=== PATIENT | female | born 1950 | race Caucasian/White ===

== ENCOUNTER 2019-08-09 16:51 | Inpatient (IN) | payer MEDICAID, SELFPAY ==
[2019-08-09 16:53] VITALS: BP 154/75; PULSE 84; RESP 17; TEMP 36.4; O2SAT 96; BMI 32.8
--- NOTE | 2019-08-09 17:39 | ED.DCSUM_ITS ---
- ER Visit Summary Date of Service: 08/09/19 Chief Complaint: Left lower quadrant abdominal pain History of Present Illness: The patient is a 69 F who presents with left lower quadrant abdominal pain that has been getting progressively worse over the past 2 months. Patient had outpatient CT scan done which showed diverticulitis with pelvic abscesses and possible colon cancer. Patient was referred to the emergency department by her primary care physician for IV antibiotics. Primary care physician did a CBC which showed a leukocytosis of 20. Patient states her pain improves with taking Pepto-Bismol. Patient states her pain is stabbing. Patient states pain is localized to the left lower quadrant. Patient denies any nausea or vomiting. Patient denies any diarrhea, melena, or hematochezia. Patient denies any urinary complaints. Physical Examination: Vital signs are stable. Patient is afebrile. Patient is in no acute distress. Oral mucosa is pink and moist. Neck is supple. Trachea is midline. There is no JVD noted. Heart was regular rate and rhythm. Lungs are clear and equal bilaterally. Abdomen is soft. Bowel sounds are normal. There is left lower quadrant tenderness. There is no rebound or guarding noted. Skin is warm dry. Cranial nerves II through XII are intact. There are no focal motor or sensory deficits noted. Extremities are intact. There is no calf tenderness or edema. Test Results: CBC shows leukocytosis of 14.8. Comprehensive metabolic profile was essentially within normal limits. Since the patient had an outpatient CT scan done today this was not repeated. Emergency Department Course and Treatment: Patient was given Cipro, Flagyl, and morphine here in the emergency department. Case was discussed with the hospitalist. He will be in to evaluate the patient and admit the patient to the hospital. Patient understood and was agreeable with the plan. All questions were answered. Disposition: Admit to hospital Impression: 1. Acute diverticulitis This note was generated with [employer] dictation software. It may contain incorrect words, spelling, and punctuation that were not noted in review of the chart prior to signing ED Disposition - Plan for ED Patient: Disposition: Acute Care Hospital [facility] Diagnosis: Diverticulitis Referrals: Fortunato Stephenson MD [Primary Care Provider] -
[2019-08-09] MEDS: Morphine 4 MG/ML Syringe IV ×2 (18:29→22:16)
[2019-08-09 18:32] LABS: ALB/GLOB Ratio 0.5 RATIO (0.9-2.4); AST(SGOT) 12 U/L (15-37); Alanine Aminotransfer ALT/SGPT 20 U/L (13-56); Alkaline Phosphatase 103 U/L (45-117); Anion Gap 6 (5-15); BUN 14 mg/dL (7-18); BUN/Creat Ratio 16.8 RATIO (10-20); Calcium,Total 9.5 mg/dL (8.5-10.1); Chloride 103 mmol/L (98-107); Creatinine, Serum 0.83 mg/dL (0.55-1.02); EST Glomerular Filtration Rate 72 mL/min (>60); Est Glom Filt Rate - Afr Amer 87 mL/min (>60); Estimated Creatinine Clearance 56.02 ml/min; Globulin 5.5 g/dL (2.2-4.2); Glucose 95 mg/dL (74-106); Potassium 3.9 mmol/L (3.5-5.1); Protein, Total 8.5 g/dL (6.4-8.2); Sodium Level 135 mmol/L (136-145)
[2019-08-09] MEDS: metroNIDAZOLE 500 MG/100 ML BAG 100 MG IV (18:36)
[2019-08-09] MEDS: Ciprofloxacin 400 MG/200 ML BAG 200 MG IV (20:06)
[2019-08-09 20:54] LABS: Absolute Lymphocyte Count 2.27 X10^3/uL (0.83-4.51); Absolute Neutrophil Count 11.3 X10^3/uL (2.0-7.7); Basophil# 0.05 X10^3/uL; Basophil% 0.3 % (0-1); Eosinophil# 0.05 X10^3/uL; Eosinophils% 0.3 % (0-5); Hematocrit 39.8 % (37-47); Hemoglobin 12.8 g/dL (12.0-15.0); Lymphocyte # 2.27 X10^3/ul (4.0); Lymphocyte % 15.3 % (19-41); Mean Corp Hgb Conc 32.2 g/dL (32-36); Mean Corpuscular Hgb 29.4 pg (27.0-32.0); Mean Corpuscular Volume 91.3 fL (81-99); Mean Platelet Vol. 8.4 fl (6.2-12.0); Monocyte# 1.07 X10^3/uL; Monocyte% 7.2 % (0-10); NRBC Flagged by Analyzer 0 % (0-5); Neutrophil # 11.32 X10^3/uL (2.7-7.7); Neutrophil % 76.6 % (47-70); Platelet Count 360 K/mm3 (150-450); RBC Distribution Width CV 12.3 % (11.6-14.6); RBC Distribution Width SD 41.2 fl (35.1-43.9); Red Blood Count 4.36 M/mm3 (4.2-5.4); White Blood Count 14.8 K/mm3 (4.4-11.0)
--- NOTE | 2019-08-09 21:02 | ED.RN ---
PT YELLING AT THIS RN, STATES YOU SHOULD BE ASHAMED OF YOURSELF FOR NOT BEING ABLE TO DO YOUR JOB AFTER DIFFICULT BLOOD DRAW. PT TELLS THIS RN TO LEAVE ROOM, REFUSES TO LET THIS RN OBTAIN VITALS. MULTIPLE ATTEMPTS TO DRAW BLOOD BY SEVERAL RNS INCLUDING REGISTERED NURSE NURSERY. EQUAL OPPORTUNITY REPRESENTATIVE IN TO DRAW WELL.
[2019-08-09 22:06] VITALS: BP 148/74; PULSE 91; RESP 16; O2SAT 96
--- NOTE | 2019-08-09 22:18 | PCM.HP.STD ---
Problem List (1) Diverticulitis Status: Acute History of Present Illness Date of Admission: 08/09/19 Chief Complaint: abdominal pain The patient is a 69 year old F with a significant history of asthma; hypothyroidism; hyperlipidemia and hypertension who presented with progressively worsening left lower quadrant abdominal pain that started about 2 to 3 days before 2018. The pain radiates to her back. The pain worsens with lying on her back. The pain improves with taking a hot tea; Pepto-Bismol or Aleve. Patient reports considerable night sweats. Patient was previously evaluated by a doctor/nurse practitioner outpatient and was given some kind of medication which she is unable to recall the exact name. Upon taking that medication she became nauseous. She was evaluated again recently by a doctor outpatient and a CT of her abdomen and pelvis was ordered. The CT of abdomen and pelvis showed probable diverticulitis with malignancy on the differential. She was sent to emergency department at the same day that she had the CT. Past Medical History Medical History: Medical History (Last Reviewed 08/10/19 @ 01:40 by Eugene Luevano MD) HTN (hypertension) I10 Allergies Penicillins Adverse Reaction (Verified 08/09/19 16:52) Unknown Home Medications: Ambulatory Orders Medication Instructions Recorded Albuterol Sulfate [Ventolin Hfa] 2 puff INHALATION Q4H PRN PRN 08/09/19 Amlodipine Besylate 2.5 mg PO DAILY 08/09/19 Levothyroxine [Synthroid] 88 mcg PO DAILY 08/09/19 Simvastatin [Zocor] 20 mg PO QHS 08/09/19 Surgical History: - - ; ankle surgery. Lives: With Family Smoking Status: Current some day smoker Alcohol: None - *Family History Maternal History Items: - - Mother from an aneurysm. Paternal History Items: - - Her father was alcoholic. Review of Systems Constitutional: Denies: Chills, Fever, Weight Change HEENT: Denies: Head Aches, Sinus Congestion, Sinus Drainage Cardiovascular: Denies: Chest Pain, Palpitations Respiratory: Denies: Cough, Shortness of breath at rest, Sputum production Gastrointestinal: Reports: Abdominal Pain, Nausea. Denies: Vomiting Genitourinary: Denies: Dysuria Musculoskeletal: Denies: Joint Pain, Joint Tenderness Skin: Denies: Rash, Wounds Neurological: Denies: Numbness, Tingling, Focal weakness Psychiatric: Denies: Anxiety, Depression, Homicidal Ideations, Suicidal Ideations Hematologic/ Lymphatic: Denies: Easy Bruising, Easy Bleeding VTE Information - Inpt Only VTE Present on Admission: No VTE Mechan Device Prophylaxis: None VTE Pharm Prophylaxis ordered?: Yes Patient Problems: Active and Suspected Problems (Last Updated 08/09/19 @ 22:57 by Eugene Luevano MD) Diverticulitis (Acute) - Physical Exam Vitals/I&O's: Vital Signs Temp Pulse Resp BP Pulse Ox 97.6 F L 91 16 148/74 H 96 08/09/19 16:53 08/09/19 22:06 08/09/19 22:06 08/09/19 22:06 08/09/19 22:06 Oxygen Delivery Method Room Air Weight: 86.6 kg Body Mass Index (BMI) 32.8 Intake and Output for Last 24 Hours 08/07/19 08/08/19 08/09/19 23:59 23:59 23:59 Intake Total 300 / 300 Balance 300 / 300 General: Alert, Oriented x3, Cooperative HEENT: Atraumatic, PERRLA, EOMI, Normocephalic Neck: Supple, No JVD, Negative Carotid Bruits Lungs: Clear to auscultation, Normal air movement Cardiovascular: Regular rate, Normal S1, Normal S2, No murmurs Abdomen: Bowel Sounds Present, Soft, Non Tender Extremities: No edema, Capillary Refill Less than 3 Seconds Skin: No rashes, No breakdown Musculoskeletal: No Tenderness to Palpation of Joints or Extremities Neurological: Cranial nerves II-XII grossly intact Psych/Mental Status: Normal Affect, Appropriate Laboratory Results 08/09/19 17:55: WBC Cancelled, Corrected WBC Cancelled, RBC Cancelled, Hgb Cancelled, Hct Cancelled, MCV Cancelled, MCH Cancelled, MCHC Cancelled, RDW Std Deviation Cancelled, RDW Coeff of Gin Cancelled, Plt Count Cancelled, MPV Cancelled, Immature Gran % (Auto) Cancelled, Neut % (Auto) Cancelled, Lymph % (Auto) Cancelled, [place] % (Auto) Cancelled, Eos % (Auto) Cancelled, Baso % (Auto) Cancelled, Absolute Neuts (auto) Cancelled, Absolute Lymphs (auto) Cancelled, Total Counted Cancelled, Neutrophils % (Manual) Cancelled, Band Neutrophils % Cancelled, Lymphocytes % (Manual) Cancelled, Monocytes % (Manual) Cancelled, Eosinophils % (Manual) Cancelled, Basophils % (Manual) Cancelled, Metamyelocytes % Cancelled, Myelocytes % Cancelled, Promyelocytes % Cancelled, Blast Cells % Cancelled, Plasma Cell % (Manual) Cancelled, Other Cells % Cancelled, Nucleated RBC % Cancelled, Nucleated RBCs/100 WBC Cancelled, Differential Comment Cancelled, Diff Path Review Cancelled, Hypersegmented Neuts Cancelled, Atypical Lymphocytes Cancelled, Reactive Lymphocytes Cancelled, Smudge Cells Cancelled, Toxic Granulation Cancelled, Toxic Vacuolation Cancelled, Dohle Bodies Cancelled, Ronel Rods Cancelled, Platelet Estimate Cancelled, Plt Morphology Comment Cancelled, RBC Morphology Cancelled, Polychromasia Cancelled, Hypochromasia Cancelled, Poikilocytosis Cancelled, Basophilic Stippling Cancelled, Anisocytosis Cancelled, Microcytosis Cancelled, Macrocytosis Cancelled, Spherocytes Cancelled, Sickle Cells Cancelled, Target Cells Cancelled, Tear Drop Cells Cancelled, Ovalocytes Cancelled, Stomatocytes Cancelled, [place] Bodies Cancelled, [place] Cells Cancelled, Bite Cells Cancelled, Crenated Cell Cancelled, Acanthocytes (Spur) Cancelled, Rouleaux Cancelled, Schistocytes Cancelled 08/09/19 17:55: Sodium 135 L, Potassium 3.9, Chloride 103, Carbon Dioxide 26.0, Anion Gap 6, BUN 14, Creatinine 0.83, Estim Creat Clear Calc 56.02, Est GFR (MDRD) Af Amer 87, Est GFR (MDRD) Non-Af 72, BUN/Creatinine Ratio 16.8, Glucose 95, Calcium 9.5, Total Bilirubin 0.40, AST 12 L, ALT 20, Alkaline Phosphatase 103, Total Protein 8.5 H, Albumin 3.0 L, Globulin 5.5 H, Albumin/Globulin Ratio 0.5 L 08/09/19 20:39: WBC 14.8 H, RBC 4.36, Hgb 12.8, Hct 39.8, MCV 91.3, MCH 29.4, MCHC 32.2, RDW Std Deviation 41.2, RDW Coeff of Gin 12.3, Plt Count 360, MPV 8.4, Immature Gran % (Auto) 0.300, Neut % (Auto) 76.6 H, Lymph % (Auto) 15.3 L, [place] % (Auto) 7.2, Eos % (Auto) 0.3, Baso % (Auto) 0.3, Absolute Neuts (auto) 11.3 H, Absolute Lymphs (auto) 2.27, Nucleated RBC % 0 Assessment/Plan All Active Problems (Last Updated 08/09/19 @ 22:57 by Eugene Luevano MD) Diverticulitis (Acute) The patient is a 69 year old F with a significant history of asthma; hypothyroidism; hyperlipidemia and hypertension who presented with progressively worsening left lower quadrant abdominal pain with radiographic evidence of probable diverticulitis and probable malignancy. Acute diverticulitis A CT of abdomen and pelvis with contrast was done at the [facility]. Results was reviewed in community EMR (clinic setting). Image is on disc at our hospital. Diagnosis is probable malignancy. Patient received ciprofloxacin and Flagyl at the emergency department. Continue same antibiotics. Consider referral for colonoscopy after diverticulitis has been treated. This was discussed with patient. Supportive treatment with IV fluids. Clear liquids for now. Trend CBC and BMP. Of note patient had leukocytosis outpatient and at the emergency department. Antiemetics with Zofran. Oxycodone for mild pain. Morphine IV for severe pain. Asthma PRN albuterol continued Hypothyroidism Levothyroxine continued HTN Blood pressure is not within goal. Amlodipine continued HLD Zocor continued DVT Prophylaxis Subcutaneous Lovenox Code Visit Inpatient E&M: 87585 Init Hosp L3
[2019-08-09 23:53] VITALS: BMI 31.6; BMI 31.7
[2019-08-09 23:55] VITALS: BP 120/48; PULSE 81; RESP 18; TEMP 37.4; O2SAT 97
[2019-08-10] MEDS: 0.9% Normal Saline 1,000 ML 75 ML IV (00:28)
[2019-08-10] MEDS: Atorvastatin Calcium 10 MG Tablet PO ×2 (00:40→22:30)
[2019-08-10] MEDS: 0.9% Saline Lock 10 ML Syringe IV ×4 (00:40→08:46)
[2019-08-10] MEDS: Morphine 2 MG/ML Syringe IV ×5 (01:58→17:31)
[2019-08-10 05:25] VITALS: BP 131/68; PULSE 92; RESP 16; TEMP 37.4; O2SAT 94
[2019-08-10] MEDS: Levothyroxine 88 MCG Tablet PO (05:30)
[2019-08-10] MEDS: metroNIDAZOLE 500 MG/100 ML BAG 100 MG IV ×3 (05:30→22:30)
[2019-08-10 05:46] LABS: Absolute Lymphocyte Count 1.99 X10^3/uL (0.83-4.51); Absolute Neutrophil Count 14.1 X10^3/uL (2.0-7.7); Basophil# 0.04 X10^3/uL; Basophil% 0.2 % (0-1); Eosinophil# 0.04 X10^3/uL; Eosinophils% 0.2 % (0-5); Hematocrit 38.8 % (37-47); Lymphocyte # 1.99 X10^3/ul (4.0); Lymphocyte % 11.3 % (19-41); Mean Corp Hgb Conc 33.5 g/dL (32-36); Mean Corpuscular Hgb 30.6 pg (27.0-32.0); Mean Corpuscular Volume 91.3 fL (81-99); Mean Platelet Vol. 8.3 fl (6.2-12.0); Monocyte# 1.38 X10^3/uL; Monocyte% 7.8 % (0-10); NRBC Flagged by Analyzer 0 % (0-5); Neutrophil # 14.14 X10^3/uL (2.7-7.7); Platelet Count 395 K/mm3 (150-450); RBC Distribution Width CV 12.3 % (11.6-14.6); Red Blood Count 4.25 M/mm3 (4.2-5.4); White Blood Count 17.7 K/mm3 (4.4-11.0)
[2019-08-10 06:10] LABS: Anion Gap 8 (5-15); BUN 11 mg/dL (7-18); BUN/Creat Ratio 12.5 RATIO (10-20); Calcium,Total 9.3 mg/dL (8.5-10.1); Chloride 102 mmol/L (98-107); Creatinine, Serum 0.88 mg/dL (0.55-1.02); EST Glomerular Filtration Rate 68 mL/min (>60); Est Glom Filt Rate - Afr Amer 82 mL/min (>60); Estimated Creatinine Clearance 52.84 ml/min; Glucose 105 mg/dL (74-106); Potassium 4.3 mmol/L (3.5-5.1); Sodium Level 134 mmol/L (136-145)
--- NOTE | 2019-08-10 09:24 | CON.PCM_ITS ---
- Consult Date of Consult: 08/10/19 - Reason for Consult CC abdominal pain, consulted by hospitalist service to see patient HISTORY OF PRESENT ILLNESS: Melvi Schmidt is a 69 y/o WF who presents with about 2 month history of left lower quadrant abdominal pain, worsening over time. She was admitted to hospitalist service with diagnosis of acute diverticulitis and noted to have elevated WBC 14.8K, yesterday and this morning it was 17.7K. CT scan - 08/09/2019 Timmy [facility] IMPRESSION: Long segmental sigmoid wall thickening, with colonic diverticula and adjacent soft tissue stranding/edema, raising concern for diverticulitis; however, underlying malignancy cannot be excluded. ?Other consideration would include colitis. Abscess formation in the mid and left pelvis. 1.4 cm low-attenuation lesion or cyst in the right kidney. Patient denies previous colonoscopic evaluation, has had stool guaiac tests in the past that were negative. No colon cancer or inflammatory bowel disease known in family. No previous episodes of diverticulitis. Has long history of constipation - having bowel movements every 2-3 days. She states that she doesn't let it get beyond four days and then she will take a laxative but this is rare. Does admit to straining with bowel movements at times. She states that she hasn't had a bowel movement in a week, but she hasn't eaten much in the past few days. Notes occasional blood on toilet paper and attributes this to hemorrhoids. She has been taking peptobismol for the past 6 weeks for her abdominal symptoms, her stools have been looser with this. PAST MEDICAL HISTORY ? Allergic rhinitis, cause unspecified 04/10/2005 ? Bipolar disorder, unspecified ([facility]) 04/10/2005 ? MANIC, SUICIDE ATTEMPT X1 ? Depressive disorder, not elsewhere classified 04/10/2005 ? MANIC, SUICIDE ATTEMPT X1 ? Herpes zoster without mention of complication ? ? Right scapula ? Impingement syndrome of right shoulder 05/09/2013 ? Other and unspecified hyperlipidemia 04/10/2005 ? POSTABLAT HYPOTHYR NEC 09/30/2005 ? Senile osteoporosis 04/10/2005 ? Thyrotoxicosis without mention of goiter or other cause, without mention of thyrotoxic crisis or storm 09/30/2005 ? Tobacco use disorder 04/10/2005 ? Unspecified asthma(493.90) 04/10/2005 ? PAST SURGICAL HISTORY ? DELIVERY ONLY ? 1972 ? , low cervical ? OPEN RX ANKLE DISLOCATN+FIXATN ? ? ORIF Ankle, Right ankle ? PAST SURGICAL HISTORY OF ? 1993 ? Left breast Lumpectomy, benign ? PAST SURGICAL HISTORY OF ? ? dental mandibular surgery ? TOTAL ABDOM HYSTERECTOMY ? 1997 ? Hysterectomy, SONIA ? ALLERGIES Penicillins ? MEDICATIONS albuterol HFA (VENTOLIN HFA) 90 mcg/actuation inhaler INHALE 2 PUFFS EVERY FOUR HOURS NEEDED FOR WHEEZING OR SHORTNESS OF BREATH beclomethasone (QVAR REDIHALER) 80 mcg/actuation inhaler Inhale 1 Puff as instructed twice daily. levothyroxine (SYNTHROID) 88 mcg tablet Take 1 tablet by mouth once daily. simvastatin (ZOCOR) 20 mg tablet Take 1 tablet by mouth daily at bedtime. amLODIPine (NORVASC) 2.5 mg tablet Take 1 tablet by mouth once daily. 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 EOM intact with sclera clear and no icterus noted. Neck is supple with no jugular venous distention noted. Trachea is midline. Lungs normal breath sounds No rales/rhonchi/wheezing noted. No labored breathing noted, such as retractions. No cough heard. Heart normal heart sounds, regular Abdomen soft and benign but tender in left lower quadrant, no rigidity noted, decreased bowel sounds, difficult to determine if any masses due to body habitus Extremities no calf tenderness noted. No pitting edema noted. Genitourinary/Rectal deferred Skin normal skin integrity. Neurological non focal. Psychological normal affect, patient is calm and appropriate IMPRESSION: acute diverticulitis PLAN: continue IV antibiotics, serial WBC, pain meds as you are doing Will advance to clear liquid diet will follow patient with you, no surgical intervention required at this time, further workup (colonoscopic evaluation) can be done as outpatient
--- NOTE | 2019-08-10 10:35 | CASEMGMT ---
RN CM Assessment Presentation: Acute Diverticulitis Intro role of CM and purpose of RN CM assessment to patient. Pt is awake, alert, sitting in chair. Appears anxious, constant leg tapping, short answers, but willing to participate in assessment. Demographics, PCP and Pharmacy verified. Pt states she lives independently with her son and daughter in law in mobile home. States she cuts grass, does housework and has no personal care needs. PCP: Dr. Stephenson Specialists: Dr. Owens, surgeon Preferred Pharmacy: [facility] Insurance: [facility] Community Plan Prescription Benefit: yes LNOK: SonCharles Living Arrangements: Mobile home with family. Denies any care needs. Transportation: does not drive. States she generally uses taxi service through insurance DME: none HHC/SNF: no history SW Referral: Possible new malignancy. History of Bipolar disorder, manic suicide attempt x 1. Pt anxioux, restless on conversation. Patient DC goals: home DC PLAN: anticipate home on discharge. Hakeem BLACK RN ACM
[2019-08-10 11:00] VITALS: BP 138/63; PULSE 90; RESP 18; TEMP 37.5; O2SAT 96
[2019-08-10] MEDS: Magnesium Hydroxide 30 ML UDC PO (11:05)
[2019-08-10] MEDS: Ciprofloxacin 400 MG/200 ML BAG 200 MG IV ×2 (11:05→21:13)
[2019-08-10] MEDS: amLODIPine 2.5 MG Tablet PO (11:09)
--- NOTE | 2019-08-10 12:14 | CASEMGMT ---
SW met w/pt in room to offer support, given new possible diagnosis. Pt states, there's nothing I can do about it! She states lost a sister and brother to cancer two chen ago. She herself has never had any diagnosis of cancer. SW asked pt about support system, pt states her son and daughter in law with whom she lives are very supportive and they get along well. She states, if we didn't get along I would move back to [place]! SW asked pt about counseling resources, pt declined, stating she is not a people person. SW let pt know if there is any way SW can assist, to let RN know and SW can come back to see her again. Pt states understanding. No further social service needs anticipated at this time. JOSE Win
--- NOTE | 2019-08-10 13:19 | PCM.PN.HOSP ---
Patient Problems: Active and Suspected Problems (Last Reviewed 08/10/19 @ 01:40 by Eugene Luevano MD) Diverticulitis (Acute) Reason for Visit: Follow-up on acute diverticulitis Subjective: Patient was seen and examined. She complains of severe pain in the left lower quadrant. Denies any fever or chills. Able to tolerate sips of water. Requests for advancement in her diet. She admits to being constipated and having had a bowel movement she has been taking Pepto-Bismol which seems to help with her abdominal pain. Vitals/I&O's: Vital Signs Temp Pulse Resp BP Pulse Ox 99.3 F H 92 16 131/68 H 94 08/10/19 05:25 08/10/19 05:25 08/10/19 05:25 08/10/19 05:25 08/10/19 05:25 Oxygen Delivery Method Room Air Weight: 85 kg Body Mass Index (BMI) 31.6 Intake and Output for Last 24 Hours 08/08/19 08/09/19 08/10/19 23:59 23:59 23:59 Intake Total 300 / 300 1360.0 / 1360.0 Output Total 400 / 400 Balance 300 / 300 960.0 / 960.0 General: Alert, Oriented x3, Cooperative, - - in mild distress from pain HEENT: Atraumatic, PERRLA, EOMI, Normocephalic Oral: Moist Mucosa Neck: Supple Lungs: Clear to auscultation, Normal air movement Cardiovascular: Regular rate, Regular Rhythm, Normal S1, Normal S2, No murmurs Abdomen: Bowel Sounds Present, Soft, Non Tender, Non-Distended, No Hepato-splenomegaly Extremities: No edema Skin: No rashes, No breakdown Musculoskeletal: No Tenderness to Palpation of Joints or Extremities Lymphatic: No Cervical, Supraclavicular, or Inguinal Adenopathy Neurological: Cranial nerves II-XII grossly intact, Neuro grossly intact Psych/Mental Status: Normal Affect, Appropriate Laboratory Results 08/09/19 17:55: WBC Cancelled, Corrected WBC Cancelled, RBC Cancelled, Hgb Cancelled, Hct Cancelled, MCV Cancelled, MCH Cancelled, MCHC Cancelled, RDW Std Deviation Cancelled, RDW Coeff of Gin Cancelled, Plt Count Cancelled, MPV Cancelled, Immature Gran % (Auto) Cancelled, Neut % (Auto) Cancelled, Lymph % (Auto) Cancelled, [place] % (Auto) Cancelled, Eos % (Auto) Cancelled, Baso % (Auto) Cancelled, Absolute Neuts (auto) Cancelled, Absolute Lymphs (auto) Cancelled, Total Counted Cancelled, Neutrophils % (Manual) Cancelled, Band Neutrophils % Cancelled, Lymphocytes % (Manual) Cancelled, Monocytes % (Manual) Cancelled, Eosinophils % (Manual) Cancelled, Basophils % (Manual) Cancelled, Metamyelocytes % Cancelled, Myelocytes % Cancelled, Promyelocytes % Cancelled, Blast Cells % Cancelled, Plasma Cell % (Manual) Cancelled, Other Cells % Cancelled, Nucleated RBC % Cancelled, Nucleated RBCs/100 WBC Cancelled, Differential Comment Cancelled, Diff Path Review Cancelled, Hypersegmented Neuts Cancelled, Atypical Lymphocytes Cancelled, Reactive Lymphocytes Cancelled, Smudge Cells Cancelled, Toxic Granulation Cancelled, Toxic Vacuolation Cancelled, Dohle Bodies Cancelled, Ronel Rods Cancelled, Platelet Estimate Cancelled, Plt Morphology Comment Cancelled, RBC Morphology Cancelled, Polychromasia Cancelled, Hypochromasia Cancelled, Poikilocytosis Cancelled, Basophilic Stippling Cancelled, Anisocytosis Cancelled, Microcytosis Cancelled, Macrocytosis Cancelled, Spherocytes Cancelled, Sickle Cells Cancelled, Target Cells Cancelled, Tear Drop Cells Cancelled, Ovalocytes Cancelled, Stomatocytes Cancelled, [place] Bodies Cancelled, [place] Cells Cancelled, Bite Cells Cancelled, Crenated Cell Cancelled, Acanthocytes (Spur) Cancelled, Rouleaux Cancelled, Schistocytes Cancelled 08/09/19 17:55: Sodium 135 L, Potassium 3.9, Chloride 103, Carbon Dioxide 26.0, Anion Gap 6, BUN 14, Creatinine 0.83, Estim Creat Clear Calc 56.02, Est GFR (MDRD) Af Amer 87, Est GFR (MDRD) Non-Af 72, BUN/Creatinine Ratio 16.8, Glucose 95, Calcium 9.5, Total Bilirubin 0.40, AST 12 L, ALT 20, Alkaline Phosphatase 103, Total Protein 8.5 H, Albumin 3.0 L, Globulin 5.5 H, Albumin/Globulin Ratio 0.5 L 08/09/19 20:39: WBC 14.8 H, RBC 4.36, Hgb 12.8, Hct 39.8, MCV 91.3, MCH 29.4, MCHC 32.2, RDW Std Deviation 41.2, RDW Coeff of Gin 12.3, Plt Count 360, MPV 8.4, Immature Gran % (Auto) 0.300, Neut % (Auto) 76.6 H, Lymph % (Auto) 15.3 L, [place] % (Auto) 7.2, Eos % (Auto) 0.3, Baso % (Auto) 0.3, Absolute Neuts (auto) 11.3 H, Absolute Lymphs (auto) 2.27, Nucleated RBC % 0 08/10/19 05:35: WBC 17.7 H, RBC 4.25, Hgb 13.0, Hct 38.8, MCV 91.3, MCH 30.6, MCHC 33.5, RDW Std Deviation 41.0, RDW Coeff of Gin 12.3, Plt Count 395, MPV 8.3, Immature Gran % (Auto) 0.500, Neut % (Auto) 80.0 H, Lymph % (Auto) 11.3 L, [place] % (Auto) 7.8, Eos % (Auto) 0.2, Baso % (Auto) 0.2, Absolute Neuts (auto) 14.1 H, Absolute Lymphs (auto) 1.99, Nucleated RBC % 0 08/10/19 05:35: Sodium 134 L, Potassium 4.3, Chloride 102, Carbon Dioxide 24.0, Anion Gap 8, BUN 11, Creatinine 0.88, Estim Creat Clear Calc 52.84, Est GFR (MDRD) Af Amer 82, Est GFR (MDRD) Non-Af 68, BUN/Creatinine Ratio 12.5, Glucose 105, Calcium 9.3 Current Medications Albuterol Sulfate (Ventolin Aerosols) 2.5 mg INHALATION Q2H PRN PRN PRN Reason: sob/wheezing Amlodipine Besylate (Norvasc) 2.5 mg PO DAILY [facility] Last Admin: 08/10/19 11:09 Dose: 2.5 mg Documented by: Atorvastatin Calcium (Lipitor) 10 mg PO QHS [facility] Last Admin: 08/10/19 00:40 Dose: 10 mg Documented by: Enoxaparin Sodium (Lovenox) 40 mg SC DAILY [facility] Last Admin: 08/10/19 11:07 Dose: Not Given Documented by: Glucagon () 1 mg IM .X1 PRN PRN Reason: Hypoglycemia Sodium Chloride () 1,000 mls @ 75 mls/hr IV .[id number] [facility] Last Infusion: 08/10/19 10:00 Dose: 0 mls/hr Documented by: Metronidazole (Flagyl) 500 mg in 100 mls @ 100 mls/hr IV Q8 [facility] Last Infusion: 08/10/19 06:30 Dose: Infused Documented by: Ciprofloxacin (Cipro) 400 mg in 200 mls @ 200 mls/hr IV Q12 [facility] Last Admin: 08/10/19 11:05 Dose: 200 mls/hr Documented by: Dextrose (Dextrose 10%-Water) 250 mls @ 999 mls/hr IV .Q16M PRN; Protocol PRN Reason: HYPOGLYCEMIA Sodium Chloride () 250 mls @ 15 mls/hr IV .[id number] PRN PRN Reason: Saline Flush Sodium Chloride () 250 mls @ 15 mls/hr IV .[id number] PRN PRN Reason: Additional IVPB Infusion Levothyroxine Sodium (Synthroid) 88 mcg PO DAILY@0600 [facility] Last Admin: 08/10/19 05:30 Dose: 88 mcg Documented by: Morphine Sulfate () 2 mg IV Q3H PRN PRN PRN Reason: Pain Score 6-10/10 Last Admin: 08/10/19 08:46 Dose: 2 mg Documented by: Ondansetron HCl (Zofran) 4 mg IV Q8H PRN PRN PRN Reason: NAUSEA/VOMITING Oxycodone HCl (Oxyir) 5 mg PO Q4H PRN PRN PRN Reason: Pain Score 4-5/10 Sodium Chloride () 10 - 40 ml IV UD PRN PRN Reason: SALINE FLUSH Last Admin: 08/10/19 08:46 Dose: 10 ml Documented by: Medical Necessity - Tobacco Use Smoking Status: Former smoker Tobacco Use: Non-smoker Assessment/Plan All Active Problems (Last Reviewed 08/10/19 @ 01:40 by Eugene Luevano MD) Diverticulitis (Acute) 1. Acute diverticulitis with abscess formation in the mid and left pelvis, seen on CT scan yas in [facility] On IV Cipro and Flagyl, being managed conservatively with supportive fluids too 2. Hypertension, controlled, continue on amlodipine 3. Hypothyroidism, continue on Synthroid 4. Hyperlipidemia, continue on statin 5. DVT PPx- Lovenox SC Code Visit Inpatient E&M: 07858 Subs Hosp L2
[2019-08-10 17:29] VITALS: BP 148/61; PULSE 102; RESP 18; TEMP 38.3; O2SAT 95
[2019-08-10] MEDS: 0.9% Normal Saline 1,000 ML 125 ML IV (18:06)
[2019-08-10] MEDS: Acetaminophen 325 MG Tablet 650 MG PO (18:07)
[2019-08-10] MEDS: oxyCODONE 5 MG Tablet PO (21:24)
[2019-08-10 22:30] VITALS: BP 110/58; PULSE 79; RESP 18; TEMP 37.3; O2SAT 95
[2019-08-11] MEDS: 0.9% Saline Lock 10 ML Syringe IV ×3 (00:32→08:51)
[2019-08-11] MEDS: Morphine 2 MG/ML Syringe IV ×6 (00:32→23:52)
[2019-08-11] MEDS: oxyCODONE 5 MG Tablet PO ×5 (02:35→18:11)
[2019-08-11] MEDS: 0.9% Normal Saline 1,000 ML 125 ML IV (02:36)
[2019-08-11 05:46] LABS: Absolute Lymphocyte Count 2.25 X10^3/uL (0.83-4.51); Absolute Neutrophil Count 12.4 X10^3/uL (2.0-7.7); Basophil# 0.04 X10^3/uL; Basophil% 0.2 % (0-1); Eosinophil# 0.07 X10^3/uL; Eosinophils% 0.4 % (0-5); Hematocrit 38.8 % (37-47); Hemoglobin 12.7 g/dL (12.0-15.0); Lymphocyte # 2.25 X10^3/ul (4.0); Mean Corp Hgb Conc 32.7 g/dL (32-36); Mean Corpuscular Hgb 30.1 pg (27.0-32.0); Mean Corpuscular Volume 91.9 fL (81-99); Mean Platelet Vol. 8.2 fl (6.2-12.0); Monocyte% 8.1 % (0-10); NRBC Flagged by Analyzer 0 % (0-5); Neutrophil # 12.37 X10^3/uL (2.7-7.7); Neutrophil % 76.7 % (47-70); Platelet Count 385 K/mm3 (150-450); RBC Distribution Width CV 12.4 % (11.6-14.6); RBC Distribution Width SD 41.3 fl (35.1-43.9); Red Blood Count 4.22 M/mm3 (4.2-5.4); White Blood Count 16.1 K/mm3 (4.4-11.0)
[2019-08-11] MEDS: Levothyroxine 88 MCG Tablet PO (05:50)
[2019-08-11] MEDS: metroNIDAZOLE 500 MG/100 ML BAG 100 MG IV ×3 (05:53→23:46)
[2019-08-11 06:00] VITALS: BP 117/46; PULSE 84; RESP 16; TEMP 37.8; O2SAT 92
[2019-08-11 06:20] LABS: ALB/GLOB Ratio 0.5 RATIO (0.9-2.4); AST(SGOT) 15 U/L (15-37); Alanine Aminotransfer ALT/SGPT 15 U/L (13-56); Albumin, Serum 2.5 g/dL (3.2-5.0); Alkaline Phosphatase 94 U/L (45-117); Anion Gap 9 (5-15); BUN 10 mg/dL (7-18); BUN/Creat Ratio 11.3 RATIO (10-20); Chloride 101 mmol/L (98-107); Creatinine, Serum 0.89 mg/dL (0.55-1.02); EST Glomerular Filtration Rate 67 mL/min (>60); Est Glom Filt Rate - Afr Amer 81 mL/min (>60); Estimated Creatinine Clearance 52.24 ml/min; Globulin 5.2 g/dL (2.2-4.2); Glucose 92 mg/dL (74-106); Potassium 4.1 mmol/L (3.5-5.1); Protein, Total 7.7 g/dL (6.4-8.2); Sodium Level 135 mmol/L (136-145)
--- NOTE | 2019-08-11 07:30 | PCM.PN.HOSP ---
Patient Problems: Active and Suspected Problems (Last Reviewed 08/10/19 @ 01:40 by Eugene Luevano MD) Diverticulitis (Acute) Reason for Visit: Follow-up on acute diverticulitis/pelvic abscess Subjective: Patient was seen and examined. She is feeling mildly improved. Had 2 bowel movement yesterday -black in color. She thinks it is from the Pepto-Bismol. She is running a low-grade fever; T-max 101F. Denies any nausea or vomiting or chills. Abdominal pain is improved when she gets pain medications. Objective: Physical exam: General: Alert, Oriented x3, Cooperative HEENT: Atraumatic, PERRLA, EOMI, Normocephalic Oral: Moist Mucosa Neck: Supple Lungs: Clear to auscultation, Normal air movement Cardiovascular: Regular rate, Regular Rhythm, Normal S1, Normal S2, No murmurs Abdomen: Bowel Sounds Present, Soft, tenderness over the left lower quadrant with guarding, non-Distended, No Hepato-splenomegaly Extremities: No edema Skin: No rashes, No breakdown Musculoskeletal: No Tenderness to Palpation of Joints or Extremities Lymphatic: No Cervical, Supraclavicular, or Inguinal Adenopathy Neurological: Cranial nerves II-XII grossly intact, Neuro grossly intact Psych/Mental Status: Normal Affect, Appropriate Vitals/I&O's: Vital Signs Temp Pulse Resp BP Pulse Ox 100.0 F H 84 16 117/46 L 92 08/11/19 06:00 08/11/19 06:00 08/11/19 06:00 08/11/19 06:00 08/11/19 06:00 Oxygen Delivery Method Room Air Weight: 85 kg Body Mass Index (BMI) 31.6 Intake and Output for Last 24 Hours 08/09/19 08/10/19 08/11/19 23:59 23:59 23:59 Intake Total 300 / 300 2720.00 / 3020.00 190 / 1900 Output Total 1000 / 1000 Balance 300 / 300 1720.00 / 2020.00 [id number] Laboratory Results 08/11/19 05:30: WBC 16.1 H, RBC 4.22, Hgb 12.7, Hct 38.8, MCV 91.9, MCH 30.1, MCHC 32.7, RDW Std Deviation 41.3, RDW Coeff of Gin 12.4, Plt Count 385, MPV 8.2, Immature Gran % (Auto) 0.600, Neut % (Auto) 76.7 H, Lymph % (Auto) 14.0 L, [place] % (Auto) 8.1, Eos % (Auto) 0.4, Baso % (Auto) 0.2, Absolute Neuts (auto) 12.4 H, Absolute Lymphs (auto) 2.25, Nucleated RBC % 0 08/11/19 05:30: Sodium 135 L, Potassium 4.1, Chloride 101, Carbon Dioxide 25.0, Anion Gap 9, BUN 10, Creatinine 0.89, Estim Creat Clear Calc 52.24, Est GFR (MDRD) Af Amer 81, Est GFR (MDRD) Non-Af 67, BUN/Creatinine Ratio 11.3, Glucose 92, Calcium 9.0, Total Bilirubin 0.50, AST 15, ALT 15, Alkaline Phosphatase 94, Total Protein 7.7, Albumin 2.5 L, Globulin 5.2 H, Albumin/Globulin Ratio 0.5 L Current Medications Acetaminophen (Tylenol) 650 mg PO Q6H PRN PRN PRN Reason: FEVER Last Admin: 08/10/19 18:07 Dose: 650 mg Documented by: Albuterol Sulfate (Ventolin Aerosols) 2.5 mg INHALATION Q2H PRN PRN PRN Reason: sob/wheezing Amlodipine Besylate (Norvasc) 2.5 mg PO DAILY [facility] Last Admin: 08/10/19 11:09 Dose: 2.5 mg Documented by: Atorvastatin Calcium (Lipitor) 10 mg PO QHS [facility] Last Admin: 08/10/19 22:30 Dose: 10 mg Documented by: Enoxaparin Sodium (Lovenox) 40 mg SC DAILY [facility] Last Admin: 08/10/19 11:07 Dose: Not Given Documented by: Glucagon () 1 mg IM .X1 PRN PRN Reason: Hypoglycemia Sodium Chloride () 1,000 mls @ 125 mls/hr IV .Q8H [facility] Last Infusion: 08/11/19 06:12 Dose: 0 mls/hr Documented by: Metronidazole (Flagyl) 500 mg in 100 mls @ 100 mls/hr IV Q8 [facility] Last Admin: 08/11/19 05:53 Dose: 100 mls/hr Documented by: Ciprofloxacin (Cipro) 400 mg in 200 mls @ 200 mls/hr IV Q12 [facility] Last Infusion: 08/10/19 22:16 Dose: Infused Documented by: Dextrose (Dextrose 10%-Water) 250 mls @ 999 mls/hr IV .Q16M PRN; Protocol PRN Reason: HYPOGLYCEMIA Sodium Chloride () 250 mls @ 15 mls/hr IV .[id number] PRN PRN Reason: Saline Flush Sodium Chloride () 250 mls @ 15 mls/hr IV .[id number] PRN PRN Reason: Additional IVPB Infusion Levothyroxine Sodium (Synthroid) 88 mcg PO DAILY@0600 [facility] Last Admin: 08/11/19 05:50 Dose: 88 mcg Documented by: Morphine Sulfate () 2 mg IV Q3H PRN PRN PRN Reason: Pain Score 6-10/10 Last Admin: 08/11/19 05:50 Dose: 2 mg Documented by: Nutritional Formula (Lactose Free) (Ensure Clear) 120 ml PO 4X/DAY [facility] Ondansetron HCl (Zofran) 4 mg IV Q8H PRN PRN PRN Reason: NAUSEA/VOMITING Oxycodone HCl (Oxyir) 5 mg PO Q4H PRN PRN PRN Reason: Pain Score 4-5/10 Last Admin: 08/11/19 02:35 Dose: 5 mg Documented by: Senna/Docusate Sodium (Senokot-S, Dottie-Colace) 2 tablet PO BID PRN PRN Reason: Constipation Sodium Chloride () 10 - 40 ml IV UD PRN PRN Reason: SALINE FLUSH Last Admin: 08/11/19 05:50 Dose: 10 ml Documented by: STROKE Vital Signs/Narrative: Vital Signs Temp Pulse Resp BP Pulse Ox 08/11/19 06:00 100.0 F H 84 16 117/46 L 92 Medical Necessity - Tobacco Use Smoking Status: Former smoker Tobacco Use: Non-smoker Assessment/Plan All Active Problems (Last Reviewed 08/10/19 @ 01:40 by Eugene Luevano MD) Diverticulitis (Acute) 1. Acute diverticulitis with abscess formation in the mid and left pelvis, clinically remains the same On conservative management with IV Cipro and Flagyl, pain Meds and supportive fluids General surgery consulted - appreciate recommendations; patient will follow-up in the outpatient. 2. Hypertension, controlled, continue on amlodipine 3. Hypothyroidism, continue on Synthroid 4. Hyperlipidemia, continue on statin 5. DVT PPx- Lovenox SC Code Visit Inpatient E&M: 78815 Subs Hosp L2
[2019-08-11] MEDS: amLODIPine 2.5 MG Tablet PO (08:58)
[2019-08-11 09:00] VITALS: BP 134/77; PULSE 101; RESP 18; TEMP 37.5; O2SAT 94
[2019-08-11] MEDS: Ensure Clear 120 ML Liquid PO ×2 (09:00→22:06)
[2019-08-11] MEDS: Ciprofloxacin 400 MG/200 ML BAG 200 MG IV ×2 (09:01→22:00)
--- NOTE | 2019-08-11 12:50 | PN.SURG_ITS ---
Patient Problems: Active and Suspected Problems (Last Reviewed 08/10/19 @ 01:40 by Eugene Luevano MD) Diverticulitis (Acute) Subjective: Patient states that she feels improved, however, still with tender abdomen - Physical Exam Vitals/I&O's: Vital Signs Temp Pulse Resp BP Pulse Ox 99.5 F H 101 H 18 134/77 H 94 08/11/19 09:00 08/11/19 09:00 08/11/19 09:00 08/11/19 09:00 08/11/19 09:00 Oxygen Delivery Method Room Air Weight: 85 kg Body Mass Index (BMI) 31.6 Intake and Output for Last 24 Hours 08/09/19 08/10/19 08/11/19 23:59 23:59 23:59 Intake Total 300 / 300 2720.00 / 3020.00 2462.92 / 2462.92 Output Total 1000 / 1000 Balance 300 / 300 1720.00 / 2020.00 2462.92 / 2462.92 General: Alert, Oriented x3 Oral: Moist Mucosa Neck: Supple Lungs: Normal air movement Abdomen: Soft - tender in left lower quadrant but less than yesterday Laboratory Results 08/11/19 05:30: WBC 16.1 H, RBC 4.22, Hgb 12.7, Hct 38.8, MCV 91.9, MCH 30.1, MCHC 32.7, RDW Std Deviation 41.3, RDW Coeff of Gin 12.4, Plt Count 385, MPV 8.2, Immature Gran % (Auto) 0.600, Neut % (Auto) 76.7 H, Lymph % (Auto) 14.0 L, [place] % (Auto) 8.1, Eos % (Auto) 0.4, Baso % (Auto) 0.2, Absolute Neuts (auto) 12.4 H, Absolute Lymphs (auto) 2.25, Nucleated RBC % 0 08/11/19 05:30: Sodium 135 L, Potassium 4.1, Chloride 101, Carbon Dioxide 25.0, Anion Gap 9, BUN 10, Creatinine 0.89, Estim Creat Clear Calc 52.24, Est GFR (MDRD) Af Amer 81, Est GFR (MDRD) Non-Af 67, BUN/Creatinine Ratio 11.3, Glucose 92, Calcium 9.0, Total Bilirubin 0.50, AST 15, ALT 15, Alkaline Phosphatase 94, Total Protein 7.7, Albumin 2.5 L, Globulin 5.2 H, Albumin/Globulin Ratio 0.5 L Current Medications Acetaminophen (Tylenol) 650 mg PO Q6H PRN PRN PRN Reason: FEVER Last Admin: 08/10/19 18:07 Dose: 650 mg Documented by: Albuterol Sulfate (Ventolin Aerosols) 2.5 mg INHALATION Q2H PRN PRN PRN Reason: sob/wheezing Amlodipine Besylate (Norvasc) 2.5 mg PO DAILY [facility] Last Admin: 08/11/19 08:58 Dose: 2.5 mg Documented by: Atorvastatin Calcium (Lipitor) 10 mg PO QHS [facility] Last Admin: 08/10/19 22:30 Dose: 10 mg Documented by: Enoxaparin Sodium (Lovenox) 40 mg SC DAILY [facility] Last Admin: 08/11/19 08:50 Dose: Not Given Documented by: Glucagon () 1 mg IM .X1 PRN PRN Reason: Hypoglycemia Sodium Chloride () 1,000 mls @ 75 mls/hr IV .[id number] [facility] Last Infusion: 08/11/19 10:01 Dose: 75 mls/hr Documented by: Metronidazole (Flagyl) 500 mg in 100 mls @ 100 mls/hr IV Q8 [facility] Last Infusion: 08/11/19 06:53 Dose: Infused Documented by: Ciprofloxacin (Cipro) 400 mg in 200 mls @ 200 mls/hr IV Q12 [facility] Last Infusion: 08/11/19 10:01 Dose: Infused Documented by: Dextrose (Dextrose 10%-Water) 250 mls @ 999 mls/hr IV .Q16M PRN; Protocol PRN Reason: HYPOGLYCEMIA Sodium Chloride () 250 mls @ 15 mls/hr IV .[id number] PRN PRN Reason: Saline Flush Sodium Chloride () 250 mls @ 15 mls/hr IV .[id number] PRN PRN Reason: Additional IVPB Infusion Levothyroxine Sodium (Synthroid) 88 mcg PO DAILY@0600 [facility] Last Admin: 08/11/19 05:50 Dose: 88 mcg Documented by: Morphine Sulfate () 2 mg IV Q3H PRN PRN PRN Reason: Pain Score 6-10/10 Last Admin: 08/11/19 11:45 Dose: 2 mg Documented by: Nutritional Formula (Lactose Free) (Ensure Clear) 120 ml PO 4X/DAY [facility] Last Admin: 08/11/19 09:00 Dose: 120 ml Documented by: Ondansetron HCl (Zofran) 4 mg IV Q8H PRN PRN PRN Reason: NAUSEA/VOMITING Oxycodone HCl (Oxyir) 5 mg PO Q4H PRN PRN PRN Reason: Pain Score 1-10/10 Last Admin: 08/11/19 09:00 Dose: 5 mg Documented by: Senna/Docusate Sodium (Senokot-S, Dottie-Colace) 2 tablet PO BID PRN PRN Reason: Constipation Sodium Chloride () 10 - 40 ml IV UD PRN PRN Reason: SALINE FLUSH Last Admin: 08/11/19 08:51 Dose: 10 ml Documented by: Medical Necessity - Tobacco Use Smoking Status: Former smoker Tobacco Use: Non-smoker Assessment/Plan All Active Problems (Last Reviewed 08/10/19 @ 01:40 by Eugene Luevano MD) Diverticulitis (Acute) Impression: acute diverticulitis Plan: continue present therapy, I suspect she would need at least another night of IV antibiotics, will reassess status tomorrow
[2019-08-11] MEDS: 0.9% Normal Saline 1,000 ML 75 ML IV (15:26)
[2019-08-11 15:30] VITALS: BP 132/63; PULSE 91; RESP 16; TEMP 36.9; O2SAT 94
[2019-08-11 20:18] VITALS: BP 131/66; PULSE 99; RESP 20; TEMP 38.1; O2SAT 95
[2019-08-11] MEDS: Acetaminophen 325 MG Tablet 650 MG PO (22:00)
[2019-08-11] MEDS: Atorvastatin Calcium 10 MG Tablet PO (22:01)
[2019-08-11] MEDS: oxyCODONE 5 MG Tablet 10 MG PO (22:01)
[2019-08-11 23:46] VITALS: TEMP 36.6
[2019-08-12 02:06] VITALS: BP 111/58; PULSE 72; RESP 16; TEMP 36.7; O2SAT 92
[2019-08-12] MEDS: oxyCODONE 5 MG Tablet 10 MG PO ×5 (02:09→21:34)
[2019-08-12] MEDS: Morphine 2 MG/ML Syringe IV ×5 (05:09→23:48)
[2019-08-12] MEDS: metroNIDAZOLE 500 MG/100 ML BAG 100 MG IV ×3 (05:09→22:54)
[2019-08-12] MEDS: Levothyroxine 88 MCG Tablet PO (05:09)
[2019-08-12] MEDS: 0.9% Normal Saline 1,000 ML 75 ML IV (07:45)
[2019-08-12 07:46] VITALS: BP 115/53; PULSE 96; RESP 18; TEMP 37.6; O2SAT 94
[2019-08-12] MEDS: amLODIPine 2.5 MG Tablet PO (07:51)
[2019-08-12 08:00] VITALS: PULSE 96
[2019-08-12] MEDS: Ensure Clear 120 ML Liquid PO ×3 (09:39→16:42)
[2019-08-12] MEDS: Ciprofloxacin 400 MG/200 ML BAG 200 MG IV ×2 (09:40→21:26)
[2019-08-12] MEDS: 0.9% Saline Lock 10 ML Syringe IV ×3 (09:40→19:17)
--- NOTE | 2019-08-12 09:51 | NURSING ---
Pt is refusing Lovenox again today. This nurse informed Dr. Smith. Dr. Smith talked with pt about it and pt wants to talk to son if she should take it or not but as of right now pt is refusing it.
--- NOTE | 2019-08-12 11:46 | PCM.PN.HOSP ---
Patient Problems: Active and Suspected Problems (Last Reviewed 08/10/19 @ 01:40 by Eugene Luevano MD) Diverticulitis (Acute) Reason for Visit: Follow-up on acute diverticulitis Subjective: Patient seen and examined. Complains of severe pain in the left lower quadrant. Her heart bowel movements last night which were dark, nonbloody, nonmucoid. Denies any subjective fever or chills. Still has low-grade fever. Feels hungry. Objective: Physical exam: General: Alert, Oriented x3, Cooperative HEENT: Atraumatic, PERRLA, EOMI, Normocephalic Oral: Moist Mucosa Neck: Supple Lungs: Clear to auscultation, Normal air movement Cardiovascular: Regular rate, Regular Rhythm, Normal S1, Normal S2, No murmurs Abdomen: Bowel Sounds Present, Soft, tenderness over the left lower quadrant with guarding, non-Distended, No Hepato-splenomegaly Extremities: No edema Skin: No rashes, No breakdown Musculoskeletal: No Tenderness to Palpation of Joints or Extremities Lymphatic: No Cervical, Supraclavicular, or Inguinal Adenopathy Neurological: Cranial nerves II-XII grossly intact, Neuro grossly intact Psych/Mental Status: Normal Affect, Appropriate Vitals/I&O's: Vital Signs Temp Pulse Resp BP Pulse Ox 99.7 F H 96 18 115/53 L 94 08/12/19 07:46 08/12/19 08:00 08/12/19 07:46 08/12/19 07:46 08/12/19 07:46 Oxygen Delivery Method Room Air Weight: 85 kg Body Mass Index (BMI) 31.6 Intake and Output for Last 24 Hours 08/10/19 08/11/19 08/12/19 23:59 23:59 23:59 Intake Total 2720.00 / 3020.00 4447.50 / 4447.50 946.25 / 946.25 Output Total 1000 / 1000 Balance 1720.00 / 2020.00 4447.50 / 4447.50 946.25 / 946.25 Microbiology Past 72 Hours 08/09/19 18:25 Blood Culture (Wb) - Left Hand Blood Culture - Preliminary No growth in 48 hours. 08/09/19 17:55 Blood Culture (Wb) - Anticubital Left Blood Culture - Preliminary No growth in 48 hours. Current Medications Acetaminophen (Tylenol) 650 mg PO Q6H PRN PRN PRN Reason: FEVER Last Admin: 08/11/19 22:00 Dose: 650 mg Documented by: Albuterol Sulfate (Ventolin Aerosols) 2.5 mg INHALATION Q2H PRN PRN PRN Reason: sob/wheezing Amlodipine Besylate (Norvasc) 2.5 mg PO DAILY [facility] Last Admin: 08/12/19 07:51 Dose: 2.5 mg Documented by: Atorvastatin Calcium (Lipitor) 10 mg PO QHS [facility] Last Admin: 08/11/19 22:01 Dose: 10 mg Documented by: Enoxaparin Sodium (Lovenox) 40 mg SC DAILY [facility] Last Admin: 08/12/19 09:35 Dose: Not Given Documented by: Glucagon () 1 mg IM .X1 PRN PRN Reason: Hypoglycemia Sodium Chloride () 1,000 mls @ 75 mls/hr IV .[id number] [facility] Last Infusion: 08/12/19 09:40 Dose: 0 mls/hr Documented by: Metronidazole (Flagyl) 500 mg in 100 mls @ 100 mls/hr IV Q8 [facility] Last Infusion: 08/12/19 06:11 Dose: Infused Documented by: Ciprofloxacin (Cipro) 400 mg in 200 mls @ 200 mls/hr IV Q12 [facility] Last Admin: 08/12/19 09:40 Dose: 200 mls/hr Documented by: Dextrose (Dextrose 10%-Water) 250 mls @ 999 mls/hr IV .Q16M PRN; Protocol PRN Reason: HYPOGLYCEMIA Sodium Chloride () 250 mls @ 15 mls/hr IV .[id number] PRN PRN Reason: Saline Flush Sodium Chloride () 250 mls @ 15 mls/hr IV .[id number] PRN PRN Reason: Additional IVPB Infusion Levothyroxine Sodium (Synthroid) 88 mcg PO DAILY@0600 [facility] Last Admin: 08/12/19 05:09 Dose: 88 mcg Documented by: Morphine Sulfate () 2 mg IV Q3H PRN PRN PRN Reason: Pain Score 6-10/10 Last Admin: 08/12/19 09:34 Dose: 2 mg Documented by: Nutritional Formula (Lactose Free) (Ensure Clear) 120 ml PO 4X/DAY [facility] Last Admin: 08/12/19 09:39 Dose: 120 ml Documented by: Ondansetron HCl (Zofran) 4 mg IV Q8H PRN PRN PRN Reason: NAUSEA/VOMITING Oxycodone HCl (Oxyir) 10 mg PO Q4H PRN PRN PRN Reason: Pain Score 1-10/10 Last Admin: 08/12/19 07:43 Dose: 10 mg Documented by: Senna/Docusate Sodium (Senokot-S, Dottie-Colace) 2 tablet PO BID PRN PRN Reason: Constipation Sodium Chloride () 10 - 40 ml IV UD PRN PRN Reason: SALINE FLUSH Last Admin: 08/12/19 09:40 Dose: 10 ml Documented by: STROKE Vital Signs/Narrative: Vital Signs Pulse 08/12/19 08:00 96 Medical Necessity - Tobacco Use Smoking Status: Former smoker Tobacco Use: Non-smoker Assessment/Plan All Active Problems (Last Reviewed 08/10/19 @ 01:40 by Eugene Luevano MD) Diverticulitis (Acute) 1. Acute diverticulitis with abscess formation in the mid and left pelvis, minimal improvement Continue on conservative management with IV Cipro and Flagyl, pain Meds and supportive fluids General surgery following, colonoscopy planned in the outpatient 2. Hypertension, controlled, continue on amlodipine 3. Hypothyroidism, continue on Synthroid 4. Hyperlipidemia, continue on statin 5. DVT PPx- Lovenox SC Code Visit Inpatient E&M: 90150 Subs Hosp L2
--- NOTE | 2019-08-12 12:36 | NURSING ---
Pt asked if IV can be taken out. This nurse stated that I could Saline lock pt so she wouldn't be attached to the IV pole and have a running IV but pt then asked if the actually IV can come out. This nurse then stated, No, it has to stay in otherwise we would have to poke you again and it would probably hurt. Pt then stated, Whats it matter when I'm already in constant pain then yelled, just get out of my room. This nurse did not say another word. Pt then asked for some fresh ice water. filled Ice water and then this nurse left the room.
--- NOTE | 2019-08-12 13:39 | PCM.PN.SRG ---
Patient Problems: Active and Suspected Problems (Last Reviewed 08/10/19 @ 01:40 by Eugene Luevano MD) Diverticulitis (Acute) Subjective: Patient feeling slightly improved, tolerating diet, had two bowel movements - no blood - Physical Exam Vitals/I&O's: Vital Signs Temp Pulse Resp BP Pulse Ox 99.7 F H 96 18 115/53 L 94 08/12/19 07:46 08/12/19 08:00 08/12/19 07:46 08/12/19 07:46 08/12/19 07:46 Oxygen Delivery Method Room Air Weight: 85 kg Body Mass Index (BMI) 31.6 Intake and Output for Last 24 Hours 08/10/19 08/11/19 08/12/19 23:59 23:59 23:59 Intake Total 2720.00 / 3020.00 4447.50 / 4447.50 1146.25 / 1146.25 Output Total 1000 / 1000 Balance 1720.00 / 2020.00 4447.50 / 4447.50 1146.25 / 1146.25 General: Alert, Oriented x3 Oral: Moist Mucosa Neck: Supple Lungs: Normal air movement Abdomen: Soft Microbiology Past 72 Hours 08/09/19 18:25 Blood Culture (Wb) - Left Hand Blood Culture - Preliminary No growth in 48 hours. 08/09/19 17:55 Blood Culture (Wb) - Anticubital Left Blood Culture - Preliminary No growth in 48 hours. Current Medications Acetaminophen (Tylenol) 650 mg PO Q6H PRN PRN PRN Reason: FEVER Last Admin: 08/11/19 22:00 Dose: 650 mg Documented by: Albuterol Sulfate (Ventolin Aerosols) 2.5 mg INHALATION Q2H PRN PRN PRN Reason: sob/wheezing Amlodipine Besylate (Norvasc) 2.5 mg PO DAILY [facility] Last Admin: 08/12/19 07:51 Dose: 2.5 mg Documented by: Atorvastatin Calcium (Lipitor) 10 mg PO QHS [facility] Last Admin: 08/11/19 22:01 Dose: 10 mg Documented by: Enoxaparin Sodium (Lovenox) 40 mg SC DAILY [facility] Last Admin: 08/12/19 09:35 Dose: Not Given Documented by: Glucagon () 1 mg IM .X1 PRN PRN Reason: Hypoglycemia Metronidazole (Flagyl) 500 mg in 100 mls @ 100 mls/hr IV Q8 [facility] Last Infusion: 08/12/19 06:11 Dose: Infused Documented by: Ciprofloxacin (Cipro) 400 mg in 200 mls @ 200 mls/hr IV Q12 [facility] Last Infusion: 08/12/19 10:40 Dose: Infused Documented by: Dextrose (Dextrose 10%-Water) 250 mls @ 999 mls/hr IV .Q16M PRN; Protocol PRN Reason: HYPOGLYCEMIA Sodium Chloride () 250 mls @ 15 mls/hr IV .[id number] PRN PRN Reason: Saline Flush Sodium Chloride () 250 mls @ 15 mls/hr IV .[id number] PRN PRN Reason: Additional IVPB Infusion Levothyroxine Sodium (Synthroid) 88 mcg PO DAILY@0600 [facility] Last Admin: 08/12/19 05:09 Dose: 88 mcg Documented by: Morphine Sulfate () 2 mg IV Q3H PRN PRN PRN Reason: Pain Score 6-10/10 Last Admin: 08/12/19 09:34 Dose: 2 mg Documented by: Nutritional Formula (Lactose Free) (Ensure Clear) 120 ml PO 4X/DAY [facility] Last Admin: 08/12/19 09:39 Dose: 120 ml Documented by: Ondansetron HCl (Zofran) 4 mg IV Q8H PRN PRN PRN Reason: NAUSEA/VOMITING Oxycodone HCl (Oxyir) 10 mg PO Q4H PRN PRN PRN Reason: Pain Score 1-10/10 Last Admin: 08/12/19 12:12 Dose: 10 mg Documented by: Senna/Docusate Sodium (Senokot-S, Dottie-Colace) 2 tablet PO BID PRN PRN Reason: Constipation Sodium Chloride () 10 - 40 ml IV UD PRN PRN Reason: SALINE FLUSH Last Admin: 08/12/19 09:40 Dose: 10 ml Documented by: Medical Necessity - Tobacco Use Smoking Status: Former smoker Tobacco Use: Non-smoker Assessment/Plan All Active Problems (Last Reviewed 08/10/19 @ 01:40 by Eugene Luevano MD) Diverticulitis (Acute) Impression: acute diverticulitis Plan: continue present therapy, I suspect she would need at least another night of IV antibiotics, will reassess status tomorrow
[2019-08-12 14:46] VITALS: BP 116/56; PULSE 91; RESP 18; TEMP 38.1; O2SAT 97
[2019-08-12 21:16] VITALS: BP 130/67; PULSE 92; RESP 18; TEMP 37.7; O2SAT 95
[2019-08-12] MEDS: Atorvastatin Calcium 10 MG Tablet PO (21:29)
[2019-08-13 02:39] VITALS: BP 126/59; PULSE 86; RESP 18; TEMP 36.9; O2SAT 95
[2019-08-13] MEDS: oxyCODONE 5 MG Tablet 10 MG PO ×4 (02:44→15:15)
[2019-08-13] MEDS: Morphine 2 MG/ML Syringe IV (05:07)
[2019-08-13] MEDS: Levothyroxine 88 MCG Tablet PO (05:08)
[2019-08-13] MEDS: metroNIDAZOLE 500 MG/100 ML BAG 100 MG IV ×2 (05:08→14:11)
[2019-08-13 06:48] LABS: Absolute Lymphocyte Count 1.91 X10^3/uL (0.83-4.51); Absolute Neutrophil Count 9.2 X10^3/uL (2.0-7.7); Basophil# 0.04 X10^3/uL; Basophil% 0.3 % (0-1); Eosinophil# 0.15 X10^3/uL; Eosinophils% 1.2 % (0-5); Hematocrit 36.2 % (37-47); Hemoglobin 11.7 g/dL (12.0-15.0); Lymphocyte # 1.91 X10^3/ul (4.0); Lymphocyte % 15.1 % (19-41); Mean Corp Hgb Conc 32.3 g/dL (32-36); Mean Corpuscular Hgb 29.9 pg (27.0-32.0); Mean Corpuscular Volume 92.6 fL (81-99); Mean Platelet Vol. 8.5 fl (6.2-12.0); Monocyte% 9.5 % (0-10); NRBC Flagged by Analyzer 0 % (0-5); Neutrophil # 9.22 X10^3/uL (2.7-7.7); Neutrophil % 73.2 % (47-70); Platelet Count 341 K/mm3 (150-450); RBC Distribution Width CV 12.4 % (11.6-14.6); Red Blood Count 3.91 M/mm3 (4.2-5.4); White Blood Count 12.6 K/mm3 (4.4-11.0)
[2019-08-13 06:57] LABS: ALB/GLOB Ratio 0.5 RATIO (0.9-2.4); AST(SGOT) 20 U/L (15-37); Alanine Aminotransfer ALT/SGPT 18 U/L (13-56); Albumin, Serum 2.2 g/dL (3.2-5.0); Alkaline Phosphatase 82 U/L (45-117); Anion Gap 6 (5-15); BUN 9 mg/dL (7-18); BUN/Creat Ratio 12.8 RATIO (10-20); Calcium,Total 8.5 mg/dL (8.5-10.1); Chloride 100 mmol/L (98-107); EST Glomerular Filtration Rate 88 mL/min (>60); Est Glom Filt Rate - Afr Amer 107 mL/min (>60); Globulin 4.7 g/dL (2.2-4.2); Glucose 117 mg/dL (74-106); Potassium 3.4 mmol/L (3.5-5.1); Protein, Total 6.9 g/dL (6.4-8.2); Sodium Level 133 mmol/L (136-145)
[2019-08-13] MEDS: 0.9% Saline Lock 10 ML Syringe IV (08:04)
[2019-08-13 08:07] VITALS: BP 120/55; PULSE 86; RESP 18; TEMP 37; O2SAT 94
[2019-08-13] MEDS: amLODIPine 2.5 MG Tablet PO (10:50)
[2019-08-13] MEDS: Ciprofloxacin 400 MG/200 ML BAG 200 MG IV (10:52)
[2019-08-13] MEDS: Acetaminophen 325 MG Tablet 650 MG PO (11:02)
[2019-08-13 14:14] VITALS: BP 103/46; PULSE 86; RESP 18; TEMP 36.8; O2SAT 95
--- NOTE | 2019-08-13 15:09 | DCINST_ITS ---
- Discharge Diagnoses Current Active Problems: Current Active and Chronic Problems (Last Reviewed 08/10/19 @ 01:40 by Eugene Luevano MD) Diverticulitis (Acute) Reason(s) for Visit for Discharge Instructions: Acute diverticulitis You will use the following diet at home:: Regular Your food should be the consistency of: Regular Your liquids should be the consistency of: Regular/Thin Discharge Activity: Return to Normal Activity Instructions: Understanding Diverticulosis and Diverticulitis, Diverticulitis Additional Instructions: Continue to keep yourself hydrated. Complete your antibiotics as prescribed. Follow-up with your primary care doctor and general surgeon within 2 weeks. Allergies/Adverse Reactions: Allergies Penicillins Adverse Reaction (Verified 08/09/19 16:52) Unknown Medications to take at Discharge Albuterol Sulfate [Ventolin Hfa] 2 puff INHALATION Q4H PRN PRN 08/09/19 Amlodipine Besylate 2.5 mg PO DAILY 08/09/19 Levothyroxine [Synthroid] 88 mcg PO DAILY 08/09/19 Simvastatin [Zocor] 20 mg PO QHS 08/09/19 Acetaminophen [Tylenol Tablet] 650 mg PO Q6H PRN PRN tablet 08/13/19 Ciprofloxacin [Cipro] 500 mg PO BID 10 Days #20 tablet 08/13/19 Oxycodone [Oxyir] 10 mg PO Q4H PRN PRN 3 Days #12 tablet 08/13/19 Senna/Docusate Sodium [Senokot-S] 2 tablet PO BID PRN 30 Days #60 tablet 08/13/19 metroNIDAZOLE [Flagyl] 500 mg PO Q8H 10 Days #30 tablet 08/13/19 The following prescriptions were given: Ciprofloxacin [Cipro] 500 mg PO BID 10 Days #20 tablet metroNIDAZOLE [Flagyl] 500 mg PO Q8H 10 Days #30 tablet Oxycodone [Oxyir] 10 mg PO Q4H PRN PRN 3 Days #12 tablet PRN Reason: Pain Score 1-10/10 Senna/Docusate Sodium [Senokot-S] 2 tablet PO BID PRN 30 Days #60 tablet PRN Reason: Constipation Primary Care Physician: Fortunato Stephenson MD [Primary Care Provider] - Please follow up with your Primary Care Physician in: within 1-2 weeks Test Results: Test results from this visit will be discussed in further detail at your follow- up appointment, if applicable. Please Follow Up With: Debra Owens MD When: within 2 weeks Proposed Discharge Date: 08/13/19
--- NOTE | 2019-08-13 15:13 | DS.PCM_ITS ---
Discharge Date and Diagnosis - Problem List Patient Problems: Active and Suspected Problems (Last Reviewed 08/10/19 @ 01:40 by Eugene Luevano MD) Diverticulitis (Acute) Date of Admission: 08/09/19 Date of Discharge: 08/13/19 - Primary Discharge Diagnosis Active and Suspected Problems (Last Reviewed 08/10/19 @ 01:40 by Eugene Luevano MD) Diverticulitis (Acute) Hospital Course and Treatment General surgery Operations: None Procedures: None Summary of Care Provided: The patient is a 69 year old F with a history of hypertension, hypothyroidism, hyperlipidemia who comes in with complaints of left-sided pelvic pain going for 4 weeks. Patient reports the pain started 2 to 3 days before Thanksgiving, wors e with lying down, improved with hot tea or Pepto-Bismol.She went to see her primary care doctor and had a CAT scan done that showed acute diverticulitis with pelvic abscess. She was admitted to the [facility]. She received IV antibiotics and pain medications. She was seen by general surgery and conservative management recommended. She will follow-up in 2 weeks with general surgery. She was then also need outpatient colonoscopy. Patient Problems: Active and Suspected Problems (Last Reviewed 08/10/19 @ 01:40 by Eugene Luevano MD) Diverticulitis (Acute) Subjective: The day of discharge, patient was seen and examined. Denied any new complaints. Her pain was fairly controlled. Objective: Physical exam: General: Alert, Oriented x3, Cooperative HEENT: Atraumatic, PERRLA, EOMI, Normocephalic Oral: Moist Mucosa Neck: Supple Lungs: Clear to auscultation, Normal air movement Cardiovascular: Regular rate, Regular Rhythm, Normal S1, Normal S2, No murmurs Abdomen: Bowel Sounds Present, Soft, tenderness over the left lower quadrant with guarding, non-Distended, No Hepato-splenomegaly Extremities: No edema Skin: No rashes, No breakdown Musculoskeletal: No Tenderness to Palpation of Joints or Extremities Lymphatic: No Cervical, Supraclavicular, or Inguinal Adenopathy Neurological: Cranial nerves II-XII grossly intact, Neuro grossly intact Psych/Mental Status: Normal Affect, Appropriate - Physical Exam Vitals/I&O's: Vital Signs Temp Pulse Resp BP Pulse Ox 98.3 F 86 18 103/46 L 95 08/13/19 14:14 08/13/19 14:14 08/13/19 14:14 08/13/19 14:14 08/13/19 14:14 Oxygen Delivery Method Room Air Weight: 85 kg Body Mass Index (BMI) 31.6 Intake and Output for Last 24 Hours 08/11/19 08/12/19 08/13/19 23:59 23:59 23:59 Intake Total 4447.50 / 4447.50 2346.25 / 2346.25 833.00 / 833.00 Balance 4447.50 / 4447.50 2346.25 / 2346.25 833.00 / 833.00 Microbiology Past 72 Hours 08/09/19 18:25 Blood Culture (Wb) - Left Hand Blood Culture - Preliminary No growth in 48 hours. 08/09/19 17:55 Blood Culture (Wb) - Anticubital Left Blood Culture - Preliminary No growth in 48 hours. Laboratory Results 08/13/19 05:31: WBC 12.6 H, RBC 3.91 L, Hgb 11.7 L, Hct 36.2 L, MCV 92.6, MCH 29.9, MCHC 32.3, RDW Std Deviation 42.0, RDW Coeff of Gin 12.4, Plt Count 341, MPV 8.5, Immature Gran % (Auto) 0.700, Neut % (Auto) 73.2 H, Lymph % (Auto) 15.1 L, Sebastian % (Auto) 9.5, Eos % (Auto) 1.2, Baso % (Auto) 0.3, Absolute Neuts (auto) 9.2 H, Absolute Lymphs (auto) 1.91, Nucleated RBC % 0 08/13/19 05:31: Sodium 133 L, Potassium 3.4 L, Chloride 100, Carbon Dioxide 27.0, Anion Gap 6, BUN 9, Creatinine 0.70, Estim Creat Clear Calc 46.50, Est GFR (MDRD) Af Amer 107, Est GFR (MDRD) Non-Af 88, BUN/Creatinine Ratio 12.8, Glucose 117 H, Calcium 8.5, Total Bilirubin 0.30, AST 20, ALT 18, Alkaline Phosphatase 82, Total Protein 6.9, Albumin 2.2 L, Globulin 4.7 H, Albumin/Globulin Ratio 0.5 L Current Medications Acetaminophen (Tylenol) 650 mg PO Q6H PRN PRN PRN Reason: FEVER Last Admin: 08/11/19 22:00 Dose: 650 mg Documented by: Acetaminophen (Tylenol) 650 mg PO Q6H PRN PRN PRN Reason: Pain Score 1-10/10 Last Admin: 08/13/19 11:02 Dose: 650 mg Documented by: Albuterol Sulfate (Ventolin Aerosols) 2.5 mg INHALATION Q2H PRN PRN PRN Reason: sob/wheezing Amlodipine Besylate (Norvasc) 2.5 mg PO DAILY [facility] Last Admin: 08/13/19 10:50 Dose: 2.5 mg Documented by: Atorvastatin Calcium (Lipitor) 10 mg PO QHS [facility] Last Admin: 08/12/19 21:29 Dose: 10 mg Documented by: Enoxaparin Sodium (Lovenox) 40 mg SC DAILY [facility] Last Admin: 08/13/19 10:51 Dose: Not Given Documented by: Glucagon () 1 mg IM .X1 PRN PRN Reason: Hypoglycemia Metronidazole (Flagyl) 500 mg in 100 mls @ 100 mls/hr IV Q8 [facility] Last Admin: 08/13/19 14:11 Dose: 100 mls/hr Documented by: Ciprofloxacin (Cipro) 400 mg in 200 mls @ 200 mls/hr IV Q12 [facility] Last Infusion: 08/13/19 12:09 Dose: Infused Documented by: Dextrose (Dextrose 10%-Water) 250 mls @ 999 mls/hr IV .Q16M PRN; Protocol PRN Reason: HYPOGLYCEMIA Sodium Chloride () 250 mls @ 15 mls/hr IV .[id number] PRN PRN Reason: Saline Flush Last Infusion: 08/13/19 14:21 Dose: 0 mls/hr Documented by: Sodium Chloride () 250 mls @ 15 mls/hr IV .[id number] PRN PRN Reason: Additional IVPB Infusion Levothyroxine Sodium (Synthroid) 88 mcg PO DAILY@0600 [facility] Last Admin: 08/13/19 05:08 Dose: 88 mcg Documented by: Morphine Sulfate () 2 mg IV Q3H PRN PRN PRN Reason: Pain Score 6-10/10 Last Admin: 08/13/19 05:07 Dose: 2 mg Documented by: Nutritional Formula (Lactose Free) (Ensure Clear) 120 ml PO 4X/DAY [facility] Last Admin: 08/13/19 14:11 Dose: Not Given Documented by: Ondansetron HCl (Zofran) 4 mg IV Q8H PRN PRN PRN Reason: NAUSEA/VOMITING Oxycodone HCl (Oxyir) 10 mg PO Q4H PRN PRN PRN Reason: Pain Score 1-10/10 Last Admin: 08/13/19 11:02 Dose: 10 mg Documented by: Senna/Docusate Sodium (Senokot-S, Dottie-Colace) 2 tablet PO BID PRN PRN Reason: Constipation Sodium Chloride () 10 - 40 ml IV UD PRN PRN Reason: SALINE FLUSH Last Admin: 08/13/19 08:04 Dose: 10 ml Documented by: Discharge Diet: No Restrictions Discharge Activity: Return to Normal Activity Home Medications: Medications to take at Discharge Albuterol Sulfate [Ventolin Hfa] 2 puff INHALATION Q4H PRN PRN 08/09/19 Amlodipine Besylate 2.5 mg PO DAILY 08/09/19 Levothyroxine [Synthroid] 88 mcg PO DAILY 08/09/19 Simvastatin [Zocor] 20 mg PO QHS 08/09/19 Acetaminophen [Tylenol Tablet] 650 mg PO Q6H PRN PRN tab 08/13/19 Ciprofloxacin [Cipro] 500 mg PO BID 10 Days #20 tab 08/13/19 Oxycodone [Oxyir] 10 mg PO Q4H PRN PRN 3 Days #12 tab 08/13/19 Senna/Docusate Sodium [Senokot-S] 2 tab PO BID PRN 30 Days #60 tab 08/13/19 metroNIDAZOLE [Flagyl] 500 mg PO Q8H 10 Days #30 tab 08/13/19 Following Prescrptions Were Given to Patient: Ciprofloxacin [Cipro] 500 mg PO BID 10 Days #20 tab Prescription Printed metroNIDAZOLE [Flagyl] 500 mg PO Q8H 10 Days #30 tab Prescription Printed Oxycodone [Oxyir] 10 mg PO Q4H PRN PRN 3 Days #12 tab PRN Reason: Pain Score 1-10/10 Prescription Printed Senna/Docusate Sodium [Senokot-S] 2 tab PO BID PRN 30 Days #60 tab PRN Reason: Constipation Prescription Printed Primary Care Physician: Fortunato Stephenson MD [Primary Care Provider] - Please follow up with your Primary Care Physician in: within 1-2 weeks Please Follow Up With: Debra Owens MD When: within 2 weeks Patient Instructions: Understanding Diverticulosis and Diverticulitis, Diverticulitis Disposition: Home Minutes spent on discharge:: 40 Patient Condition:: Stable Medical Necessity - Tobacco Use Smoking Status: Former smoker Tobacco Use: Non-smoker Meaningful Use Info Meaningful Use Diagnoses (Choose all that apply): None applicable Code Visit Inpatient E&M: 24958 Disch Hosp
== END 2019-08-13 17:10 | disposition home or self-care (01) | DRG 244 ==
LOC: ED 22:28 → MS3 23:08
PROVIDERS: Admitting Provider Hospitalist; Emergency Provider Emergency Medicine; PCP Internal Medicine; Visit Provider Internal Medicine
DX: K57.20 Diverticulitis of large intestine with perforation and abscess without bleeding (principal); J45.909 Unspecified asthma, uncomplicated; I10 Essential (primary) hypertension; E78.5 Hyperlipidemia, unspecified; E03.9 Hypothyroidism, unspecified; Z79.899 Other long term (current) drug therapy; F17.200 Nicotine dependence, unspecified, uncomplicated
CPT/HCPCS: 36415; 80048; 80053; 85025; 87040; 97802; 99285; 99406; J7030; J7050; A4216; J0744

== ENCOUNTER 2019-08-20 06:58 | Observation (INO) | payer MEDICAID, SELFPAY ==
[2019-08-09 23:53] VITALS: BMI 31.6
[2019-08-20] VITALS (10 sets, daily range): BP systolic 111–127; BP diastolic 54–78; PULSE 67–87; RESP 15–18; TEMP 36.6–37.2; O2SAT 96–99; BMI 32.1; BMI 30.7
--- NOTE | 2019-08-20 07:10 | CT_ITS ---
STUDY: CT BRAIN WITHOUT CONTRAST REASON FOR EXAM: Female, 69 years old patient became dizzy and fell with loss of consciousness. There is laceration to back of head. History of hypertension. RADIATION DOSAGE (If Supplied By Facility): CTDIvol = ( 44.99 ) mGy, DLP = ( 779.24 ) mGycm TECHNIQUE: Transaxial CT imaging of the brain was performed without administration of intravenous contrast material. Multiplanar reformations are submitted for interpretation. Individualized dose optimization techniques were used for this CT. COMPARISON: No relevant priors. FINDINGS: Normal soft tissue structures. Normal calvarium. Normal size ventricles and extra-axial spaces for the patient''s age. There are areas of decreased attenuation within the white matter tracts of the supratentorial brain, consistent with microvascular disease changes. Normal basal ganglia and thalami. Normal brainstem. There is mild cerebellar atrophy. There is no intracranial hemorrhage. There is patchy atherosclerotic calcification of the intracranial arteries. There is a right maxillary mucous retention cyst. CT/Brain/Head without Contrast IMPRESSION: 1. Chronic involutional changes of the brain. 2. No CT evidence of acute intracranial hemorrhage. Electronically Signed: Ilene Roca MD at 8:15 EST , Service support ,
--- NOTE | 2019-08-20 07:11 | EKG12_ITS ---
Test Reason : FALL Blood Pressure : / mmHG Vent. Rate : 067 BPM Atrial Rate : 067 BPM P-R Int : 164 ms QRS Dur : 080 ms QT Int : 390 ms P-R-T Axes : 071 -16 045 degrees QTc Int : 412 ms Normal sinus rhythm Inferior infarct , age undetermined Abnormal ECG Confirmed by CONCEPCION JONES, DERREK ([id number]), editor map ANA OVERTON ([id number]) on 08/22/2019 8:23:51 AM Referred By: Fortunato Stephenson Confirmed By:DERREK JAVIER MD
--- NOTE | 2019-08-20 07:12 | ED.DCSUM_ITS ---
History of Present Illness Chief Complaint: Fall Detail of Chief Complaint: Syncope Informant: Patient Onset: Today Narrative: Patient presents after syncopal episode at home. She was recently in the hospital with diverticulitis and is still on antibiotics. She states she got up early this morning and was standing in her kitchen doing her dishes. She started to feel sick. She thought she needed to eat something and try to eat a banana, but the next remembers is waking up on the floor. She does have a laceration to the back of her head. She denies recollection of palpitations or chest pain prior to her syncopal episode. - Past Medical History (1) Hypertension Status: Chronic (2) High cholesterol Status: Chronic (3) Hypothyroid Status: Chronic (4) Diverticulitis Status: Chronic Past Medical History - Allergies and Home Meds Allergies/Adverse Reactions: Allergies Penicillins Adverse Reaction (Verified 08/20/19 06:58) Unknown Primary Care Physician: Fortunato Stephenson MD [Primary Care Provider] - Prior records reviewed: Yes Surgical History: - - ; ankle surgery. Lives: With Family Smoking Status: Former smoker - Family History Maternal Family History: Reports: - - Mother from an aneurysm. Paternal Family History: Reports: - - Her father was alcoholic. Review of Systems General: Denies: Chills, Fever Eyes: Denies: Visual changes - bilaterally ENT: Denies: Bilateral ear pain Cardiovascular: Denies: Chest pain Respiratory: Denies: Dyspnea, Cough Gastrointestinal: Reports: Nausea. Denies: Abdominal pain, Vomiting, Diarrhea Musculoskeletal: Denies: Neck pain, Back pain Skin: Reports: Wounds Neurological: Denies: Parasthesia, Numbness Allergy: Denies: Uticaria Physical Exam Vital Signs/Narrative: Vital Signs Temp Pulse Resp BP Pulse Ox 08/20/19 07:11 99 08/20/19 07:04 98.6 F 71 15 116/61 99 Inital Vital Signs reviewed: Yes General: Well nourished, Well developed Head: - - Linear laceration over posterior parietal scalp. ENT: Moist mucous membranes Neck: Supple Cardiovascular: Regular rate, Regular rhythm Respiratory: No distress, CTA bilaterally Abdomen: Soft, Nontender, Hypoactive bowel sounds Extremities: Nontender Skin: Trauma - Laceration as above Neurological: Alert, Oriented x3, Normal Strength, Normal Sensation Psychological: Normal affect Diagnostic/Tx/Re-eval Impressions Brain CT 08/20/19 07:10 IMPRESSION: 1. Chronic involutional changes of the brain. 2. No CT evidence of acute intracranial hemorrhage. Electronically Signed: Ilene Roca MD at 8:15 EST , Service support , Chest X-Ray 08/20/19 07:17 IMPRESSION: Normal x-ray examination of the chest. Electronically Signed: José Antonio Loera at 7:47 EST Tel , Service support , 08/20/19 07:10 Brain/Head without Contrast [CT] Stat 08/20/19 07:17 Chest 1 View (Portable) [RAD] Stat Laboratory Results 08/20/19 08/20/19 08/20/19 07:20 07:20 07:20 WBC Cancelled Corrected WBC Cancelled RBC Cancelled Hgb Cancelled Hct Cancelled MCV Cancelled MCH Cancelled MCHC Cancelled RDW Std Deviation Cancelled RDW Coeff of Gin Cancelled Plt Count Cancelled MPV Cancelled Immature Gran % (Auto) Cancelled Neut % (Auto) Cancelled Lymph % (Auto) Cancelled Morrill % (Auto) Cancelled Eos % (Auto) Cancelled Baso % (Auto) Cancelled Absolute Neuts (auto) Cancelled Absolute Lymphs (auto) Cancelled Total Counted Cancelled Neutrophils % (Manual) Cancelled Band Neutrophils % Cancelled Lymphocytes % (Manual) Cancelled Monocytes % (Manual) Cancelled Eosinophils % (Manual) Cancelled Basophils % (Manual) Cancelled Metamyelocytes % Cancelled Myelocytes % Cancelled Promyelocytes % Cancelled Blast Cells % Cancelled Plasma Cell % (Manual) Cancelled Other Cells % Cancelled Nucleated RBC % Cancelled Nucleated RBCs/100 WBC Cancelled Differential Comment Cancelled Diff Path Review Cancelled Hypersegmented Neuts Cancelled Atypical Lymphocytes Cancelled Reactive Lymphocytes Cancelled Smudge Cells Cancelled Toxic Granulation Cancelled Toxic Vacuolation Cancelled Dohle Bodies Cancelled Ronel Rods Cancelled Platelet Estimate Cancelled Plt Morphology Comment Cancelled RBC Morphology Cancelled Polychromasia Cancelled Hypochromasia Cancelled Poikilocytosis Cancelled Basophilic Stippling Cancelled Anisocytosis Cancelled Microcytosis Cancelled Macrocytosis Cancelled Spherocytes Cancelled Sickle Cells Cancelled Target Cells Cancelled Tear Drop Cells Cancelled Ovalocytes Cancelled Stomatocytes Cancelled [place] Bodies Cancelled [place] Cells Cancelled Bite Cells Cancelled Crenated Cell Cancelled Acanthocytes (Spur) Cancelled Rouleaux Cancelled Schistocytes Cancelled PT Cancelled INR Cancelled APTT Cancelled Sodium Cancelled Potassium Cancelled Chloride Cancelled Carbon Dioxide Cancelled Anion Gap Cancelled BUN Cancelled Creatinine Cancelled Estim Creat Clear Calc Cancelled Est GFR (MDRD) Af Amer Cancelled Est GFR (MDRD) Non-Af Cancelled BUN/Creatinine Ratio Cancelled Glucose Cancelled Calcium Cancelled 08/20/19 08/20/19 08/20/19 08:45 08:45 08:45 WBC 10.0 Corrected WBC RBC 4.53 Hgb 13.7 Hct 41.4 MCV 91.4 MCH 30.2 MCHC 33.1 RDW Std Deviation 44.8 H RDW Coeff of Gin 13.4 Plt Count 333 MPV 8.1 Immature Gran % (Auto) 0.800 Neut % (Auto) 80.5 H Lymph % (Auto) 10.8 L Morrill % (Auto) 7.8 Eos % (Auto) 0.0 Baso % (Auto) 0.1 Absolute Neuts (auto) 8.1 H Absolute Lymphs (auto) 1.08 Total Counted Neutrophils % (Manual) Band Neutrophils % Lymphocytes % (Manual) Monocytes % (Manual) Eosinophils % (Manual) Basophils % (Manual) Metamyelocytes % Myelocytes % Promyelocytes % Blast Cells % Plasma Cell % (Manual) Other Cells % Nucleated RBC % 0 Nucleated RBCs/100 WBC Differential Comment SCANNED Diff Path Review Hypersegmented Neuts Atypical Lymphocytes Reactive Lymphocytes Smudge Cells Toxic Granulation Toxic Vacuolation Dohle Bodies Ronel Rods Platelet Estimate Plt Morphology Comment RBC Morphology Polychromasia Hypochromasia Poikilocytosis Basophilic Stippling Anisocytosis Microcytosis Macrocytosis Spherocytes Sickle Cells Target Cells Tear Drop Cells Ovalocytes Stomatocytes [place] Bodies [place] Cells Bite Cells Crenated Cell Acanthocytes (Spur) Rouleaux Schistocytes PT 13.1 INR 1.0 APTT 29.4 Sodium 135 L Potassium 4.0 Chloride 104 Carbon Dioxide 25.0 Anion Gap 6 BUN 11 Creatinine 1.00 Estim Creat Clear Calc 46.50 Est GFR (MDRD) Af Amer 71 Est GFR (MDRD) Non-Af 59 L BUN/Creatinine Ratio 11.0 Glucose 113 H Calcium 9.1 - Medical Decision Making Procedure note: Patient's wound is cleansed. Wound is anesthetized with 5.5 cc of 1% lidocaine with epinephrine. Wound is irrigated and skin is closed with 5 alfredo. Patient is given IV fluids here. She is remained stable on telemetry monitor. I do not have an explanation at this point for her cause of syncope. I recommended observation overnight to ensure no cardiac arrhythmias. Patient is in agreement with this plan. Procedures - Lacerations No standard instances Length: 2.36 in Depth: Sub Q Shape: Linear Laceration repair: Lidocaine with epi Number of Sutures/Alfredo: 5 - Stable ED Disposition - Plan for ED Patient: Disposition: Acute Care Hospital [facility] Diagnosis: Syncope, Scalp laceration Referrals: Fortunato Stephenson MD [Primary Care Provider] -
--- NOTE | 2019-08-20 07:17 | RAD_ITS ---
STUDY: X-RAY CHEST REASON FOR EXAM: Female, 69 years old. Patient had dizzy spell today and fell and hit the back of head. TECHNIQUE: Portable chest COMPARISON: None. FINDINGS: The lungs are clear and expanded. There is no demonstrated pleural abnormality. There are degenerative changes at the AC joints. Normal size heart. Normal mediastinum and kirk. Normal visualized pulmonary arteries. Normal visualized aortic arch and descending thoracic aorta. Normal visualized thoracic spine. There is normal left second rib fracture. There is no demonstrated abnormality of the visualized soft tissue structures of the upper abdomen. RAD/Chest 1 View (Portable) IMPRESSION: Normal x-ray examination of the chest. Electronically Signed: José Antonio Loera, at 7:47 EST Tel , Service support ,
[2019-08-20] MEDS: 0.9% Normal Saline 1,000 ML 150 ML IV ×3 (07:19→23:28)
[2019-08-20] MEDS: metroNIDAZOLE 500 MG Tablet PO ×3 (08:40→22:10)
[2019-08-20] MEDS: Diphth,Pertuss(Acell),Tet Vac 0.5 ML Vial IM (08:40)
[2019-08-20 08:51] LABS: Absolute Lymphocyte Count 1.08 X10^3/uL (0.83-4.51); Absolute Neutrophil Count 8.1 X10^3/uL (2.0-7.7); Basophil# 0.01 X10^3/uL; Basophil% 0.1 % (0-1); Hematocrit 41.4 % (37-47); Hemoglobin 13.7 g/dL (12.0-15.0); Lymphocyte # 1.08 X10^3/ul (4.0); Lymphocyte % 10.8 % (19-41); Mean Corp Hgb Conc 33.1 g/dL (32-36); Mean Corpuscular Hgb 30.2 pg (27.0-32.0); Mean Corpuscular Volume 91.4 fL (81-99); Mean Platelet Vol. 8.1 fl (6.2-12.0); Monocyte# 0.78 X10^3/uL; Monocyte% 7.8 % (0-10); NRBC Flagged by Analyzer 0 % (0-5); Neutrophil # 8.07 X10^3/uL (2.7-7.7); Neutrophil % 80.5 % (47-70); POSITIVE MORPHOLOGY YES; Platelet Count 333 K/mm3 (150-450); RBC Distribution Width CV 13.4 % (11.6-14.6); RBC Distribution Width SD 44.8 fl (35.1-43.9); Red Blood Count 4.53 M/mm3 (4.2-5.4)
[2019-08-20 09:01] LABS: Differential Indicated SCAN CRITERIA MET
[2019-08-20 09:03] LABS: Partial Thromboplast Time 29.4 Seconds (24.1-36.2); Prothrombin Time (Protime)PT. 13.1 SECONDS (11.7-14.9)
[2019-08-20 09:06] LABS: Anion Gap 6 (5-15); BUN 11 mg/dL (7-18); Calcium,Total 9.1 mg/dL (8.5-10.1); Chloride 104 mmol/L (98-107); EST Glomerular Filtration Rate 59 mL/min (>60); Est Glom Filt Rate - Afr Amer 71 mL/min (>60); Glucose 113 mg/dL (74-106); Sodium Level 135 mmol/L (136-145)
[2019-08-20 09:15] LABS: Differential Comment SCANNED
[2019-08-20] MEDS: Acetaminophen 325 MG Tablet 650 MG PO ×2 (11:21→22:10)
[2019-08-20] MEDS: Ibuprofen 400 MG Tablet PO (16:30)
--- NOTE | 2019-08-20 18:49 | HP.PCM_ITS ---
History of Present Illness Date of Admission: 08/20/19 Chief Complaint: Syncope The patient is a 69 year old F H as below who presents with an episode of syncope. She woke up at 5 AM and was feeling hungry and then developed some nausea and try to eat a banana and she had about half a banana when she put it back down she still felt dizzy and then the next thing she remembers is waking up on the ground. She states that she has not been eating or drinking very well for the last several months and that she had been sitting down and then got up to go to do the dishes, when she started feeling nauseated and tried to eat the banana. She denies any palpitations, lightheadedness, chest pain, or shortness of breath prior to this episode. She hit her head and had a small laceration which was repaired in the ER. CT scan of the brain did not show any bleeding. She has had a headache since then. She was recently admitted for diverticulitis and is currently on Cipro and Flagyl and has been doing much better with that and denies any significant amount of abdominal pain at the moment. In the ER she had normal lab work, however troponin and EKG were not done as part of the work-up in the ER. Past Medical History Past Medical History (Chronic Problems): Chronic Problems (Last Reviewed 08/10/19 @ 01:40 by Eugene Luevano MD) Diverticulitis (Chronic) Hypertension (Chronic) High cholesterol (Chronic) Hypothyroid (Chronic) Medical History: Medical History (Last Reviewed 08/10/19 @ 01:40 by Eugene Luevano MD) HTN (hypertension) I10 Allergies Penicillins Adverse Reaction (Verified 08/20/19 06:58) Unknown Home Medications: Ambulatory Orders Medication Instructions Recorded Albuterol Sulfate [Ventolin Hfa] 2 puff INHALATION Q4H PRN PRN 08/09/19 Amlodipine Besylate 2.5 mg PO DAILY 08/09/19 Levothyroxine [Synthroid] 88 mcg PO DAILY 08/09/19 Simvastatin [Zocor] 20 mg PO QHS 08/09/19 Acetaminophen [Tylenol Tablet] 650 mg PO Q6H PRN PRN tab 08/13/19 Ciprofloxacin [Cipro] 500 mg PO BID 10 Days #20 tab 08/13/19 Senna/Docusate Sodium [Senokot-S] 2 tab PO BID PRN 30 Days #60 tab 08/13/19 metroNIDAZOLE [Flagyl] 500 mg PO Q8H 10 Days #30 tab 08/13/19 Surgical History: - - ; ankle surgery. Lives: With Family Smoking Status: Former smoker Tobacco Use: Cigarettes Alcohol: None Drugs: None - *Family History Maternal History Items: Cancer, Hypertension, - - Mother from an aneurysm. Paternal History Items: Cancer, Hypertension, - - Her father was alcoholic. Review of Systems Constitutional: Denies: Chills, Fever, Weight Change HEENT: Denies: Head Aches, Sinus Congestion, Sinus Drainage Cardiovascular: Reports: Syncope. Denies: Chest Pain, Palpitations Respiratory: Denies: Cough, Shortness of breath at rest, Sputum production Gastrointestinal: Denies: Abdominal Pain, Nausea, Vomiting Genitourinary: Denies: Dysuria Musculoskeletal: Denies: Joint Pain, Joint Tenderness Skin: Denies: Rash, Wounds Neurological: Reports: Headaches. Denies: Focal weakness, Numbness, Tingling Psychiatric: Denies: Anxiety, Depression Hematologic/ Lymphatic: Denies: Easy Bruising, Easy Bleeding VTE Information - Inpt Only VTE Present on Admission: No Patient Problems: Active and Suspected Problems (Last Reviewed 08/10/19 @ 01:40 by Eugene Luevano MD) Syncope (Acute) Scalp laceration (Acute) - Physical Exam Vitals/I&O's: Vital Signs Temp Pulse Resp BP Pulse Ox 98.9 F 87 18 116/74 99 08/20/19 17:00 08/20/19 17:00 08/20/19 17:00 08/20/19 17:00 08/20/19 17:00 Oxygen Delivery Method Room Air Weight: 178 lb 12.718 oz Body Mass Index (BMI) 30.7 Orthostatic Vital Signs Start: 08/20/19 11:03 Freq: q24h Status: Active Protocol: Activity Type Activity Date Activity User E-Sign Co-Sign Detail Recorded Client Recorded Date Recorded By Document 08/20/19 11:03 ANG [id number] 08/20/19 11:04 ANG 08/20/19 11:03 Orthostatic Vitals Standing -Blood Pressure (90/60-120/80) 111/60 -Extremity Use Left Arm -Pulse Rate (60-100) 72 Sitting -Blood Pressure (90/60-120/80) 118/54 L -Extremity Use Left Arm -Pulse Rate (60-100) 68 Lying -Blood Pressure (90/60-120/80) 116/62 -Extremity Use Left Arm -Pulse Rate (60-100) 68 Intake and Output for Last 24 Hours 08/18/19 08/19/19 08/20/19 23:59 23:59 23:59 Intake Total 1600 / 1600 Balance 1600 / 1600 General: Alert, Oriented x3, Cooperative, No apparent distress HEENT: PERRLA, EOMI, Normocephalic, - - Laceration the back of the head is repaired with alfredo Oral: Dry Mucosa Neck: Supple, No JVD Lungs: Clear to auscultation, Normal air movement, No rhonchi, No wheeze, No rales, Diminished Cardiovascular: Regular rate, Regular Rhythm, Normal S1, Normal S2, No murmurs Abdomen: Soft, Non Tender, Non-Distended, No Hepato-splenomegaly Extremities: No edema, Capillary Refill Less than 3 Seconds Skin: No rashes, No breakdown Neurological: Neuro grossly intact, Motor Exam 5/5 strength throughout, Sensory exam intact to light touch and pain Psych/Mental Status: Normal Affect, Appropriate Laboratory Results 08/20/19 07:20: WBC Cancelled, Corrected WBC Cancelled, RBC Cancelled, Hgb Cancelled, Hct Cancelled, MCV Cancelled, MCH Cancelled, MCHC Cancelled, RDW Std Deviation Cancelled, RDW Coeff of Gin Cancelled, Plt Count Cancelled, MPV Cancelled, Immature Gran % (Auto) Cancelled, Neut % (Auto) Cancelled, Lymph % (Auto) Cancelled, [place] % (Auto) Cancelled, Eos % (Auto) Cancelled, Baso % (Auto) Cancelled, Absolute Neuts (auto) Cancelled, Absolute Lymphs (auto) Cancelled, Total Counted Cancelled, Neutrophils % (Manual) Cancelled, Band Neutrophils % Cancelled, Lymphocytes % (Manual) Cancelled, Monocytes % (Manual) Cancelled, Eosinophils % (Manual) Cancelled, Basophils % (Manual) Cancelled, Metamyelocytes % Cancelled, Myelocytes % Cancelled, Promyelocytes % Cancelled, Blast Cells % Cancelled, Plasma Cell % (Manual) Cancelled, Other Cells % Cancelled, Nucleated RBC % Cancelled, Nucleated RBCs/100 WBC Cancelled, Differential Comment Cancelled, Diff Path Review Cancelled, Hypersegmented Neuts Cancelled, Atypical Lymphocytes Cancelled, Reactive Lymphocytes Cancelled, Smudge Cells Cancelled, Toxic Granulation Cancelled, Toxic Vacuolation Cancelled, Dohle Bodies C ancelled, Ronel Rods Cancelled, Platelet Estimate Cancelled, Plt Morphology Comment Cancelled, RBC Morphology Cancelled, Polychromasia Cancelled, Hypochromasia Cancelled, Poikilocytosis Cancelled, Basophilic Stippling Cancelled, Anisocytosis Cancelled, Microcytosis Cancelled, Macrocytosis Cancelled, Spherocytes Cancelled, Sickle Cells Cancelled, Target Cells Cancelled, Tear Drop Cells Cancelled, Ovalocytes Cancelled, Stomatocytes Cancelled, [place] Bodies Cancelled, [place] Cells Cancelled, Bite Cells Cancelled, Crenated Cell Cancelled, Acanthocytes (Spur) Cancelled, Rouleaux Cancelled, Schistocytes Cancelled 08/20/19 07:20: PT Cancelled, INR Cancelled, APTT Cancelled 08/20/19 07:20: Sodium Cancelled, Potassium Cancelled, Chloride Cancelled, Carbon Dioxide Cancelled, Anion Gap Cancelled, BUN Cancelled, Creatinine Cancelled, Estim Creat Clear Calc Cancelled, Est GFR (MDRD) Af Amer Cancelled, Est GFR (MDRD) Non-Af Cancelled, BUN/Creatinine Ratio Cancelled, Glucose Cancelled, Calcium Cancelled 08/20/19 08:45: PT 13.1, INR 1.0, APTT 29.4 08/20/19 08:45: Sodium 135 L, Potassium 4.0, Chloride 104, Carbon Dioxide 25.0, Anion Gap 6, BUN 11, Creatinine 1.00, Estim Creat Clear Calc 46.50, Est GFR (MDRD) Af Amer 71, Est GFR (MDRD) Non-Af 59 L, BUN/Creatinine Ratio 11.0, Glucose 113 H, Calcium 9.1 08/20/19 08:45: WBC 10.0, RBC 4.53, Hgb 13.7, Hct 41.4, MCV 91.4, MCH 30.2, MCHC 33.1, RDW Std Deviation 44.8 H, RDW Coeff of Gin 13.4, Plt Count 333, MPV 8.1, Immature Gran % (Auto) 0.800, Neut % (Auto) 80.5 H, Lymph % (Auto) 10.8 L, [place] % (Auto) 7.8, Eos % (Auto) 0.0, Baso % (Auto) 0.1, Absolute Neuts (auto) 8.1 H, Absolute Lymphs (auto) 1.08, Nucleated RBC % 0, Differential Comment SCANNED Current Medications Acetaminophen (Tylenol) 650 mg PO Q6H PRN PRN PRN Reason: Pain Score 1-10/10 Last Admin: 08/20/19 11:21 Dose: 650 mg Documented by: Albuterol Sulfate (Ventolin Aerosols) 2.5 mg INHALATION Q4H PRN PRN Reason: SOB &/OR WHEEZING Amlodipine Besylate (Norvasc) 2.5 mg PO DAILY [facility] Atorvastatin Calcium (Lipitor) 10 mg PO QHS [facility] Ciprofloxacin HCl (Cipro) 500 mg PO BID [facility] Enoxaparin Sodium (Lovenox) 40 mg SC DAILY [facility] Sodium Chloride () 1,000 mls @ 150 mls/hr IV .Q6H40M [facility] Last Admin: 08/20/19 16:57 Dose: 150 mls/hr Documented by: Ibuprofen (Motrin) 400 mg PO Q8H PRN PRN PRN Reason: HEADACHE Last Admin: 08/20/19 16:30 Dose: 400 mg Documented by: Levothyroxine Sodium (Synthroid) 88 mcg PO DAILY@0600 [facility] Metronidazole (Flagyl) 500 mg PO Q8H [facility] Last Admin: 08/20/19 13:13 Dose: 500 mg Documented by: Senna/Docusate Sodium (Senokot-S, Dottie-Colace) 2 tablet PO BID PRN PRN Reason: Constipation Sodium Chloride () 10 - 40 ml IV UD PRN PRN Reason: SALINE FLUSH Assessment/Plan All Active Problems (Last Reviewed 08/10/19 @ 01:40 by Eugene Luevano MD) Syncope (Acute) Scalp laceration (Acute) 1. Syncope/head laceration -Based on the history it seems fairly clear that this is a vasovagal episode -We will provide IV fluids at 150 cc/h -Need for an echo -We will obtain a troponin and an EKG -Orthostatic vital signs were negative -The head laceration was repaired in the ER, will continue with Tylenol/ibuprofen for pain control 2. Recent diverticulitis -This is likely contributing to her lack of appetite and p.o. intake -Continue with Cipro and Flagyl to complete her course -Continue with IV fluids 3. HTN/HLD -Blood pressure stable can resume home medications -Continue with her home statin 4. Hypothyroidism -Stable -Continue with Synthroid DVT: Lovenox Code Visit OBSV E&M: 42388 Initial observation care L2
--- NOTE | 2019-08-20 18:56 | EKG12_ITS ---
Test Reason : ADMIT EKG Blood Pressure : / mmHG Vent. Rate : 064 BPM Atrial Rate : 064 BPM P-R Int : 172 ms QRS Dur : 084 ms QT Int : 404 ms P-R-T Axes : 072 -11 039 degrees QTc Int : 416 ms Normal sinus rhythm Normal ECG When compared with ECG of 20-AUG-2019 07:25, MANUAL COMPARISON REQUIRED, DATA IS UNCONFIRMED Confirmed by CONCEPCION JONES, DERREK ([id number]), associate editor ANA OVERTON ([id number]) on 08/22/2019 8:51:05 AM Referred By: Fortunato Stephenson Confirmed By:DERREK JAVIER MD
[2019-08-20] MEDS: Ciprofloxacin 500 MG Tablet PO (22:10)
[2019-08-20] MEDS: Atorvastatin Calcium 10 MG Tablet PO (22:10)
[2019-08-21] MEDS: Ibuprofen 400 MG Tablet PO (01:15)
[2019-08-21 03:34] VITALS: PULSE 63
[2019-08-21 03:39] VITALS: BP 124/60; PULSE 62; RESP 16; TEMP 36.9; O2SAT 95
[2019-08-21] MEDS: Acetaminophen 325 MG Tablet 650 MG PO ×2 (04:26→12:48)
[2019-08-21 05:15] LABS: Absolute Lymphocyte Count 2.34 X10^3/uL (0.83-4.51); Absolute Neutrophil Count 1.9 X10^3/uL (2.0-7.7); Basophil# 0.01 X10^3/uL; Basophil% 0.2 % (0-1); Eosinophil# 0.02 X10^3/uL; Eosinophils% 0.4 % (0-5); Hematocrit 35.4 % (37-47); Hemoglobin 11.3 g/dL (12.0-15.0); Lymphocyte # 2.34 X10^3/ul (4.0); Lymphocyte % 47.6 % (19-41); Mean Corp Hgb Conc 31.9 g/dL (32-36); Mean Corpuscular Hgb 29.4 pg (27.0-32.0); Mean Corpuscular Volume 91.9 fL (81-99); Mean Platelet Vol. 8.5 fl (6.2-12.0); Monocyte# 0.64 X10^3/uL; NRBC Flagged by Analyzer 0 % (0-5); Neutrophil # 1.89 X10^3/uL (2.7-7.7); Neutrophil % 38.4 % (47-70); Platelet Count 277 K/mm3 (150-450); RBC Distribution Width CV 13.8 % (11.6-14.6); RBC Distribution Width SD 46.6 fl (35.1-43.9); Red Blood Count 3.85 M/mm3 (4.2-5.4); White Blood Count 4.9 K/mm3 (4.4-11.0)
[2019-08-21 05:38] LABS: Anion Gap 5 (5-15); BUN 12 mg/dL (7-18); BUN/Creat Ratio 17.2 RATIO (10-20); Chloride 110 mmol/L (98-107); EST Glomerular Filtration Rate 89 mL/min (>60); Est Glom Filt Rate - Afr Amer 107 mL/min (>60); Glucose 92 mg/dL (74-106); Sodium Level 138 mmol/L (136-145)
[2019-08-21] MEDS: 0.9% Normal Saline 1,000 ML 150 ML IV (05:53)
[2019-08-21] MEDS: Levothyroxine 88 MCG Tablet PO (05:53)
[2019-08-21] MEDS: metroNIDAZOLE 500 MG Tablet PO (05:53)
[2019-08-21 06:53] VITALS: PULSE 56
[2019-08-21 08:30] VITALS: BP 117/43; PULSE 75; RESP 16; TEMP 36.3; O2SAT 99
[2019-08-21] MEDS: amLODIPine 2.5 MG Tablet PO (08:32)
[2019-08-21] MEDS: Ciprofloxacin 500 MG Tablet PO (08:32)
--- NOTE | 2019-08-21 11:43 | DCINST_ITS ---
- Discharge Diagnoses Current Active Problems: Current Active and Chronic Problems (Last Reviewed 08/10/19 @ 01:40 by Eugene Luevano MD) Syncope (Acute) Scalp laceration (Acute) You will use the following diet at home:: Cardiac Your food should be the consistency of: Regular Your liquids should be the consistency of: Regular/Thin Discharge Activity: Return to Normal Activity Call your doctor if you observe: Fever of 101 or Higher, Shortness of breath, Dizziness, Fainting spells, Swelling in the ankles, Chest pain, Increased palpitations (irregular heartbeat) Allergies/Adverse Reactions: Allergies Penicillins Adverse Reaction (Verified 08/20/19 06:58) Unknown Medications to take at Discharge Albuterol Sulfate [Ventolin Hfa] 2 puff INHALATION Q4H PRN PRN 08/09/19 Amlodipine Besylate 2.5 mg PO DAILY 08/09/19 Levothyroxine [Synthroid] 88 mcg PO DAILY 08/09/19 Simvastatin [Zocor] 20 mg PO QHS 08/09/19 Acetaminophen [Tylenol Tablet] 650 mg PO Q6H PRN PRN tab 08/13/19 Ciprofloxacin [Cipro] 500 mg PO BID 10 Days #20 tab 08/13/19 Senna/Docusate Sodium [Senokot-S] 2 tab PO BID PRN 30 Days #60 tab 08/13/19 metroNIDAZOLE [Flagyl] 500 mg PO Q8H 10 Days #30 tab 08/13/19 Primary Care Physician: Fortunato Stephenson MD [Primary Care Provider] - Please follow up with your Primary Care Physician in: 08/22/2019 Test Results: Test results from this visit will be discussed in further detail at your follow- up appointment, if applicable.
--- NOTE | 2019-08-21 12:00 | DS.PCM_ITS ---
Discharge Date and Diagnosis - Problem List Patient Problems: Active and Suspected Problems (Last Reviewed 08/10/19 @ 01:40 by Eugene Luevano MD) Syncope (Acute) Scalp laceration (Acute) Date of Admission: 08/20/19 Date of Discharge: 08/21/19 - Primary Discharge Diagnosis Active and Suspected Problems (Last Reviewed 08/10/19 @ 01:40 by Eugene Luevano MD) Syncope (Acute) Scalp laceration (Acute) - Secondary Discharge Diagnosis Chronic Problems (Last Reviewed 08/10/19 @ 01:40 by Eugene Luevano MD) Diverticulitis (Chronic) Hypertension (Chronic) High cholesterol (Chronic) Hypothyroid (Chronic) Hospital Course and Treatment Imaging Results: CT Brain: IMPRESSION: 1. Chronic involutional changes of the brain. 2. No CT evidence of acute intracranial hemorrhage. CXR: IMPRESSION: Normal x-ray examination of the chest. Consults: None Operations: None Procedures: None Summary of Care Provided: Per HPI: The patient is a 69 year old F H as below who presents with an episode of syncope. She woke up at 5 AM and was feeling hungry and then developed some nausea and try to eat a banana and she had about half a banana when she put it back down she still felt dizzy and then the next thing she remembers is waking up on the ground. She states that she has not been eating or drinking very well for the last several months and that she had been sitting down and then got up to go to do the dishes, when she started feeling nauseated and tried to eat the banana. She denies any palpitations, lightheadedness, chest pain, or shortness of breath prior to this episode. She hit her head and had a small laceration which was repaired in the ER. CT scan of the brain did not show any bleeding. She has had a headache since then. She was recently admitted for diverticulitis and is currently on Cipro and Flagyl and has been doing much better with that and denies any significant amount of abdominal pain at the moment. In the ER she had normal lab work, however troponin and EKG were not done as part of the work-up in the ER. Hospital Course: 1. Vasovagal [id number] female who was recently admitted for diverticulitis presents with an episode of syncope. She woke up early in the morning and passed out after she got up to wash some dishes. She felt nauseated and tried to eat a banana however the next thing she remembers is waking up from the floor when her head was hurting because she laceration. She presented to the ER and had her laceration repaired. Given her history and her her lack of p.o. intake for the last several months, this is what more than likely vasovagal syncope her EKG was unremarkable her troponin was normal and she had no events on telemetry overnight. Plan will be for discharge home and follow-up with her primary care doctor who she has an appointment with on August 22, 2019. Risks and benefits of discharge were discussed and she expressed understanding. Patient Problems: Active and Suspected Problems (Last Reviewed 08/10/19 @ 01:40 by Eugene Luevano MD) Syncope (Acute) Scalp laceration (Acute) - Physical Exam Vitals/I&O's: Vital Signs Temp Pulse Resp BP Pulse Ox 97.3 F L 75 16 117/43 L 99 08/21/19 08:30 08/21/19 08:30 08/21/19 08:30 08/21/19 08:30 08/21/19 08:30 Oxygen Delivery Method Room Air Weight: 178 lb 12.718 oz Body Mass Index (BMI) 30.7 Orthostatic Vital Signs Start: 08/20/19 11:03 Freq: q24h Status: Active Protocol: Activity Type Activity Date Activity User E-Sign Co-Sign Detail Recorded Client Recorded Date Recorded By Document 08/20/19 11:03 ANG [id number] 08/20/19 11:04 ANG 08/20/19 11:03 Orthostatic Vitals Standing -Blood Pressure (90/60-120/80) 111/60 -Extremity Use Left Arm -Pulse Rate (60-100) 72 Sitting -Blood Pressure (90/60-120/80) 118/54 L -Extremity Use Left Arm -Pulse Rate (60-100) 68 Lying -Blood Pressure (90/60-120/80) 116/62 -Extremity Use Left Arm -Pulse Rate (60-100) 68 Intake and Output for Last 24 Hours 08/19/19 08/20/19 08/21/19 23:59 23:59 23:59 Intake Total 2577.5 / 2817.5 1852.5 / 1852.5 Output Total 750 / 750 Balance 2577.5 / 2567.5 1102.5 / 1102.5 General: Alert, Oriented x3, Cooperative, No apparent distress HEENT: PERRLA, EOMI, Normocephalic, - - Laceration the back of the head is repaired with alfredo Oral: Moist Mucosa Neck: Supple, No JVD Lungs: Clear to auscultation, Normal air movement, No rhonchi, No wheeze, No rales, Diminished Cardiovascular: Regular rate, Regular Rhythm, Normal S1, Normal S2, No murmurs Abdomen: Soft, Non Tender, Non-Distended, No Hepato-splenomegaly Extremities: No edema, Capillary Refill Less than 3 Seconds Skin: No rashes, No breakdown Neurological: Neuro grossly intact, Motor Exam 5/5 strength throughout, Sensory exam intact to light touch and pain Psych/Mental Status: Normal Affect, Appropriate Laboratory Results 08/20/19 19:51: Troponin I < 0.015 08/21/19 05:00: WBC 4.9, RBC 3.85 L, Hgb 11.3 L, Hct 35.4 L, MCV 91.9, MCH 29.4, MCHC 31.9 L, RDW Std Deviation 46.6 H, RDW Coeff of Gin 13.8, Plt Count 277, MPV 8.5, Immature Gran % (Auto) 0.400, Neut % (Auto) 38.4 L, Lymph % (Auto) 47.6 H, [place] % (Auto) 13.0 H, Eos % (Auto) 0.4, Baso % (Auto) 0.2, Absolute Neuts (auto) 1.9 L, Absolute Lymphs (auto) 2.34, Nucleated RBC % 0 08/21/19 05:00: Sodium 138, Potassium 4.0, Chloride 110 H, Carbon Dioxide 23.0, Anion Gap 5, BUN 12, Creatinine 0.70, Estim Creat Clear Calc 46.50, Est GFR (MDRD) Af Amer 107, Est GFR (MDRD) Non-Af 89, BUN/Creatinine Ratio 17.2, Glucose 92, Calcium 8.0 L Current Medications Acetaminophen (Tylenol) 650 mg PO Q6H PRN PRN PRN Reason: Pain Score 1-10/10 Last Admin: 08/21/19 04:26 Dose: 650 mg Documented by: Albuterol Sulfate (Ventolin Aerosols) 2.5 mg INHALATION Q4H PRN PRN Reason: SOB &/OR WHEEZING Amlodipine Besylate (Norvasc) 2.5 mg PO DAILY [facility] Last Admin: 08/21/19 08:32 Dose: 2.5 mg Documented by: Atorvastatin Calcium (Lipitor) 10 mg PO QHS [facility] Last Admin: 08/20/19 22:10 Dose: 10 mg Documented by: Ciprofloxacin HCl (Cipro) 500 mg PO BID [facility] Last Admin: 08/21/19 08:32 Dose: 500 mg Documented by: Enoxaparin Sodium (Lovenox) 40 mg SC DAILY [facility] Last Admin: 08/21/19 08:33 Dose: Not Given Documented by: Ibuprofen (Motrin) 400 mg PO Q8H PRN PRN PRN Reason: HEADACHE Last Admin: 08/21/19 01:15 Dose: 400 mg Documented by: Levothyroxine Sodium (Synthroid) 88 mcg PO DAILY@0600 [facility] Last Admin: 08/21/19 05:53 Dose: 88 mcg Documented by: Metronidazole (Flagyl) 500 mg PO Q8H [facility] Last Admin: 08/21/19 05:53 Dose: 500 mg Documented by: Senna/Docusate Sodium (Senokot-S, Dottie-Colace) 2 tablet PO BID PRN PRN Reason: Constipation Sodium Chloride () 10 - 40 ml IV UD PRN PRN Reason: SALINE FLUSH Discharge Activity: Return to Normal Activity Call your doctor if you observe: Fever of 101 or Higher, Shortness of breath, Dizziness, Fainting spells, Swelling in the ankles, Chest pain, Increased palpitations (irregular heartbeat) Home Medications: Medications to take at Discharge Albuterol Sulfate [Ventolin Hfa] 2 puff INHALATION Q4H PRN PRN 08/09/19 Amlodipine Besylate 2.5 mg PO DAILY 08/09/19 Levothyroxine [Synthroid] 88 mcg PO DAILY 08/09/19 Simvastatin [Zocor] 20 mg PO QHS 08/09/19 Acetaminophen [Tylenol Tablet] 650 mg PO Q6H PRN PRN tab 08/13/19 Ciprofloxacin [Cipro] 500 mg PO BID 10 Days #20 tab 08/13/19 Senna/Docusate Sodium [Senokot-S] 2 tab PO BID PRN 30 Days #60 tab 08/13/19 metroNIDAZOLE [Flagyl] 500 mg PO Q8H 10 Days #30 tab 08/13/19 Primary Care Physician: Fortunato Stephenson MD [Primary Care Provider] - Please follow up with your Primary Care Physician in: 08/22/2019 Disposition: Home Minutes spent on discharge:: 35 Patient Condition:: Stable Medical Necessity - Tobacco Use Smoking Status: Former smoker Tobacco Use: Cigarettes Meaningful Use Info Meaningful Use Diagnoses (Choose all that apply): None applicable Code Visit OBSV E&M: 50668 Observation care discharge
--- NOTE | 2019-08-21 12:14 | PHA.DC.MR ---
Pharmacy Service has performed discharge medication reconciliation for this patient. Home Medications Albuterol Sulfate [Ventolin Hfa] 2 puff INHALATION Q4H PRN PRN 08/09/19 Amlodipine Besylate 2.5 mg PO DAILY 08/09/19 Levothyroxine [Synthroid] 88 mcg PO DAILY 08/09/19 Simvastatin [Zocor] 20 mg PO QHS 08/09/19 Acetaminophen [Tylenol Tablet] 650 mg PO Q6H PRN PRN tab 08/13/19 Ciprofloxacin [Cipro] 500 mg PO BID 10 Days #20 tab 08/13/19 Senna/Docusate Sodium [Senokot-S] 2 tab PO BID PRN 30 Days #60 tab 08/13/19 metroNIDAZOLE [Flagyl] 500 mg PO Q8H 10 Days #30 tab 08/13/19 The patient's discharge medication list was reviewed for discrepancies and discrepancies were resolved.
[2019-08-21 13:50] VITALS: BP 145/74; PULSE 74; RESP 16; TEMP 36.8; O2SAT 96
== END 2019-08-21 11:44 | disposition home or self-care (01) ==
LOC: ED 10:17 → PCU 10:32
PROVIDERS: Admitting Provider Family Medicine; Emergency Provider Emergency Medicine; PCP Internal Medicine; Referring Provider Internal Medicine; Visit Provider Family Medicine
DX: R55 Syncope and collapse (principal); S01.01XA Laceration without foreign body of scalp, initial encounter; Z23 Encounter for immunization; I10 Essential (primary) hypertension; E78.5 Hyperlipidemia, unspecified; E03.9 Hypothyroidism, unspecified; W18.39XA Other fall on same level, initial encounter; Y93.G1 Activity, food preparation and clean up; Y92.000 Kitchen of unspecified non-institutional (private) residence as the place of occurrence of the external cause; Z79.899 Other long term (current) drug therapy; Z87.891 Personal history of nicotine dependence; R94.31 Abnormal electrocardiogram [ECG] [EKG]
CPT/HCPCS: 12001; 36415; 70450; 71045; 80048; 84484; 85025; 85610; 85730; 90715; 93005; 96360; 96361; 99218; 99285; J7030; A4216; G0378

== ENCOUNTER 2025-04-07 14:23 | Emergency (ER) | payer MEDICAID, SELFPAY ==
[2025-04-07 14:24] VITALS: BP 141/67; PULSE 72; RESP 18; TEMP 36.3; O2SAT 98; BMI 29.8
--- OUTSIDE RECORDS SUMMARY | 2025-04-07 15:00 | XMS RPT_ITS | CCD ---
Author Organization [facility] Care Team Providers Care Transfer Car Operator Drier Name Role Phone Fortunato Mcdermott MD Primary Care Provider [phone] FORTUNATO MCDERMOTT Referring Unavailable FORTUNATO MCDERMOTT Primary Care Unavailable Fortunato Mcdermott MD Primary Care Provider [phone] Leann MECHANICAL MAINTENANCE.Raine LOZANO Unavailable FORTUNATO MCDERMOTT Attending Unavailable FORTUNATO MCDERMOTT Primary Care Unavailable FORTUNATO MCDERMOTT Primary Care Unavailable FORTUNATO MCDERMOTT Attending Unavailable FORTUNATO MCDERMOTT Primary Care Unavailable FORTUNATO MCDERMOTT Referring Unavailable FORTUNATO MCDERMOTT Primary Care Unavailable RAINE NORIEGA Attending Unavailable SELF Referring Unavailable Allergies Allergy Classification Reported Allergen(s) Allergy Type Date of Onset Reaction(s) Facility Penicillins (antibiotic) (1 source) Penicillins Drug Allergy 04-10-2005 [facility] Work Phone: (7 sources) Penicillins; Translations: [PENICILLINS] Propensity to adverse reactions 04-10-2005 [facility] Work Phone: (20 sources) Penicillins Propensity to adverse reactions 04-10-2005 [facility] Work Phone: (2 sources) Penicillins Propensity to adverse reactions 04-10-2005 [facility] Work Phone: Medications Current Medications Medication Drug Class(es) Dates Sig (Normalized) Sig (Original) acetaminophen 650 mg oral tablet (20 sources) take 650 mg by mouth every six hours as needed ACETAMINOPHEN ORAL Take 650 mg by mouth every 6 hours as needed. Active Comment on above: Take 650 mg by mouth every 6 hours as needed. [id number] actuat albuterol 0.09 mg/actuat metered dose inhaler (20 sources) beta2-Adrenergic Agonist Start: 09-26-2021 End: 01-29-2025 take 2 puff(s) by inhalation every four hours as needed for wheezing albuterol HFA (VENTOLIN HFA) 90 mcg/actuation inhaler INHALE 2 PUFFS EVERY FOUR HOURS NEEDED FOR WHEEZING OR SHORTNESS OF BREATH 18 g 5 01/29/2025 Active Start: 05-06-2020 End: 12-13-2020 take 2 puff(s) by inhalation every four hours as needed for wheezing albuterol HFA (VENTOLIN HFA) 90 mcg/actuation inhaler INHALE 2 PUFFS EVERY FOUR HOURS NEEDED FOR WHEEZING OR SHORTNESS OF BREATH 18 g 5 05/06/2020 12/13/2020 Discontinued Comment on above: INHALE 2 PUFFS EVERY FOUR HOURS NEEDED FOR WHEEZING OR SHORTNESS OF BREATH amLODIPine 10 mg oral tablet (20 sources) Dihydropyridine Calcium Channel Alexa Start: 02-21-20 take 1 tablet by mouth once daily amLODIPine (NORVASC) 10 mg tablet Indications: Essential hypertension Take 1 tablet by mouth once daily. 30 tablet 5 02/20/2025 Active Start: 04-26-2023 End: 08-31-2024 take 1 tablet by mouth once daily amLODIPine (NORVASC) 10 mg tablet Indications: Essential hypertension Take 1 tablet by mouth once daily. 30 tablet 5 09/01/2024 Active Start: 10-29-2022 take 1 tablet by varsha once daily amLODIPine (NORVASC) 10 mg tablet Take 1 tablet by mouth once daily. 30 tablet 5 10/29/2022 Active Start: 09-26-2021 End: 10-29-2022 take 1 tablet by mouth once daily amLODIPine (NORVASC) 5 mg tablet Indications: Essential hypertension Take 1 tablet by mouth once daily. 30 tablet 5 08/25/2022 10/29/2022 Discontinued (Dosage adjustment) Start: 09-29-2019 End: 11-06-2020 take 1 tablet by mouth once daily amLODIPine (NORVASC) 2.5 mg tablet Indications: Essential hypertension Take 1 tablet by mouth once daily. 30 tablet 11 09/29/2019 11/06/2020 Discontinued Comment on above: Take 1 tablet by varsha th once daily. 60 actuat formoterol fumarate 0.005 mg/actuat / mometasone furoate 0.1 mg/actuat metered dose inhaler (1 source) Corticosteroid, beta2-Adrenergic Agonist Start: 02-28-20 take 2 puff(s) by inhalation twice daily mometasone-formoterol (DULERA) 100-5 mcg/actuation inhaler Inhale 2 puffs as instructed two times a day. 1 each 02/27/2025 Active levothyroxine sodium 0.088 mg oral tablet (20 sources) l-Thyroxine Start: 10-28-19 End: 06-08-20 take 1 tablet by mouth once daily levothyroxine (SYNTHROID) 88 mcg tablet Indications: Hypothyroidism, postablative Take 1 tablet by mouth once daily. Take on empty stomach. 30 tablet 06/08/2024 Active Start: 07-13-2023 End: 10-28-2023 take 1 tablet by mouth once daily for thyroid dysfunction levothyroxine (LEVOXYL) 100 mcg tablet Take 1 tablet by mouth once daily. Take on empty stomach. For Thyroid. 30 tablet 07/13/2023 10/28/2023 Discontinued Start: 01-26-2023 take 1 tablet by varsha th once daily for thyroid dysfunction levothyroxine (LEVOXYL) 100 mcg tablet Take 1 tablet by mouth once daily. Take on empty stomach. For Thyroid. 30 tablet 5 01/26/2023 Active Start: 10-19-2022 take 1 tablet by varsha th once daily for thyroid dysfunction levothyroxine (LEVOXYL) 112 mcg tablet Indications: Hypothyroidism, postablative Take 1 tablet by mouth once daily. Take on empty stomach. For thyroid. 30 tablet 5 10/19/2022 Active Start: 04-28-2022 take 1 tablet by varsha th once daily for thyroid dysfunction levothyroxine (LEVOXYL) 112 mcg tablet Indications: Hypothyroidism, postablative Take 1 tablet by mouth once daily. Take on empty stomach. For thyroid. 30 tablet 5 04/28/2022 Active Start: 10-13-2021 End: 11-06-2021 take 1 tablet by mouth once daily for thyroid dysfunction levothyroxine (LEVOXYL) 112 mcg tablet Indications: Hypothyroidism, postablative Take 1 tablet by mouth once daily. Take on empty stomach. For thyroid. 30 tablet 5 11/06/2021 Active Start: 06-27-2020 End: 09-27-2020 take 1 tablet by mouth once daily for thyroid dysfunction levothyroxine (LEVOXYL) 100 mcg tablet Indications: Hypothyroidism, postablative Take 1 tablet by mouth once daily. Take on empty stomach. For Thyroid. 30 tablet 5 06/27/2020 09/27/2020 Discontinued (Dosage adjustment) Comment on above: Take 1 tablet by varsha th once daily. Take on empty stomach. For thyroid. Take 1 tablet by varsha th once daily. Take on empty stomach. simvastatin 20 mg oral tablet (20 sources) HMG-CoA Reductase Inhibitor Start: End: take 1 tablet by mouth once daily at bedtime simvastatin (ZOCOR) 20 mg tablet Indications: Hyperlipidemia, unspecified hyperlipidemia type Take 1 tablet by mouth daily at bedtime. 30 tablet 11 07/07/2024 Active Start: 09-09-2021 End: 2023 take 1 tablet by mouth once daily at bedtime simvastatin (ZOCOR) 20 mg tablet Indications: Hyperlipidemia, unspecified hyperlipidemia type Take 1 tablet by mouth daily at bedtime. 30 tablet 5 02/11/2023 Active Start: 09-29-2019 End: 11-06-2020 take 1 tablet by mouth once daily at bedtime simvastatin (ZOCOR) 20 mg tablet Indications: Hyperlipidemia, unspecified hyperlipidemia type Take 1 tablet by mouth daily at bedtime. 30 tablet 11 09/29/2019 11/06/2020 Discontinued Comment on above: Take 1 tablet by varsha th daily at bedtime. Completed/Discontinued Medications Medication Drug Class(es) Dates Sig (Normalized) Sig (Original) Budesonide / formoterol (20 sources) Corticosteroid, beta2-Adrenergic Agonist Start: 12-20-2023 End: 02-27-2025 take 2 puff(s) by inhalation twice daily budesonide-formoter ol (SYMBICORT) 160-4.5 mcg/actuation inhaler Inhale 2 Puffs as instructed two times a day. 10.2 g 2 12/20/2023 02/27/2025 Discontinued (Not on Formulary) Start: 12-20-2023 take 2 puff(s) by in halation twice daily budesonide-formoterol (SYMBICORT) 160-4.5 mcg/actuation inhaler Inhale 2 Puffs as instructed two times a day. 10.2 g 2 12/20/2023 Active Start: 09-07-2023 End: 12-20-2023 take 2 puff(s) by inhalation twice daily budesonide-formoterol (SYMBICORT) 160-4.5 mcg/actuation inhaler Inhale 2 Puffs as instructed two times a day. 10.2 g 2 09/07/2023 12/20/2023 Discontinued Start: 09-07-2023 take 2 puff(s) by in halation twice daily budesonide-formoterol (SYMBICORT) 160-4.5 mcg/actuation inhaler Inhale 2 Puffs as instructed two times a day. 10.2 g 2 09/07/2023 Active Start: 06-25-2023 End: 09-07-2023 take 2 puff(s) by inhalation twice daily budesonide-formoterol (SYMBICORT) 160-4.5 mcg/actuation inhaler Inhale 2 Puffs as instructed two times a day. 10.2 g 2 06/25/2023 09/07/2023 Discontinued Start: 06-25-2023 take 2 puff(s) by in halation twice daily budesonide-formoterol (SYMBICORT) 160-4.5 mcg/actuation inhaler Inhale 2 Puffs as instructed two times a day. 10.2 g 2 06/25/2023 Active Start: 04-09-2023 End: 06-25-2023 take 2 puff(s) by inhalation twice daily budesonide-formoterol (SYMBICORT) 160-4.5 mcg/actuation inhaler Inhale 2 Puffs as instructed twice daily. 10.2 g 2 04/09/2023 06/25/2023 Discontinued Start: 04-09-2023 take 2 puff(s) by in halation twice daily budesonide-formoterol (SYMBICORT) 160-4.5 mcg/actuation inhaler Inhale 2 Puffs as instructed twice daily. 10.2 g 2 04/09/2023 Active Start: 01-13-2023 End: 04-09-2023 take 2 puff(s) by inhalation twice daily budesonide-formoterol (SYMBICORT) 160-4.5 mcg/actuation inhaler Inhale 2 Puffs as instructed twice daily. 10.2 g 2 01/13/2023 04/09/2023 Discontinued Start: 01-13-2023 take 2 puff(s) by in halation twice daily budesonide-formoterol (SYMBICORT) 160-4.5 mcg/actuation inhaler Inhale 2 Puffs as instructed twice daily. 10.2 g 2 01/13/2023 Active Start: 10-19-2022 End: 01-13-2023 take 2 puff(s) by inhalation twice daily budesonide-formoterol (SYMBICORT) 160-4.5 mcg/actuation inhaler Inhale 2 Puffs as instructed twice daily. 10.2 g 2 10/19/2022 01/13/2023 Discontinued Start: 10-19-2022 take 2 puff(s) by in halation twice daily budesonide-formoterol (SYMBICORT) 160-4.5 mcg/actuation inhaler Inhale 2 Puffs as instructed twice daily. 10.2 g 2 10/19/2022 Active Start: 07-22-2022 take 2 puff(s) by in halation twice daily budesonide-formoterol (SYMBICORT) 160-4.5 mcg/actuation inhaler Inhale 2 Puffs as instructed twice daily. 10.2 g 2 07/22/2022 Active Comment on above: Inhale 2 Puffs as in structed twice daily. Inhale 2 Puffs as in structed two times a day. LOW-DOSE ASPIRIN ORAL (15 sources) End: 01-26-2023 take 81 mg by mouth once daily LOW-DOSE ASPIRIN ORAL Take 81 mg by mouth once daily. 01/26/2023 Discontinued End: 01-26-2023 take 81 mg by mouth once daily LOW-DOSE ASPIRIN ORAL T luiza 81 mg by mouth once daily. 0 01/26/2023 Discontinued take 81 mg by mouth once daily L OW-DOSE ASPIRIN ORAL Take 81 mg by mouth once daily. 0 Active Comment on above: Take 81 mg by mouth once daily. perflutren lipid microspheres 1.3 mL in NaCl (PF) 0.9% 10 mL injection (DEFINITY) (1 source) Start: 09-26-2020 End: 04-30-2021 perflutren lipid microspheres 1.3 mL in NaCl (PF) 0.9% 10 mL injection (DEFINITY) sennosides/docusate sodium (SENOKOT-S ORAL) (20 sources) End: 02-27-2025 take 2 tablets by mouth twice daily as needed sennosides/docusate sodium (SENOKOT-S ORAL) Take 2 tablets by mouth twice daily as needed. 02/27/2025 Discontinued (Course of therapy completed) take 2 tablets by mo uth twice daily as needed sennosides/docusate sodium (SENOKOT-S OR AL) Take 2 tablets by mouth twice daily as needed. Active take 2 tablets by mo uth twice daily as needed sennosides/docusate sodium (SENOKOT-S OR AL) Take 2 tablets by mouth twice daily as needed. 0 Active Comment on above: Take 2 tablets by mo uth twice daily as needed. 125 ml sodium chloride 9 mg/ml prefilled syringe (1 source) Start: 1 End: 1 sodium chloride 0.9 % (flush) 10 mL (BD POSIFLUSH) traZODone hydrochloride 50 mg oral tablet (15 sources) Serotonin Reuptake Inhibitor Start: 2 End: 3 take 1 tablet by mouth at bedtime as needed traZODone (DESYREL) 50 mg tablet Indications: Transient insomnia Take 1 tablet by mouth at bedtime as needed for sedation. 30 tablet 2 09/26/2021 01/26/2023 Discontinued Start: 05-27-2020 End: 11-06-2020 take 1 tablet by mouth at bedtime as needed traZODone (DESYREL) 50 mg tablet Indications: Transient insomnia Take 1 tablet by mouth at bedtime as needed for Sedation. 30 tablet 5 05/27/2020 11/06/2020 Discontinued Comment on above: [facility] needed for sedation. Problems Active Problems Problem Classification Problem Date Documented Da te Episodic/Chronic Allergic reactions (1 source) Contact dermatitis; Translations: [Unspecified contact dermatitis, unspecified cause] Episodic Asthma (20 sources) Asthma; Translations: [Unspecified asthma, uncomplicated] Onset: 04-10-2005 10-28-2020 Chronic Complications of surgical procedures or medical care (20 sources) Postablative hypothyroidism; Translations: [Postprocedural hypothyroidism] Onset: 09-30-2005 10-28-2020 Chronic Diseases of mouth; excluding dental (1 source) Parotitis; Translations: [Acute sialoadenitis] Episodic Disorders of lipid metabolism (20 sources) Hyperlipidemia; Translations: [Hyperlipidemia, unspecified] Onset: 04-10-2005 10-28-2020 Chronic Essential hypertension (20 sources) Essential hypertension; Translations: [Essential (primary) hypertension] Onset: 03-20-2016 10-28-2020 Chronic Immunizations and screening for infectious disease (2 sources) Vaccination needed; Translations: [Encounter for immunization] Episodic Mood disorders (20 sources) Bipolar affective disorder, currently manic, mild; Translations: [Bipolar disorder, current episode manic without psychotic features, mild] Onset: 04-10-2005 07-14-2021 Chronic Other aftercare (10 sources) Patient encounter status; Translations: [Other ad terminal makeup operator (current) drug therapy] Episodic Other nervous system disorders (1 source) Paresthesia of right upper limb; Translations: [Paresthesia of skin] 09-26-2020 Episodic Other skin disorders (1 source) Night sweats; Translations: [Generalized hyperhidrosis] 02-23-2024 Episodic Other upper respiratory disease (20 sources) Allergic rhinitis; Translations: [Allergic rhinitis, unspecified] Onset: 04-10-2005 07-20-2015 Chronic Screening and history of mental health and substance abuse codes (2 sources) Encounter for screening for depression; Translations: [Encounter for screening examination for other mental health and behavioral disorders] Onset: 02-27-2025 Episodic Syncope (2 sources) Syncope and collapse; Translations: [Syncope and collapse] Onset: 10-28-2023 10-25-2023 Episodic Past or Other Problems Problem Classification Problem Date Documented Da te Episodic/Chronic Diseases of white blood cells (10 sources) Leukocytosis; Translations: [Elevated white blood cell count, unspecified] Onset: 10-28-2020 Resolved: 10-12-2021 10-12-2021 Chronic Diverticulosis and diverticulitis (20 sources) Diverticulitis; Translations: [Diverticulitis of intestine, part unspecified, without perforation or abscess without bleeding] Onset: 10-28-2020 Resolved: 10-25-2023 10-28-2020 Chronic Other connective tissue disease (11 sources) Impingement syndrome of right shoulder region; Translations: [Impingement syndrome of right shoulder] Onset: 05-09-2013 Resolved: 08-02-2014 08-02-2014 Episodic Other nutritional; endocrine; and metabolic disorders (20 sources) Obese class I; Translations: [Obesity, unspecified] Onset: 03-22-2019 Resolved: 02-27-2025 03-22-2019 Chronic Substance-related disorders (11 sources) Tobacco user; Translations: [Nicotine dependence, unspecified, uncomplicated] Onset: 04-10-2005 Resolved: 04-04-2018 04-04-2018 Chronic Results Test Name Value Interpretation Reference Range Facility CBC panel Auto (Bld)on 02-27 Erythrocyte distribution width (RBC) [Ratio] 12.8 % Normal 11.5-15.0 [facility] Comment on above: Order Comment: Speci men Type: BLOOD SPECIMEN Ordering Facility: [facility] Address: [address] [place] [address] Performed By: #### 5 8410-2 #### [facility] CLIA [id number] [address] [place] [address] [place] Hematocrit (Bld) [Volume fraction] 41.8 % Normal 36.0-46.0 [facility] Comment on above: Order Comment: Speci men Type: BLOOD SPECIMEN Ordering Facility: [facility] Address: [address] [place] [address] Performed By: #### 5 8410-2 #### [facility] CLIA [id number] [address] [place] [address] [place] Hemoglobin (Bld) [Mass/Vol] 13.5 g/dL Normal 11.5-15.5 [facility] Comment on above: Order Comment: Speci men Type: BLOOD SPECIMEN Ordering Facility: [facility] Address: [address] [place] [address] Performed By: #### 5 8410-2 #### [facility] CLIA [id number] [address] [place] [address] [place] MCH (RBC) [Entitic mass] 31.0 pg Normal 26.0-34.0 [facility] Comment on above: Order Comment: Speci men Type: BLOOD SPECIMEN Ordering Facility: [facility] Address: [address] [place] [address] Performed By: #### 5 8410-2 #### [facility] CLIA [id number] [address] [place] [address] [place] MCHC (RBC) [Mass/Vol] 32.3 g/dL Normal 30.5-36.0 [facility] Comment on above: Order Comment: Speci men Type: BLOOD SPECIMEN Ordering Facility: [facility] Address: [address] [place] [address] Performed By: #### 5 8410-2 #### [facility] CLIA [id number] [address] [place] [address] [place] MCV (RBC) [Entitic vol] 95.9 fL Normal 80.0-100.0 [facility] Comment on above: Order Comment: Speci men Type: BLOOD SPECIMEN Ordering Facility: [facility] Address: [address] [place] [address] Performed By: #### 5 8410-2 #### [facility] CLIA [id number] [address] [place] [address] [place] Nucleated RBC (Bld) [#/Vol] 10*3/uL Normal <0.01 [facility] Comment on above: Order Comment: Speci men Type: BLOOD SPECIMEN Ordering Facility: [facility] Address: [address] [place] [address] Performed By: #### 5 8410-2 #### [facility] CLIA [id number] [address] [place], [place] [id number] [place] Platelet mean volume (Bld) [Entitic vol] 9.2 fL Normal 9.0-12.7 [facility] Comment on above: Order Comment: Speci men Type: BLOOD SPECIMEN Ordering Facility: [facility] Address: [address] [place] [address] Performed By: #### 5 8410-2 #### [facility] CLIA [id number] [address] [place] [address] [place] Platelets (Bld) [#/Vol] 345 10*3/uL Normal 150-400 [facility] Comment on above: Order Comment: Speci men Type: BLOOD SPECIMEN Ordering Facility: [facility] Address: [address] [place] [address] Performed By: #### 5 8410-2 #### [facility] CLIA [id number] [address] [place] [address] [place] RBC (Bld) [#/Vol] 4.36 10*6/uL Normal 3.90-5.20 [facility] Comment on above: Order Comment: Speci men Type: BLOOD SPECIMEN Ordering Facility: [facility] Address: [address] [place] [address] Performed By: #### 5 8410-2 #### [facility] CLIA [id number] [address] [place] [address] [place] WBC (Bld) [#/Vol] 9.55 10*3/uL Normal 3.70-11.00 [facility] Comment on above: Order Comment: Speci men Type: BLOOD SPECIMEN Ordering Facility: [facility] Address: [address] [place] [address] Performed By: #### 5 8410-2 #### [facility] CLIA [id number] [address] [place] [address] [place] CNOVon 02-27-2025 CNOV Office Visit (INTMWS ) SHAHBAZ VIDAL ([id number]) 1950 F Date Time Provider Department 02/27/25 12:00 PM RAINE NORIEGA INTMWS During your visit today, we recorded the following information about you: Pulse Respiration Blood pressure Weight 74/minute 14/minute 122/68 77.3 kg Height 1.655 m Raine Noriega, MECHANICAL MAINTENANCE.[facility] 02/27/2025 1:16 PM Signed CC: Patient presents with: Physical HPI Recording using ambient [employer] software for draft documentation of the visit was discussed with the patient/authorized administrative representative; all questions welcomed and answered. Patient/authorized administrative representative agreed to proceed Shahbaz Vidal is a 75-year-old female with a history of asthma, HTN, hyperlipidemia, and hypothyroidism, presenting for an annual wellness visit. Annual Wellness Exam: - Weight: 170 lbs, down 7 lbs since September. - Walks downtown 2-3 times a week during the summer; less active in winter. - Describes diet as healthy, including fruits, vegetables, and whole grains; enjoys candy. Asthma: - Diagnosed over 20 years ago. - Uses Symbicort 2 puffs BID; insurance no longer covers Symbicort. - Rarely uses albuterol inhaler. - Denies dyspnea. Hypertension: - Takes amlodipine 10 mg daily. - Denies chest pain, pressure, palpitations, or edema in ankles/feet. - Reports occasional lightheadedness upon waking, relieved by drinking orange juice. - Experiences near-syncope during hot weather when walking downtown. Hyperlipidemia: - Takes Zocor daily. Hypothyroidism: - Takes levothyroxine daily on an empty stomach. Bipolar Disorder: - History of bipolar disorder; not currently on medication. - Reports no issues with depression or anxiety. Insomnia: - Difficulty sleeping for years, reportedly since developing diverticulitis. - Goes to bed at 23:00 and wakes up at 02:00. - Previously tried medication for sleep, but discontinued due to xerostomia. Review of Systems Constitutional: Negative. Respiratory: Negative. Cardiovascular: Negative. Gastrointestinal: Negative. Genitourinary: Negative. Neurological: Negative. PAST MEDICAL HISTORY Diagnosis Date Allergic rhinitis, cause unspecified 04/10/2005 Bipolar disorder, unspecified (HCC) 04/10/2005 MANIC, SUICIDE ATTEMPT X1 Depressive disorder, not elsewhere classified 04/10/2005 MANIC, SUICIDE ATTEMPT X1 Diverticulitis 10/28/2020 Diverticulitis of large intestine with perforation 08/10/2019 Herpes zoster without mention of complication Right scapula Impingement syndrome of right shoulder 05/09/2013 Obesity, Class I, BMI 30-34.9 03/22/2019 Other and unspecified hyperlipidemia 04/10/2005 POSTABLAT HYPOTHYR NEC 09/30/2005 Senile osteoporosis 04/10/2005 Thyrotoxicosis without mention of goiter or other cause, without mention of thyrotoxic crisis or storm 09/30/2005 Tobacco use disorder 04/10/2005 Unspecified asthma(493.90) 04/10/2005 PAST SURGICAL HISTORY Procedure Laterality Date DELIVERY ONLY 1972 , low cervical OPTX ANKLE DISLOCATION W/REPAIR/INT/XTRNL FIXJ ORIF Ankle, Right ankle PAST SURGICAL HISTORY OF 1993 Left breast Lumpectomy, benign PAST SURGICAL HISTORY OF dental mandibular surgery TOTAL ABDOMINAL HYSTERECT W/WO RMVL TUBE OVARY 1997 Hysterectomy, SONIA ALLERGIES Penicillins MEDICATIONS amLODIPine (NORVASC) 10 mg tablet Take 1 tablet by mouth once daily. albuterol HFA (VENTOLIN HFA) 90 mcg/actuation inhaler INHALE 2 PUFFS EVERY FOUR HOURS NEEDED FOR WHEEZING OR SHORTNESS OF BREATH simvastatin (ZOCOR) 20 mg tablet Take 1 tablet by mouth daily at bedtime. levothyroxine (SYNTHROID) 88 mcg tablet Take 1 tablet by mouth once daily. Take on empty stomach. ACETAMINOPHEN ORAL Take 650 mg by mouth every 6 hours as needed. mometasone-formoterol (DULERA) 100-5 mcg/actuation inhaler Inhale 2 puffs as instructed two times a day. FAMILY HISTORY Problem Relation Age of Onset Stroke Mother ANEURYSM Diabetes Father Hypertension Father Coronary Artery Disease Father Diabetes Paternal Grandmother Breast Cancer Paternal Aunt 2 AUNTS Breast Cancer Sister Cancer Brother throat cancer SOCIAL HISTORY[1] BP 122/68 Pulse 74 Resp 14 Ht 165.5 cm (5' 5.16) Wt 77.3 kg (170 lb 6.7 oz) SpO2 98% BMI 28.22 kg/m? Physical Exam Vitals reviewed. Constitutional: Appearance: Normal appearance. Neck: Thyroid: No thyroid mass, thyromegaly or thyroid tenderness. Cardiovascular: Rate and Rhythm: Normal rate and regular rhythm. Heart sounds: Normal heart sounds. No murmur heard. Pulmonary: Effort: Pulmonary effort is normal. Breath sounds: Normal breath sounds. No wheezing, rhonchi or rales. Abdominal: General: There is no distension. Palpations: There is no hepatomegaly, splenomegaly or mass. Tenderness: There is no abdominal tenderness. Co (more content not included)... Normal [facility] Comprehensive metabolic 2000 panelon 02-27-2025 Albumin [Mass/Vol] 4.5 g/dL Normal 3.9-4.9 [facility] Comment on above: Order Comment: Speci men Type: BLOOD SPECIMEN Ordering Facility: [facility] Address: [address] [place] [address] Performed By: #### 2 4331-1, 32716-5, 6-3 #### [facility] CLIA [id number] [address] [place] [address] [place] ALP [Catalytic activity/Vol] 91 U/L Normal 34-123 [facility] Comment on above: Order Comment: Speci men Type: BLOOD SPECIMEN Ordering Facility: [facility] Address: [address] [place] [address] Performed By: #### 2 4331-1, 45916-6, 6-3 #### [facility] CLIA [id number] [address] [place], [place] [address] [place] ALT [Catalytic activity/Vol] 10 U/L Normal 7-38 [facility] Comment on above: Order Comment: Speci men Type: BLOOD SPECIMEN Ordering Facility: [facility] Address: [address] [place] [address] Performed By: #### 2 4331-1, 84622-2, 6-3 #### [facility] CLIA [id number] [address] [place], [place] [address] [place] Anion gap [Moles/Vol] 14 mmol/L Normal 8-15 [facility] Comment on above: Order Comment: Speci men Type: BLOOD SPECIMEN Ordering Facility: [facility] Address: [address] [place] [address] Performed By: #### 2 4331-1, 61199-0, 6-3 #### [facility] CLIA [id number] [address] [place], [place] [address] [place] AST [Catalytic activity/Vol] 13 U/L Normal 13-35 [facility] Comment on above: Order Comment: Speci men Type: BLOOD SPECIMEN Ordering Facility: [facility] Address: [address] [place] [address] Performed By: #### 2 4331-1, 85111-7, 6-3 #### [facility] CLIA [id number] [address] [place] [address] [place] Bilirubin [Mass/Vol] 0.4 mg/dL Normal 0.2-1.3 [facility] Comment on above: Order Comment: Speci men Type: BLOOD SPECIMEN Ordering Facility: [facility] Address: [address] [place] [address] Performed By: #### 2 4331-1, 76910-0, 6-3 #### [facility] CLIA [id number] [address] [place], [place] [address] [place] Calcium [Mass/Vol] 10.2 mg/dL Normal 8.5-10.2 [facility] Comment on above: Order Comment: Speci men Type: BLOOD SPECIMEN Ordering Facility: [facility] Address: [address] [place] [address] Performed By: #### 2 4331-1, 44165-4, 6-3 #### [facility] CLIA [id number] [address] [place] [address] [place] Chloride [Moles/Vol] 100 mmol/L Normal 98-107 [facility] Comment on above: Order Comment: Speci men Type: BLOOD SPECIMEN Ordering Facility: [facility] Address: [address] [place] [address] Performed By: #### 2 4331-1, 00799-7, 3016-3 #### [facility] CLIA [id number] [address] [place] [address] [place] CO2 [Moles/Vol] 23 mmol/L Normal 22-30 [facility] Comment on above: Order Comment: Speci men Type: BLOOD SPECIMEN Ordering Facility: [facility] Address: [address] [place] [address] Performed By: #### 2 4331-1, 04047-8, 3016-3 #### [facility] CLIA [id number] [address] [place] [address] [place] Creatinine [Mass/Vol] 0.68 mg/dL Normal 0.58-0.96 [facility] Comment on above: Order Comment: Speci men Type: BLOOD SPECIMEN Ordering Facility: [facility] Address: [address] [place] [address] Performed By: #### 2 4331-1, 13185-0, 3016-3 #### [facility] CLIA [id number] [address] [place] [address] [place] eGFRcr SerPlBld CKD-EPI 2020 92 mL/min/1.73m??? Normal >=60 [facility] Comment on above: Order Comment: Speci men Type: BLOOD SPECIMEN Ordering Facility: [facility] Address: [address] [place] [address] Result Comment: Fang mated Glomerular Filtration Rate (eGFR) is calculated using the 2020 CKD-EPI creatinine equation. This equation utilizes serum creatinine, sex, and age as parameters. The creatinine assay has traceable calibration to isotope dilution-mass spectrometry. Refer to KDIGO guidelines for clinical interpretation. In patients with unstable renal function, e.g. those with acute kidney injury, the eGFR may not accurately reflect actual GFR. Performed By: #### 2 4331-1, 82036-5, 3 #### [facility] CLIA [id number] [address] [address] [place] Glucose [Mass/Vol] 92 mg/dL Normal 74-99 [facility] Comment on above: Order Comment: Elisabeth teran Type: BLOOD SPECIMEN Ordering Facility: [facility] Address: [address] [id number] Result Comment: The [place] Diabetes Association (ADA) provides guidance for cutoff values for fasting glucose and random glucose. The ADA defines fasting as no caloric intake for at least 8 hours. Fasting plasma glucose results between 100 to 125 mg/dL indicate increased risk for diabetes (prediabetes). Fasting plasma glucose results greater than or equal to 126 mg/dL meet the criteria for diagnosis of diabetes. In the absence of unequivocal hyperglycemia, results should be confirmed by repeat testing. In a patient with classic symptoms of hyperglycemia or hyperglycemic crisis, random plasma glucose results greater than or equal to 200 mg/dL meet the criteria for diagnosis of diabetes. Reference: Standards of Medical Care in Diabetes 2016, [place] Diabetes Association. Diabetes Care. 2016.39(Suppl 1). Performed By: #### 2 4331-1, , 3 #### [facility] CLIA [id number] [address] [address] [place] Potassium [Moles/Vol] 4.7 mmol/L Normal 3.7-5.1 [facility] Comment on above: Order Comment: Elisabeth teran Type: BLOOD SPECIMEN Ordering Facility: [facility] Address: [address] [place] [address] Performed By: #### 2 4331-1, , 3 #### [facility] CLIA [id number] [address] [facility] [address] [address] [place] Protein [Mass/Vol] 7.9 g/dL Normal 6.3-8.0 [facility] Comment on above: Order Comment: Speci men Type: BLOOD SPECIMEN Ordering Facility: [facility] Address: [address] [place], [place] [address] Performed By: #### 2 4331-1, 57194-6, 3 #### [facility] CLIA [id number] [address] [place] [address] [place] Sodium [Moles/Vol] 137 mmol/L Normal 136-144 [facility] Comment on above: Order Comment: Speci men Type: BLOOD SPECIMEN Ordering Facility: [facility] Address: [address] [place], [place] [address] Performed By: #### 2 4331-1, , 3 #### [facility] CLIA [id number] [address] [place] [address] [place] Urea nitrogen [Mass/Vol] 17 mg/dL Normal 7-21 [facility] Comment on above: Order Comment: Speci men Type: BLOOD SPECIMEN Ordering Facility: [facility] Address: [address] [place], [place] [address] Performed By: #### 2 4331-1, , 3015-09 #### [facility] CLIA [id number] [address] [place] [address] [place] Lipid 1996 panelon 5 Cholesterol [Mass/Vol] 177 mg/dL Normal <200 [facility] Comment on above: Order Comment: Speci men Type: BLOOD SPECIMEN Ordering Facility: [facility] Address: [address] [place] [address] Result Comment: <200 mg/dL, Desirable 200-239 mg/dL, Borderline high >239 mg/dL, High Performed By: #### 2 4331-1, , 3 #### [facility] CLIA [id number] [address] [place] [address] [place] Cholesterol in HDL [Mass/Vol] 58 mg/dL Normal >39 [facility] Comment on above: Order Comment: Shelleyashley teran Type: BLOOD SPECIMEN Ordering Facility: [facility] Address: [address] [place] [address] Result Comment: 40-5 9 mg/dL, Acceptable >59 mg/dL, High: Negative risk factor for coronary heart disease <40 mg/dL, Low: Positive risk factor for coronary heart disease Performed By: #### 2 4331-1, 53565-1, 6-3 #### [facility] CLIA [id number] [address] [place] [address] STATES [place] [facility] Cholesterol in LDL [Mass/Vol] 99 mg/dL Normal <100 [facility] Comment on above: Order Comment: Elisabeth parul Type: BLOOD SPECIMEN Ordering Facility: [facility] Address: [address] [place] [address] Result Comment: <100 mg/dL, Optimal 100-129 mg/dL, Near optimal/above optimal 130-159 mg/dL, Borderline high 160-189 mg/dL, High >189 mg/dL, Very high Secondary prevention optimal LDL Cholesterol levels are recommended to be <70 mg/dL LDL cholesterol is calculated using the Norton-NIH equation. Performed By: #### 2 4331-1, 54525-6, 3015-3 #### [facility] CLIA [id number] [address] [place] [address] [place] Cholesterol in LDL/Cholesterol in HDL [Mass ratio] 1.71 {ratio} Normal <2.54 [facility] Comment on above: Order Comment: Elisabeth teran Type: BLOOD SPECIMEN Ordering Facility: [facility] Address: [address] [place] [address] Result Comment: Refelana stevensce: 1. National Cholesterol Education Program ATP III Guideline At-A-Glance Quick Desk Reference: National Heart, Lung, and Blood [place]. National Institutes of Health. 2001: NIH Publication No. 01-3305. 2. An International Atherosclerosis Society position paper: global recommendations for the management of dyslipidemia: executive summary, Atherosclerosis. 2014: 232(2):410-413. Performed By: #### 2 4331-1, 35724-1, 3015-3 #### [facility] CLIA [id number] [address] [address] [place] Cholesterol in VLDL [Mass/Vol] 18 mg/dL Normal <30 [facility] Comment on above: Order Comment: Speci men Type: BLOOD SPECIMEN Ordering Facility: [facility] Address: [address] [place], [place] [address] Performed By: #### 2 4331-1, 21129-7, 3015-09 #### [facility] CLIA [id number] [address] [place], [place] [address] [place] Cholesterol non HDL [Mass/Vol] 119 mg/dL Normal <130 [facility] Comment on above: Order Comment: Speci men Type: BLOOD SPECIMEN Ordering Facility: [facility] Address: [address] [place] [address] Result Comment: <130 mg/dL, Optimal 130-159 mg/dL, Near optimal/above optimal 160-189 mg/dL, Borderline high 190-219 mg/dL, High >219 mg/dL, Very high Secondary prevention optimal non HDL Cholesterol levels are recommended to be <100 mg/dL Performed By: #### 2 4331-1, 61318-5, 3015-09 #### [facility] CLIA [id number] [address] [place] [address] [place] Cholesterol.total/Ch olesterol in HDL [Mass ratio] 3.05 {ratio} Normal <5.10 [facility] Comment on above: Order Comment: Speci men Type: BLOOD SPECIMEN Ordering Facility: [facility] Address: [address] [place] [address] Performed By: #### 2 4331-1, , 3 #### [facility] CLIA [id number] [address] [place] [address] [place] FASTING TIME 12 hrs Normal [facility] Comment on above: Order Comment: Speci men Type: BLOOD SPECIMEN Ordering Facility: [facility] Address: [address] [place] [address] Performed By: #### 2 4331-1, 58495-8, 3 #### [facility] CLIA [id number] [address] [place] [address] [place] Triglyceride [Mass/Vol] 111 mg/dL Normal <150 [facility] Comment on above: Order Comment: Speci men Type: BLOOD SPECIMEN Ordering Facility: [facility] Address: [address] [place] [address] Result Comment: <150 mg/dL, Normal 150-199 mg/dL, Borderline high 200-499 mg/dL, High >499 mg/dL, Very high Performed By: #### 2 4331-1, 45469-9, 3 #### [facility] CLIA [id number] [address] [place] [address] [place] TSH SerPl-aCncon 02-27-2025 TSH Qn 0.396 m[IU]/L Normal 0.270-4.200 [facility] Comment on above: Order Comment: Speci men Type: BLOOD SPECIMEN Ordering Facility: [facility] Address: [address] [place] [address] Performed By: #### 2 4331-1, 00894-1, 3 #### [facility] CLIA [id number] [address] [place] [address] [place] CNPNon 02-21-2025 CNPN Telephone (INTMWS) SHAHBAZ VIDAL ([id number]) 1950 F Date Time Provider Department 02/21/25 FORTUNATO MCDERMOTT INTMWS During your visit today, we recorded the following information about you: Ruby Ramos 02/21/2025 10:03 AM Signed Patient and son presented at front office manager, coming straight from the Social Security Office. Patient states she is trying to get a new SS Card and was sent to this office to get a form to document who she is. Please assist. Ruby Ramos Tracy Morrison LPN 02/21/2025 10:52 AM Signed Patient calling she is trying to get a replacement social security card. She is needing a letter on letterhead from Dr office and her name date of , stating that she is a patient of the provider for more than 2 years. Patient said she is able to shrimp picker the letter on Wednesday if possible. Please advise Fortunato Mcdermott MD 02/22/2025 8:00 PM Signed Letter signed. Maria D Merchant LPN 02/23/2025 8:28 AM Signed Called pt and not a working number pts son notified who was here with this requested. This will be in medical records for shrimp picker today after noon. Allergies As of Date: 02/21/2025 Noted Allergy Reaction PENICILLINS 04/10/2005 Date Reviewed: 09/19/2024 Reviewed by: Jacqueline Adams LPN - Fully Assessed Reason for Visit: Social Security Card [Other] needs letter [Other] Prescriptions as of 02/23/2025 - amLODIPine (NORVASC) 10 mg tablet Take 1 tablet by mouth once daily. - albuterol HFA (VENTOLIN HFA) 90 mcg/actuation inhaler INHALE 2 PUFFS EVERY FOUR HOURS NEEDED FOR WHEEZING OR SHORTNESS OF BREATH - simvastatin (ZOCOR) 20 mg tablet Take 1 tablet by mouth daily at bedtime. - levothyroxine (SYNTHROID) 88 mcg tablet Take 1 tablet by mouth once daily. Take on empty stomach. - budesonide-formoterol (SYMBICORT) 160-4.5 mcg/actuation inhaler Inhale 2 Puffs as instructed two times a day. - ACETAMINOPHEN ORAL Take 650 mg by mouth every 6 hours as needed. - sennosides/docusate sodium (SENOKOT-S ORAL) Take 2 tablets by mouth twice daily as needed. 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.0] 09/30/2005 Impingement syndrome of right shoulder [M75.41] 05/09/2013 08/02/2014 Essential hypertension [I10] 03/20/2016 Obesity, Class I, BMI 30-34.9 [E66.811] 03/22/2019 Diverticulitis [K57.92] 10/28/2020 10/25/2023 Leukocytosis [D72.829] 10/28/2020 04/29/2021 Letter Text Encounter Status:Closed by MARIA D MERCHANT on 02/23/25 [facility] CNOVon 09-19-2024 CNOV Office Visit (INTMWS ) SHAHBAZ VIDAL ([id number]) 1950 F Date Time Provider Department 09/19/24 9:20 AM FORTUNATO MCDERMOTT INTMWS During your visit today, we recorded the following information about you: Temperature Pulse Blood pressure Weight 98.5 degrees 68/minute 120/56 80.6 kg Fortunato Mcdermott MD 09/19/2024 10:14 AM Signed This note was created using NoteWriter. Subjective Shahbaz Vidal is a 74 year old female. She was doing well and had no concerns. Asthma, hypertension, and hyperlipidemia were controlled. Hypothyroidism was supplemented. We discussed screening examinations and she preferred no routine screening tests. Review of Systems Constitutional: Negative for fatigue and unexpected weight change. Respiratory: Negative for cough, shortness of breath and wheezing. Cardiovascular: Negative for chest pain, palpitations and leg swelling. ACTIVE PROBLEM LIST Bipolar Affective Disorder, Currently Manic, Mild (Hcc) Asthma Hyperlipidemia, Unspecified Allergic Rhinitis Hypothyroidism, Postablative Essential Hypertension Obesity, Class I, Bmi 30-34.9 Social History Tobacco Use Smoking status: Former Current packs/day: 0.00 Average packs/day: 0.5 packs/day for 22.0 years (11.0 ttl pk-yrs) Types: Cigarettes Start date: 11/16/1992 Quit date: 11/16/2014 Years since quittin.8 Smokeless tobacco: Never Substance Use Topics Alcohol use: No Drug use: No Current Outpatient Medications Medication Sig amLODIPine (NORVASC) 10 mg tablet Take 1 tablet by mouth once daily. simvastatin (ZOCOR) 20 mg tablet Take 1 tablet by mouth daily at bedtime. albuterol HFA (VENTOLIN HFA) 90 mcg/actuation inhaler INHALE 2 PUFFS EVERY FOUR HOURS NEEDED FOR WHEEZING OR SHORTNESS OF BREATH levothyroxine (SYNTHROID) 88 mcg tablet Take 1 tablet by mouth once daily. Take on empty stomach. budesonide-formoterol (SYMBICORT) 160-4.5 mcg/actuation inhaler Inhale 2 Puffs as instructed two times a day. ACETAMINOPHEN ORAL Take 650 mg by mouth every 6 hours as needed. sennosides/docusate sodium (SENOKOT-S ORAL) Take 2 tablets by mouth twice daily as needed. No current facility-administered medications for this visit. Objective BP 120/56 (BP Site: Left Arm, BP Cuff Size: Large Adult) Pulse 68 Temp 36.9 ?C (98.5 ?F) (Temporal) Wt 80.6 kg (177 lb 11.1 oz) BMI 30.50 kg/m? Physical Exam Constitutional: General: She is not in acute distress. Cardiovascular: Rate and Rhythm: Normal rate and regular rhythm. Heart sounds: No murmur heard. No gallop. Pulmonary: Breath sounds: Normal breath sounds. Musculoskeletal: Right lower leg: No edema. Left lower leg: No edema. Neurological: Mental Status: She is alert. Assessment and Plan 1. Essential hypertension - ICD9: 401.9, ICD10: I10 (primary diagnosis) - Controlled - Continue current medications - COMPLETE BLOOD COUNT 2. Encounter for immunization - ICD9: V03.89, ICD10: Z23 - PFIZER-BIONTECH COVID-19 VACCINE AGE 12+ YR (COMIRNATY) 3. 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 Hyperlipidemia, unspecified hyperlipidemia type - ICD9: 272.4, ICD10: E78.5 - Controlled - Continue current medications - Counseled on healthy diet and regular exercise - COMPREHENSIVE METABOLIC PANEL - LIPID PANEL BASIC 5. Moderate persistent asthma without complication - ICD9: 493.90, ICD10: J45.40 - Moderate persistent asthma stable - Continue current medications Screening for colon cancer, screening for breast cancer declined indefinitely. She was advised to inform me if she changes her preference. Fortunato Mcdermott MD Allergies As of Date: 09/19/2024 Noted Allergy Reaction PENICILLINS 04/10/2005 Date Reviewed: 09/19/2024 Reviewed by: Jacqueline Adams LPN - Fully Assessed Reason for Visit: F/U 6 months [1177] Primary Visit Diagnosis:Essential hypertension [I10] Other Visit Diagnoses:Encounter for immunization [Z23] Hypothyroidism, postablative [E89.0] Hyperlipidemia, unspecified hyperlipidemia type [E78.5] Moderate persistent asthma without complication [J45.40] Order(s):PFIZER-BIONTE CH COVID-19 VACCINE AGE 12+ YR [facility] [[id number]] Order #: [id number] COMPLETE BLOOD COUNT [SQCBC] Order #: [id number] FUTURE COMPREHENSIVE METABOLIC PANEL [SQCMP] Order #: [id number] FUTURE LIPID PANEL BASIC [SQLIPB] Order #: [id number] FUTURE THYROID STIMULATING HORMONE [SQTSH] Order #: [id number] FUTURE Prescriptions as of 09/19/2024 - amLODIPine (NORVASC) 10 mg tablet Take 1 tablet by mouth once daily. - simvastatin (ZOCOR) 20 mg tablet Take 1 tablet by mouth daily at bedtime. - albuterol HFA (VENTOLIN HFA) 90 mcg/actuation inhaler INHALE 2 PUFFS EVERY FOUR HOURS NEEDED FOR WHEEZING OR SHORTNESS OF BREATH - levothyroxine (SYNTHR (more content not included)... Normal [facility] Basic metabolic 2000 panelon 10-28-2023 Anion gap [Moles/Vol] 11 mmol/L Normal 9-18 [facility] Comment on above: Order Comment: Speci men Type: BLOOD SPECIMEN Ordering Facility: [facility] Address: [address] [place] [address] Performed By: #### 2 4321-2, 3016-3 #### [facility] CLIA [id number] [address] [place] [address] [place] Calcium [Mass/Vol] 9.9 mg/dL Normal 8.5-10.2 [facility] Comment on above: Order Comment: Speci men Type: BLOOD SPECIMEN Ordering Facility: [facility] Address: [address] [place] [address] Performed By: #### 2 4321-2, 6-3 #### [facility] CLIA [id number] [address] [place] [address] [place] Chloride [Moles/Vol] 104 mmol/L Normal 97-105 [facility] Comment on above: Order Comment: Speci men Type: BLOOD SPECIMEN Ordering Facility: [facility] Address: [address] [place] [address] Performed By: #### 2 4321-2, 3016-3 #### [facility] CLIA [id number] [address] [place] [address] [place] CO2 [Moles/Vol] 26 mmol/L Normal 22-30 [facility] Comment on above: Order Comment: Speci men Type: BLOOD SPECIMEN Ordering Facility: [facility] Address: [address] [place] [address] Performed By: #### 2 4321-2, 3016-3 #### [facility] CLIA [id number] [address] [place] [address] [place] Creatinine [Mass/Vol] 0.66 mg/dL Normal 0.58-0.96 [facility] Comment on above: Order Comment: Speci men Type: BLOOD SPECIMEN Ordering Facility: [facility] Address: [address] [place] [address] Performed By: #### 2 4321-2, 3016-3 #### [facility] CLIA [id number] [address] [place], [place] [id number] [place] Creatinine and Glomerular filtration rate.predicted panel (S/P/Bld) 93 mL/min/1.73m??? Normal >=60 [facility] Comment on above: Order Comment: Elisabeth teran Type: BLOOD SPECIMEN Ordering Facility: [facility] Address: [address] [place] [address] Result Comment: Fang mated Glomerular Filtration Rate (eGFR) is calculated using the 2020 CKD-EPI creatinine equation. This equation utilizes serum creatinine, sex, and age as parameters. The creatinine assay has traceable calibration to isotope dilution-mass spectrometry. Refer to KDIGO guidelines for clinical interpretation. In patients with unstable renal function, e.g. those with acute kidney injury, the eGFR may not accurately reflect actual GFR. Performed By: #### 2 4321-2, 3015-3 #### [facility] CLIA [id number] [address] [place], [place] [id number] [place] Glucose [Mass/Vol] 94 mg/dL Normal 74-99 [facility] Comment on above: Order Comment: Elisabeth teran Type: BLOOD SPECIMEN Ordering Facility: [facility] Address: [address] [place] [address] Result Comment: The [place] Diabetes [employer] (ADA) provides guidance for cutoff values for fasting glucose and random glucose. The ADA defines fasting as no caloric intake for at least 8 hours. Fasting plasma glucose results between 100 to 125 mg/dL indicate increased risk for diabetes (prediabetes). Fasting plasma glucose results greater than or equal to 126 mg/dL meet the criteria for diagnosis of diabetes. In the absence of unequivocal hyperglycemia, results should be confirmed by repeat testing. In a patient with classic symptoms of hyperglycemia or hyperglycemic crisis, random plasma glucose results greater than or equal to 200 mg/dL meet the criteria for diagnosis of diabetes. Reference: Standards of Medical Care in Diabetes 2016, [place] [employer]. Diabetes Care. 2016.39(Suppl 1). Performed By: #### 2 4321-2, 3015-3 #### [facility] CLIA [id number] [address] [place] [address] [place] Potassium [Moles/Vol] 4.2 mmol/L Normal 3.7-5.1 [facility] Comment on above: Order Comment: Speci men Type: BLOOD SPECIMEN Ordering Facility: [facility] Address: [address] [place] [address] Performed By: #### 2 4321-2, 3016-3 #### [facility] CLIA [id number] [address] [place] [address] [place] Sodium [Moles/Vol] 141 mmol/L Normal 136-144 [facility] Comment on above: Order Comment: Speci men Type: BLOOD SPECIMEN Ordering Facility: [facility] Address: [address] [place] [address] Performed By: #### 2 4321-2, 3016-3 #### [facility] CLIA [id number] [address] [place] [id number] [place] Urea nitrogen [Mass/Vol] 16 mg/dL Normal 7-21 [facility] Comment on above: Order Comment: Speci men Type: BLOOD SPECIMEN Ordering Facility: [facility] Address: [address] [place] [address] Performed By: #### 2 4321-2, 3016-3 #### [facility] CLIA [id number] [address] [place] [address] [place] CBC panel Auto (Bld)on 10-27 Erythrocyte distribution width (RBC) [Ratio] 12.7 % Normal 11.5-15.0 [facility] Comment on above: Order Comment: Speci men Type: BLOOD SPECIMEN Ordering Facility: [facility] Address: [address] [place] [address] Performed By: #### 5 8410-2 #### [facility] CLIA [id number] [address] [place] [address] [place] Hematocrit (Bld) [Volume fraction] 38.9 % Normal 36.0-46.0 [facility] Comment on above: Order Comment: Speci men Type: BLOOD SPECIMEN Ordering Facility: [facility] Address: [address] [place] [address] Performed By: #### 5 8410-2 #### [facility] CLIA [id number] [address] [place] [address] [place] Hemoglobin (Bld) [Mass/Vol] 13.0 g/dL Normal 11.5-15.5 [facility] Comment on above: Order Comment: Speci men Type: BLOOD SPECIMEN Ordering Facility: [facility] Address: [address] [place] [address] Performed By: #### 5 8410-2 #### [facility] CLIA [id number] [address] [place] [address] [place] MCH (RBC) [Entitic mass] 31.9 pg Normal 26.0-34.0 [facility] Comment on above: Order Comment: Speci men Type: BLOOD SPECIMEN Ordering Facility: [facility] Address: [address] [place] [address] Performed By: #### 5 8410-2 #### [facility] CLIA [id number] [address] [place] [address] [place] MCHC (RBC) [Mass/Vol] 33.4 g/dL Normal 30.5-36.0 [facility] Comment on above: Order Comment: Speci men Type: BLOOD SPECIMEN Ordering Facility: [facility] Address: [address] [place] [address] Performed By: #### 5 8410-2 #### [facility] CLIA [id number] [address] [place] [address] [place] MCV (RBC) [Entitic vol] 95.3 fL Normal 80.0-100.0 [facility] Comment on above: Order Comment: Speci men Type: BLOOD SPECIMEN Ordering Facility: [facility] Address: [address] [place] [address] Performed By: #### 5 8410-2 #### [facility] CLIA [id number] [address] [place] [address] [place] Platelet mean volume (Bld) [Entitic vol] 8.6 fL Low 9.0-12.7 [facility] Comment on above: Order Comment: Speci men Type: BLOOD SPECIMEN Ordering Facility: [facility] Address: [address] [place] [address] Performed By: #### 5 8410-2 #### [facility] CLIA [id number] [address] [place] [address] [place] Platelets (Bld) [#/Vol] 276 10*3/uL Normal 150-400 [facility] Comment on above: Order Comment: Speci men Type: BLOOD SPECIMEN Ordering Facility: [facility] Address: [address] [place] [address] Performed By: #### 5 8410-2 #### [facility] CLIA [id number] [address] [place] [address] [place] RBC (Bld) [#/Vol] 4.08 10*6/uL Normal 3.90-5.20 [facility] Comment on above: Order Comment: Speci men Type: BLOOD SPECIMEN Ordering Facility: [facility] Address: [address] [place] [address] Performed By: #### 5 8410-2 #### [facility] CLIA [id number] [address] [place] WBC (Bld) [#/Vol] 8.57 10*3/uL Normal 3.70-11.00 [facility] Comment on above: Order Comment: Speci men Type: BLOOD SPECIMEN Ordering Facility: [facility] Address: [address] [place] [address] Performed By: #### 5 8410-2 #### [facility] CLIA [id number] [address] [place], [place] [id number] [place] [address] OF [place] T4 Free SerPl-mCncon 024 Free T4 [Mass/Vol] 1.6 ng/dL Normal 0.9-1.7 [facility] Comment on above: Order Comment: Speci men Type: BLOOD SPECIMEN Ordering Facility: [facility] Address: [address] [place] [address] Performed By: #### 3 024-7 #### [facility] CLIA [id number] [address] OF [facility] TSH SerPl-aCncon 10-28-2023 TSH Qn 0.051 m[IU]/L Low 0.270-4.200 [facility] Comment on above: Order Comment: Speci men Type: BLOOD SPECIMEN Ordering Facility: [facility] Address: [address] [place] [address] Performed By: #### 2 4321-2, 3016-3 #### [facility] CLIA [id number] [address] OF [facility] Comprehensive metabolic 2000 panelon 07-23-2022 Albumin [Mass/Vol] 4.5 g/dL 3.9 - 4.9 g/dL [facility] ALP [Catalytic activity/Vol] 65 U/L 34 - 123 U/L [facility] ALT [Catalytic activity/Vol] 13 U/L 7 - 38 U/L [facility] Anion gap [Moles/Vol] 13 mmol/L 9 - 18 mmol/L [facility] AST [Catalytic activity/Vol] 14 U/L 13 - 35 U/L [facility] Bilirubin [Mass/Vol] 0.5 mg/dL 0.2 - 1 .3 mg/dL [facility] Calcium [Mass/Vol] 9.6 mg/dL 8.5 - 10. 2 mg/dL [facility] Chloride [Moles/Vol] 102 mmol/L 97 - 10 5 mmol/L [facility] CO2 [Moles/Vol] 24 mmol/L 22 - 30 mmol/L [facility] Creatinine [Mass/Vol] 0.63 mg/dL 0.58 - 0.96 mg/dL [facility] Estimated Glomerular Filtration Rate 95 mL/min/1.73m >=60 mL/min/1.73m [facility] Glucose [Mass/Vol] 94 mg/dL 74 - 99 mg/dL [facility] Potassium [Moles/Vol] 4.2 mmol/L 3.7 - 5.1 mmol/L [facility] Protein [Mass/Vol] 7.6 g/dL 6.3 - 8.0 g/dL Cl [facility] Sodium [Moles/Vol] 139 mmol/L 136 - 144 mmol/L [facility] Urea nitrogen [Mass/Vol] 15 mg/dL 7 - 21 mg/dL [facility] Lipid 1996 panelon Cholesterol [Mass/Vol] 153 mg/dL <200 mg/dL [facility] Cholesterol in HDL [Mass/Vol] 61 mg/dL >39 mg/dL [facility] Cholesterol in LDL [Mass/Vol] 73 mg/dL <100 mg/dL [facility] Cholesterol in LDL/Cholesterol in HDL [Mass ratio] 1.20 {ratio} <2.54 [facility] Cholesterol in VLDL [Mass/Vol] 19 mg/dL <30 mg/dL [facility] Cholesterol non HDL [Mass/Vol] 92 mg/dL <130 mg/dL [facility] Cholesterol.total/Ch olesterol in HDL [Mass ratio] 2.51 {ratio} <5.10 [facility] Fasting Time 18 hrs [facility] Triglyceride [Mass/Vol] 97 mg/dL <150 mg/dL [facility] TSH BLDon 07-23-2022 TSH Qn 0.234 m[IU]/L Low 0.270 - 4.200 mIU/L [facility] XR Chest PA and Lateralon IMPRESSION: No acute radiographic abnormality. Tuber Machine Cutter: TORIN Transcribe Date/Time: Sep 26 2020 12:14P Dictated by : BHARATH HARRISON MD This examination was interpreted and the report reviewed and electronically signed by: BHARATH HARRISON MD on Sep 26 2020 12:15PM [facility] DIVISION OF RADIOLOGY * * *Final Report* * * DATE OF EXAM: Sep 26 2020 12:08PM WOX 5291 - XR CHEST 2V FRONTAL/LAT / PROCEDURE REASON: multiple diagnoses * * * * Physician Interpretation * * * * EXAMINATION: CHEST RADIOGRAPH (2 VIEW FRONTAL & LATERAL) CLINICAL HISTORY: Essential hypertension Tingling of right upper extremity MQ: XC2_6 EXAM DATE/TIME: 09/26/2020 12:08 PM COMPARISON: 04/10/2010 RESULT: Lines, tubes, and devices: None. Lungs and pleura: No consolidation. No lung mass. No pleural effusion. No pneumothorax. Cardiomediastinal silhouette: Normal cardiomediastinal silhouette. Bones and soft tissues: Unremarkable. DIVISION OF RADIOLOGY Provider, Emely Soliz [facility] - 09/26/2020 * * *Final Report* * * DATE OF EXAM: Sep 26 2020 12:08PM WOX 5291 - XR CHEST 2V FRONTAL/LAT / PROCEDURE REASON: multiple diagnoses * * * * Physician Interpretation * * * * EXAMINATION: CHEST RADIOGRAPH (2 VIEW FRONTAL & LATERAL) CLINICAL HISTORY: Essential hypertension Tingling of right upper extremity MQ: XC2_6 EXAM DATE/TIME: 09/26/2020 12:08 PM COMPARISON: 04/10/2010 RESULT: Lines, tubes, and devices: None. Lungs and pleura: No consolidation. No lung mass. No pleural effusion. No pneumothorax. Cardiomediastinal silhouette: Normal cardiomediastinal silhouette. Bones and soft tissues: Unremarkable. IMPRESSION IMPRESSION: No acute radiographic abnormality. Tuber Machine Cutter: PSCB Transcribe Date/Time: Sep 26 2020 12:14P Dictated by : BHARATH HARRISON MD This examination was interpreted and the report reviewed and electronically signed by: BHARATH HARRISON MD on Sep 26 2020 12:15PM [facility] Radiology Study observation (narrative) [facility] XR Chest PA and LateralOrder ed By: Cc Provider on 09-26-2020 [facility] Basic Metabolic Profile (BMP )on 08-21-2019 Calcium [Mass/Vol] 8.0 mg/dL Low 8.5-10.1 [facility] Comment on above: Performed By: #### L 500.2500 ####[facility] [address] [place], [address] Chloride [Moles/Vol] 110 mmol/L High 98-107 [facility] Comment on above: Performed By: #### L 500.2500 ####[facility] [address] [place], [address] CO2 [Moles/Vol] 23.0 mmol/L Normal 21.0-32.0 [facility] Comment on above: Performed By: #### L 500.2500 ####[facility] [address] [place], [address] Creatinine [Mass/Vol] 0.70 mg/dL Normal 0.55-1.02 [facility] Comment on above: Result Comment: The validity of the calculated GFR AND GFRAA in patients over 70 years has not been determined. Clinical correlation is essential. Performed By: #### L 500.2500 ####[facility] [address] [place], [address] EST GFR - AA 107 mL/min Normal >60 [facility] Comment on above: Result Comment: Afri can [place] GFR Calc Performed By: #### L 500.2500 ####[facility] [address] [place], [address] Estimated CRCL 46.50 ml/min Normal [facility] Comment on above: Performed By: #### L 500.2500 ####[facility] [address] [place], [address] GAP 5 Normal 5-15 [facility] Comment on above: Performed By: #### L 500.2500 ####[facility] [address] [place], [address] GFR/1.73 sq M predicted among non-blacks MDRD (S/P/Bld) [Vol rate/Area] 89 mL/min/{1.73_m2} Normal >60 [facility] Comment on above: Result Comment: Non- GFR Calc Performed By: #### L 500.2500 ####[facility] [address] [place], [address] Glucose [Mass/Vol] 92 mg/dL Normal 74-106 [facility] Comment on above: Result Comment: Armida callejas note revised GLUCOSE reference range effective 2017. Performed By: #### L 500.2500 ####[facility] [address] [place], [address] Potassium [Moles/Vol] 4.0 mmol/L Normal 3.5-5.1 [facility] Comment on above: Performed By: #### L 500.2500 ####[facility] [address] [place], [address] Sodium [Moles/Vol] 138 mmol/L Normal 136-145 [facility] Comment on above: Performed By: #### L 500.2500 ####[facility] [address] [place], [address] Urea nitrogen [Mass/Vol] 12 mg/dL Normal 7-18 [facility] Comment on above: Performed By: #### L 500.2500 ####[facility] [address] [place], [address] Urea nitrogen [Mass/Vol] 17.2 RATIO Normal 10-20 [facility] Comment on above: Performed By: #### L 500.2500 ####[facility] [address] [place], [address] CBC W/Diff, Automatedon 02-0 3-2020 Absolute Neut 1.9 X10 3/uL Low 2.0-7.7 [facility] Comment on above: Performed By: #### L 100.0100 ####[facility] [address] [place], [address] Basophils/100 WBC (Bld) 0.2 % Normal 0-1 [facility] Comment on above: Performed By: #### L 100.0100 ####[facility] [address] [place], [address] Eosinophils/100 WBC (Bld) 0.4 % Normal 0-5 [facility] Comment on above: Performed By: #### L 100.0100 ####[facility] [address] [place], [address] Erythrocyte distribution width (RBC) [Ratio] 13.8 % Normal 11.6-14.6 [facility] Comment on above: Performed By: #### L 100.0100 ####[facility] [address] [place], [address] Hematocrit (Bld) [Volume fraction] 35.4 % Low 37-47 [facility] Comment on above: Performed By: #### L 100.0100 ####[facility] [address] [place], [address] Hemoglobin (Bld) [Mass/Vol] 11.3 g/dL Low 12.0-15.0 [facility] Comment on above: Performed By: #### L 100.0100 ####[facility] [address] [place], [address] IM GRAN % 0.400 % Normal 0.0-0.9 [facility] Comment on above: Result Comment: IG% - Immature Granulocytes (promyelocytes, myelocytes and metamyelocytes) > 1% indicates that a LEFT SHIFT is Present. Performed By: #### L 100.0100 ####[facility] [address] [place], [address] Lymphocytes (Bld) [#/Vol] 2.34 X10 3/uL Normal 0.83-4.51 [facility] Comment on above: Performed By: #### L 100.0100 ####[facility] [address] [place], [address] Lymphocytes/100 WBC (Bld) 47.6 % High 19-41 [facility] Comment on above: Performed By: #### L 100.0100 ####[facility] [address] [place], [address] MCH (RBC) [Entitic mass] 29.4 pg Normal 27.0-32.0 [facility] Comment on above: Performed By: #### L 100.0100 ####[facility] [address] [place], [address] MCHC (RBC) [Mass/Vol] 31.9 g/dL Low 32-36 [facility] Comment on above: Performed By: #### L 100.0100 ####[facility] [address] [place], [address] MCV (RBC) [Entitic vol] 91.9 fL Normal 81-99 [facility] Comment on above: Performed By: #### L 100.0100 ####[facility] [address] [place], [address] Monocytes/100 WBC (Bld) 13.0 % High 0-10 [facility] Comment on above: Performed By: #### L 100.0100 ####[facility] [address] [place], [address] Neutrophils/100 WBC (Bld) 38.4 % Low 47-70 [facility] Comment on above: Performed By: #### L 100.0100 ####[facility] [address] [place], [address] NRBC, FLAGGED 0 % Normal 0-5 [facility] Comment on above: Performed By: #### L 100.0100 ####[facility] [address] [place], [address] Platelet mean volume (Bld) [Entitic vol] 8.5 fL Normal 6.2-12.0 [facility] Comment on above: Performed By: #### L 100.0100 ####[facility] [address] [place], [address] Platelets (Bld) [#/Vol] 277 10*3/uL Normal 150-450 [facility] Comment on above: Performed By: #### L 100.0100 ####[facility] [address] [place], [address] RBC (Bld) [#/Vol] 3.85 M/mm3 Low 4.2-5.4 [facility] Comment on above: Performed By: #### L 100.0100 ####[facility] [address] [place], [address] RDW SD 46.6 fl High 35.1-43.9 [facility] Comment on above: Performed By: #### L 100.0100 ####[facility] [address] [place] [place], [address] WBC (Bld) [#/Vol] 4.9 10*3/uL Normal 4.4-11.0 [facility] Comment on above: Performed By: #### L 100.0100 ####[facility] [address] [place] [place], [address] Discharge Instructionon 020 Discharge Instruction [facility] Medical Records Department [address] [place] [address] Instructions for Home/Discharge Instructions 08/21/19 1143 MR#: [id number] Acct: [id number] Name: SHAHBAZ VIDAL Rep #: [id number] : 1950 69 From: Elder Collins MD PCP: Fortunato Mcdermott MD Status: ADM AKANKSHA - Discharge Diagnoses Current Active Problems: Current Active and Chronic Problems (Last Reviewed 08/10/19 @ 01:40 by Eugene Luevano MD) Syncope (Acute) Scalp laceration (Acute) You will use the following diet at home:: Cardiac Your food should be the consistency of: Regular Your liquids should be the consistency of: Regular/Thin Discharge Activity: Return to Normal Activity Call your doctor if you observe: Fever of 101 or Higher, Shortness of breath, Dizziness, Fainting spells, Swelling in the ankles, Chest pain, Increased palpitations (irregular heartbeat) Allergies/Adverse Reactions: Allergies Penicillins Adverse Reaction (Verified 08/20/19 06:58) Unknown Medications to take at Discharge Albuterol Sulfate [Ventolin Hfa] 2 puff INHALATION Q4H PRN PRN 08/09/19 Amlodipine Besylate 2.5 mg PO DAILY 08/09/19 Levothyroxine [Synthroid] 88 mcg PO DAILY 08/09/19 Simvastatin [Zocor] 20 mg PO QHS 08/09/19 Acetaminophen [Tylenol Tablet] 650 mg PO Q6H PRN PRN tab 08/13/19 Ciprofloxacin [Cipro] 500 mg PO BID 10 Days #20 tab 08/13/19 Senna/Docusate Sodium [Senokot-S] 2 tab PO BID PRN 30 Days #60 tab 08/13/19 metroNIDAZOLE [Flagyl] 500 mg PO Q8H 10 Days #30 tab 08/13/19 Primary Care Physician: Fortunato Mcdermott MD [Primary Care Provider] - Please follow up with your Primary Care Physician in: 08/22/2019 Test Results: Test results from this visit will be discussed in further detail at your follow-up appointment, if applicable. 08/21/19 1144 Date Elder Collins MD CC: Fortunato Mcdermott MD Signed Normal [facility] Basic Metabolic Profile (BMP )on 08-20-2019 Calcium [Mass/Vol] 9.1 mg/dL Normal 8.5-10.1 [facility] Comment on above: Order Comment: RED W. PREVIOUS SPECIMEN REJECTED DUE TOQNS/CLOTTED/HEMOLYZED. 08/20/19733 [place]. Performed By: #### L 500.2500 ####[facility] [address] [place], [place], [address] Chloride [Moles/Vol] 104 mmol/L Normal 98-107 [facility] Comment on above: Order Comment: JOSS W. PREVIOUS SPECIMEN REJECTED DUE TOQNS/CLOTTED/HEMOLYZED. 08/20/19733 [place]. Performed By: #### L 500.2500 ####[facility] [address] [place], [place], [address](182) CO2 [Moles/Vol] 25.0 mmol/L Normal 21.0-32.0 [facility] Comment on above: Order Comment: REDRA W. PREVIOUS SPECIMEN REJECTED DUE TOQNS/CLOTTED/HEMOLYZED. 08/20/19733 [place]. Performed By: #### L 500.2500 ####[facility] [address] [place], [address] Creatinine [Mass/Vol] 1.00 mg/dL Normal 0.55-1.02 [facility] Comment on above: Order Comment: REDRA W. PREVIOUS SPECIMEN REJECTED DUE TOQNS/CLOTTED/HEMOLYZED. 08/20/19733 [facility] [place]. Result Comment: The validity of the calculated GFR AND GFRAA in patients over 70 years has not been determined. Clinical correlation is essential. Performed By: #### L 500.2500 ####[facility] [address] [place], [address] EST GFR - AA 71 mL/min Normal >60 [facility] Comment on above: Order Comment: REDRA W. PREVIOUS SPECIMEN REJECTED DUE TOQNS/CLOTTED/HEMOLYZED. 08/20/19733 [facility] [place]. Result Comment: Afri can Trin[place] GFR Calc Performed By: #### L 500.2500 ####[facility] [address] [place], [address] Estimated CRCL 46.50 ml/min Normal [facility] Comment on above: Order Comment: REDRA W. PREVIOUS SPECIMEN REJECTED DUE TOQNS/CLOTTED/HEMOLYZED. 08/20/19733 [facility] [place]. Performed By: #### L 500.2500 ####[facility] [address] [place], [address] GAP 6 Normal 5-15 [facility] Comment on above: Order Comment: REDRA W. PREVIOUS SPECIMEN REJECTED DUE TOQNS/CLOTTED/HEMOLYZED. 08/20/1934 [facility] [place]. Performed By: #### L 500.2500 ####[facility] [address] [place], [address] GFR/1.73 sq M predicted among non-blacks MDRD (S/P/Bld) [Vol rate/Area] 59 mL/min/{1.73_m2} Low >60 [facility] Comment on above: Order Comment: REDRA W. PREVIOUS SPECIMEN REJECTED DUE TOQNS/CLOTTED/HEMOLYZED. 08/20/19733 [facility] [place]. Result Comment: Non- GFR Calc Performed By: #### L 500.2500 ####[facility] [address] [place], [address] Glucose [Mass/Vol] 113 mg/dL High 74-106 [facility] Comment on above: Order Comment: REDRA W. PREVIOUS SPECIMEN REJECTED DUE TOQNS/CLOTTED/HEMOLYZED. 08/20/19 34 [facility] [place]. Result Comment: Fast ing Glucose result from 100 to 125 mg/dL suggests IMPAIRED HOMEOSTASIS per A.D.A. criteria. Please note revised GLUCOSE reference range effective 2017. Performed By: #### L 500.2500 ####[facility] [address] [place], [address] Potassium [Moles/Vol] 4.0 mmol/L Normal 3.5-5.1 [facility] Comment on above: Order Comment: REDRA W. PREVIOUS SPECIMEN REJECTED DUE TOQNS/CLOTTED/HEMOLYZED. 08/20/19 [place]. Performed By: #### L 500.2500 ####[facility] [address] [place], [address] Sodium [Moles/Vol] 135 mmol/L Low 136-145 [facility] Comment on above: Order Comment: REDRA W. PREVIOUS SPECIMEN REJECTED DUE TOQNS/CLOTTED/HEMOLYZED. 08/20/19 [place]. Performed By: #### L 500.2500 ####[facility] [address] [place], [address] Urea nitrogen [Mass/Vol] 11.0 RATIO Normal 10-20 [facility] Comment on above: Order Comment: REDRA W. PREVIOUS SPECIMEN REJECTED DUE TOQNS/CLOTTED/HEMOLYZED. 08/20/19 0734 [facility] [place]. Performed By: #### L 500.2500 ####[facility] [address] [place], [address] Urea nitrogen [Mass/Vol] 11 mg/dL Normal 7-18 [facility] Comment on above: Order Comment: REDRA W. PREVIOUS SPECIMEN REJECTED DUE TOQNS/CLOTTED/HEMOLYZED. 08/20/19 0734 Basia Del Valle. Performed By: #### L 500.2500 ####[facility] [address] [place], [address] Brain/Head without Contrasto n 08-20-2019 Brain/Head without Contrast [facility] Imaging Services [address] [place] [address] Brain/Head without Contrast MR#: [id number] Acct: [id number] Name: SHAHBAZ VIDAL Rep #: [id number] : 1950 F 69 From: Ilene Roca MD PCP: Fortunato Mcdermott MD Status: REG ER Study: Brain/Head without Contrast Date of Exam: 08/20/19 Exam# [id number] Ordering Dr: Jovita Holloway MD STUDY: CT BRAIN WITHOUT CONTRAST REASON FOR EXAM: Female, 69 years old patient became dizzy and fell with loss of consciousness. There is laceration to back of head. History of hypertension. RADIATION DOSAGE (If Supplied By Facility): CTDIvol = ( 44.99 ) mGy, DLP = ( 779.24 ) mGycm TECHNIQUE: Transaxial CT imaging of the brain was performed without administration of intravenous contrast material. Multiplanar reformations are submitted for interpretation. Individualized dose optimization techniques were used for this CT. COMPARISON: No relevant priors. FINDINGS: Normal soft tissue structures. Normal calvarium. Normal size ventricles and extra-axial spaces for the patient''s age. There are areas of decreased attenuation within the white matter tracts of the supratentorial brain, consistent with microvascular disease changes. Normal basal ganglia and thalami. Normal brainstem. There is mild cerebellar atrophy. There is no intracranial hemorrhage. There is patchy atherosclerotic calcification of the intracranial arteries. There is a right maxillary mucous retention cyst. CT/Brain/Head without Contrast IMPRESSION: 1. Chronic involutional changes of the brain. 2. No CT evidence of acute intracranial hemorrhage. Electronically Signed: Ilene Roca MD at 8:15 EST , Service support , CC: Jovita Holloway MD; Fortunato Mcdermott MD Tuber Machine Cutter: Signed Normal [facility] CBC W/Diff, Automatedon 02-0 SMEAR COMMENT SCANNED Normal [facility] Comment on above: Order Comment: REDRA W. PREVIOUS SPECIMEN REJECTED DUE TO CLOTTED. 08/09/191825 Diana Performed By: #### L 100.0100 #### [facility] [address] [place], [address] Absolute Neut 8.1 X10 3/uL High 2.0-7.7 [facility] Comment on above: Order Comment: REDRA W. PREVIOUS SPECIMEN REJECTED DUE TO CLOTTED. 08/09/191825 Diana Performed By: #### L 100.0100 #### [facility] [address] [place], [address] Basophils/100 WBC (Bld) 0.1 % Normal 0-1 [facility] Comment on above: Order Comment: REDRA W. PREVIOUS SPECIMEN REJECTED DUE TO CLOTTED. 08/09/191825 Diana Performed By: #### L 100.0100 #### [facility] [address] [place], [address] Eosinophils/100 WBC (Bld) 0.0 % Normal 0-5 [facility] Comment on above: Order Comment: REDRA W. PREVIOUS SPECIMEN REJECTED DUE TO CLOTTED. 08/09/191825 Diana Performed By: #### L 100.0100 #### [facility] [address] [place], [address] Erythrocyte distribution width (RBC) [Ratio] 13.4 % Normal 11.6-14.6 [facility] Comment on above: Order Comment: REDRA W. PREVIOUS SPECIMEN REJECTED DUE TO CLOTTED. 08/09/191825 Diana Performed By: #### L 100.0100 #### [facility] [address] [place], [address] Hematocrit (Bld) [Volume fraction] 41.4 % Normal 37-47 [facility] Comment on above: Order Comment: REDRA W. PREVIOUS SPECIMEN REJECTED DUE TO CLOTTED. 08/09/191825 Diana Performed By: #### L 100.0100 #### [facility] [address] [place], [address] Hemoglobin (Bld) [Mass/Vol] 13.7 g/dL Normal 12.0-15.0 [facility] Comment on above: Order Comment: REDRA W. PREVIOUS SPECIMEN REJECTED DUE TO CLOTTED. 08/09/191825 Diana Performed By: #### L 100.0100 #### [facility] [address] [place], [address] IM GRAN % 0.800 % Normal 0.0-0.9 [facility] Comment on above: Order Comment: REDRA W. PREVIOUS SPECIMEN REJECTED DUE TO CLOTTED. 08/09/191825 Diana Result Comment: IG% - Immature Granulocytes (promyelocytes, myelocytes and metamyelocytes) > 1% indicates that a LEFT SHIFT is Present. Performed By: #### L 100.0100 #### [facility] [address] [place], [address] Lymphocytes (Bld) [#/Vol] 1.08 X10 3/uL Normal 0.83-4.51 [facility] Comment on above: Order Comment: REDRA W. PREVIOUS SPECIMEN REJECTED DUE TO CLOTTED. 08/09/191825 Diana Performed By: #### L 100.0100 #### [facility] [address] [place], [address] Lymphocytes/100 WBC (Bld) 10.8 % Low 19-41 [facility] Comment on above: Order Comment: REDRA W. PREVIOUS SPECIMEN REJECTED DUE TO CLOTTED. 08/09/191825 Diana Performed By: #### L 100.0100 #### [facility] [address] [place], [address] MCH (RBC) [Entitic mass] 30.2 pg Normal 27.0-32.0 [facility] Comment on above: Order Comment: REDRA W. PREVIOUS SPECIMEN REJECTED DUE TO CLOTTED. 08/09/191825 Diana Performed By: #### L 100.0100 #### [facility] [address] [place], [address] MCHC (RBC) [Mass/Vol] 33.1 g/dL Normal 32-36 [facility] Comment on above: Order Comment: REDRA W. PREVIOUS SPECIMEN REJECTED DUE TO CLOTTED. 08/09/191825 Diana Performed By: #### L 100.0100 #### [facility] [address] [place], [address] MCV (RBC) [Entitic vol] 91.4 fL Normal 81-99 [facility] Comment on above: Order Comment: REDRA W. PREVIOUS SPECIMEN REJECTED DUE TO CLOTTED. 08/09/191825 Diana Performed By: #### L 100.0100 #### [facility] [address] [place], [address] Monocytes/100 WBC (Bld) 7.8 % Normal 0-10 [facility] Comment on above: Order Comment: REDRA W. PREVIOUS SPECIMEN REJECTED DUE TO CLOTTED. 08/09/191825 Diana Performed By: #### L 100.0100 #### [facility] [address] [place], [address] Neutrophils/100 WBC (Bld) 80.5 % High 47-70 [facility] Comment on above: Order Comment: REDRA W. PREVIOUS SPECIMEN REJECTED DUE TO CLOTTED. 08/09/191825 Diana Performed By: #### L 100.0100 #### [facility] [address] [place], [address] NRBC, FLAGGED 0 % Normal 0-5 [facility] Comment on above: Order Comment: REDRA W. PREVIOUS SPECIMEN REJECTED DUE TO CLOTTED. 08/09/191825 Diana Performed By: #### L 100.0100 #### [facility] [address] [place], [address] Platelet mean volume (Bld) [Entitic vol] 8.1 fL Normal 6.2-12.0 [facility] Comment on above: Order Comment: REDRA W. PREVIOUS SPECIMEN REJECTED DUE TO CLOTTED. 08/09/191825 Diana Performed By: #### L 100.0100 #### [facility] [address] [place], [address] Platelets (Bld) [#/Vol] 333 10*3/uL Normal 150-450 [facility] Comment on above: Order Comment: REDRA W. PREVIOUS SPECIMEN REJECTED DUE TO CLOTTED. 08/09/191825 Diana Performed By: #### L 100.0100 #### [facility] [address] [place], [address] RBC (Bld) [#/Vol] 4.53 M/mm3 Normal 4.2-5.4 [facility] Comment on above: Order Comment: REDRA W. PREVIOUS SPECIMEN REJECTED DUE TO CLOTTED. 08/09/191825 Diana Performed By: #### L 100.0100 #### [facility] [address] [place], [address] RDW SD 44.8 fl High 35.1-43.9 [facility] Comment on above: Order Comment: REDRA W. PREVIOUS SPECIMEN REJECTED DUE TO CLOTTED. 08/09/191825 Diana Performed By: #### L 100.0100 #### [facility] [address] [place] [place], [address] WBC (Bld) [#/Vol] 10.0 10*3/uL Normal 4.4-11.0 [facility] Comment on above: Order Comment: REDRA W. PREVIOUS SPECIMEN REJECTED DUE TO CLOTTED. 08/09/191825 Diana Performed By: #### L 100.0100 #### [facility] [address] [place] [place], [address] Chest 1 View (Portable)on Chest 1 View (Portable) [facility] Imaging Services [address] [place] [address] Chest 1 View (Portable) MR#: [id number] Acct: [id number] Name: SHAHBAZ VIDAL Rep #: [id number] : 1950 F 69 From: José Antonio Loera MD PCP: Fortunato Mcdermott MD Status: [facility] ER Study: Chest 1 View (Portable) Date of Exam: 08/20/19 Exam# [id number] Ordering Dr: Jovita Holloway MD STUDY: X-RAY CHEST REASON FOR EXAM: Female, 69 years old. Patient had dizzy spell today and fell and hit the back of head. TECHNIQUE: Portable chest COMPARISON: None. FINDINGS: The lungs are clear and expanded. There is no demonstrated pleural abnormality. There are degenerative changes at the AC joints. Normal size heart. Normal mediastinum and kirk. Normal visualized pulmonary arteries. Normal visualized aortic arch and descending thoracic aorta. Normal visualized thoracic spine. There is normal left second rib fracture. There is no demonstrated abnormality of the visualized soft tissue structures of the upper abdomen. RAD/Chest 1 View (Portable) IMPRESSION: Normal x-ray examination of the chest. Electronically Signed: José Antonio Loera, at 7:47 EST Tel , Service support , CC: Jovita Holloway MD; Fortunato Mcdermott MD Tuber Machine Cutter: Signed Normal [facility] Emergency Department Summary on 08-20-2019 Emergency Department Summary [facility] Medical Records Department [address] [place] [id number] Emergency Department Summary 08/20/19 0712 MR#: [id number] Acct: [id number] Name: SHAHBAZ VIDAL Rep #: [id number] : 1950 69 From: Jovita Holloway MD PCP: Fortunato Mcdermott MD Status: ADM AKANKSHA History of Present Illness Chief Complaint: Fall Detail of Chief Complaint: Syncope Informant: Patient Onset: Today Narrative: Patient presents after syncopal episode at home. She was recently in the hospital with diverticulitis and is still on antibiotics. She states she got up early this morning and was standing in her kitchen doing her dishes. She started to feel sick. She thought she needed to eat something and try to eat a banana, but the next remembers is waking up on the floor. She does have a laceration to the back of her head. She denies recollection of palpitations or chest pain prior to her syncopal episode. - Past Medical History (1) Hypertension Status: Chronic (2) High cholesterol Status: Chronic (3) Hypothyroid Status: Chronic (4) Diverticulitis Status: Chronic Past Medical History - Allergies and Home Meds Allergies/Adverse Reactions: Allergies Penicillins Adverse Reaction (Verified 08/20/19 06:58) Unknown Primary Care Physician: Fortunato Mcdermott MD [Primary Care Provider] - Prior records reviewed: Yes Surgical History: - - ; ankle surgery. Lives: With Family Smoking Status: Former smoker - Family History Maternal Family History: Reports: - - Mother from an aneurysm. Paternal Family History: Reports: - - Her father was alcoholic. Review of Systems General: Denies: Chills, Fever Eyes: Denies: Visual changes - bilaterally ENT: Denies: Bilateral ear pain Cardiovascular: Denies: Chest pain Respiratory: Denies: Dyspnea, Cough Gastrointestinal: Reports: Nausea. Denies: Abdominal pain, Vomiting, Diarrhea Musculoskeletal: Denies: Neck pain, Back pain Skin: Reports: Wounds Neurological: Denies: Parasthesia, Numbness Allergy: Denies: Uticaria Physical Exam Vital Signs/Narrative: Vital Signs 08/20/19 07:11 99 08/20/19 07:04 98.6 F 71 15 116/61 99 Inital Vital Signs reviewed: Yes General: Well nourished, Well developed Head: - - Linear laceration over posterior parietal scalp. ENT: Moist mucous membranes Neck: Supple Cardiovascular: Regular rate, Regular rhythm Respiratory: No distress, CTA bilaterally Abdomen: Soft, Nontender, Hypoactive bowel sounds Extremities: Nontender Skin: Trauma - Laceration as above Neurological: Alert, Oriented x3, Normal Strength, Normal Sensation Psychological: Normal affect Diagnostic/Tx/Re-eval Impressions Brain CT 08/20/19 07:10 IMPRESSION: 1. Chronic involutional changes of the brain. 2. No CT evidence of acute intracranial hemorrhage. Electronically Signed: Ilene Roca MD at 8:15 EST , Service support , Chest X-Ray 08/20/19 07:17 IMPRESSION: Normal x-ray examination of the chest. Electronically Signed: José Antonio Loera at 7:47 EST Tel , Service support , 08/20/19 07:10 Brain/Head without Contrast [CT] Stat 08/20/19 07:17 Chest 1 View (Portable) [RAD] Stat Laboratory Results WBC Cancelled Corrected WBC Cancelled RBC Cancelled WBC 10.0 - Medical Decision Making Procedure note: Patient's wound is cleansed. Wound is anesthetized with 5.5 cc of 1% lidocaine with epinephrine. Wound is irrigated and skin is closed with 5 alfredo. Patient is given IV fluids here. She is remained stable on lunchroom monitor. I do not have an explanation at this point for her cause of syncope. I recommended observation overnight to ensure no cardiac arrhythmias. Patient is in agreement with this plan. Procedures - Lacerations No standard instances Length: 2.36 in Depth: Sub Q Shape: Linear Laceration repair: Lidocaine with epi Number of Sutures/Alfredo: 5 - Stable ED Disposition - Plan for ED Patient: Disposition: Acute Care Hospital [facility] Diagnosis: Syncope, Scalp laceration Referrals: Fortunato Mcdermott MD [Primary Care Provider] - What to do if you have Problems For any increased pain, shortness of breath, bleeding, nausea or vomiting, chest pain, or any unexpected problems, contact your Primary Care Provider. Call [facility] ([phone]) or report to the closest Emergency Room. Call 911 if necessary. 08/20/19 1208 Date Jovita Holloway MD Cosigner Signature (If Indicated): Date CC: Fortunato Mcdermott MD Normal [facility] History and Physical Examon 08-20-2019 History and Physical Exam [facility] Medical Records Department [address] [place] [address] History and Physical 08/20/19 1849 MR#: [id number] Acct: [id number] Name: SHAHBAZ VIDAL Rep #: [id number] : 1950 69 From: Elder Collins MD PCP: Fortunato Mcdermott MD Status: ADM AKANKSHA Y Location: [place] [address] History of Present Illness Date of Admission: 08/20/19 Chief Complaint: Syncope The patient is a 69 year old F PMH as below who presents with an episode of syncope. She woke up at 5 AM and was feeling hungry and then developed some nausea and try to eat a banana and she had about half a banana when she put it back down she still felt dizzy and then the next thing she remembers is waking up on the ground. She states that she has not been eating or drinking very well for the last several months and that she had been sitting down and then got up to go to do the dishes, when she started feeling nauseated and tried to eat the banana. She denies any palpitations, lightheadedness, chest pain, or shortness of breath prior to this episode. She hit her head and had a small laceration which was repaired in the ER. CT scan of the brain did not show any bleeding. She has had a headache since then. She was recently admitted for diverticulitis and is currently on Cipro and Flagyl and has been doing much better with that and denies any significant amount of abdominal pain at the moment. In the ER she had normal lab work, however troponin and EKG were not done as part of the work-up in the ER. Past Medical History Past Medical History (Chronic Problems): Chronic Problems (Last Reviewed 08/10/19 @ 01:40 by Eugene Luevano MD) Diverticulitis (Chronic) Hypertension (Chronic) High cholesterol (Chronic) Hypothyroid (Chronic) Medical History: Medical History (Last Reviewed 08/10/19 @ 01:40 by Eugene Luevano MD) HTN (hypertension) I10 Allergies Penicillins Adverse Reaction (Verified 08/20/19 06:58) Unknown Home Medications: Ambulatory Orders Medication Instructions Recorded Albuterol Sulfate [Ventolin Hfa] 2 puff INHALATION Q4H PRN PRN 08/09/19 Amlodipine Besylate 2.5 mg PO DAILY 08/09/19 Surgical History: - - ; ankle surgery. Lives: With Family Smoking Status: Former smoker Tobacco Use: Cigarettes Alcohol: None Drugs: None - *Family History Maternal History Items: Cancer, Hypertension, - - Mother from an aneurysm. Paternal History Items: Cancer, Hypertension, - - Her father was alcoholic. Review of Systems Constitutional: Denies: Chills, Fever, Weight Change HEENT: Denies: Head Aches, Sinus Congestion, Sinus Drainage Cardiovascular: Reports: Syncope. Denies: Chest Pain, Palpitations Respiratory: Denies: Cough, Shortness of breath at rest, Sputum production Gastrointestinal: Denies: Abdominal Pain, Nausea, Vomiting Genitourinary: Denies: Dysuria Musculoskeletal: Denies: Joint Pain, Joint Tenderness Skin: Denies: Rash, Wounds Neurological: Reports: Headaches. Denies: Focal weakness, Numbness, Tingling Psychiatric: Denies: Anxiety, Depression Hematologic/ Lymphatic: Denies: Easy Bruising, Easy Bleeding VTE Information - Inpt Only VTE Present on Admission: No Patient Problems: Active and Suspected Problems (Last Reviewed 08/10/19 @ 01:40 by Eugene Luevano MD) Syncope (Acute) Scalp laceration (Acute) - Physical Exam Vitals/I AND O's: Vital Signs Temp Pulse Resp BP Pulse Ox 98.9 F 87 18 116/74 99 08/20/19 17:00 08/20/19 17:00 08/20/19 17:00 08/20/19 17:00 08/20/19 17:00 Oxygen Delivery Method Room Air Weight: 178 lb 12.718 oz Body Mass Index (BMI) 30.7 Orthostatic Vital Signs Start: 08/20/19 11:03 Freq: q24h Status: Active Protocol: Activity Type Activity Date Activity User E-Sign Co-Sign Detail Recorded Client Recorded Date Recorded By Document 08/20/19 11:03 ANG [id number] 08/20/19 11:04 ANG Orthostatic Vitals Standing -Blood Pressure (90/60-120/80) 111/60 -Extremity Use Left Arm -Pulse Rate (60-100) 72 Sitting -Blood Pressure (90/60-120/80) 118/54 L Intake and Output for Last 24 Hours Intake Total 1600 / 1600 Balance 1600 / 1600 General: Alert, Oriented x3, Cooperative, No apparent distress HEENT: PERRLA, EOMI, Normocephalic, - - Laceration the back of the head is repaired with alfredo Oral: Dry Mucosa Neck: Supple, No JVD Lungs: Clear to auscultation, Normal air movement, No rhonchi, No wheeze, No rales, Diminished Cardiovascular: Regular rate, Regular Rhythm, Normal S1, Normal S2, No murmurs Abdomen: Soft, Non Tender, Non-Distended, No Hepato-splenomegaly Extremities: No edema, Capillary Refill Less than 3 Seconds Skin: No rashes, No breakdown Neurological: Neuro grossly intact, Motor Exam 5/5 strength throughout, Sensory exam intact to light touch and pain Psych/Mental Status: Normal Affect, Appropriate Laboratory Results 08/20/19 07:20: WBC Cancelled, Corrected WBC Cancelled, RBC Cancelled, Hgb Cancelled, Hct Cancelled, MCV Cancelled, MCH Cancelled, MCHC Cancelled, RDW Std Deviation Cancelled, RDW Coeff of Gin Cancelled, Plt Count Cancelled, MPV Cancelled, Immature Gran % (Auto) Cancelled, Neut % (Auto) Cancelled, Lymph % (Auto) Cancelled, [place] % (Auto) Cancelled, Eos % (Auto) Cancelled, Baso % (Auto) Cancelled, Absolute Neuts (auto) Cancelled, Absolute Lymphs (auto) Cancelled, Total Counted Cancelled, Neutrophils % (Manual) Cancelled, Band Neutrophils % Cancelled, Lymphocytes % (Manual) Cancelled, Monocytes % (Manual) Cancelled, Eosinophils % (Manual) Cancelled, Basophils % (Manual) Cancelled, Metamyelocytes % Cancelled, Myelocytes % Cancelled, Promyelocytes % Cancelled, Blast Cells % Cancelled, Plasma Cell % (Manual) Cancelled, Other Cells % Cancelled, Nucleated RBC % Cancelled, Nucleated RBCs/100 WBC Cancelled, Differential Comment Cancelled, Diff Path Review Cancelled, Hypersegmented Neuts Cancelled, Atypical Lymphocytes Cancelled, Reactive Lymphocytes Cancelled, Smudge Cells Cancelled, Toxic Granulation Cancelled, Toxic Vacuolation Cancelled, Dohle Bodies Cancelled, Ronel Rods Cancelled, Platelet Estimate Cancelled, Plt Morphology Comment Cancelled, RBC Morphology Cancelled, Polychromasia Cancelled, Hypochromasia Cancelled, Poikilocytosis Cancelled, Basophilic Stippling Cancelled, Anisocytosis Cancelled, Microcytosis Cancelled, Macrocytosis Cancelled, Spherocytes Cancelled, Sickle Cells Cancelled, Target Cells Cancelled, Tear Drop Cells Cancelled, Ovalocytes Cancelled, Stomatocytes Cancelled, Reddy-Ridge Bodies Cancelled, [place] Cells Cancelled, Bite Cells Cancelled, Crenated Cell Cancelled, Acanthocytes (Spur) Cancelled, Rouleaux Cancelled, Schistocytes Cancelled 08/20/19 07:20: PT Cancelled, INR Cancelled, APTT Cancelled 08/20/19 07:20: Sodium Cancelled, Potassium Cancelled, Chloride Cancelled, Carbon Dioxide Cancelled, Anion Gap Cancelled, BUN Cancelled, Creatinine Cancelled, Estim Creat Clear Calc Cancelled, Est GFR (MDRD) Af Amer Cancelled, Est GFR (MDRD) Non-Af Cancelled, BUN/Creatinine Ratio Cancelled, Glucose Cancelled, Calcium Cancelled 08/20/19 08:45: PT 13.1, INR 1.0, APTT 29.4 08/20/19 08:45: Sodium 135 L, Potassium 4.0, Chloride 104, Carbon Dioxide 25.0, Anion Gap 6, BUN 11, Creatinine 1.00, Estim Creat Clear Calc 46.50, Est GFR (MDRD) Af Amer 71, Est GFR (MDRD) Non-Af 59 L, BUN/Creatinine Ratio 11.0, Glucose 113 H, Calcium 9.1 08/20/19 08:45: WBC 10.0, RBC 4.53, Hgb 13.7, Hct 41.4, MCV 91.4, MCH 30.2, MCHC 33.1, RDW Std Deviation 44.8 H, RDW Coeff of Gin 13.4, Plt Count 333, MPV 8.1, Immature Gran % (Auto) 0.800, Neut % (Auto) 80.5 H, Lymph % (Auto) 10.8 L, [place] % (Auto) 7.8, Eos % (Auto) 0.0, Baso % (Auto) 0.1, Absolute Neuts (auto) 8.1 H, Absolute Lymphs (auto) 1.08, Nucleated RBC % 0, Differential Comment SCANNED Current Medications Acetaminophen (Tylenol) 650 mg PO Q6H PRN PRN PRN Reason: Pain Score 1-10/10 Last Admin: 08/20/19 11:21 Dose: 650 mg Documented by: Albuterol Sulfate (Ventolin Aerosols) 2.5 mg INHALATION Q4H PRN PRN Reason: SOB AND /OR WHEEZING Amlodipine Besylate (Norvasc) 2.5 mg PO DAILY [facility] Atorvastatin Calcium (Lipitor) 10 mg PO QHS MARCELO Ciprofloxacin HCl (Cipro) 500 mg PO BID [facility] Enoxaparin Sodium (Lovenox) 40 mg SC DAILY [facility] Sodium Chloride () 1,000 mls @ 150 mls/hr IV .Q6H40M MARCELO Last Admin: 08/20/19 16:57 Dose: 150 mls/hr Documented by: Ibuprofen (Motrin) 400 mg PO Q8H PRN PRN PRN Reason: HEADACHE Last Admin: 08/20/19 16:30 Dose: 400 mg Documented by: Levothyroxine Sodium (Synthroid) 88 mcg PO DAILY@0600 MARCELO Metronidazole (Flagyl) 500 mg PO Q8H [facility] Last Admin: 08/20/19 13:13 Dose: 500 mg Documented by: Senna/Docusate Sodium (Senokot-S, Dottie-Colace) 2 tablet PO BID PRN PRN Reason: Constipation Sodium Chloride () 10 - 40 ml IV UD PRN PRN Reason: SALINE FLUSH Assessment/Plan All Active Problems (Last Reviewed 08/10/19 @ 01:40 by Eugene Luevano MD) Syncope (Acute) Scalp laceration (Acute) 1. Syncope/head laceration -Based on the history it seems fairly clear that this is a vasovagal episode -We will provide IV fluids at 150 cc/h -Need for an echo -We will obtain a troponin and an EKG -Orthostatic vital signs were negative -The head laceration was repaired in the ER, will continue with Tylenol/ibuprofen for pain control 2. Recent diverticulitis -This is likely contributing to her lack of appetite and p.o. intake -Continue with Cipro and Flagyl to complete her course -Continue with IV fluids 3. HTN/HLD -Blood pressure stable can resume home medications -Continue with her home statin 4. Hypothyroidism -Stable -Continue with Synthroid DVT: Lovenox Code Visit OBSV E AND M: [id number] Initial observation care L2 08/20/19 8986 Date Elder Collins MD Cosigner Signature: Date (if applicable) CC: Elder Collins MD; Fortunato Mcdermott MD Signed Normal [facility] Partial Thromboplast Timeon 08-20-2019 aPTT Coag (Bld) [Time] 29.4 s Normal 24.1-36.2 [facility] Comment on above: Order Comment: REDRA W. PREVIOUS SPECIMEN REJECTED DUE TO CLOTTED. 08/09/191825 Diana Performed By: #### L 100.0100 #### [facility] [address] [place], [address] Prothrombin Time w/INRon INR Coag (PPP) [Relative time] 1.0 {INR} Normal [facility] Comment on above: Order Comment: REDRA W. PREVIOUS SPECIMEN REJECTED DUE TO CLOTTED. 08/09/191825 Diana Performed By: #### L 100.0100 #### [facility] [address] [place], [address] PT Coag (PPP) [Time] 13.1 s Normal 11.7-14.9 [facility] Comment on above: Order Comment: REDRA W. PREVIOUS SPECIMEN REJECTED DUE TO CLOTTED. 08/09/191825 Diana Performed By: #### L 100.0100 #### [facility] [address] [place], [address] Troponin-Ion 08-20-2019 Troponin I.cardiac [Mass/Vol] ng/mL Normal <0.045 [facility] Comment on above: Result Comment: TROP ONIN-I EXPECTED VALUES <0.045 Negative 0.045 - 0.590 Consistent with Cardiac Damage > OR = 0.600 Critical Value Not every elevated troponin is indicative of LA. These values should be used with clinical judgement in examining the patient's clinical picture for diagnosis. To establish a diagnosis of LA versus myocardial injury, there must be a demonstrated rise and/or fall in the troponin values, in addition to ischemic symptoms, EKG changes, new regional wall motion abnormality, and/or angiographical evidence. PLEASE NOTE: REFERENCE RANGES EDITED 17 Performed By: #### L 501.4010 ####[facility] [id number] [place], [address] Culture, Blood (WB)on 2019 CUB NO ANAEROBIC BOTTLE RECEIVED BC No growth in 5 days. Normal [facility] Comment on above: Performed By: #### L 100.0100 #### [facility] [address] [place], [address] CUB NO ANAEROBIC BOTTLE RECEIVED BC No growth in 5 days. Normal [facility] Comment on above: Performed By: #### M 200.1000 #### [facility] [address] [place], [address] CBC W/Diff, Automatedon 07-20 Absolute Neut 9.2 X10 3/uL High 2.0-7.7 [facility] Comment on above: Performed By: #### L 100.0100 #### [facility] [address] [place], [address] Basophils/100 WBC (Bld) 0.3 % Normal 0-1 [facility] Comment on above: Performed By: #### L 100.0100 #### [facility] [address] [place], [address] Eosinophils/100 WBC (Bld) 1.2 % Normal 0-5 [facility] Comment on above: Performed By: #### L 100.0100 #### [facility] [address] [place], [address] Erythrocyte distribution width (RBC) [Ratio] 12.4 % Normal 11.6-14.6 [facility] Comment on above: Performed By: #### L 100.0100 #### [facility] [address] [place], [address] Hematocrit (Bld) [Volume fraction] 36.2 % Low 37-47 [facility] Comment on above: Performed By: #### L 100.0100 #### [facility] [address] [place], [address] Hemoglobin (Bld) [Mass/Vol] 11.7 g/dL Low 12.0-15.0 [facility] Comment on above: Performed By: #### L 100.0100 #### [facility] [address] [place], [address] IM GRAN % 0.700 % Normal 0.0-0.9 [facility] Comment on above: Result Comment: IG% - Immature Granulocytes (promyelocytes, myelocytes and metamyelocytes) > 1% indicates that a LEFT SHIFT is Present. Performed By: #### L 100.0100 #### [facility] [address] [place], [address] Lymphocytes (Bld) [#/Vol] 1.91 X10 3/uL Normal 0.83-4.51 [facility] Comment on above: Performed By: #### L 100.0100 #### [facility] [address] [place], [address] Lymphocytes/100 WBC (Bld) 15.1 % Low 19-41 [facility] Comment on above: Performed By: #### L 100.0100 #### [facility] [address] [place], [address] MCH (RBC) [Entitic mass] 29.9 pg Normal 27.0-32.0 [facility] Comment on above: Performed By: #### L 100.0100 #### [facility] [address] [place], [address] MCHC (RBC) [Mass/Vol] 32.3 g/dL Normal 32-36 [facility] Comment on above: Performed By: #### L 100.0100 #### [facility] [address] [place], [address] MCV (RBC) [Entitic vol] 92.6 fL Normal 81-99 [facility] Comment on above: Performed By: #### L 100.0100 #### [facility] [address] [place], [address] Monocytes/100 WBC (Bld) 9.5 % Normal 0-10 [facility] Comment on above: Performed By: #### L 100.0100 #### [facility] [address] [place], [address] Neutrophils/100 WBC (Bld) 73.2 % High 47-70 [facility] Comment on above: Performed By: #### L 100.0100 #### [facility] [address] [place], [address] NRBC, FLAGGED 0 % Normal 0-5 [facility] Comment on above: Performed By: #### L 100.0100 #### [facility] [address] [place], [address] Platelet mean volume (Bld) [Entitic vol] 8.5 fL Normal 6.2-12.0 [facility] Comment on above: Performed By: #### L 100.0100 #### [facility] [address] [place], [address] Platelets (Bld) [#/Vol] 341 10*3/uL Normal 150-450 [facility] Comment on above: Performed By: #### L 100.0100 #### [facility] [address] [place], [address] RBC (Bld) [#/Vol] 3.91 M/mm3 Low 4.2-5.4 [facility] Comment on above: Performed By: #### L 100.0100 #### [facility] [address] [place], [address] RDW SD 42.0 fl Normal 35.1-43.9 [facility] Comment on above: Performed By: #### L 100.0100 #### [facility] [address] [place], [address] WBC (Bld) [#/Vol] 12.6 10*3/uL High 4.4-11.0 [facility] Comment on above: Performed By: #### L 100.0100 #### [facility] [address] [place], [address] Comprehensive Metabolic Prof ilon 08-13-2019 Albumin [Mass/Vol] 2.2 g/dL Low 3.2-5.0 [facility] Comment on above: Performed By: #### L 100.0100 #### [facility] [address] [place], [address] Albumin/Globulin [Mass ratio] 0.5 {ratio} Low 0.9-2.4 [facility] Comment on above: Performed By: #### L 100.0100 #### [facility] [address] [place], [address] ALK P 82 U/L Normal 45-117 [facility] Comment on above: Performed By: #### L 100.0100 #### [facility] [address] [place], [address] ALT [Catalytic activity/Vol] 18 U/L Normal 13-56 [facility] Comment on above: Performed By: #### L 100.0100 #### [facility] [address] [place], [address] AST [Catalytic activity/Vol] 20 U/L Normal 15-37 [facility] Comment on above: Performed By: #### L 100.0100 #### [facility] [address] [place], [address] Bilirubin [Mass/Vol] 0.30 mg/dL Normal 0.20-1.00 [facility] Comment on above: Performed By: #### L 100.0100 #### [facility] [address] [place], [address] Calcium [Mass/Vol] 8.5 mg/dL Normal 8.5-10.1 [facility] Comment on above: Performed By: #### L 100.0100 #### [facility] [address] [place], [address] Chloride [Moles/Vol] 100 mmol/L Normal 98-107 [facility] Comment on above: Performed By: #### L 100.0100 #### [facility] [address] [place], [address] CO2 [Moles/Vol] 27.0 mmol/L Normal 21.0-32.0 [facility] Comment on above: Performed By: #### L 100.0100 #### [facility] [address] [place], [address] Creatinine [Mass/Vol] 0.70 mg/dL Normal 0.55-1.02 [facility] Comment on above: Result Comment: The validity of the calculated GFR AND GFRAA in patients over 70 years has not been determined. Clinical correlation is essential. Performed By: #### L 100.0100 #### [facility] [address] [place], [address] EST GFR - AA 107 mL/min Normal >60 [facility] Comment on above: Result Comment: Afri can Trinidadian GFR Calc Performed By: #### L 100.0100 #### [facility] [address] [place], [address] Estimated CRCL 46.50 ml/min Normal [facility] Comment on above: Performed By: #### L 100.0100 #### [facility] [address] [place], [address] GAP 6 Normal 5-15 [facility] Comment on above: Performed By: #### L 100.0100 #### [facility] [address] [place], [address] GFR/1.73 sq M predicted among non-blacks MDRD (S/P/Bld) [Vol rate/Area] 88 mL/min/{1.73_m2} Normal >60 [facility] Comment on above: Result Comment: Non- GFR Calc Performed By: #### L 100.0100 #### [facility] [address] [place], [address] Globulin (S) [Mass/Vol] 4.7 g/dL High 2.2-4.2 [facility] Comment on above: Performed By: #### L 100.0100 #### [facility] [address] [place], [address] Glucose [Mass/Vol] 117 mg/dL High 74-106 [facility] Comment on above: Result Comment: Fast ing Glucose result from 100 to 125 mg/dL suggests IMPAIRED HOMEOSTASIS per A.D.A. criteria. Please note revised GLUCOSE reference range effective 2017. Performed By: #### L 100.0100 #### [facility] [address] [place], [address] Potassium [Moles/Vol] 3.4 mmol/L Low 3.5-5.1 [facility] Comment on above: Performed By: #### L 100.0100 #### [facility] [address] [place], [address] Sodium [Moles/Vol] 133 mmol/L Low 136-145 [facility] Comment on above: Performed By: #### L 100.0100 #### [facility] [address] [place], [place], [address] T PROT 6.9 g/dL Normal 6.4-8.2 [facility] Comment on above: Performed By: #### L 100.0100 #### [facility] [address] [place], [address] Urea nitrogen [Mass/Vol] 12.8 RATIO Normal 10-20 [facility] Comment on above: Performed By: #### L 100.0100 #### [facility] [address] [place], [place], [address] Urea nitrogen [Mass/Vol] 9 mg/dL Normal 7-18 [facility] Comment on above: Performed By: #### L 100.0100 #### [facility] [address] [place], [place], [address] Discharge Instructionon 07-20 Discharge Instruction [facility] Medical Records Department [address] [place] [address] Instructions for Home/Discharge Instructions 08/13/19 1509 MR#: [id number] Acct: [id number] Name: SHAHBAZ VIDAL Rep #: [id number] : 1950 69 From: Renetta Smith MD PCP: Fortunato Mcdermott MD Status: ADM IN - Discharge Diagnoses Current Active Problems: Current Active and Chronic Problems (Last Reviewed 08/10/19 @ 01:40 by Eugene Luevano MD) Diverticulitis (Acute) Reason(s) for Visit for Discharge Instructions: Acute diverticulitis You will use the following diet at home:: Regular Your food should be the consistency of: Regular Your liquids should be the consistency of: Regular/Thin Discharge Activity: Return to Normal Activity Instructions: Understanding Diverticulosis and Diverticulitis, Diverticulitis Additional Instructions: Continue to keep yourself hydrated. Complete your antibiotics as prescribed. Follow-up with your primary care doctor and general surgeon within 2 weeks. Allergies/Adverse Reactions: Allergies Penicillins Adverse Reaction (Verified 08/09/19 16:52) Unknown Medications to take at Discharge Albuterol Sulfate [Ventolin Hfa] 2 puff INHALATION Q4H PRN PRN 08/09/19 Amlodipine Besylate 2.5 mg PO DAILY 08/09/19 Levothyroxine [Synthroid] 88 mcg PO DAILY 08/09/19 Simvastatin [Zocor] 20 mg PO QHS 08/09/19 Acetaminophen [Tylenol Tablet] 650 mg PO Q6H PRN PRN tablet 08/13/19 Ciprofloxacin [Cipro] 500 mg PO BID 10 Days #20 tablet 08/13/19 Oxycodone [Oxyir] 10 mg PO Q4H PRN PRN 3 Days #12 tablet 08/13/19 Senna/Docusate Sodium [Senokot-S] 2 tablet PO BID PRN 30 Days #60 tablet 08/13/19 metroNIDAZOLE [Flagyl] 500 mg PO Q8H 10 Days #30 tablet 08/13/19 The following prescriptions were given: Ciprofloxacin [Cipro] 500 mg PO BID 10 Days #20 tablet metroNIDAZOLE [Flagyl] 500 mg PO Q8H 10 Days #30 tablet Oxycodone [Oxyir] 10 mg PO Q4H PRN PRN 3 Days #12 tablet PRN Reason: Pain Score 1-10/10 Senna/Docusate Sodium [Senokot-S] 2 tablet PO BID PRN 30 Days #60 tablet PRN Reason: Constipation Primary Care Physician: Fortunato Mcdermott MD [Primary Care Provider] - Please follow up with your Primary Care Physician in: within 1-2 weeks Test Results: Test results from this visit will be discussed in further detail at your follow-up appointment, if applicable. Please Follow Up With: Debra Owens MD When: within 2 weeks Proposed Discharge Date: 08/13/19 08/13/19 1512 Date Renetta Smith MD CC: Debra Owens MD; Fortunato Mcdermott MD Signed Normal [facility] CBC W/Diff, Automatedon 07-20 Absolute Neut 12.4 X10 3/uL High 2.0-7.7 [facility] Comment on above: Performed By: #### L 100.0100 #### [facility] [address] [place], [address] Basophils/100 WBC (Bld) 0.2 % Normal 0-1 [facility] Comment on above: Performed By: #### L 100.0100 #### [facility] [address] [place], [address] Eosinophils/100 WBC (Bld) 0.4 % Normal 0-5 [facility] Comment on above: Performed By: #### L 100.0100 #### [facility] [address] [place], [address] Erythrocyte distribution width (RBC) [Ratio] 12.4 % Normal 11.6-14.6 [facility] Comment on above: Performed By: #### L 100.0100 #### [facility] [address] [place], [address] Hematocrit (Bld) [Volume fraction] 38.8 % Normal 37-47 [facility] Comment on above: Performed By: #### L 100.0100 #### [facility] [address] [place], [address] Hemoglobin (Bld) [Mass/Vol] 12.7 g/dL Normal 12.0-15.0 [facility] Comment on above: Performed By: #### L 100.0100 #### [facility] [address] [place], [address] IM GRAN % 0.600 % Normal 0.0-0.9 [facility] Comment on above: Result Comment: IG% - Immature Granulocytes (promyelocytes, myelocytes and metamyelocytes) > 1% indicates that a LEFT SHIFT is Present. Performed By: #### L 100.0100 #### [facility] [address] [place], [address] Lymphocytes (Bld) [#/Vol] 2.25 X10 3/uL Normal 0.83-4.51 [facility] Comment on above: Performed By: #### L 100.0100 #### [facility] [address] [place], [address] Lymphocytes/100 WBC (Bld) 14.0 % Low 19-41 [facility] Comment on above: Performed By: #### L 100.0100 #### [facility] [address] [place], [address] MCH (RBC) [Entitic mass] 30.1 pg Normal 27.0-32.0 [facility] Comment on above: Performed By: #### L 100.0100 #### [facility] [address] [place], [address] MCHC (RBC) [Mass/Vol] 32.7 g/dL Normal 32-36 [facility] Comment on above: Performed By: #### L 100.0100 #### [facility] [address] [place], [address] MCV (RBC) [Entitic vol] 91.9 fL Normal 81-99 [facility] Comment on above: Performed By: #### L 100.0100 #### [facility] [address] [place], [address] Monocytes/100 WBC (Bld) 8.1 % Normal 0-10 [facility] Comment on above: Performed By: #### L 100.0100 #### [facility] [address] [place], [address] Neutrophils/100 WBC (Bld) 76.7 % High 47-70 [facility] Comment on above: Performed By: #### L 100.0100 #### [facility] [address] [place], [address] NRBC, FLAGGED 0 % Normal 0-5 [facility] Comment on above: Performed By: #### L 100.0100 #### [facility] [address] [place], [address] Platelet mean volume (Bld) [Entitic vol] 8.2 fL Normal 6.2-12.0 [facility] Comment on above: Performed By: #### L 100.0100 #### [facility] [address] [place], [address] Platelets (Bld) [#/Vol] 385 10*3/uL Normal 150-450 [facility] Comment on above: Performed By: #### L 100.0100 #### [facility] [address] [place], [address] RBC (Bld) [#/Vol] 4.22 M/mm3 Normal 4.2-5.4 [facility] Comment on above: Performed By: #### L 100.0100 #### [facility] [address] [place], [address] RDW SD 41.3 fl Normal 35.1-43.9 [facility] Comment on above: Performed By: #### L 100.0100 #### [facility] [address] [place], [address] WBC (Bld) [#/Vol] 16.1 10*3/uL High 4.4-11.0 [facility] Comment on above: Performed By: #### L 100.0100 #### [facility] [address] [place], [address] Comprehensive Metabolic Prof ilon 08-11-2019 Albumin [Mass/Vol] 2.5 g/dL Low 3.2-5.0 [facility] Comment on above: Performed By: #### L 500.4050 #### [facility] [address] [place], [address] Albumin/Globulin [Mass ratio] 0.5 {ratio} Low 0.9-2.4 [facility] Comment on above: Performed By: #### L 500.4050 #### [facility] [address] [place], [address] ALK P 94 U/L Normal 45-117 [facility] Comment on above: Performed By: #### L 500.4050 #### [facility] [address] [place], [address] ALT [Catalytic activity/Vol] 15 U/L Normal 13-56 [facility] Comment on above: Performed By: #### L 500.4050 #### [facility] [address] [place], [address] AST [Catalytic activity/Vol] 15 U/L Normal 15-37 [facility] Comment on above: Performed By: #### L 500.4050 #### [facility] [address] [place], [address] Bilirubin [Mass/Vol] 0.50 mg/dL Normal 0.20-1.00 [facility] Comment on above: Performed By: #### L 500.4050 #### [facility] [address] [place], [address] Calcium [Mass/Vol] 9.0 mg/dL Normal 8.5-10.1 [facility] Comment on above: Performed By: #### L 500.4050 #### [facility] [address] [place], [address] Chloride [Moles/Vol] 101 mmol/L Normal 98-107 [facility] Comment on above: Performed By: #### L 500.4050 #### [facility] [address] [place], [address] CO2 [Moles/Vol] 25.0 mmol/L Normal 21.0-32.0 [facility] Comment on above: Performed By: #### L 500.4050 #### [facility] [address] [place], [address] Creatinine [Mass/Vol] 0.89 mg/dL Normal 0.55-1.02 [facility] Comment on above: Result Comment: The validity of the calculated GFR AND GFRAA in patients over 70 years has not been determined. Clinical correlation is essential. Performed By: #### L 500.4050 #### [facility] [address] [place], [address] EST GFR - AA 81 mL/min Normal >60 [facility] Comment on above: Result Comment: Afri can Trin[place] GFR Calc Performed By: #### L 500.4050 #### [facility] [address] [place], [address] Estimated CRCL 52.24 ml/min Normal [facility] Comment on above: Performed By: #### L 500.4050 #### [facility] [address] [place], [address] GAP 9 Normal 5-15 [facility] Comment on above: Performed By: #### L 500.4050 #### [facility] [address] [place], [address] GFR/1.73 sq M predicted among non-blacks MDRD (S/P/Bld) [Vol rate/Area] 67 mL/min/{1.73_m2} Normal >60 [facility] Comment on above: Result Comment: Non- GFR Calc Performed By: #### L 500.4050 #### [facility] [address] [place], [address] Globulin (S) [Mass/Vol] 5.2 g/dL High 2.2-4.2 [facility] Comment on above: Performed By: #### L 500.4050 #### [facility] [address] [place], [address] Glucose [Mass/Vol] 92 mg/dL Normal 74-106 [facility] Comment on above: Result Comment: Armida callejas note revised GLUCOSE reference range effective 2017. Performed By: #### L 500.4050 #### [facility] [address] [place], [address] Potassium [Moles/Vol] 4.1 mmol/L Normal 3.5-5.1 [facility] Comment on above: Performed By: #### L 500.4050 #### [facility] [address] [place], [address] Sodium [Moles/Vol] 135 mmol/L Low 136-145 [facility] Comment on above: Performed By: #### L 500.4050 #### [facility] [address] [place], [address] T PROT 7.7 g/dL Normal 6.4-8.2 [facility] Comment on above: Performed By: #### L 500.4050 #### [facility] [address] [place], [address] Urea nitrogen [Mass/Vol] 10 mg/dL Normal 7-18 [facility] Comment on above: Performed By: #### L 500.4050 #### [facility] [address] [place], [address] Urea nitrogen [Mass/Vol] 11.3 RATIO Normal 10-20 [facility] Comment on above: Performed By: #### L 500.4050 #### [facility] [address] [place], [address] Basic Metabolic Profile (BMP )on 08-10-2019 Calcium [Mass/Vol] 9.3 mg/dL Normal 8.5-10.1 [facility] Comment on above: Performed By: #### L 500.2500 #### [facility] [address] [place], [address] Chloride [Moles/Vol] 102 mmol/L Normal 98-107 [facility] Comment on above: Performed By: #### L 500.2500 #### [facility] [address] [place], [address] CO2 [Moles/Vol] 24.0 mmol/L Normal 21.0-32.0 [facility] Comment on above: Performed By: #### L 500.2500 #### [facility] [address] [place], [address] Creatinine [Mass/Vol] 0.88 mg/dL Normal 0.55-1.02 [facility] Comment on above: Result Comment: The validity of the calculated GFR AND GFRAA in patients over 70 years has not been determined. Clinical correlation is essential. Performed By: #### L 500.2500 #### [facility] [address] [place], [address] EST GFR - AA 82 mL/min Normal >60 [facility] Comment on above: Result Comment: Afri can Trinidadian GFR Calc Performed By: #### L 500.2500 #### [facility] [address] [place], [address] Estimated CRCL 52.84 ml/min Normal [facility] Comment on above: Performed By: #### L 500.2500 #### [facility] [address] [place], [address] GAP 8 Normal 5-15 [facility] Comment on above: Performed By: #### L 500.2500 #### [facility] [facility] [address] [place], [address] GFR/1.73 sq M predicted among non-blacks MDRD (S/P/Bld) [Vol rate/Area] 68 mL/min/{1.73_m2} Normal >60 [facility] Comment on above: Result Comment: Non- GFR Calc Performed By: #### L 500.2500 #### [facility] [address] [place], [address] Glucose [Mass/Vol] 105 mg/dL Normal 74-106 [facility] Comment on above: Result Comment: Fast ing Glucose result from 100 to 125 mg/dL suggests IMPAIRED HOMEOSTASIS per A.D.A. criteria. Please note revised GLUCOSE reference range effective 2017. Performed By: #### L 500.2500 #### [facility] [address] [place], [address] Potassium [Moles/Vol] 4.3 mmol/L Normal 3.5-5.1 [facility] Comment on above: Performed By: #### L 500.2500 #### [facility] [address] [place], [address] Sodium [Moles/Vol] 134 mmol/L Low 136-145 [facility] Comment on above: Performed By: #### L 500.2500 #### [facility] [address] [place], [address] Urea nitrogen [Mass/Vol] 12.5 RATIO Normal 10-20 [facility] Comment on above: Performed By: #### L 500.2500 #### [facility] [address] [place], [address] Urea nitrogen [Mass/Vol] 11 mg/dL Normal 7-18 [facility] Comment on above: Performed By: #### L 500.2500 #### [facility] [address] [place], [address] CBC W/Diff, Automatedon -08 21-2019 Absolute Neut 14.1 X10 3/uL High 2.0-7.7 [facility] Comment on above: Performed By: #### L 100.0100 #### [facility] [address] [place], [address] Basophils/100 WBC (Bld) 0.2 % Normal 0-1 [facility] Comment on above: Performed By: #### L 100.0100 #### [facility] [address] [place], [address] Eosinophils/100 WBC (Bld) 0.2 % Normal 0-5 [facility] Comment on above: Performed By: #### L 100.0100 #### [facility] [address] [place], [address] Erythrocyte distribution width (RBC) [Ratio] 12.3 % Normal 11.6-14.6 [facility] Comment on above: Performed By: #### L 100.0100 #### [facility] [address] [place], [address] Hematocrit (Bld) [Volume fraction] 38.8 % Normal 37-47 [facility] Comment on above: Performed By: #### L 100.0100 #### [facility] [address] [place], [address] Hemoglobin (Bld) [Mass/Vol] 13.0 g/dL Normal 12.0-15.0 [facility] Comment on above: Performed By: #### L 100.0100 #### [facility] [address] [place], [address] IM GRAN % 0.500 % Normal 0.0-0.9 [facility] Comment on above: Result Comment: IG% - Immature Granulocytes (promyelocytes, myelocytes and metamyelocytes) > 1% indicates that a LEFT SHIFT is Present. Performed By: #### L 100.0100 #### [facility] [address] [place], [address] Lymphocytes (Bld) [#/Vol] 1.99 X10 3/uL Normal 0.83-4.51 [facility] Comment on above: Performed By: #### L 100.0100 #### [facility] [address] [place], [address] Lymphocytes/100 WBC (Bld) 11.3 % Low 19-41 [facility] Comment on above: Performed By: #### L 100.0100 #### [facility] [address] [place], [address] MCH (RBC) [Entitic mass] 30.6 pg Normal 27.0-32.0 [facility] Comment on above: Performed By: #### L 100.0100 #### [facility] [address] [place], [address] MCHC (RBC) [Mass/Vol] 33.5 g/dL Normal 32-36 [facility] Comment on above: Performed By: #### L 100.0100 #### [facility] [address] [place], [address] MCV (RBC) [Entitic vol] 91.3 fL Normal 81-99 [facility] Comment on above: Performed By: #### L 100.0100 #### [facility] [address] [place], [address] Monocytes/100 WBC (Bld) 7.8 % Normal 0-10 [facility] Comment on above: Performed By: #### L 100.0100 #### [facility] [address] [place], [address] Neutrophils/100 WBC (Bld) 80.0 % High 47-70 [facility] Comment on above: Performed By: #### L 100.0100 #### [facility] [address] [place], [address] NRBC, FLAGGED 0 % Normal 0-5 [facility] Comment on above: Performed By: #### L 100.0100 #### [facility] [address] [place], [address] Platelet mean volume (Bld) [Entitic vol] 8.3 fL Normal 6.2-12.0 [facility] Comment on above: Performed By: #### L 100.0100 #### [facility] [address] [place], [address] Platelets (Bld) [#/Vol] 395 10*3/uL Normal 150-450 [facility] Comment on above: Performed By: #### L 100.0100 #### [facility] [address] [place], [address] RBC (Bld) [#/Vol] 4.25 M/mm3 Normal 4.2-5.4 [facility] Comment on above: Performed By: #### L 100.0100 #### [facility] [address] [place], [address] RDW SD 41.0 fl Normal 35.1-43.9 [facility] Comment on above: Performed By: #### L 100.0100 #### [facility] [address] [place], [address] WBC (Bld) [#/Vol] 17.7 10*3/uL High 4.4-11.0 [facility] Comment on above: Performed By: #### L 100.0100 #### [facility] [address] [place], [address] Consultationon 08-10-2019 Consultation [facility] Medical Records Department [address] [place] [address] Consultation 08/10/19 0924 MR#: [id number] Acct: [id number] Name: SHAHBAZ VIDAL Rep #: [id number] : 1950 69 From: Debra Owens MD PCP: Fortunato Mcdermott MD Status: ADM IN Y Location: [facility] [place] [id number] - Consult Date of Consult: 08/10/19 - Reason for Consult CC abdominal pain, consulted by hospitalist service to see patient HISTORY OF PRESENT ILLNESS: Shahbaz Vidal is a 69 y/o WF who presents with about 2 month history of left lower quadrant abdominal pain, worsening over time. She was admitted to hospitalist service with diagnosis of acute diverticulitis and noted to have elevated WBC 14.8K, yesterday and this morning it was 17.7K. CT scan - 08/09/2019 [place] [facility] IMPRESSION: Long segmental sigmoid wall thickening, with colonic diverticula and adjacent soft tissue stranding/edema, raising concern for diverticulitis; however, underlying malignancy cannot be excluded. Other consideration would include colitis. Abscess formation in the mid and left pelvis. 1.4 cm low-attenuation lesion or cyst in the right kidney. Patient denies previous colonoscopic evaluation, has had stool guaiac tests in the past that were negative. No colon cancer or inflammatory bowel disease known in family. No previous episodes of diverticulitis. Has long history of constipation - having bowel movements every 2-3 days. She states that she doesn't let it get beyond four days and then she will take a laxative but this is rare. Does admit to straining with bowel movements at times. She states that she hasn't had a bowel movement in a week, but she hasn't eaten much in the past few days. Notes occasional blood on toilet paper and attributes this to hemorrhoids. She has been taking peptobismol for the past 6 weeks for her abdominal symptoms, her stools have been looser with this. PAST MEDICAL HISTORY Allergic rhinitis, cause unspecified 04/10/2005 Bipolar disorder, unspecified (HCC) 04/10/2005 MANIC, SUICIDE ATTEMPT X1 Depressive disorder, not elsewhere classified 04/10/2005 MANIC, SUICIDE ATTEMPT X1 Herpes zoster without mention of complication Right scapula Impingement syndrome of right shoulder 05/09/2013 Other and unspecified hyperlipidemia 04/10/2005 POSTABLAT HYPOTHYR NEC 09/30/2005 Senile osteoporosis 04/10/2005 Thyrotoxicosis without mention of goiter or other cause, without mention of thyrotoxic crisis or storm 09/30/2005 Tobacco use disorder 04/10/2005 Unspecified asthma(493.90) 04/10/2005 PAST SURGICAL HISTORY DELIVERY ONLY 1972 , low cervical OPEN RX ANKLE DISLOCATN+FIXATN ORIF Ankle, Right ankle PAST SURGICAL HISTORY OF 1993 Left breast Lumpectomy, benign PAST SURGICAL HISTORY OF dental mandibular surgery TOTAL ABDOM HYSTERECTOMY 1997 Hysterectomy, SONIA ALLERGIES Penicillins MEDICATIONS albuterol HFA (VENTOLIN HFA) 90 mcg/actuation inhaler INHALE 2 PUFFS EVERY FOUR HOURS NEEDED FOR WHEEZING OR SHORTNESS OF BREATH beclomethasone (QVAR REDIHALER) 80 mcg/actuation inhaler Inhale 1 Puff as instructed twice daily. levothyroxine (SYNTHROID) 88 mcg tablet Take 1 tablet by mouth once daily. simvastatin (ZOCOR) 20 mg tablet Take 1 tablet by mouth daily at bedtime. amLODIPine (NORVASC) 2.5 mg tablet Take 1 tablet by mouth once daily. 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 EOM intact with sclera clear and no icterus noted. Neck is supple with no jugular venous distention noted. Trachea is midline. Lungs normal breath sounds No rales/rhonchi/wheezing noted. No labored breathing noted, such as retractions. No cough heard. Heart normal heart sounds, regular Abdomen soft and benign but tender in left lower quadrant, no rigidity noted, decreased bowel sounds, difficult to determine if any masses due to body habitus Extremities no calf tenderness noted. No pitting edema noted. Genitourinary/Rectal deferred Skin normal skin integrity. Neurological non focal. Psychological normal affect, patient is calm and appropriate IMPRESSION: acute diverticulitis PLAN: continue IV antibiotics, serial WBC, pain meds as you are doing Will advance to clear liquid diet will follow patient with you, no surgical intervention required at this time, further workup (colonoscopic evaluation) can be done as outpatient 08/10/19 1002 Date Debra Owens MD Cosigner Signature (if applicable): Date CC: Debra Owens MD; Fortunato Mcdermott MD Signed Normal [facility] Emergency Department Summary on 08-10-2019 Emergency Department Summary [facility] Medical Records Department [address] [place] [address] Emergency Department Summary 08/09/19 1739 MR#: [id number] Acct: [id number] Name: SHAHBAZ VIDAL Rep #: [id number] : 1950 69 From: Meño Kapoor DO PCP: Fortunato Mcdermott MD Status: ADM IN - ER Visit Summary Date of Service: 08/09/19 Chief Complaint: Left lower quadrant abdominal pain History of Present Illness: The patient is a 69 F who presents with left lower quadrant abdominal pain that has been getting progressively worse over the past 2 months. Patient had outpatient CT scan done which showed diverticulitis with pelvic abscesses and possible colon cancer. Patient was referred to the emergency department by her primary care physician for IV antibiotics. Primary care physician did a CBC which showed a leukocytosis of 20. Patient states her pain improves with taking Pepto-Bismol. Patient states her pain is stabbing. Patient states pain is localized to the left lower quadrant. Patient denies any nausea or vomiting. Patient denies any diarrhea, melena, or hematochezia. Patient denies any urinary complaints. Physical Examination: Vital signs are stable. Patient is afebrile. Patient is in no acute distress. Oral mucosa is pink and moist. Neck is supple. Trachea is midline. There is no JVD noted. Heart was regular rate and rhythm. Lungs are clear and equal bilaterally. Abdomen is soft. Bowel sounds are normal. There is left lower quadrant tenderness. There is no rebound or guarding noted. Skin is warm dry. Cranial nerves II through XII are intact. There are no focal motor or sensory deficits noted. Extremities are intact. There is no calf tenderness or edema. Test Results: CBC shows leukocytosis of 14.8. Comprehensive metabolic profile was essentially within normal limits. Since the patient had an outpatient CT scan done today this was not repeated. Emergency Department Course and Treatment: Patient was given Cipro, Flagyl, and morphine here in the emergency department. Case was discussed with the hospitalist. He will be in to evaluate the patient and admit the patient to the hospital. Patient understood and was agreeable with the plan. All questions were answered. Disposition: Admit to hospital Impression: 1. Acute diverticulitis This note was generated with [employer] dictation software. It may contain incorrect words, spelling, and punctuation that were not noted in review of the chart prior to signing ED Disposition - Plan for ED Patient: Disposition: [facility] Diagnosis: Diverticulitis Referrals: Fortunato Mcdermott MD [Primary Care Provider] - What to do if you have Problems For any increased pain, shortness of breath, bleeding, nausea or vomiting, chest pain, or any unexpected problems, contact your Primary Care Provider. Call [facility] ([phone]) or report to the closest Emergency Room. Call 911 if necessary. 08/10/19 0005 Date Meño Kapoor DO Cosigner Signature (If Indicated): Date CC: Fortunato Mcdermott MD Normal [facility] History and Physical Examon 08-10-2019 History and Physical Exam [facility] Medical Records Department [address] [place] [address] History and Physical 08/09/19 2218 MR#: [id number] Acct: [id number] Name: SHAHBAZ VIDAL Rep #: [id number] : 1950 69 From: Eugene Luevano MD PCP: Fortunato Mcdermott MD Status: ADM IN Location: [place] [id number] Problem List (1) Diverticulitis Status: Acute History of Present Illness Date of Admission: 08/09/19 Chief Complaint: abdominal pain The patient is a 69 year old F with a significant history of asthma; hypothyroidism; hyperlipidemia and hypertension who presented with progressively worsening left lower quadrant abdominal pain that started about 2 to 3 days before 2018. The pain radiates to her back. The pain worsens with lying on her back. The pain improves with taking a hot tea; Pepto-Bismol or Aleve. Patient reports considerable night sweats. Patient was previously evaluated by a doctor/nurse practitioner outpatient and was given some kind of medication which she is unable to recall the exact name. Upon taking that medication she became nauseous. She was evaluated again recently by a doctor outpatient and a CT of her abdomen and pelvis was ordered. The CT of abdomen and pelvis showed probable diverticulitis with malignancy on the differential. She was sent to emergency department at the same day that she had the CT. Past Medical History Medical History: Medical History (Last Reviewed 08/10/19 @ 01:40 by Eugnee Luevano MD) HTN (hypertension) I10 Allergies Penicillins Adverse Reaction (Verified 08/09/19 16:52) Unknown Home Medications: Ambulatory Orders Medication Instructions Recorded Albuterol Sulfate [Ventolin Hfa] 2 puff INHALATION Q4H PRN PRN 08/09/19 Surgical History: - - ; ankle surgery. Lives: With Family Smoking Status: Current some day smoker Alcohol: None - *Family History Maternal History Items: - - Mother from an aneurysm. Paternal History Items: - - Her father was alcoholic. Review of Systems Constitutional: Denies: Chills, Fever, Weight Change HEENT: Denies: Head Aches, Sinus Congestion, Sinus Drainage Cardiovascular: Denies: Chest Pain, Palpitations Respiratory: Denies: Cough, Shortness of breath at rest, Sputum production Gastrointestinal: Reports: Abdominal Pain, Nausea. Denies: Vomiting Genitourinary: Denies: Dysuria Musculoskeletal: Denies: Joint Pain, Joint Tenderness Skin: Denies: Rash, Wounds Neurological: Denies: Numbness, Tingling, Focal weakness Psychiatric: Denies: Anxiety, Depression, Homicidal Ideations, Suicidal Ideations Hematologic/ Lymphatic: Denies: Easy Bruising, Easy Bleeding VTE Information - Inpt Only VTE Present on Admission: No VTE Mechan Device Prophylaxis: None VTE Pharm Prophylaxis ordered?: Yes Patient Problems: Active and Suspected Problems (Last Updated 08/09/19 @ 22:57 by Eugene Luevano MD) Diverticulitis (Acute) - Physical Exam Vitals/I AND O's: Vital Signs Temp Pulse Resp BP Pulse Ox 97.6 F L 91 16 148/74 H 96 08/09/19 16:53 08/09/19 22:06 08/09/19 22:06 08/09/19 22:06 08/09/19 22:06 Oxygen Delivery Method Room Air Weight: 86.6 kg Body Mass Index (BMI) 32.8 Intake and Output for Last 24 Hours Intake Total 300 / 300 Balance 300 / 300 General: Alert, Oriented x3, Cooperative HEENT: Atraumatic, PERRLA, EOMI, Normocephalic Neck: Supple, No JVD, Negative Carotid Bruits Lungs: Clear to auscultation, Normal air movement Cardiovascular: Regular rate, Normal S1, Normal S2, No murmurs Abdomen: Bowel Sounds Present, Soft, Non Tender Extremities: No edema, Capillary Refill Less than 3 Seconds Skin: No rashes, No breakdown Musculoskeletal: No Tenderness to Palpation of Joints or Extremities Neurological: Cranial nerves II-XII grossly intact Psych/Mental Status: Normal Affect, Appropriate Laboratory Results 08/09/19 17:55: WBC Cancelled, Corrected WBC Cancelled, RBC Cancelled, Hgb Cancelled, Hct Cancelled, MCV Cancelled, MCH Cancelled, MCHC Cancelled, RDW Std Deviation Cancelled, RDW Coeff of Gin Cancelled, Plt Count Cancelled, MPV Cancelled, Immature Gran % (Auto) Cancelled, Neut % (Auto) Cancelled, Lymph % (Auto) Cancelled, [place] % (Auto) Cancelled, Eos % (Auto) Cancelled, Baso % (Auto) Cancelled, Absolute Neuts (auto) Cancelled, Absolute Lymphs (auto) Cancelled, Total Counted Cancelled, Neutrophils % (Manual) Cancelled, Band Neutrophils % Cancelled, Lymphocytes % (Manual) Cancelled, Monocytes % (Manual) Cancelled, Eosinophils % (Manual) Cancelled, Basophils % (Manual) Cancelled, Metamyelocytes % Cancelled, Myelocytes % Cancelled, Promyelocytes % Cancelled, Blast Cells % Cancelled, Plasma Cell % (Manual) Cancelled, Other Cells % Cancelled, Nucleated RBC % Cancelled, Nucleated RBCs/100 WBC Cancelled, Differential Comment Cancelled, Diff Path Review Cancelled, Hypersegmented Neuts Cancelled, Atypical Lymphocytes Cancelled, Reactive Lymphocytes Cancelled, Smudge Cells Cancelled, Toxic Granulation Cancelled, Toxic Vacuolation Cancelled, Dohle Bodies Cancelled, Ronel Rods Cancelled, Platelet Estimate Cancelled, Plt Morphology Comment Cancelled, RBC Morphology Cancelled, Polychromasia Cancelled, Hypochromasia Cancelled, Poikilocytosis Cancelled, Basophilic Stippling Cancelled, Anisocytosis Cancelled, Microcytosis Cancelled, Macrocytosis Cancelled, Spherocytes Cancelled, Sickle Cells Cancelled, Target Cells Cancelled, Tear Drop Cells Cancelled, Ovalocytes Cancelled, Stomatocytes Cancelled, Reddy-Ridge Bodies Cancelled, [place] Cells Cancelled, Bite Cells Cancelled, Crenated Cell Cancelled, Acanthocytes (Spur) Cancelled, Rouleaux Cancelled, Schistocytes Cancelled 08/09/19 17:55: Sodium 135 L, Potassium 3.9, Chloride 103, Carbon Dioxide 26.0, Anion Gap 6, BUN 14, Creatinine 0.83, Estim Creat Clear Calc 56.02, Est GFR (MDRD) Af Amer 87, Est GFR (MDRD) Non-Af 72, BUN/Creatinine Ratio 16.8, Glucose 95, Calcium 9.5, Total Bilirubin 0.40, AST 12 L, ALT 20, Alkaline Phosphatase 103, Total Protein 8.5 H, Albumin 3.0 L, Globulin 5.5 H, Albumin/Globulin Ratio 0.5 L 08/09/19 20:39: WBC 14.8 H, RBC 4.36, Hgb 12.8, Hct 39.8, MCV 91.3, MCH 29.4, MCHC 32.2, RDW Std Deviation 41.2, RDW Coeff of Gin 12.3, Plt Count 360, MPV 8.4, Immature Gran % (Auto) 0.300, Neut % (Auto) 76.6 H, Lymph % (Auto) 15.3 L, [place] % (Auto) 7.2, Eos % (Auto) 0.3, Baso % (Auto) 0.3, Absolute Neuts (auto) 11.3 H, Absolute Lymphs (auto) 2.27, Nucleated RBC % 0 Assessment/Plan All Active Problems (Last Updated 08/09/19 @ 22:57 by Eugene Luevano MD) Diverticulitis (Acute) The patient is a 69 year old F with a significant history of asthma; hypothyroidism; hyperlipidemia and hypertension who presented with progressively worsening left lower quadrant abdominal pain with radiographic evidence of probable diverticulitis and probable malignancy. Acute diverticulitis A CT of abdomen and pelvis with contrast was done at the [facility]. Results was reviewed in community EMR (clinic setting). Image is on disc at our hospital. Diagnosis is probable malignancy. Patient received ciprofloxacin and Flagyl at the emergency department. Continue same antibiotics. Consider referral for colonoscopy after diverticulitis has been treated. This was discussed with patient. Supportive treatment with IV fluids. Clear liquids for now. Trend CBC and BMP. Of note patient had leukocytosis outpatient and at the emergency department. Antiemetics with Zofran. Oxycodone for mild pain. Morphine IV for severe pain. Asthma PRN albuterol continued Hypothyroidism Levothyroxine continued HTN Blood pressure is not within goal. Amlodipine continued HLD Zocor continued DVT Prophylaxis Subcutaneous Lovenox Code Visit Inpatient E AND M: 38046 Init Hosp L3 08/10/19 0142 Date Eugene Luevano MD Cosigner Signature: Date (if applicable) CC: Eugene Luevano MD; Fortunato Mcdermott MD Signed Normal [facility] CBC W/Diff, Automatedon 07-20-2019 Absolute Neut 11.3 X10 3/uL High 2.0-7.7 [facility] Comment on above: Order Comment: RED W. PREVIOUS SPECIMEN REJECTED DUE TO CLOTTED. 08/09/19 3807 Diana Performed By: #### L 100.0100 #### [facility] [address] [place], [address] Basophils/100 WBC (Bld) 0.3 % Normal 0-1 [facility] Comment on above: Order Comment: REDRA W. PREVIOUS SPECIMEN REJECTED DUE TO CLOTTED. 08/09/191825 Diana Performed By: #### L 100.0100 #### [facility] [address] [place], [address] Eosinophils/100 WBC (Bld) 0.3 % Normal 0-5 [facility] Comment on above: Order Comment: REDRA W. PREVIOUS SPECIMEN REJECTED DUE TO CLOTTED. 08/09/191825 Diana Performed By: #### L 100.0100 #### [facility] [address] [place], [address] Erythrocyte distribution width (RBC) [Ratio] 12.3 % Normal 11.6-14.6 [facility] Comment on above: Order Comment: REDRA W. PREVIOUS SPECIMEN REJECTED DUE TO CLOTTED. 08/09/191825 Diana Performed By: #### L 100.0100 #### [facility] [address] [place], [address] Hematocrit (Bld) [Volume fraction] 39.8 % Normal 37-47 [facility] Comment on above: Order Comment: REDRA W. PREVIOUS SPECIMEN REJECTED DUE TO CLOTTED. 08/09/191825 Diana Performed By: #### L 100.0100 #### [facility] [address] [place], [address] Hemoglobin (Bld) [Mass/Vol] 12.8 g/dL Normal 12.0-15.0 [facility] Comment on above: Order Comment: REDRA W. PREVIOUS SPECIMEN REJECTED DUE TO CLOTTED. 08/09/191825 Diana Performed By: #### L 100.0100 #### [facility] [address] [place], [address] IM GRAN % 0.300 % Normal 0.0-0.9 [facility] Comment on above: Order Comment: REDRA W. PREVIOUS SPECIMEN REJECTED DUE TO CLOTTED. 08/09/191825 Diana Result Comment: IG% - Immature Granulocytes (promyelocytes, myelocytes and metamyelocytes) > 1% indicates that a LEFT SHIFT is Present. Performed By: #### L 100.0100 #### [facility] [address] [place], [address] Lymphocytes (Bld) [#/Vol] 2.27 X10 3/uL Normal 0.83-4.51 [facility] Comment on above: Order Comment: REDRA W. PREVIOUS SPECIMEN REJECTED DUE TO CLOTTED. 08/09/191825 Diana Performed By: #### L 100.0100 #### [facility] [address] [place], [address] Lymphocytes/100 WBC (Bld) 15.3 % Low 19-41 [facility] Comment on above: Order Comment: REDRA W. PREVIOUS SPECIMEN REJECTED DUE TO CLOTTED. 08/09/191825 Diana Performed By: #### L 100.0100 #### [facility] [address] [place], [address] MCH (RBC) [Entitic mass] 29.4 pg Normal 27.0-32.0 [facility] Comment on above: Order Comment: REDRA W. PREVIOUS SPECIMEN REJECTED DUE TO CLOTTED. 08/09/191825 Diana Performed By: #### L 100.0100 #### [facility] [address] [place], [address] MCHC (RBC) [Mass/Vol] 32.2 g/dL Normal 32-36 [facility] Comment on above: Order Comment: REDRA W. PREVIOUS SPECIMEN REJECTED DUE TO CLOTTED. 08/09/191825 Diana Performed By: #### L 100.0100 #### [facility] [address] [place], [address] MCV (RBC) [Entitic vol] 91.3 fL Normal 81-99 [facility] Comment on above: Order Comment: REDRA W. PREVIOUS SPECIMEN REJECTED DUE TO CLOTTED. 08/09/191825 Diana Performed By: #### L 100.0100 #### [facility] [address] [place], [address] Monocytes/100 WBC (Bld) 7.2 % Normal 0-10 [facility] Comment on above: Order Comment: REDRA W. PREVIOUS SPECIMEN REJECTED DUE TO CLOTTED. 08/09/191825 Diana Performed By: #### L 100.0100 #### [facility] [address] [place], [address] Neutrophils/100 WBC (Bld) 76.6 % High 47-70 [facility] Comment on above: Order Comment: REDRA W. PREVIOUS SPECIMEN REJECTED DUE TO CLOTTED. 08/09/191825 Diana Performed By: #### L 100.0100 #### [facility] [address] [place], [address] NRBC, FLAGGED 0 % Normal 0-5 [facility] Comment on above: Order Comment: REDRA W. PREVIOUS SPECIMEN REJECTED DUE TO CLOTTED. 08/09/191825 Diana Performed By: #### L 100.0100 #### [facility] [address] [place], [address] Platelet mean volume (Bld) [Entitic vol] 8.4 fL Normal 6.2-12.0 [facility] Comment on above: Order Comment: REDRA W. PREVIOUS SPECIMEN REJECTED DUE TO CLOTTED. 08/09/191825 Diana Performed By: #### L 100.0100 #### [facility] [address] [place], [address] Platelets (Bld) [#/Vol] 360 10*3/uL Normal 150-450 [facility] Comment on above: Order Comment: REDRA W. PREVIOUS SPECIMEN REJECTED DUE TO CLOTTED. 08/09/191825 Diana Performed By: #### L 100.0100 #### [facility] [address] [place], [address] RBC (Bld) [#/Vol] 4.36 M/mm3 Normal 4.2-5.4 [facility] Comment on above: Order Comment: REDRA W. PREVIOUS SPECIMEN REJECTED DUE TO CLOTTED. 08/09/191825 Diana Performed By: #### L 100.0100 #### [facility] [address] [place], [address] RDW SD 41.2 fl Normal 35.1-43.9 [facility] Comment on above: Order Comment: REDRA W. PREVIOUS SPECIMEN REJECTED DUE TO CLOTTED. 08/09/191825 Diana Performed By: #### L 100.0100 #### [facility] [address] [place], [address] WBC (Bld) [#/Vol] 14.8 10*3/uL High 4.4-11.0 [facility] Comment on above: Order Comment: REDRA W. PREVIOUS SPECIMEN REJECTED DUE TO CLOTTED. 08/09/191825 Diana Performed By: #### L 100.0100 #### [facility] [address] [place], [address] Comprehensive Metabolic Prof ilon 08-09-2019 Albumin [Mass/Vol] 3.0 g/dL Low 3.2-5.0 [facility] Comment on above: Performed By: #### L 500.4050 #### [facility] [address] [place], [address] Albumin/Globulin [Mass ratio] 0.5 {ratio} Low 0.9-2.4 [facility] Comment on above: Performed By: #### L 500.4050 #### [facility] [address] [place], [address] ALK P 103 U/L Normal 45-117 [facility] Comment on above: Performed By: #### L [id number] #### [facility] [address] [place], [address] ALT [Catalytic activity/Vol] 20 U/L Normal 13-56 [facility] Comment on above: Performed By: #### L 500.4050 #### [facility] [address] [place], [address] AST [Catalytic activity/Vol] 12 U/L Low 15-37 [facility] Comment on above: Performed By: #### L [id number] #### [facility] [address] [place], [address] Bilirubin [Mass/Vol] 0.40 mg/dL Normal 0.20-1.00 [facility] Comment on above: Performed By: #### L [id number] #### [facility] [address] [place], [address] Calcium [Mass/Vol] 9.5 mg/dL Normal 8.5-10.1 [facility] Comment on above: Performed By: #### L [id number] #### [facility] [address] [place], [address] Chloride [Moles/Vol] 103 mmol/L Normal 98-107 [facility] Comment on above: Performed By: #### L [id number] #### [facility] [address] [place], [address] CO2 [Moles/Vol] 26.0 mmol/L Normal 21.0-32.0 [facility] Comment on above: Performed By: #### L [id number] #### [facility] [address] [place], [address] Creatinine [Mass/Vol] 0.83 mg/dL Normal 0.55-1.02 [facility] Comment on above: Result Comment: The validity of the calculated GFR AND GFRAA in patients over 70 years has not been determined. Clinical correlation is essential. Performed By: #### L 500.4050 #### [facility] [address] [place], [address] EST GFR - AA 87 mL/min Normal >60 [facility] Comment on above: Result Comment: Afri can Trinidadian GFR Calc Performed By: #### L [id number] #### [facility] [address] [place], [address] Estimated CRCL 56.02 ml/min Normal [facility] Comment on above: Performed By: #### L [id number] #### [facility] [address] [place], [address] GAP 6 Normal 5-15 [facility] Comment on above: Performed By: #### L [id number] #### [facility] [address] [place], [address] GFR/1.73 sq M predicted among non-blacks MDRD (S/P/Bld) [Vol rate/Area] 72 mL/min/{1.73_m2} Normal >60 [facility] Comment on above: Result Comment: Non- GFR Calc Performed By: #### L [id number] #### [facility] [address] [place], [address] Globulin (S) [Mass/Vol] 5.5 g/dL High 2.2-4.2 [facility] Comment on above: Performed By: #### L [id number] #### [facility] [address] [place], [address] Glucose [Mass/Vol] 95 mg/dL Normal 74-106 [facility] Comment on above: Result Comment: Armida callejas note revised GLUCOSE reference range effective 2017. Performed By: #### L [id number] #### [facility] [address] [place], [address] Potassium [Moles/Vol] 3.9 mmol/L Normal 3.5-5.1 [facility] Comment on above: Performed By: #### L [id number] #### [facility] [address] [place], [address] Sodium [Moles/Vol] 135 mmol/L Low 136-145 [facility] Comment on above: Performed By: #### L [id number] #### [facility] [address] [place], [address] T PROT 8.5 g/dL High 6.4-8.2 [facility] Comment on above: Performed By: #### L [id number] #### [facility] [address] [place], [address] Urea nitrogen [Mass/Vol] 16.8 RATIO Normal 10-20 [facility] Comment on above: Performed By: #### L [id number] #### [facility] [address] [place], [address] Urea nitrogen [Mass/Vol] 14 mg/dL Normal 7-18 [facility] Comment on above: Performed By: #### L [id number] #### [facility] [address] [place], [address] Vital Signs Date Time Vital Sign Value Performing Clinician Valeri munoz 02-27-2025 11:49-0400 Diastolic blood pressure 68 mm[Hg] Raine Leann MECHANICAL MAINTENANCE.SPEEDER FRAME TENDER Work Phone: [facility] 02-27-2025 11:49-0400 Systolic blood pressure 122 mm[Hg] Raine Leann MECHANICAL MAINTENANCE.SPEEDER FRAME TENDER Work Phone: [facility] 02-27-2025 11:33-0400 Body height 165.5 cm Raine SalazarLeann MECHANICAL MAINTENANCE.SPEEDER FRAME TENDER Work Phone: [facility] 02-27-2025 11:33-0400 Body mass index (BMI) [Ratio] 28.22 kg/m2 Raine Noriega MECHANICAL MAINTENANCE.SPEEDER FRAME TENDER Work Phone: [facility] 02-27-2025 11:33-0400 Body weight 77.3 kg Raine Noriega MECHANICAL MAINTENANCE.SPEEDER FRAME TENDER Work Phone: [facility] 02-27-2025 11:33-0400 Heart rate 74 /min Raine Noriega MECHANICAL MAINTENANCE.SPEEDER FRAME TENDER Work Phone: [facility] 02-27-2025 11:33-0400 Respiratory rate 14 /min Raine Noriega MECHANICAL MAINTENANCE.SPEEDER FRAME TENDER Work Phone: [facility] 02-27-2025 11:33-0400 SaO2% (BldA) [Mass fraction] 98 % Raine Noriega MECHANICAL MAINTENANCE.SPEEDER FRAME TENDER Work Phone: [facility] 09-19-2024 09:22-0500 Body mass index (BMI) [Ratio] 30.5 kg/m2 Fortunato Mcdermott MD Work Phone: [facility] 09-19-2024 09:22-0500 Body temperature 98.49 [degF] Fortunato Mcdermott MD Work Phone: [facility] 09-19-2024 09:22-0500 Body weight 80.6 kg Fortunato Mcdermott MD Work Phone: [facility] 09-19-2024 09:22-0500 Diastolic blood pressure 56 mm[Hg] Fortunato Mcdermott MD Work Phone: [facility] 09-19-2024 09:22-0500 Heart rate 68 /min Fortunato Mcdermott MD Work Phone: [facility] 09-19-2024 09:22-0500 Systolic blood pressure 120 mm[Hg] Fortunato Mcdermott MD Work Phone: [facility] 02-23-2024 09:22-0400 Diastolic blood pressure 64 mm[Hg] Fortunato Mcdermott MD Work Phone: [facility] 02-23-2024 09:22-0400 Heart rate 72 /min Fortunato Mcdermott MD Work Phone: [facility] 02-23-2024 09:22-0400 Systolic blood pressure 118 mm[Hg] Fortunato Mcdermott MD Work Phone: [facility] 02-23-2024 09:21-0400 Body mass index (BMI) [Ratio] 28.57 kg/m2 Fortunato Mcdermott MD Work Phone: [facility] 02-23-2024 09:21-0400 Body temperature 97.3 [degF] Fortunato Mcdermott MD Work Phone: [facility] 02-23-2024 09:21-0400 Body weight 75.5 kg Fortunato Mcdermott MD Work Phone: [facility] 10-25-2023 16:42-0400 Body height 162.6 cm Fortunato Mcdermott MD Work Phone: [facility] 10-25-2023 16:42-0400 Body temperature 98.4 [degF] Fortunato Mcdermott MD Work Phone: [facility] 10-25-2023 16:42-0400 Body weight 77.11 kg Fortunato Mcdermott MD Work Phone: [facility] 10-25-2023 16:42-0400 Diastolic blood pressure 58 mm[Hg] Fortunato Mcdermott MD Work Phone: [facility] 10-25-2023 16:42-0400 Heart rate 78 /min Fortunato Mcdermott MD Work Phone: [facility] 10-25-2023 16:42-0400 Respiratory rate 12 /min Fortunato Mcdermott MD Work Phone: [facility] 10-25-2023 16:42-0400 SaO2% (BldA) [Mass fraction] 97 % Fortunato Mcdermott MD Work Phone: [facility] 10-25-2023 16:42-0400 Systolic blood pressure 132 mm[Hg] Fortunato Mcdermott MD Work Phone: [facility] 01-26-2023 08:11-0400 Body weight 70.31 kg Fortunato Mcdermott MD Work Phone: [facility] 01-26-2023 08:11-0400 Diastolic blood pressure 64 mm[Hg] Fortunato Mcdermott MD Work Phone: [facility] 01-26-2023 08:11-0400 Heart rate 76 /min Fortunato Mcdermott MD Work Phone: [facility] 01-26-2023 08:11-0400 Respiratory rate 18 /min Fortunato Mcdermott MD Work Phone: [facility] 01-26-2023 08:11-0400 Systolic blood pressure 130 mm[Hg] Fortunato Mcdermott MD Work Phone: [facility] 10-29-2022 19:22-0400 Body temperature 97 [degF] Fortunato Mcdermott MD Work Phone: [facility] 10-29-2022 19:22-0400 Body weight 70.85 kg Fortunato Mcdermott MD Work Phone: [facility] 10-29-2022 19:22-0400 Diastolic blood pressure 60 mm[Hg] Fortunato Mcdermott MD Work Phone: [facility] 10-29-2022 19:22-0400 Heart rate 80 /min Fortunato Mcdermott MD Work Phone: [facility] 10-29-2022 19:22-0400 Respiratory rate 16 /min Fortunato Mcdermott MD Work Phone: [facility] 10-29-2022 19:22-0400 SaO2% (BldA) [Mass fraction] 96 % Fortunato Mcdermott MD Work Phone: [facility] 10-29-2022 19:22-0400 Systolic blood pressure 152 mm[Hg] Fortunato Mcdermott MD Work Phone: [facility] 07-22-2022 10:14-0500 Body temperature 97.2 [degF] Fortunato Mcdermott MD Work Phone: [facility] 07-22-2022 10:14-0500 Body weight 72.58 kg Fortunato Mcdermott MD Work Phone: [facility] 07-22-2022 10:14-0500 Diastolic blood pressure 64 mm[Hg] Fortunato Mcdermott MD Work Phone: [facility] 07-22-2022 10:14-0500 Heart rate 72 /min Fortunato Mcdermott MD Work Phone: [facility] 07-22-2022 10:14-0500 Respiratory rate 16 /min Fortunato Mcdermott MD Work Phone: [facility] 07-22-2022 10:14-0500 Systolic blood pressure 134 mm[Hg] Fortunato Mcdermott MD Work Phone: [facility] 10-29-2021 09:14-0400 Body temperature 98.01 [degF] Fortunato Mcdermott MD Work Phone: [facility] 10-29-2021 09:14-0400 Body weight 77.56 kg Fortunato Mcdermott MD Work Phone: [facility] 10-29-2021 09:14-0400 Diastolic blood pressure 66 mm[Hg] Fortunato Mcdermott MD Work Phone: [facility] 10-29-2021 09:14-0400 Heart rate 68 /min Fortunato Mcdermott MD Work Phone: [facility] 10-29-2021 09:14-0400 Respiratory rate 20 /min Fortunato Mcdermott MD Work Phone: [facility] 10-29-2021 09:14-0400 SaO2% (BldA) [Mass fraction] 96 % Fortunato Mcdermott MD Work Phone: [facility] 10-29-2021 09:14-0400 Systolic blood pressure 128 mm[Hg] Fortunato Mcdermott MD Work Phone: [facility] Encounters Encounter Date Encounter Type Care Provider Facility Start: 02-27-2025 End: 02-27-2025 Patient encounter status Raine Zavala Leann RANGEL.SPEEDER FRAME TENDER Work Phone: [facility] Work Phone: Start: 02-27-2025 End: 02-27-2025 Periodic preventive med est patient 65yrs& older Raine Sally Leann RANGEL.SPEEDER FRAME TENDER Work Phone: [facility] [place] Comment on above: Wellness examination (Primary Dx); Essential hypertension; Moderate persistent asthma without complication (HCC); Hypothyroidism, postablative; Hyperlipidemia, unspecified hyperlipidemia type; Bipolar affective disorder, currently manic, mild (HCC); Screening for depression; Encounter for screening examination for other mental health and behavioral disorders Start: 02-27-2025 Encounter for genera l adult medical examination without abnormal findings RAINE NORIEGA [facility] Start: 02-27-2025 End: 02-27-2025 ambulatory FORTUNATO MCDERMOTT Facility:[facility] Start: 01-29-2025 End: 01-29-2025 Refill Fortunato Mcdermott MD Work Phone: [facility] [place] Comment on above: Refill Request Start: 09-19-2024 End: 09-19-2024 ambulatory FORTUNATO MCDERMOTT Facility:[facility] Start: 09-19-2024 End: 09-19-2024 Patient encounter procedure Fortunato Mcdermott MD Work Phone: [facility] [place] Comment on above: Essential hypertensi on (Primary Dx); Encounter for immunization; Hypothyroidism, postablative; Hyperlipidemia, unspecified hyperlipidemia type; Moderate persistent asthma without complication Start: 08-31-2024 End: 09-01-2024 Refill Fortunato Mcdermott MD Work Phone: [facility] [place] Comment on above: Refill Request Start: 08-25-2024 ambulatory FORTUNATO MCDERMOTT Facili ty:[facility] Start: 07-07-2024 End: 07-07-2024 Refill Fortunato Mcdermott MD Work Phone: [facility] [place] Comment on above: Refill Request Start: 06-08-2024 End: 06-08-2024 Refill Fortunato Mcdermott MD Work Phone: [facility] [place] Comment on above: Refill Request Start: 02-23-2024 End: 02-23-2024 Office outpatient visit 25 minutes Fortunato Mcdermott MD Work Phone: [facility] [place] Comment on above: Night sweats (Primar y Dx); Screening for depression; Essential hypertension; Encounter for screening mammogram for malignant neoplasm of breast; Encounter for screening examination for other mental health and behavioral disorders; Moderate persistent asthma without complication; Hyperlipidemia, unspecified hyperlipidemia type; Hypothyroidism, postablative; Need for COVID-19 vaccine Start: 02-09-2024 Refill Fortunato tai MD Work Phone: [facility] [place] Comment on above: Refill Request Start: 02-02-2024 ambulatory Fortunato tai MD Work Phone: [facility] [place] [id number] Start: 12-20-2023 Refill Fortunato tai MD Work Phone: [facility] [place] Comment on above: Refill Request Start: 10-28-2023 Telephone encounter Fortunato price MD Work Phone: [facility] [place] Comment on above: Results Hypothyroidism, post ablative (Primary Dx) Start: 10-28-2023 End: 10-29-2023 ambulatory FORTUNATO MCDERMOTT Facility:[facility] Start: 10-25-2023 End: 10-25-2023 Patient encounter procedure Fortunato Mcdermott MD Work Phone: [facility] [place] Comment on above: Syncope and collapse (Primary Dx); Essential hypertension; Hypothyroidism, postablative; Moderate persistent asthma without complication; Bipolar affective disorder, currently manic, mild (HCC) Start: 10-25-2023 ambulatory Fortunato tai MD Work Phone: [facility] [place] Comment on above: Syncope Start: 09-07-2023 Refill Fortunato tai MD Work Phone: [facility] [place] Comment on above: Refill Request Start: 08-26-2023 E-mail encounter fro m caregiver [facility] [place] [facility] Start: 08-26-2023 Patient encounter procedure [facility] Provider Radiology Comment on above: need to rescheduled an appointment Start: 06-25-2023 Refill Fortunato tai MD Work Phone: [facility] [place] Comment on above: Refill Request Start: 04-09-2023 Refill Fortunato tai MD Work Phone: [facility] [place] Comment on above: Refill Request Start: 2023 Refill Fortunato tai MD Work Phone: [facility] [place] Comment on above: Refill Request Start: 01-27-2023 Telephone encounter Fortunato price MD Work Phone: [facility] [place] Comment on above: Results Start: 01-26-2023 End: 01-26-2023 Patient encounter procedure Fortunato Mcdermott MD Work Phone: [facility] [place] Comment on above: Essential hypertensi on (Primary Dx); Hypothyroidism, postablative; Hyperlipidemia, unspecified hyperlipidemia type; Moderate persistent asthma without complication; Bipolar affective disorder, currently manic, mild (HCC) Start: 01-13-2023 Refill Fortunato tai MD Work Phone: [facility] [place] Comment on above: Refill Request Start: 10-29-2022 End: 10-29-2022 Patient encounter procedure Fortunato Mcdermott MD Work Phone: [facility] [place] Comment on above: Parotitis, acute (Pr imary Dx); Essential hypertension; Contact dermatitis, unspecified contact dermatitis type, unspecified trigger Start: 10-29-2022 ambulatory Fortunato tai MD Work Phone: [facility] [place] Comment on above: face swelling Start: 08-25-2022 Refill Fortunato tai MD Work Phone: [facility] [place] Comment on above: Refill Request Start: 07-22-2022 End: 07-22-2022 Patient encounter procedure Fortunato Mcdermott MD Work Phone: [facility] [place] Comment on above: Moderate persistent asthma without complication (Primary Dx); Encounter for screening mammogram for malignant neoplasm of breast; Need for vaccination; Hyperlipidemia, unspecified hyperlipidemia type; Essential hypertension; Hypothyroidism, postablative Start: 06-02-2022 Refill Fortunato tai MD Work Phone: [facility] [place] Comment on above: Refill Request Start: 05-06-2022 ambulatory Fortunato tai MD Work Phone: Internal [facility] Start: 05-05-2022 Telephone encounter Fortunato price MD Work Phone: Internal [facility] [place] Comment on above: question on lab orde rs Start: 03-11-2022 Refill Fortunato tai MD Work Phone: Internal [facility] [place] Comment on above: Refill Request Start: 12-22-2021 Refill Fortunato tai MD Work Phone: Internal [facility] [place] Comment on above: Refill Request Start: 11-06-2021 Refill Fortunato tai MD Work Phone: Internal [facility] [place] Comment on above: Refill Request Start: 10-29-2021 End: 10-29-2021 Patient encounter procedure Fortunato Mcdermott MD Work Phone: [facility] [place] Comment on above: Moderate persistent asthma without complication (Primary Dx); Essential hypertension; Hyperlipidemia, unspecified hyperlipidemia type; Hypothyroidism, postablative Start: 10-14-2021 ambulatory Fortunato tai MD Work Phone: Internal [facility] Start: 09-26-2020 End: 09-26-2020 Subsequent hospital visit by physician Tyron [facility] [place] Work Phone: Radiology Comment on above: Essential hypertensi on [I10] Procedures Date Procedure Procedure Detail Performing Clinician Start: 02-27-2025 Adult depression screening assessment Raine Noriega APRN.CNP Work Phone: Start: 09-19-2024 PFIZER-BIONTECH COVI D-19 VACCINE AGE 12+ YR (COMIRNATY) Fortunato Mcdermott MD Work Phone: Start: 02-23-2024 PFIZER-BIONTECH COVI D-19 VACCINE ( SEASON) AGE 12+ YR Fortunato Mcdermott MD Work Phone: Start: 02-23-2024 Adult depression screening assessment Fortunato Mcdermott MD Work Phone: Start: 02-23-2024 Lipid 1996 panel - S elly or Plasma Xr [place] Work Phone: Start: 10-25-2023 Ecg routine ecg w/le ast 12 lds i&r only [facility] Provider Start: 01-26-2023 Lipid 1996 panel - S elly or Plasma Fortunato Mcdermott MD Work Phone: Start: 09-26-2020 Radiologic exam ches t 2 views Fortunato Mcdermott MD Work Phone: Start: 09-26-2020 Adult depression screening assessment Fortunato Mcdermott MD Work Phone: Start: 08-22-2019 End: 08-22-2019 12 lead ECG Start: 05-25-2018 Mammography Fortunato Gates MD Work Phone: Plan of Treatment Date Care Activity Detail Author Start: 08-20-2029 Urine microalbumin profile [facility] Start: 02-22-2029 Lipid panel Lipid Screening [facility] Start: 01-27-2028 Lipid 1996 panel - S elly or Plasma Lipid Screening [facility] Start: 01-27-2028 Lipid panel Lipid Screening [facility] Start: 01-27-2028 LIPID SCREEN LIPID SCREEN [facility] Start: 07-22-2027 LIPID SCREEN LIPID SCREEN [facility] Start: 02-22-2027 Diabetes Screening Diabetes Screenin g [facility] Start: 10-27-2026 Diabetes Screening Diabetes Screenin g [facility] Start: 07-30-2026 LIPID SCREEN LIPID SCREEN [facility] Start: 02-27-2026 Annual PCP Team Tapering Machine Operator tatyana Disease Visit Annual PCP Team Chronic Disease Visit [facility] Start: 02-27-2026 Anxiety Screening Anxiety Screening [facility] Start: 02-27-2026 Depression Screening [facility] System Start: 01-26-2026 DIABETES SCREEN [facility] Start: 01-26-2026 Diabetes Screening Diabetes Screenin g [facility] Start: 09-19-2025 Annual PCP Team Tapering Machine Operator tatyana Disease Visit Annual PCP Team Chronic Disease Visit [facility] Start: 09-19-2025 BP Controlled (<130/80) BP Controlle d (<130/80) [facility] Start: 08-30-2025 End: 08-30-2025 Patient encounter procedure 08/30/2025 9:00 AM EST Office Visit [facility] [address] [place] [address] Fortunato Mcdermott MD [address] [place] [address] follow up 6 months [facility] Comment on above: follow up 6 months Start: 07-22-2025 DIABETES SCREEN DIABETES SCREEN [facility] Start: 03-22-2025 Covid-19 Vaccine ( season) Covid-19 Vaccine () [facility] Start: 02-27-2025 End: 02-27-2025 Patient encounter procedure 02/27/2025 12:00 PM EDT Office Visit [facility] [place] [address] [place] [address] Raine Noriega, MECHANICAL MAINTENANCE.SPEEDER FRAME TENDER [address] [place] [address] physical Internal [facility] Comment on above: physical Start: 02-26-2025 End: 02-26-2025 Patient encounter procedure 02/26/2025 10:20 AM EDT Office Visit Internal Medicine [facility] [address] [place] [address] Raine Noriega, MECHANICAL MAINTENANCE.SPEEDER FRAME TENDER [address] [place] [address] Yearly w/5 month follow-up [facility] Comment on above: Yearly w/5 month fol low-up Start: 02-22-2025 Annual PCP Team Tapering Machine Operator tatyana Disease Visit Annual PCP Team Chronic Disease Visit [facility] Start: 02-22-2025 Anxiety Screening Anxiety Screening [facility] Start: 02-22-2025 BP Controlled (<130/80) BP Controlle d (<130/80) [facility] Start: 02-22-2025 Depression Screening Depression Scre ening [facility] Start: 02-19-2025 End: 05-21-2025 CBC panel - Blood by Automated count COMPLETE BLOOD COUNT Lab Routine Essential hypertension Expected: 02/19/2025, Expires: 05/21/2025 [facility] Work Phone: Comment on above: Expected: 02/19/2025 , Expires: 05/21/2025 Start: 02-19-2025 End: 05-21-2025 Comprehensive metabolic 2000 panel - Serum or Plasma COMPREHENSIVE METABOLIC PANEL Lab Routine Hyperlipidemia, unspecified hyperlipidemia type Expected: 02/19/2025, Expires: 05/21/2025 [facility] Comment on above: Expected: 02/19/2025 , Expires: 05/21/2025 Start: 02-19-2025 End: 05-21-2025 Lipid 1996 panel - Serum or Plasma LIPID PANEL BASIC Lab Routine Hyperlipidemia, unspecified hyperlipidemia type Expected: 02/19/2025, Expires: 05/21/2025 [facility] Comment on above: Expected: 02/19/2025 , Expires: 05/21/2025 Start: 02-19-2025 End: 05-21-2025 Thyrotropin [Units/volume] in Serum or Plasma THYROID STIMULATING HORMONE Lab Routine Hypothyroidism, postablative Expected: 02/19/2025, Expires: 05/21/2025 [facility] Comment on above: Expected: 02/19/2025 , Expires: 05/21/2025 Start: 10-24-2024 Annual PCP Team Tapering Machine Operator tatyana Disease Visit Annual PCP Team Chronic Disease Visit [facility] Start: 09-19-2024 End: 09-19-2024 Patient encounter procedure 09/19/2024 9:20 AM EST Office Visit Internal Medicine [facility] [address] [facility] [place] [address] Fortunato Mcdermott MD [address] [place] [address] 6 month follow-up [facility] Comment on above: 6 month follow-up Start: 08-25-2024 End: 08-25-2024 Patient encounter procedure 08/25/2024 9:20 AM EST Office Visit Internal Medicine [facility] [address] [place] [address] Fortunato Mcdermott MD [address] [place] [address] 6 month follow-up [facility] Comment on above: 6 month follow-up Start: 07-30-2024 DIABETES SCREEN DIABETES SCREEN [facility] Start: 07-29-2024 Annual PCP Team Tapering Machine Operator tatyana Disease Visit Annual PCP Team Chronic Disease Visit [facility] Start: 07-29-2024 BP Controlled (<130/80) BP Controlle d (<130/80) [facility] Start: 07-29-2024 Covid-19 Vaccine () Covid-19 Vaccine () [facility] Comment on above: Postponed from 03/19 (Declined at this time) Start: 07-19-2024 Advance Directive Discussion Advance Directive Discussion [facility] Start: 06-24-2024 Covid-19 Vaccine () Covid-19 Vaccine () [facility] Start: 04-19-2024 Covid-19 Vaccine () Covid-19 Vaccine () [facility] Start: 02-23-2024 End: 02-23-2024 Patient encounter procedure 02/23/2024 9:40 AM EDT Office Visit [facility] [place] [address] [place] [address] Fortunato Mcdermott MD [address] [place], [place] [id number] 6 month follow-up [facility] Comment on above: 6 month follow-up Start: 01-27-2024 ANNUAL PCP TEAM TILLER MAN TATYANA DISEASE VISIT ANNUAL PCP TEAM CHRONIC DISEASE VISIT [facility] Start: 01-27-2024 Mammography [facility] Comment on above: Postponed from 05/25 (Declined at this time) Start: 01-27-2024 Screening for malign ant neoplasm of breast Mammogram Screening [facility] Comment on above: Postponed from 05/25 (Declined at this time) Start: 01-26-2024 End: 01-26-2024 Patient encounter procedure 01/26/2024 9:40 AM EDT Office Visit Internal Medicine [place] [address] [place] [address] Fortunato Mcdermott MD [address] [place] [address] 6 month follow-up [facility] Comment on above: 6 month follow-up Start: 01-13-2024 End: 01-13-2024 Patient encounter procedure 01/13/2024 1:00 PM EDT Office Visit Cardiology [address] [place] [address] Syncope and collapse [R55] Cardiology Comment on above: Syncope and collapse [R55] Start: 12-28-2023 End: 03-28-2024 Thyrotropin [Units/volume] in Serum or Plasma THYROID STIMULATING HORMONE Lab Routine Hypothyroidism, postablative Expected: 12/28/2023, Expires: 03/28/2024 [facility] Work Phone: Comment on above: Expected: 12/28/2023 , Expires: 03/28/2024 Start: 10-30-2023 ANNUAL PCP TEAM TILLER MAN TATYANA DISEASE VISIT ANNUAL PCP TEAM CHRONIC DISEASE VISIT [facility] Start: 10-25-2023 End: 01-24-2024 Basic metabolic 2000 panel - Serum or Plasma BASIC METABOLIC PNL Lab Routine Syncope and collapse Expected: 10/25/2023, Expires: 01/24/2024 [facility] Work Phone: Comment on above: Expected: 10/25/2023 , Expires: 01/24/2024 Start: 10-25-2023 End: 01-24-2024 CBC panel - Blood by Automated count CBC Lab Routine Syncope and collapse Expected: 10/25/2023, Expires: 01/24/2024 [facility] Work Phone: Comment on above: Expected: 10/25/2023 , Expires: 01/24/2024 Start: 10-25-2023 End: 01-24-2024 Thyrotropin [Units/volume] in Serum or Plasma TSH BLD Lab Routine Hypothyroidism, postablative Expected: 10/25/2023, Expires: 01/24/2024 [facility] Work Phone: Comment on above: Expected: 10/25/2023 , Expires: 01/24/2024 Start: 10-25-2023 End: 01-24-2024 Thyroxine (T4) free [Mass/volume] in Serum or Plasma T4 FREE/FREE THYROX Lab Routine Hypothyroidism, postablative Expected: 10/25/2023, Expires: 01/24/2024 [facility] Work Phone: Comment on above: Expected: 10/25/2023 , Expires: 01/24/2024 Start: 07-22-2023 ANNUAL PCP TEAM TILLER MAN TATYANA DISEASE VISIT ANNUAL PCP TEAM CHRONIC DISEASE VISIT [facility] Start: 07-22-2023 COLORECTAL CANCER SCREENING COLORECTAL CANCER SCREENING [facility] Comment on above: Postponed from 02/10 (Declined at this time) Start: 07-22-2023 COVID-19 VACCINE (4 - Booster for Pfizer series) COVID-19 VACCINE (4 - Booster for Pfizer series) [facility] Comment on above: Postponed from 02/17 (Declined at this time) Start: 07-22-2023 COVID-19 VACCINE (4 - Pfizer series) COVID-19 VACCINE (4 - Pfizer series) [facility] Comment on above: Postponed from 02/17 (Declined at this time) Start: 07-19-2023 Behavioral Health Screening Behavioral Health Screening [facility] Start: 03-19-2023 Covid-19 Vaccine () Covid-19 Vaccine () [facility] Start: 01-26-2023 End: 03-28-2023 Comprehensive metabolic 2000 panel - Serum or Plasma [facility] Work Phone: Comment on above: Expected: 01/26/2023 , Expires: 03/28/2023 Start: 01-26-2023 End: 03-28-2023 Lipid 1996 panel - Serum or Plasma [facility] Work Phone: Comment on above: Expected: 01/26/2023 , Expires: 03/28/2023 Start: 01-26-2023 End: 03-28-2023 Thyrotropin [Units/volume] in Serum or Plasma [facility] Work Phone: Comment on above: Expected: 01/26/2023 , Expires: 03/28/2023 Start: 10-30-2022 End: 12-30-2022 CBC panel - Blood by Automated count CBC Lab Routine Parotitis, acute Expected: 10/30/2022, Expires: 12/30/2022 [facility] Work Phone: Comment on above: Expected: 10/30/2022 , Expires: 12/30/2022 Start: 10-30-2022 End: 12-30-2022 Erythrocyte sedimentation rate SED RATE WESTERGREN Lab Routine Parotitis, acute Expected: 10/30/2022, Expires: 12/30/2022 [facility] Work Phone: Comment on above: Expected: 10/30/2022 , Expires: 12/30/2022 Start: 10-29-2022 ANNUAL PCP TEAM TILLER MAN TATYANA DISEASE VISIT ANNUAL PCP TEAM CHRONIC DISEASE VISIT [facility] Start: 10-29-2022 BP CONTROLLED (<130/80) BP CONTROLLE D (<130/80) [facility] Start: 07-30-2022 ANNUAL PCP TEAM TILLER MAN TATYANA DISEASE VISIT ANNUAL PCP TEAM CHRONIC DISEASE VISIT [facility] Start: 07-30-2022 BP CONTROLLED (<130/80) BP CONTROLLE D (<130/80) [facility] Start: 07-19-2022 ADVANCE DIRECTIVE DISCUSSION ADVANCE DIRECTIVE DISCUSSION [facility] Start: 07-19-2022 DEPRESSION ASSESSMENT DEPRESSION ASS ESSMENT [facility] Start: 05-05-2022 End: 07-05-2022 Comprehensive metabolic 2000 panel - Serum or Plasma COMP METABOLIC PANEL Lab Routine Hyperlipidemia, unspecified hyperlipidemia type Essential hypertension Expected: 05/05/2022, Expires: 07/05/2022 [facility] Work Phone: Comment on above: Expected: 05/05/2022 , Expires: 07/05/2022 Start: 05-05-2022 End: 07-05-2022 Lipid 1996 panel - Serum or Plasma LIPID PANEL BASIC Lab Routine Hyperlipidemia, unspecified hyperlipidemia type Expected: 05/05/2022, Expires: 07/05/2022 [facility] Work Phone: Comment on above: Expected: 05/05/2022 , Expires: 07/05/2022 Start: 05-05-2022 End: 07-05-2022 Thyrotropin [Units/volume] in Serum or Plasma TSH BLD Lab Routine Hypothyroidism, postablative Expected: 05/05/2022, Expires: 07/05/2022 [facility] Work Phone: Comment on above: Expected: 05/05/2022 , Expires: 07/05/2022 Start: 04-30-2022 End: 06-30-2022 Basic metabolic 2000 panel - Serum or Plasma BASIC METABOLIC PNL Lab Routine Hyperlipidemia, unspecified hyperlipidemia type Expected: 04/30/2022, Expires: 06/30/2022 [facility] Work Phone: Comment on above: Expected: 04/30/2022 , Expires: 06/30/2022 Start: 04-30-2022 End: 06-30-2022 LIPID PANEL BASIC LIPID PANEL BASIC Lab Routine Hyperlipidemia, unspecified hyperlipidemia type Expected: 04/30/2022, Expires: 06/30/2022 [facility] Work Phone: Comment on above: Expected: 04/30/2022 , Expires: 06/30/2022 Start: 04-30-[address] [facility] Comment on above: Postponed from 02/10 (Declined at this time) Start: 04-30-2022 End: 06-30-2022 Thyrotropin [Units/volume] in Serum or Plasma TSH BLD Lab Routine Hypothyroidism, postablative Expected: 04/30/2022, Expires: 06/30/2022 [facility] Work Phone: Comment on above: Expected: 04/30/2022 , Expires: 06/30/2022 Start: 04-29-2022 COLORECTAL CANCER SCREENING COLORECTAL CANCER SCREENING [facility] Comment on above: Postponed from 02/10 (Declined at this time) Start: 04-29-2022 Mammography MAMMOGRAM [facility] Comment on above: Postponed from 05/25 (Declined at this time) Start: 10-14-2021 End: 12-14-2021 CBC panel - Blood by Automated count CBC Lab Routine Medication management Expected: 10/14/2021, Expires: 12/14/2021 [facility] Work Phone: Comment on above: Expected: 10/14/2021 , Expires: 12/14/2021 Start: 10-14-2021 End: 12-14-2021 SCHEDULE LAB TESTING SCHEDULE LAB TESTING Lab Routine Expected: 10/14/2021, Expires: 12/14/2021 [facility] Work Phone: Comment on above: Expected: 10/14/2021 , Expires: 12/14/2021 Start: 10-12-2021 COVID-19 VACCINE (3 - Booster for Pfizer series) COVID-19 VACCINE (3 - Booster for Pfizer series) [facility] Start: 09-26-2021 Adult depression scr eening assessment DEPRESSION SCREENING [facility] Start: 07-19-2021 ADVANCE DIRECTIVE DISCUSSION ADVANCE DIRECTIVE DISCUSSION [facility] Start: 07-19-2021 DEPRESSION ASSESSMENT DEPRESSION ASS ESSMENT [facility] Start: 07-09-2021 COVID-19 VACCINE (3 - Booster for Pfizer series) COVID-19 VACCINE (3 - Booster for Pfizer series) [facility] Start: 03-22-2020 BP CONTROLLED (<130/80) BP CONTROLLE D (<130/80) [facility] Start: 05-25-2019 COLORECTAL CANCER SCREENING COLORECTAL CANCER SCREENING [facility] Start: 05-25-2019 FECAL OCCULT BLOOD FECAL OCCULT BLOO D [facility] Start: 05-25-2019 Mammography MAMMOGRAM [facility] Start: 05-25-2019 Screening for malign ant neoplasm of breast Mammogram Screening [facility] Start: 05-25-2019 Screening for malign ant neoplasm of colon [facility] Start: 2011 RSV Vaccine (1 - 1-d ose 60+ series) RSV Vaccine (1 - 1-dose 60+ series) [facility] Start: 2011 RSV Vaccine (1 - Ris k 60-74 years 1-dose series) RSV Vaccine (1 - Risk 60-74 years 1-dose series) [facility] Start: 2001 SHINGRIX VACCINE (1 of 2) UMANZOR GRIX VACCINE (1 of 2) [facility] Start: 02-11-1996 COLOGUARD (FIT-DNA) COLOGUARD (FIT-D NA) [facility] Start: 02-11-1996 Colonoscopy COLONOSCOPY [facility] Start: 02-11-[address] COLONOGRAPHY [facility] Start: 02-11-1996 Screening for malign ant neoplasm of colon [facility] Start: 02-11-1996 SIGMOIDOSCOPY SIGMOIDOSCOPY [facility] Start: 1969 Anxiety Screening Anxiety Screening [facility] Start: 1969 Depression Screening Depression Scre ening [facility] Start: 1969 SPIROMETRY SPIROMETRY [facility] Start: 1957 PNEUMOCOCCAL: 65+ (1 - PCV) PNEUMOCOCCAL: 65+ (1 - PCV) [facility] End: 03-03-2025 DBT Breast - bilateral screening ANAY SCREENING W JO ANN Radiology Routine Encounter for screening mammogram for breast cancer 1 Occurrences starting 02/02/2024 until 03/03/2025 [facility] Work Phone: Comment on above: 1 Occurrences starti ng 02/02/2024 until 03/03/2025 End: 03-24-2025 DBT Breast - bilateral screening ANAY SCREENING W JO ANN Radiology Routine Encounter for screening mammogram for malignant neoplasm of breast 1 Occurrences starting 02/23/2024 until 03/24/2025 [facility] Work Phone: Comment on above: 1 Occurrences starti ng 02/23/2024 until 03/24/2025 ECG COMPLETE [facility] Work Phone: Comment on above: Ordered: 10/25/2023 End: 10-24-2024 Echocardiography ECHO Cardiology Routine Syncope and collapse 1 Occurrences starting 10/25/2023 until 10/24/2024 [facility] Work Phone: Comment on above: 1 Occurrences starti ng 10/25/2023 until 10/24/2024 End: 08-21-2023 LUNG VOLUMES LUNG VOLUMES PFT Routine Moderate persistent asthma without complication 1 Occurrences starting 07/22/2022 until 08/21/2023 [facility] Work Phone: Comment on above: 1 Occurrences starti ng 07/22/2022 until 08/21/2023 End: 08-21-2023 ANAY SCREENING ANAY SCREENING Radiology Routine Encounter for screening mammogram for malignant neoplasm of breast 1 Occurrences starting 07/22/2022 until 08/21/2023 [facility] Work Phone: Comment on above: 1 Occurrences starti ng 07/22/2022 until 08/21/2023 End: 06-05-2023 Screening mammography bi 2-view breast inc cad ANAY SCREENING Radiology Routine Encounter for screening mammogram for breast cancer 1 Occurrences starting 05/06/2022 until 06/05/2023 [facility] Work Phone: Comment on above: 1 Occurrences starti ng 05/06/2022 until 06/05/2023 End: 08-21-2023 SPIROMETRY - BASELINE AND POST DILATOR SPIROMETRY - BASELINE AND POST DILATOR PFT Routine Moderate persistent asthma without complication 1 Occurrences starting 07/22/2022 until 08/21/2023 [facility] Work Phone: Comment on above: 1 Occurrences starti ng 07/22/2022 until 08/21/2023 End: 03-24-2025 XR Chest PA and Lateral XR CHEST 2V FRONTAL/LAT Radiology Routine Night sweats 1 Occurrences starting 02/23/2024 until 03/24/2025 [facility] Comment on above: 1 Occurrences starti ng 02/23/2024 until 03/24/2025 [facility] Immunizations Immunization Date Immunization Notes Care Provider Grecia inman 09-19-2024 COVID-19 vaccine, ag e 12+ yr (PFIZER-BIONTECH COMIRNATY) Fortunato Mcdermott MD Work Phone: [facility] 02-23-2024 COVID-19 vaccine, ag e 12+ yr, 2022- season (PFIZER-BIONTColor Promos) Fortunato Mcdermott MD Work Phone: [facility] 07-22-2022 pneumococcal (PCV20) vaccine, 20 valent (PREVNAR 20) Fortunato Mcdermott MD Work Phone: [facility] Work Phone: 07-22-2022 pneumococcal Conjugate, unspecified formulation Fortunato Mcdermott MD Work Phone: [facility] Work Phone: 08-20-2019 tetanus toxoid, reduced diphtheria toxoid, and acellular pertussis vaccine, adsorbed Fortunato Mcdermott MD Work Phone: [facility] Work Phone: 09-30-2017 tetanus and diphther ia toxoids, adsorbed, preservative free, for adult use (5 Lf of tetanus toxoid and 2 Lf of diphtheria toxoid) Fortunato Mcdermott MD Work Phone: [facility] Work Phone: 04-27-2007 tetanus toxoid, reduced diphtheria toxoid, and acellular pertussis vaccine, adsorbed Fortunato Mcdermott MD Work Phone: [facility] Payers Date Payer Category Payer Medicaid [id number] [address] [facility] MED[facility] [employer] MEDICAID [id number] 2017-Present [phone] [address] [place] [address] Medicaid [id number] 2017 Medicaid [id number] Social History Date Type Detail Facility Start: 08-05-2015 End: 02-27-2025 Tobacco smoking status NHIS Ex-smoker [facility] Work Phone: Start: 11-16-1992 End: 11-16-2014 History of tobacco use Current smoker [facility] Work Phone: Start: 11-16-1992 End: 11-16-2014 History of tobacco use Cigarette Smoker [facility] Work Phone: Start: 08-05-2015 End: 01-26-2023 Cigarettes smoked current (pack per day) - Reported 0.5 [facility] Work Phone: Start: 08-05-2015 End: 02-27-2025 Tobacco use and exposure Smokeless tobacco non-user [facility] Work Phone: Start: 04-29-2021 End: 02-27-2025 Alcohol intake Current non-drinker of alcohol (finding) [facility] Start: 1950 Sex Assigned At Not on file [facility] Start: 08-27-2020 End: 10-29-2021 Exposure to SARS-CoV-2 (event) Not sure [facility] Work Phone: Start: 01-26-2023 End: 02-27-2025 Tobacco use panel [facility] Work Phone: Start: 06-19-2012 Adult Depression Screening Assessment 0 [facility] Work Phone: Functional Status Date Assessment Result Facility 10-29-2020 Are you deaf, or do you have serious difficulty hearing No 10/29/2020 1:34 PM Varsha Farris RN No [facility] 10-29-2020 Are you blind, or do you have serious difficulty seeing, even when wearing glasses No 10/29/2020 1:34 PM Varsha Farris RN [facility] 10-29-2020 Do you have serious difficulty walking or climbing stairs No 10/29/2020 1:34 PM Varsha Farris RN [facility] 10-29-2020 Do you have difficul ty dressing or bathing No 10/29/2020 1:34 PM Varsha Farris RN [facility] 10-29-2020 Because of a physica l, mental, or emotional condition, do you have difficulty doing errands alone such as visiting a physician's office or shopping No 10/29/2020 1:34 PM EDT Varsha Gardner RN No [facility] Mental Status Date Assessment Result Facility 10-29-2020 Because of a physica l, mental, or emotional condition, do you have serious difficulty concentrating, remembering, or making decisions No 10/29/2020 1:34 PM EDT Varsha Gardner RN No [facility] Clinical Notes 09-26-2020 to 02-27-2025 Raine Noriega APRN.MARTA - 02/27/2025 1:12 PM EDTTelephone Encounter - Ruby Singer RN - 01/29/2025 9:57 AM EDTTelephone Encounter - Ruby Singer RN - 01/29/2025 9:57 AM EDT Note Date & Type Note Facility 02-27-2025 Note HNO ID: [id number] Author: RAINE NORIEGA APRN.SPEEDER FRAME TENDER Service: ? Author Type: Nurse Practitioner Type: Progress Notes Filed: 02/27/2025 13:16 Note Text: CC: Patient presents with: Physical HPI Recording using Hydroc[employer] software for draft documentation of the visit was discussed with the patient/authorized administrative representative; all questions welcomed and answered. Patient/authorized administrative representative agreed to proceed Shahbaz Vidal is a 75-year-old female with a history of asthma, HTN, hyperlipidemia, and hypothyroidism, presenting for an annual wellness visit. Annual Wellness Exam: - Weight: 170 lbs, down 7 lbs since September. - Walks downtown 2-3 times a week during the summer; less active in winter. - Describes diet as healthy, including fruits, vegetables, and whole grains; enjoys candy. Asthma: - Diagnosed over 20 years ago. - Uses Symbicort 2 puffs BID; insurance no longer covers Symbicort. - Rarely uses albuterol inhaler. - Denies dyspnea. Hypertension: - Takes amlodipine 10 mg daily. - Denies chest pain, pressure, palpitations, or edema in ankles/feet. - Reports occasional lightheadedness upon waking, relieved by drinking orange juice. - Experiences near-syncope during hot weather when walking downtown. Hyperlipidemia: - Takes Zocor daily. Hypothyroidism: - Takes levothyroxine daily on an empty stomach. Bipolar Disorder: - History of bipolar disorder; not currently on medication. - Reports no issues with depression or anxiety. Insomnia: - Difficulty sleeping for years, reportedly since developing diverticulitis. - Goes to bed at 23:00 and wakes up at 02:00. - Previously tried medication for sleep, but discontinued due to xerostomia. Review of Systems Constitutional: Negative. Respiratory: Negative. Cardiovascular: Negative. Gastrointestinal: Negative. Genitourinary: Negative. Neurological: Negative. PAST MEDICAL HISTORY Diagnosis Date Allergic rhinitis, cause unspecified 04/10/2005 Bipolar disorder, unspecified (HCC) 04/10/2005 MANIC, SUICIDE ATTEMPT X1 Depressive disorder, not elsewhere classified 04/10/2005 MANIC, SUICIDE ATTEMPT X1 Diverticulitis 10/28/2020 Diverticulitis of large intestine with perforation 08/10/2019 Herpes zoster without mention of complication Right scapula Impingement syndrome of right shoulder 05/09/2013 Obesity, Class I, BMI 30-34.9 03/22/2019 Other and unspecified hyperlipidemia 04/10/2005 POSTABLAT HYPOTHYR NEC 09/30/2005 Senile osteoporosis 04/10/2005 Thyrotoxicosis without mention of goiter or other cause, without mention of thyrotoxic crisis or storm 09/30/2005 Tobacco use disorder 04/10/2005 Unspecified asthma(493.90) 04/10/2005 PAST SURGICAL HISTORY Procedure Laterality Date DELIVERY ONLY 1972 , low cervical OPTX ANKLE DISLOCATION W/REPAIR/INT/XTRNL FIXJ ORIF Ankle, Right ankle PAST SURGICAL HISTORY OF 1993 Left breast Lumpectomy, benign PAST SURGICAL HISTORY OF dental mandibular surgery TOTAL ABDOMINAL HYSTERECT W/WO RMVL TUBE OVARY 1997 Hysterectomy, SONIA ALLERGIES Penicillins MEDICATIONS amLODIPine (NORVASC) 10 mg tablet Take 1 tablet by mouth once daily. albuterol HFA (VENTOLIN HFA) 90 mcg/actuation inhaler INHALE 2 PUFFS EVERY FOUR HOURS NEEDED FOR WHEEZING OR SHORTNESS OF BREATH simvastatin (ZOCOR) 20 mg tablet Take 1 tablet by mouth daily at bedtime. levothyroxine (SYNTHROID) 88 mcg tablet Take 1 tablet by mouth once daily. Take on empty stomach. ACETAMINOPHEN ORAL Take 650 mg by mouth every 6 hours as needed. mometasone-formoterol (DULERA) 100-5 mcg/actuation inhaler Inhale 2 puffs as instructed two times a day. FAMILY HISTORY Problem Relation Age of Onset Stroke Mother ANEURYSM Diabetes Father Hypertension Father Coronary Artery Disease Father Diabetes Paternal Grandmother Breast Cancer Paternal Aunt 2 AUNTS Breast Cancer Sister Cancer Brother throat cancer SOCIAL HISTORY[1] BP 122/68 Pulse 74 Resp 14 Ht 165.5 cm (5' 5.16) Wt 77.3 kg (170 lb 6.7 oz) SpO2 98% BMI 28.22 kg/m? Physical Exam Vitals reviewed. Constitutional: Appearance: Normal appearance. Neck: Thyroid: No thyroid mass, thyromegaly or thyroid tenderness. Cardiovascular: Rate and Rhythm: Normal rate and regular rhythm. Heart sounds: Normal heart sounds. No murmur heard. Pulmonary: Effort: Pulmonary effort is normal. Breath sounds: Normal breath sounds. No wheezing, rhonchi or rales. Abdominal: General: There is no distension. Palpations: There is no hepatomegaly, splenomegaly or mass. Tenderness: There is no abdominal tenderness. Comments: Difficult exam due to body habitus Lymphadenopathy: Cervical: No cervical adenopathy. Upper Body: Right upper body: No supraclavicular adenopathy. Left upper body: No supraclavicular adenopathy. Skin: General: Skin is warm and dry. Neurological: Mental Status: She (more content not included)... [facility] 02-27-2025 History of Presen t illness Narrative CC: Patient presents with: Physical HPI Recording using Hydrocision software for draft documentation of the visit was discussed with the patient/authorized administrative representative; all questions welcomed and answered. Patient/authorized administrative representative agreed to proceed Shahbaz Vidal is a 75-year-old female with a history of asthma, HTN, hyperlipidemia, and hypothyroidism, presenting for an annual wellness visit. Annual Wellness Exam: - Weight: 170 lbs, down 7 lbs since September. - Walks downtown 2-3 times a week during the summer; less active in winter. - Describes diet as healthy, including fruits, vegetables, and whole grains; enjoys candy. Asthma: - Diagnosed over 20 years ago. - Uses Symbicort 2 puffs BID; insurance no longer covers Symbicort. - Rarely uses albuterol inhaler. - Denies dyspnea. Hypertension: - Takes amlodipine 10 mg daily. - Denies chest pain, pressure, palpitations, or edema in ankles/feet. - Reports occasional lightheadedness upon waking, relieved by drinking orange juice. - Experiences near-syncope during hot weather when walking downtown. Hyperlipidemia: - Takes Zocor daily. Hypothyroidism: - Takes levothyroxine daily on an empty stomach. Bipolar Disorder: - History of bipolar disorder; not currently on medication. - Reports no issues with depression or anxiety. Insomnia: - Difficulty sleeping for years, reportedly since developing diverticulitis. - Goes to bed at 23:00 and wakes up at 02:00. - Previously tried medication for sleep, but discontinued due to xerostomia. Review of Systems Constitutional: Negative. Respiratory: Negative. Cardiovascular: Negative. Gastrointestinal: Negative. Genitourinary: Negative. Neurological: Negative. PAST MEDICAL HISTORY Diagnosis Date Allergic rhinitis, cause unspecified 04/10/2005 Bipolar disorder, unspecified ([facility]) 04/10/2005 MANIC, SUICIDE ATTEMPT X1 Depressive disorder, not elsewhere classified 04/10/2005 MANIC, SUICIDE ATTEMPT X1 Diverticulitis 10/28/2020 Diverticulitis of large intestine with perforation 08/10/2019 Herpes zoster without mention of complication Right scapula Impingement syndrome of right shoulder 05/09/2013 Obesity, Class I, BMI 30-34.9 03/22/2019 Other and unspecified hyperlipidemia 04/10/2005 POSTABLAT HYPOTHYR NEC 09/30/2005 Senile osteoporosis 04/10/2005 Thyrotoxicosis without mention of goiter or other cause, without mention of thyrotoxic crisis or storm 09/30/2005 Tobacco use disorder 04/10/2005 Unspecified asthma(493.90) 04/10/2005 PAST SURGICAL HISTORY Procedure Laterality Date DELIVERY ONLY 1972 , low cervical OPTX ANKLE DISLOCATION W/REPAIR/INT/XTRNL FIXJ ORIF Ankle, Right ankle PAST SURGICAL HISTORY OF 1993 Left breast Lumpectomy, benign PAST SURGICAL HISTORY OF dental mandibular surgery TOTAL ABDOMINAL HYSTERECT W/WO RMVL TUBE OVARY 1997 Hysterectomy, SONIA ALLERGIES Penicillins MEDICATIONS amLODIPine (NORVASC) 10 mg tablet Take 1 tablet by mouth once daily. albuterol HFA (VENTOLIN HFA) 90 mcg/actuation inhaler INHALE 2 PUFFS EVERY FOUR HOURS NEEDED FOR WHEEZING OR SHORTNESS OF BREATH simvastatin (ZOCOR) 20 mg tablet Take 1 tablet by mouth daily at bedtime. levothyroxine (SYNTHROID) 88 mcg tablet Take 1 tablet by mouth once daily. Take on empty stomach. ACETAMINOPHEN ORAL Take 650 mg by mouth every 6 hours as needed. mometasone-formoterol (DULERA) 100-5 mcg/actuation inhaler Inhale 2 puffs as instructed two times a day. FAMILY HISTORY Problem Relation Age of Onset Stroke Mother ANEURYSM Diabetes Father Hypertension Father Coronary Artery Disease Father Diabetes Paternal Grandmother Breast Cancer Paternal Aunt 2 AUNTS Breast Cancer Sister Cancer Brother throat cancer SOCIAL HISTORY[1] BP 122/68 Pulse 74 Resp 14 Ht 165.5 cm (5' 5.16) Wt 77.3 kg (170 lb 6.7 oz) SpO2 98% BMI 28.22 kg/m Physical Exam Vitals reviewed. Constitutional: Appearance: Normal appearance. Neck: Thyroid: No thyroid mass, thyromegaly or thyroid tenderness. Cardiovascular: Rate and Rhythm: Normal rate and regular rhythm. Heart sounds: Normal heart sounds. No murmur heard. Pulmonary: Effort: Pulmonary effort is normal. Breath sounds: Normal breath sounds. No wheezing, rhonchi or rales. Abdominal: General: There is no distension. Palpations: There is no hepatomegaly, splenomegaly or mass. Tenderness: There is no abdominal tenderness. Comments: Difficult exam due to body habitus Lymphadenopathy: Cervical: No cervical adenopathy. Upper Body: Right upper body: No supraclavicular adenopathy. Left upper body: No supraclavicular adenopathy. Skin: General: Skin is warm and dry. Neurological: Mental Status: She is alert. Psychiatric: Mood and Affect: Mood and affect normal. Speech: Speech normal. Behavior: Behavior normal. Thought Content: Thought content normal. Judgment: Judgment normal. Health maintenance reviewed with patient: Shingrix Vaccine(1 of 2) Never done RSV Vaccine(1 - Risk 60-74 years 1-dose series) Never done Annual PCP Team Chronic Disease Visit due on 02/27/2026 Depression Screening due on 02/27/2026 Anxiety Screening due on 02/27/2026 Diabetes Screening due on 02/22/2027 Lipid Screening due on 02/22/2029 DTaP,Tdap,Td Vaccine(4 - Td or Tdap) due on 08/20/2029 Bone Density Screening Completed Advance Directive Discussion Completed Hepatitis C Screening Completed Pneumococcal Vaccine: 50+ Completed Mammogram Screening Discontinued Influenza Vaccine Discontinued Colorectal Cancer Screening Discontinued DATA REVIEWED: Most recent labs Assessment/Plan 1. Wellness examination (Z00.00) - No acute concerns raised during visit. - Weight 170 lbs, down 7 lbs since September. - Encouraged continuation of healthy diet and regular physical activity. - Discussed shingles vaccine; patient has had shingles twice in the past but not in recent years. Declined vaccine - Follow-up in 6 months. 2. Essential hypertension (I10) - BP readings: 142/66 mmHg initially, 122/68 mmHg after rest. - Continue amlodipine 10 mg daily. 3. Moderate persistent asthma without complication (HCC) (J45.40) - Well controlled; maintenance inhaler use infrequent. - Insurance no longer covers Symbicort; switch to Dulera inhaler, 2 puffs BID. - Continue albuterol inhaler as needed for rescue. - Reviewed proper use of maintenance vs. rescue inhalers. 4. 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 - Recent blood work pending. 5. Hyperlipidemia, unspecified hyperlipidemia type (E78.5) - Continue Zocor as prescribed. - Recent blood work pending. 6. Bipolar affective disorder, currently manic, mild (HCC) (F31.11) 7. Screening for depression (Z13.31) 8. Encounter for screening examination for other mental health and behavioral disorders (Z13.39) - No current issues with depression or anxiety reported. - No current medication for bipolar disorder. - Patient denies any concerns Prescription instructions reviewed with patient as applicable. Potential red flag symptoms discussed with the patient. Reviewed appropriate action plan to take if red flag symptoms occur. Patient agreeable to treatment plan. Raine Noriega, JUAN CARLOS.[employer] [1] Social History Tobacco Use Smoking status: Former Current packs/day: 0.00 Average packs/day: 0.5 packs/day for 22.0 years (11.0 ttl pk-yrs) Types: Cigarettes Start date: 11/16/1992 Quit date: 11/16/2014 Years since quittin.2 Smokeless tobacco: Never Substance Use Topics Alcohol use: No Drug use: No documented in this encounter [facility] 01-29-2025 Telephone encounter Note The patient has been identified by name and date of : Yes Caregiver verified no other encounters exist for this prescription request: Yes Caregiver confirmed with patient/requestor that no other refills are due, in the near future, with this provider at this time: Yes The last office visit in the department: 09/19/2024 Does the patient have a future office visit with this provider/department: Yes 02/27/2025 Requested Prescriptions Pending Prescriptions Disp Refills albuterol HFA (VENTOLIN HFA) 90 mcg/actuation inhaler 18 g 5 Sig: INHALE 2 PUFFS EVERY FOUR HOURS NEEDED FOR WHEEZING OR SHORTNESS OF BREATH Ruby Singer RN January 29, 2025 9:58 AM [facility] 01-29-2025 Miscellaneous Notes The patient has been identified by name and date of : Yes Caregiver verified no other encounters exist for this prescription request: Yes Caregiver confirmed with patient/requestor that no other refills are due, in the near future, with this provider at this time: Yes The last office visit in the department: 09/19/2024 Does the patient have a future office visit with this provider/department: Yes 02/27/2025 Requested Prescriptions Pending Prescriptions Disp Refills albuterol HFA (VENTOLIN HFA) 90 mcg/actuation inhaler 18 g 5 Sig: INHALE 2 PUFFS EVERY FOUR HOURS NEEDED FOR WHEEZING OR SHORTNESS OF BREATH Ruby Singer RN January 29, 2025 9:58 AM documented in this encounter [facility] 09-19-2024 Note HNO ID: [id number] Author: FORTUNATO MCDERMOTT MD Service: ? Author Type: Physician Type: Progress Notes Filed: 09/19/2024 10:14 Note Text: This note was created using Integral [employer] Sciencer[employer]. Subjective Shahbaz Vidal is a 74 year old female. She was doing well and had no concerns. Asthma, hypertension, and hyperlipidemia were controlled. Hypothyroidism was supplemented. We discussed screening examinations and she preferred no routine screening tests. Review of Systems Constitutional: Negative for fatigue and unexpected weight change. Respiratory: Negative for cough, shortness of breath and wheezing. Cardiovascular: Negative for chest pain, palpitations and leg swelling. ACTIVE PROBLEM LIST Bipolar Affective Disorder, Currently Manic, Mild (Hcc) Asthma Hyperlipidemia, Unspecified Allergic Rhinitis Hypothyroidism, Postablative Essential Hypertension Obesity, Class I, Bmi 30-34.9 Social History Tobacco Use Smoking status: Former Current packs/day: 0.00 Average packs/day: 0.5 packs/day for 22.0 years (11.0 ttl pk-yrs) Types: Cigarettes Start date: 11/16/1992 Quit date: 11/16/2014 Years since quittin.8 Smokeless tobacco: Never Substance Use Topics Alcohol use: No Drug use: No Current Outpatient Medications Medication Sig amLODIPine (NORVASC) 10 mg tablet Take 1 tablet by mouth once daily. simvastatin (ZOCOR) 20 mg tablet Take 1 tablet by mouth daily at bedtime. albuterol HFA (VENTOLIN HFA) 90 mcg/actuation inhaler INHALE 2 PUFFS EVERY FOUR HOURS NEEDED FOR WHEEZING OR SHORTNESS OF BREATH levothyroxine (SYNTHROID) 88 mcg tablet Take 1 tablet by mouth once daily. Take on empty stomach. budesonide-formoterol (SYMBICORT) 160-4.5 mcg/actuation inhaler Inhale 2 Puffs as instructed two times a day. ACETAMINOPHEN ORAL Take 650 mg by mouth every 6 hours as needed. sennosides/docusate sodium (SENOKOT-S ORAL) Take 2 tablets by mouth twice daily as needed. No current facility-administered medications for this visit. Objective BP 120/56 (BP Site: Left Arm, BP Cuff Size: Large Adult) Pulse 68 Temp 36.9 ?C (98.5 ?F) (Temporal) Wt 80.6 kg (177 lb 11.1 oz) BMI 30.50 kg/m? Physical Exam Constitutional: General: She is not in acute distress. Cardiovascular: Rate and Rhythm: Normal rate and regular rhythm. Heart sounds: No murmur heard. No gallop. Pulmonary: Breath sounds: Normal breath sounds. Musculoskeletal: Right lower leg: No edema. Left lower leg: No edema. Neurological: Mental Status: She is alert. Assessment and Plan 1. Essential hypertension - ICD9: 401.9, ICD10: I10 (primary diagnosis) - Controlled - Continue current medications - COMPLETE BLOOD COUNT 2. Encounter for immunization - ICD9: V03.89, ICD10: Z23 - [employer] COVID-19 VACCINE AGE 12+ YR (COMIRNATY) 3. 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 Hyperlipidemia, unspecified hyperlipidemia type - ICD9: 272.4, ICD10: E78.5 - Controlled - Continue current medications - Counseled on healthy diet and regular exercise - COMPREHENSIVE METABOLIC PANEL - LIPID PANEL BASIC 5. Moderate persistent asthma without complication - ICD9: 493.90, ICD10: J45.40 - Moderate persistent asthma stable - Continue current medications Screening for colon cancer, screening for breast cancer declined indefinitely. She was advised to inform me if she changes her preference. Fortunato Mcdermott MD [facility] 09-19-2024 History of Presen t illness Narrative This note was created using Integral [employer]ien[employer]. Subjective Shahbaz Vidal is a 74 year old female. She was doing well and had no concerns. Asthma, hypertension, and hyperlipidemia were controlled. Hypothyroidism was supplemented. We discussed screening examinations and she preferred no routine screening tests. Review of Systems Constitutional: Negative for fatigue and unexpected weight change. Respiratory: Negative for cough, shortness of breath and wheezing. Cardiovascular: Negative for chest pain, palpitations and leg swelling. ACTIVE PROBLEM LIST Bipolar Affective Disorder, Currently Manic, Mild (Hcc) Asthma Hyperlipidemia, Unspecified Allergic Rhinitis Hypothyroidism, Postablative Essential Hypertension Obesity, Class I, Bmi 30-34.9 Social History Tobacco Use Smoking status: Former Current packs/day: 0.00 Average packs/day: 0.5 packs/day for 22.0 years (11.0 ttl pk-yrs) Types: Cigarettes Start date: 11/16/1992 Quit date: 11/16/2014 Years since quittin.8 Smokeless tobacco: Never Substance Use Topics Alcohol use: No Drug use: No Current Outpatient Medications Medication Sig amLODIPine (NORVASC) 10 mg tablet Take 1 tablet by mouth once daily. simvastatin (ZOCOR) 20 mg tablet Take 1 tablet by mouth daily at bedtime. albuterol HFA (VENTOLIN HFA) 90 mcg/actuation inhaler INHALE 2 PUFFS EVERY FOUR HOURS NEEDED FOR WHEEZING OR SHORTNESS OF BREATH levothyroxine (SYNTHROID) 88 mcg tablet Take 1 tablet by mouth once daily. Take on empty stomach. budesonide-formoterol (SYMBICORT) 160-4.5 mcg/actuation inhaler Inhale 2 Puffs as instructed two times a day. ACETAMINOPHEN ORAL Take 650 mg by mouth every 6 hours as needed. sennosides/docusate sodium (SENOKOT-S ORAL) Take 2 tablets by mouth twice daily as needed. No current facility-administered medications for this visit. Objective BP 120/56 (BP Site: Left Arm, BP Cuff Size: Large Adult) Pulse 68 Temp 36.9 C (98.5 F) (Temporal) Wt 80.6 kg (177 lb 11.1 oz) BMI 30.50 kg/m Physical Exam Constitutional: General: She is not in acute distress. Cardiovascular: Rate and Rhythm: Normal rate and regular rhythm. Heart sounds: No murmur heard. No gallop. Pulmonary: Breath sounds: Normal breath sounds. Musculoskeletal: Right lower leg: No edema. Left lower leg: No edema. Neurological: Mental Status: She is alert. Assessment and Plan 1. Essential hypertension - ICD9: 401.9, ICD10: I10 (primary diagnosis) - Controlled - Continue current medications - COMPLETE BLOOD COUNT 2. Encounter for immunization - ICD9: V03.89, ICD10: Z23 - [employer] COVID-19 VACCINE AGE 12+ YR (COMIRNATY) 3. 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 Hyperlipidemia, unspecified hyperlipidemia type - ICD9: 272.4, ICD10: E78.5 - Controlled - Continue current medications - Counseled on healthy diet and regular exercise - COMPREHENSIVE METABOLIC PANEL - LIPID PANEL BASIC 5. Moderate persistent asthma without complication - ICD9: 493.90, ICD10: J45.40 - Moderate persistent asthma stable - Continue current medications Screening for colon cancer, screening for breast cancer declined indefinitely. She was advised to inform me if she changes her preference. Fortunato Mcdermott MD documented in this encounter [facility] 08-31-2024 Telephone encounter Note The patient has been identified by name and date of : Yes Caregiver verified no other encounters exist for this prescription request: Yes Caregiver confirmed with patient/requestor that no other refills are due, in the near future, with this provider at this time: Yes The last office visit in the department: 02/23/2024 Does the patient have a future office visit with this provider/department: Yes 09/19/2024 Requested Prescriptions Pending Prescriptions Disp Refills amLODIPine (NORVASC) 10 mg tablet 30 tablet 5 Sig: Take 1 tablet by mouth once daily. Ruby Singer RN August 31, 2024 3:59 PM [facility] 08-31-2024 Miscellaneous Notes The patient has been identified by name and date of : Yes Caregiver verified no other encounters exist for this prescription request: Yes Caregiver confirmed with patient/requestor that no other refills are due, in the near future, with this provider at this time: Yes The last office visit in the department: 02/23/2024 Does the patient have a future office visit with this provider/department: Yes 09/19/2024 Requested Prescriptions Pending Prescriptions Disp Refills amLODIPine (NORVASC) 10 mg tablet 30 tablet 5 Sig: Take 1 tablet by mouth once daily. Ruby Singer RN August 31, 2024 3:59 PM documented in this encounter [facility] 07-07-2024 Telephone encounter Note The patient has been identified by name and date of : Yes Caregiver verified no other encounters exist for this prescription request: Yes Caregiver confirmed with patient/requestor that no other refills are due, in the near future, with this provider at this time: Yes The last office visit in the department: 02/23/2024 Does the patient have a future office visit with this provider/department: Yes 08/25/2024 Requested Prescriptions Pending Prescriptions Disp Refills simvastatin (ZOCOR) 20 mg tablet 30 tablet 11 Sig: Take 1 tablet by mouth daily at bedtime. Ruby Singer RN July 07, 2024 10:49 AM [facility] 07-07-2024 Miscellaneous Notes The patient has been identified by name and date of : Yes Caregiver verified no other encounters exist for this prescription request: Yes Caregiver confirmed with patient/requestor that no other refills are due, in the near future, with this provider at this time: Yes The last office visit in the department: 02/23/2024 Does the patient have a future office visit with this provider/department: Yes 08/25/2024 Requested Prescriptions Pending Prescriptions Disp Refills simvastatin (ZOCOR) 20 mg tablet 30 tablet 11 Sig: Take 1 tablet by mouth daily at bedtime. Ruby Singer RN July 07, 2024 10:49 AM documented in this encounter [facility] 06-08-2024 Telephone encounter Note The patient has been identified by name and date of : Yes Caregiver verified no other encounters exist for this prescription request: Yes Caregiver confirmed with patient/requestor that no other refills are due, in the near future, with this provider at this time: Yes The last office visit in the department: 02/23/2024 Does the patient have a future office visit with this provider/department: Yes 08/25/2024 Requested Prescriptions Pending Prescriptions Disp Refills albuterol HFA (VENTOLIN HFA) 90 mcg/actuation inhaler 18 g 5 Sig: INHALE 2 PUFFS EVERY FOUR HOURS NEEDED FOR WHEEZING OR SHORTNESS OF BREATH levothyroxine (SYNTHROID) 88 mcg tablet 30 tablet 3 Sig: Take 1 tablet by mouth once daily. Take on empty stomach. Sailaja Orona LPN June 08, 2024 8:56 AM [facility] 06-08-2024 Miscellaneous Notes The patient has been identified by name and date of : Yes Caregiver verified no other encounters exist for this prescription request: Yes Caregiver confirmed with patient/requestor that no other refills are due, in the near future, with this provider at this time: Yes The last office visit in the department: 02/23/2024 Does the patient have a future office visit with this provider/department: Yes 08/25/2024 Requested Prescriptions Pending Prescriptions Disp Refills albuterol HFA (VENTOLIN HFA) 90 mcg/actuation inhaler 18 g 5 Sig: INHALE 2 PUFFS EVERY FOUR HOURS NEEDED FOR WHEEZING OR SHORTNESS OF BREATH levothyroxine (SYNTHROID) 88 mcg tablet 30 tablet 3 Sig: Take 1 tablet by mouth once daily. Take on empty stomach. Sailaja Orona LPN June 08, 2024 8:56 AM documented in this encounter [facility] 02-23-2024 History of Presen t illness Narrative This note was created using Naviscanter. Subjective Shahbaz Vidal is a 74 year old female. She complained of soaking night sweats the past 6 weeks. She did not feel ill or had other symptoms. Home AC was fine. Labs were done today and pending. She had no more symptoms of of near syncope. We reduced her thyroid dose 4 months ago. Her friend contracted Covid recently and she was now interested in updating her Covid vaccination. Review of Systems Constitutional: Negative for activity change, appetite change, chills, fatigue, fever and unexpected weight change. HENT: Negative for congestion, rhinorrhea and sore throat. Eyes: Negative for visual disturbance. Respiratory: Negative for cough, shortness of breath and wheezing. Cardiovascular: Negative for chest pain, palpitations and leg swelling. Gastrointestinal: Negative for abdominal pain, diarrhea, nausea and vomiting. Genitourinary: Negative for dysuria. Skin: Negative for color change and rash. Neurological: Negative for dizziness, light-headedness and headaches. Psychiatric/Behavioral: Negative for dysphoric mood. The patient is not nervous/anxious. ACTIVE PROBLEM LIST Bipolar Affective Disorder, Currently Manic, Mild (Hcc) Asthma Hyperlipidemia, Unspecified Allergic Rhinitis Hypothyroidism, Postablative Essential Hypertension Obesity, Class I, Bmi 30-34.9 Social History Tobacco Use Smoking status: Former Packs/day: 0.50 Years: 22.00 Additional pack years: 0.00 Total pack years: 11.00 Types: Cigarettes Quit date: 11/16/2014 Years since quittin.2 Smokeless tobacco: Never Substance Use Topics Alcohol use: No Drug use: No Current Outpatient Medications Medication Sig levothyroxine (SYNTHROID) 88 mcg tablet Take 1 tablet by mouth once daily. Take on empty stomach. albuterol HFA (VENTOLIN HFA) 90 mcg/actuation inhaler INHALE 2 PUFFS EVERY FOUR HOURS NEEDED FOR WHEEZING OR SHORTNESS OF BREATH budesonide-formoterol (SYMBICORT) 160-4.5 mcg/actuation inhaler Inhale 2 Puffs as instructed two times a day. amLODIPine (NORVASC) 10 mg tablet Take 1 tablet by mouth once daily. simvastatin (ZOCOR) 20 mg tablet Take 1 tablet by mouth daily at bedtime. ACETAMINOPHEN ORAL Take 650 mg by mouth every 6 hours as needed. sennosides/docusate sodium (SENOKOT-S ORAL) Take 2 tablets by mouth twice daily as needed. No current facility-administered medications for this visit. Objective BP 118/64 (BP Site: Left Arm, BP Position: Sitting, BP Cuff Size: Large Adult) Pulse 72 Temp 36.3 C (97.3 F) (Temporal) Wt 75.5 kg (166 lb 7.2 oz) BMI 28.57 kg/m Physical Exam Constitutional: Appearance: Normal appearance. HENT: Head: Normocephalic. Nose: Nose normal. No congestion or rhinorrhea. Eyes: General: No scleral icterus. Extraocular Movements: Extraocular movements intact. Conjunctiva/sclera: Conjunctivae normal. Cardiovascular: Rate and Rhythm: Normal rate and regular rhythm. Heart sounds: No murmur heard. No gallop. Pulmonary: Breath sounds: Normal breath sounds. Abdominal: Palpations: Abdomen is soft. There is no mass. Tenderness: There is no abdominal tenderness. Musculoskeletal: General: No tenderness. Cervical back: Neck supple. Right lower leg: No edema. Left lower leg: No edema. Lymphadenopathy: Cervical: No cervical adenopathy. Skin: General: Skin is warm and dry. Findings: No bruising or rash. Neurological: General: No focal deficit present. Mental Status: She is alert. Psychiatric: Mood and Affect: Mood normal. Behavior: Behavior normal. Assessment and Plan 1. Night sweats - ICD9: 780.8, ICD10: R61 (primary diagnosis) - Etiology unclear. Thyrotoxicosis? - XR CHEST 2V FRONTAL/LAT 2. Screening for depression - ICD9: V79.0, ICD10: Z13.31 - DEPRESSION SCREENING 3. Essential hypertension - ICD9: 401.9, ICD10: I10 - Controlled - AMLODIPINE 10 MG TABLET 4. Encounter for screening mammogram for malignant neoplasm of breast - ICD9: V76.12, ICD10: Z12.31 - ANAY SCREENING W JO ANN 5. Encounter for screening examination for other mental health and behavioral disorders - ICD9: V79.8, ICD10: Z13.39 - ANXIETY SCREENING 6. Moderate persistent asthma without complication - ICD9: 493.90, ICD10: J45.40 Stable. - Continue current medications 7. Hyperlipidemia, unspecified hyperlipidemia type - ICD9: 272.4, ICD10: E78.5 - Control undetermined, due for labs - Continue current medications 8. Hypothyroidism, postablative - ICD9: 244.1, ICD10: E89.0 - continue current dose of Synthroid pending TSH level. 9. Need for COVID-19 vaccine - ICD9: V04.89, ICD10: Z23 - [employer] COVID-19 VACCINE ( SEASON) AGE 12+ YR Fortunato Mcdermott MD documented in this encounter [facility] 02-09-2024 Telephone encounter Note The patient has been identified by name and date of : Yes Caregiver verified no other encounters exist for this prescription request: Yes Caregiver confirmed with patient/requestor that no other refills are due, in the near future, with this provider at this time: Yes The last office visit in the department: 10/25/2023 Does the patient have a future office visit with this provider/department: Yes 02/23/2024 Requested Prescriptions Pending Prescriptions Disp Refills levothyroxine (SYNTHROID) 88 mcg tablet 30 tablet 3 Sig: Take 1 tablet by mouth once daily. Take on empty stomach. Ruby Singer RN February 09, 2024 10:30 AM [facility] 02-09-2024 Miscellaneous Notes The patient has been identified by name and date of : Yes Caregiver verified no other encounters exist for this prescription request: Yes Caregiver confirmed with patient/requestor that no other refills are due, in the near future, with this provider at this time: Yes The last office visit in the department: 10/25/2023 Does the patient have a future office visit with this provider/department: Yes 02/23/2024 Requested Prescriptions Pending Prescriptions Disp Refills levothyroxine (SYNTHROID) 88 mcg tablet 30 tablet 3 Sig: Take 1 tablet by mouth once daily. Take on empty stomach. Ruby Singer RN February 09, 2024 10:30 AM documented in this encounter [facility] 12-20-2023 Telephone encounter Note Patient has been identified by name and date of : Yes, Provider Sachin Date 12-20-23 Time 1:32 pm Pharmacy phones for refill(s): Requested Prescriptions Pending Prescriptions Disp Refills albuterol HFA (VENTOLIN HFA) 90 mcg/actuation inhaler 18 g 5 Sig: INHALE 2 PUFFS EVERY FOUR HOURS NEEDED FOR WHEEZING OR SHORTNESS OF BREATH budesonide-formoterol (SYMBICORT) 160-4.5 mcg/actuation inhaler 10.2 g 2 Sig: Inhale 2 Puffs as instructed two times a day. Date of last office visit in primary care: 10/25/2023 Date of next office visit in primary care: 01/26/2024 Please advise. Thank you. Sally Seals RN. [facility] 12-20-2023 Miscellaneous Notes Patient has been identified by name and date of : Yes, Provider Sachin Date 12-20-23 Time 1:32 pm Pharmacy phones for refill(s): Requested Prescriptions Pending Prescriptions Disp Refills albuterol HFA (VENTOLIN HFA) 90 mcg/actuation inhaler 18 g 5 Sig: INHALE 2 PUFFS EVERY FOUR HOURS NEEDED FOR WHEEZING OR SHORTNESS OF BREATH budesonide-formoterol (SYMBICORT) 160-4.5 mcg/actuation inhaler 10.2 g 2 Sig: Inhale 2 Puffs as instructed two times a day. Date of last office visit in primary care: 10/25/2023 Date of next office visit in primary care: 01/26/2024 Please advise. Thank you. Sally Seals RN. documented in this encounter [facility] 10-28-2023 Miscellaneous Notes Spoke with pt and information listed below given. Pt verbalizes understanding. Called pt's son's phone. Pt was with him. Sailaja Orona LPN ----- Message from Fortunato Mcdermott MD sent at 10/28/2023 2:03 PM EDT ----- Most labs okay, except for thyroid. She may be thyroid toxic. Reduce dose 88 mcg daily. TSH in 2 months. documented in this encounter [facility] 10-25-2023 History of Presen t illness Narrative This note was created using NoteWriter. Subjective Shahbaz Vidal is a 73 year old female who got up yesterday feeling fine, and was preparing breakfast, when she became nauseated and weak, and felt like she was going to pass out. She passed out on the floor with no injury and was out for 3-4 minutes. Her daughter in law was wiping her with cold compress when she regained consciousness feeling ill and nauseated with no vomiting, no headache, no dizziness, or confusion. She had residual weakness and dizziness but symptoms have not recurred. Review of Systems Constitutional: Positive for fatigue. Negative for appetite change, chills, diaphoresis, fever and unexpected weight change. HENT: Negative for congestion, mouth sores, sore throat and trouble swallowing. Eyes: Negative for visual disturbance. Respiratory: Negative for cough, chest tightness and shortness of breath. Cardiovascular: Negative for chest pain, palpitations and leg swelling. Gastrointestinal: Negative for abdominal pain, diarrhea and vomiting. Genitourinary: Negative for difficulty urinating and dysuria. Skin: Negative for wound. Neurological: Negative for tremors, seizures, facial asymmetry, speech difficulty, weakness, numbness and headaches. Psychiatric/Behavioral: Positive for sleep disturbance. Chronic insomnia, waking up 230 am for years. ACTIVE PROBLEM LIST Bipolar Affective Disorder, Currently Manic, Mild (Hcc) Asthma Hyperlipidemia, Unspecified Allergic Rhinitis Hypothyroidism, Postablative Essential Hypertension Obesity, Class I, Bmi 30-34.9 Diverticulitis Social History Tobacco Use Smoking status: Former Packs/day: 0.50 Years: 22.00 Additional pack years: 0.00 Total pack years: 11.00 Types: Cigarettes Quit date: 11/16/2014 Years since quittin.9 Smokeless tobacco: Never Substance Use Topics Alcohol use: No Drug use: No Current Outpatient Medications Medication Sig budesonide-formoterol (SYMBICORT) 160-4.5 mcg/actuation inhaler Inhale 2 Puffs as instructed two times a day. amLODIPine (NORVASC) 10 mg tablet Take 1 tablet by mouth once daily. simvastatin (ZOCOR) 20 mg tablet Take 1 tablet by mouth daily at bedtime. levothyroxine (LEVOXYL) 100 mcg tablet Take 1 tablet by mouth once daily. Take on empty stomach. For Thyroid. albuterol HFA (VENTOLIN HFA) 90 mcg/actuation inhaler INHALE 2 PUFFS EVERY FOUR HOURS NEEDED FOR WHEEZING OR SHORTNESS OF BREATH ACETAMINOPHEN ORAL Take 650 mg by mouth every 6 hours as needed. sennosides/docusate sodium (SENOKOT-S ORAL) Take 2 tablets by mouth twice daily as needed. No current facility-administered medications for this visit. Objective Blood Pressure 132/58 (BP Site: Right Arm, BP Position: Sitting, BP Cuff Size: Large Adult) Pulse 78 Temperature 36.9 C (98.4 F) Respiration 12 Height 162.6 cm (5' 4) Weight 77.1 kg (170 lb) Oxygen Saturation 97% Body Mass Index 29.18 kg/m Physical Exam Constitutional: General: She is not in acute distress. Appearance: She is not ill-appearing or diaphoretic. HENT: Head: Normocephalic and atraumatic. Right Ear: External ear normal. Left Ear: External ear normal. Nose: Nose normal. Mouth/Throat: Mouth: Mucous membranes are moist. Pharynx: Oropharynx is clear. Eyes: Extraocular Movements: Extraocular movements intact. Conjunctiva/sclera: Conjunctivae normal. Pupils: Pupils are equal, round, and reactive to light. Neck: Vascular: No carotid bruit. Cardiovascular: Rate and Rhythm: Normal rate and regular rhythm. Pulses: Normal pulses. Heart sounds: No murmur heard. No gallop. Pulmonary: Effort: No respiratory distress. Breath sounds: No wheezing or rales. Abdominal: General: There is no distension. Palpations: Abdomen is soft. Tenderness: There is no abdominal tenderness. Musculoskeletal: Cervical back: Neck supple. Right lower leg: No edema. Left lower leg: No edema. Skin: General: Skin is warm and dry. Findings: No bruising. Neurological: General: No focal deficit present. Mental Status: She is alert. Mental status is at baseline. Cranial Nerves: No cranial nerve deficit. Sensory: No sensory deficit. Motor: No weakness. Gait: Gait normal. EKG RESULTS: normal EKG, normal sinus rhythm Assessment and Plan 1. Syncope and collapse - ICD9: 780.2, ICD10: R55 (primary diagnosis) - ECG COMPLETE - CBC - BASIC METABOLIC PNL - ECHO - PERFLUTREN LIPID MICROSPHERES 1.1 MG/ML INJECTION IN NS 10 ML - SODIUM CHLORIDE 0.9 % (FLUSH) INJECTION SYRINGE - Hydrate well. - Return for recurrent symptoms or ER for worsening symptoms. 2. Essential hypertension - ICD9: 401.9, ICD10: I10 - Worsening control - Continue current medications - Recommend home blood pressure monitoring, to bring results to next visit 3. Hypothyroidism, postablative - ICD9: 244.1, ICD10: E89.0 - continue current dose of Synthroid. Check labs. - TSH BLD - T4 FREE/FREE THYROX 4. Moderate persistent asthma without complication - ICD9: 493.90, ICD10: J45.40 - Stable. 5. Bipolar affective disorder, currently manic, mild (HCC) - ICD9: 296.41, ICD10: F31.11 - with chronic insomnia, clinically stable. Fortunato Mcdermott MD documented in this encounter [facility] 10-25-2023 Miscellaneous Notes Rescheduled to PCP schedule. Meghan informed. Called and spoke with son, he will bring his mom in for appt at 1240 with Raine Mahoney today. Called and spoke with pt and notified that Charles will be coming home to pick her up and bring her in for the appt. Both son and pt notified that if pt becomes lightheaded again-feels like she is going to pass out or does pass out, they need to call 911 and get her to the ER. Both verbalize understanding. If she feels okay today, schedule appointment. If she feels ill go to ER. Dr. Mcdermott out this morning but is the commercial subcontractor doc as well. Spoke with Maria D Christine to see if she can contact him to review note. When spoke to son, made him aware, pt may need to go to ER or come in and be seen but will confirm with provider. Pt calling in this morning and states she passed out yesterday morning. Please see notes below. BP taken by ANN-MARIE Christianson yesterday after she passed out and it was 153/82. BP this morning was 107/70 and then 131/77. During conversation, had pt take BP sitting which was 149/71 and puls 90 then standing 146/81 and 94 pulse. Pt c/o some slight lightheadedness, weakness and maybe some slight numbness and tingling of her fingertips. Pt states the syncopal episode was witnessed by her ANN-MARIE Christianson. Pt unsure of her phone number and her son Charles's phone #. Able to find Charles's number in [employer]. Called and spoke with him. He confirms she passed out yesterday but he did not witness it. He gives Meghan's corrected phone number. He is going to text her to answer phone when this office calls. Waited a few minutes and attempted to call x 3 with no answer and no VM set up. Reason for Disposition [1] Age > 50 years AND [2] now alert and feels fine Answer Assessment - Initial Assessment Questions 1. ONSET: Pt states yesterday morning around 1030 she passed out. States she thinks she was out about 4-5 mins 2. CONTENT: Pt unsure-states was witnessed by her daughter in law Meghan 3. MENTAL STATUS: Pt alert and oriented x 3 but seems forgetful. Was unsure of date, address or SS# 4. TRIGGER: Pt unsure of what happened. States he was standing getting ready to cook some cuevas. States has been feeling lightheaded on and off. 5. RECURRENT SYMPTOM: States passed out she thinks last year and hit her head and had to get stitches. She doesn't remember why she passed out. Thinks she went to [facility] and was evaluated. Per epic, this occurred in Aug 2019 6. INJURY: denies 7. CARDIAC SYMPTOMS: denies any chest pain, difficulty breathing, orpalpitations 8. NEUROLOGIC SYMPTOMS: States thinks she had a mild headache before and after passing out and also feeling weak. When asked about numbness and tingling, pt states she says maybe in her fingertips. Was unable to shrimp picker her earrings this morning. Is able to hold a cup-states a little shaky. 9. GI SYMPTOMS: denies. States maybe some slight nausea 10. OTHER SYMPTOMS: Nothing other than what is mentioned above. 11. : N/A Protocols used: [id number] documented in this encounter [facility] 09-07-2023 Miscellaneous Notes Patient has been identified by name and date of : Pharmacy phones for refill(s): Requested Prescriptions Pending Prescriptions Disp Refills budesonide-formoterol (SYMBICORT) 160-4.5 mcg/actuation inhaler 10.2 g 2 Sig: Inhale 2 Puffs as instructed two times a day. amLODIPine (NORVASC) 10 mg tablet 30 tablet 5 Sig: Take 1 tablet by mouth once daily. Date of last office visit in primary care: 07/29/2023 Date of next office visit in primary care: 01/26/2024 Please advise. Thank you. Ruby Singer RN. documented in this encounter [facility] 08-26-2023 Miscellaneous Notes Pt called & was given the message to reschedule her bone density. Pt was transferred to computer processing scheduler. Alcira Schwartz LPN documented in this encounter [facility] 06-25-2023 Miscellaneous Notes Patient has been identified by name and date of : Pharmacy phones for refill(s): Requested Prescriptions Pending Prescriptions Disp Refills albuterol HFA (VENTOLIN HFA) 90 mcg/actuation inhaler 18 g 5 Sig: INHALE 2 PUFFS EVERY FOUR HOURS NEEDED FOR WHEEZING OR SHORTNESS OF BREATH budesonide-formoterol (SYMBICORT) 160-4.5 mcg/actuation inhaler 10.2 g 2 Sig: Inhale 2 Puffs as instructed two times a day. Date of last office visit in primary care: 01/26/2023 Date of next office visit in primary care: 07/29/2023 Last 2 Encounter Wt Readings: Date: Wt: 01/26/2023 70.3 kg (155 lb) 10/29/2022 70.9 kg (156 lb 3.2 oz) Previous labs/tests for medication: Not applicable Please advise. Thank you. Tracy Morrison LPN. documented in this encounter [facility] 04-09-2023 Miscellaneous Notes Patient has been identified by name and date of : Yes, Provider Dr. Mcdermott Date 04/09/23 Time 12:45 p m Patient phones for refill(s): Requested Prescriptions Pending Prescriptions Disp Refills budesonide-formoterol (SYMBICORT) 160-4.5 mcg/actuation inhaler 10.2 g 2 Sig: Inhale 2 Puffs as instructed twice daily. Date of last office visit in primary care: 01/26/23 next apt 07/29/23 Last 2 Encounter Wt Readings: Date: Wt: 01/26/2023 70.3 kg (155 lb) 10/29/2022 70.9 kg (156 lb 3.2 oz) Previous labs/tests for medication: Not applicable Please advise. Thank you. Sailaja Orona LPN documented in this encounter [facility] 2023 Miscellaneous Notes Patient has been identified by name and date of : Yes, Provider Dr. Mcdermott Date 02/10/23 Time 1045 Pharmacy phones for refill(s): Requested Prescriptions Pending Prescriptions Disp Refills simvastatin (ZOCOR) 20 mg tablet 30 tablet 5 Sig: Take 1 tablet by mouth daily at bedtime. Date of last office visit in primary care: 01/26/23 Next OV 07/29/23 Last 2 Encounter Wt Readings: Date: Wt: 01/26/2023 70.3 kg (155 lb) 10/29/2022 70.9 kg (156 lb 3.2 oz) Previous labs/tests for medication: Cholesterol: HDL Cholesterol (mg/dL) Date Value 01/26/2023 70 07/30/2021 70 LDL Cholesterol (mg/dL) Date Value 01/26/2023 59 07/30/2021 115 ALT (U/L) Date Value 01/26/2023 27 07/30/2021 22 Non HDL Cholesterol (mg/dL) Date Value 01/26/2023 69 07/30/2021 129 Please advise. Thank you. Kellie Charles RN documented in this encounter [facility] 01-27-2023 Miscellaneous Notes Patient notified of below results/recommendation, verbalized understanding. Jacqueline Adams LPN ----- Message from Fortunato Mcdermott MD sent at 01/26/2023 7:59 PM EDT ----- Test results are all okay except thyroid dose needs reduced. Reduce synthroid to 100 mcg daily. Repeat TSH in 3 months. documented in this encounter [facility] 01-26-2023 Instructions Fortunato Mcdermott MD - 01/26/2023 8:58 AM EDT Recombinant shingles vaccine (Shingrix) is recommended; 2 doses 2-6 months apart. Please read information, check with your insurance, and schedule vaccination at your local pharmacy. A prescription is not required. If you are certain you have coverage to receive this vaccine in the office, we can schedule this for you. documented in this encounter [facility] 01-26-2023 History of Presen t illness Narrative This note was created using Exacter. Subjective Shahbaz Vidal is a 72 year old female. She was doing well. Salt intake was high last night. She missed her follow up appointment and parotid swelling resolved. She was fasting today. Review of Systems Constitutional: Negative for appetite change and unexpected weight change. Respiratory: Negative for cough, shortness of breath and wheezing. Cardiovascular: Negative for chest pain. Gastrointestinal: Negative for abdominal pain. Psychiatric/Behavioral: Negative for dysphoric mood. ACTIVE PROBLEM LIST Bipolar Affective Disorder, Currently Manic, Mild (Hcc) Asthma Hyperlipidemia, Unspecified Allergic Rhinitis Hypothyroidism, Postablative Essential Hypertension Obesity, Class I, Bmi 30-34.9 Diverticulitis Social History Tobacco Use Smoking status: Former Packs/day: 0.50 Years: 22.00 Total pack years: 11.00 Types: Cigarettes Quit date: 11/16/2014 Years since quittin.2 Smokeless tobacco: Never Substance Use Topics Alcohol use: No Drug use: No Current Outpatient Medications Medication Sig budesonide-formoterol (SYMBICORT) 160-4.5 mcg/actuation inhaler Inhale 2 Puffs as instructed twice daily. albuterol HFA (VENTOLIN HFA) 90 mcg/actuation inhaler INHALE 2 PUFFS EVERY FOUR HOURS NEEDED FOR WHEEZING OR SHORTNESS OF BREATH amLODIPine (NORVASC) 10 mg tablet Take 1 tablet by mouth once daily. levothyroxine (LEVOXYL) 112 mcg tablet Take 1 tablet by mouth once daily. Take on empty stomach. For thyroid. simvastatin (ZOCOR) 20 mg tablet Take 1 tablet by mouth daily at bedtime. ACETAMINOPHEN ORAL Take 650 mg by mouth every 6 hours as needed. sennosides/docusate sodium (SENOKOT-S ORAL) Take 2 tablets by mouth twice daily as needed. No current facility-administered medications for this visit. Objective BP 130/64 (BP Site: Left Arm, BP Position: Sitting, BP Cuff Size: Large Adult) Pulse 76 Resp 18 Wt 70.3 kg (155 lb) BMI 25.79 kg/m Physical Exam Constitutional: General: She is not in acute distress. Appearance: She is not ill-appearing. Cardiovascular: Rate and Rhythm: Normal rate and regular rhythm. Heart sounds: Normal heart sounds. Pulmonary: Breath sounds: Normal breath sounds. Musculoskeletal: Right lower leg: No edema. Left lower leg: No edema. Neurological: Mental Status: She is alert. Assessment and Plan 1. Essential hypertension - ICD9: 401.9, ICD10: I10 (primary diagnosis) - Improving control - Continue current medications - Encouraged sodium restriction, DASH or Mediterranean diet - Reviewed risks of hypertension and principles of treatment 2. Hypothyroidism, postablative - ICD9: 244.1, ICD10: E89.0 - continue current dose of Synthroid - TSH BLD 3. Hyperlipidemia, unspecified hyperlipidemia type - ICD9: 272.4, ICD10: E78.5 - Control undetermined, due for labs - Continue current medications - COMP METABOLIC PANEL - LIPID PANEL BASIC 4. Moderate persistent asthma without complication - ICD9: 493.90, ICD10: J45.40 - Moderate persistent asthma improved - Continue current medications 5. Bipolar affective disorder, currently manic, mild (HCC) - ICD9: 296.41, ICD10: F31.11 Controlled without medications. Fortunato Mcdermott MD documented in this encounter [facility] 01-13-2023 Miscellaneous Notes Medication refill requested by Pharmacy Please review and advise. Requested Prescriptions Pending Prescriptions Disp Refills budesonide-formoterol (SYMBICORT) 160-4.5 mcg/actuation inhaler 10.2 g 2 Sig: Inhale 2 Puffs as instructed twice daily. albuterol HFA (VENTOLIN HFA) 90 mcg/actuation inhaler 18 g 5 Sig: INHALE 2 PUFFS EVERY FOUR HOURS NEEDED FOR WHEEZING OR SHORTNESS OF BREATH Last encounter with this provider: 10/29/2022 Next appt: 01/26/2023 Last 1 Encounter BP Readings: Date: BP: 10/29/2022 152/60 SPIROMETRY Never done SHINGRIX VACCINE(1 of 2) Never done MAMMOGRAM due on 05/25/2019 BP CONTROLLED (<130/80) due on 03/22/2020 ADVANCE DIRECTIVE DISCUSSION Never done DEPRESSION ASSESSMENT Never done WBC (k/uL) Date Value 10/29/2021 8.21 Hemoglobin (g/dL) Date Value 10/29/2021 13.6 Platelet Count (k/uL) Date Value 10/29/2021 264 Glucose (mg/dL) Date Value 07/22/2022 94 BUN (mg/dL) Date Value 07/22/2022 15 Creatinine (mg/dL) Date Value 07/22/2022 0.63 Sodium (mmol/L) Date Value 07/22/2022 139 Potassium (mmol/L) Date Value 07/22/2022 4.2 Calcium, Total (mg/dL) Date Value 07/22/2022 9.6 Alkaline Phosphatase (U/L) Date Value 07/22/2022 65 Bilirubin, Total (mg/dL) Date Value 07/22/2022 0.5 AST (U/L) Date Value 07/22/2022 14 ALT (U/L) Date Value 07/22/2022 13 Cholesterol, Total (mg/dL) Date Value 07/22/2022 153 Triglyceride (mg/dL) Date Value 07/22/2022 97 TSH (mIU/L) Date Value 07/22/2022 0.234 (L) Current Outpatient Medications on File Prior to Visit Medication Sig amLODIPine (NORVASC) 10 mg tablet Take 1 tablet by mouth once daily. budesonide-formoterol (SYMBICORT) 160-4.5 mcg/actuation inhaler Inhale 2 Puffs as instructed twice daily. levothyroxine (LEVOXYL) 112 mcg tablet Take 1 tablet by mouth once daily. Take on empty stomach. For thyroid. simvastatin (ZOCOR) 20 mg tablet Take 1 tablet by mouth daily at bedtime. albuterol HFA (VENTOLIN HFA) 90 mcg/actuation inhaler INHALE 2 PUFFS EVERY FOUR HOURS NEEDED FOR WHEEZING OR SHORTNESS OF BREATH traZODone (DESYREL) 50 mg tablet Take 1 tablet by mouth at bedtime as needed for sedation. LOW-DOSE ASPIRIN ORAL Take 81 mg by mouth once daily. ACETAMINOPHEN ORAL Take 650 mg by mouth every 6 hours as needed. sennosides/docusate sodium (SENOKOT-S ORAL) Take 2 tablets by mouth twice daily as needed. Jada Rosales RN documented in this encounter [facility] 10-30-2022 History of Presen t illness Narrative This note was created using Exacter. Subjective Patient presents with: Edema: RIDE side of face x 2 days Shahbaz Vidal is a 72 year old female who developed swelling of the right face 2 days ago for unclear reasons. She had some pain with drinking cold things and chewing. She had poison bishnu of the right neck last week which was resolving with OTC creams. Review of Systems Constitutional: Negative for chills, fatigue and fever. HENT: Negative for dental problem, mouth sores, sore throat and trouble swallowing. Respiratory: Negative for shortness of breath. Gastrointestinal: Negative for nausea and vomiting. ACTIVE PROBLEM LIST Bipolar Affective Disorder, Currently Manic, Mild (Hcc) Asthma Hyperlipidemia, Unspecified Allergic Rhinitis Hypothyroidism, Postablative Essential Hypertension Obesity, Class I, Bmi 30-34.9 Diverticulitis Social History Tobacco Use Smoking status: Former Packs/day: 0.50 Years: 22.00 Pack years: 11.00 Types: Cigarettes Quit date: 11/16/2014 Years since quittin.9 Smokeless tobacco: Never Substance Use Topics Alcohol use: No Drug use: No Current Outpatient Medications Medication Sig budesonide-formoterol (SYMBICORT) 160-4.5 mcg/actuation inhaler Inhale 2 Puffs as instructed twice daily. levothyroxine (LEVOXYL) 112 mcg tablet Take 1 tablet by mouth once daily. Take on empty stomach. For thyroid. simvastatin (ZOCOR) 20 mg tablet Take 1 tablet by mouth daily at bedtime. albuterol HFA (VENTOLIN HFA) 90 mcg/actuation inhaler INHALE 2 PUFFS EVERY FOUR HOURS NEEDED FOR WHEEZING OR SHORTNESS OF BREATH traZODone (DESYREL) 50 mg tablet Take 1 tablet by mouth at bedtime as needed for sedation. LOW-DOSE ASPIRIN ORAL Take 81 mg by mouth once daily. ACETAMINOPHEN ORAL Take 650 mg by mouth every 6 hours as needed. sennosides/docusate sodium (SENOKOT-S ORAL) Take 2 tablets by mouth twice daily as needed. amLODIPine (NORVASC) 10 mg tablet Take 1 tablet by mouth once daily. No current facility-administered medications for this visit. Objective BP 152/60 Pulse 80 Temp 36.1 C (97 F) (Temporal) Resp 16 Wt 70.9 kg (156 lb 3.2 oz) SpO2 96% BMI 25.99 kg/m Physical Exam Constitutional: General: She is not in acute distress. Appearance: She is not ill-appearing or diaphoretic. HENT: Right Ear: Tympanic membrane and external ear normal. Nose: Nose normal. Mouth/Throat: Mouth: Mucous membranes are moist. Pharynx: Oropharynx is clear. No oropharyngeal exudate. Comments: No discharge from Stensen's duct. Neck: Comments: Right parotid gland firm, swollen, slightly warm, mildly tender, no abscess ~4 x 3 cm. Cardiovascular: Rate and Rhythm: Normal rate and regular rhythm. Heart sounds: No murmur heard. No gallop. Pulmonary: Effort: No respiratory distress. Breath sounds: No wheezing or rales. Lymphadenopathy: Cervical: Right cervical: No superficial, deep or posterior cervical adenopathy. Left cervical: No superficial, deep or posterior cervical adenopathy. Skin: Findings: Rash present. Comments: Resolving round maculopapular rash of the right neck base. Neurological: Mental Status: She is alert. Assessment and Plan 1. Parotitis, acute - ICD9: 527.2, ICD10: K11.21 (primary diagnosis) Probably viral. Warm compress. Continue Tylenol. Return sooner for systemic symptoms or pain. - CBC - SED RATE WESTERGREN 2. Essential hypertension - ICD9: 401.9, ICD10: I10 Elevated due to illness. 3. Contact dermatitis, unspecified contact dermatitis type, unspecified trigger - ICD9: 692.9, ICD10: L25.9 - discussed skin care of rash - follow up if symptoms persist or worsen. Fortunato Mcdermott MD documented in this encounter [facility] 10-29-2022 Miscellaneous Notes Reviewed triage protocol guidelines with patient. Verbalized understanding. Disposition: See PCP within 24 hours. Appointment scheduled. Meghan Nevarez RN Reason for Disposition Face swelling is painful to touch Answer Assessment - Initial Assessment Questions 1. ONSET: last evening 2. LOCATION: right side from ear to jaw 3. SEVERITY: mildly 4. ITCHING: no 5. PAIN: - MILD (1-3): doesn't interfere with normal activities 6. FEVER: No fever 7. CAUSE: Unknown 8. RECURRENT SYMPTOM: Not recurrent 9. OTHER SYMPTOMS: Denies earache, toothache, jaw pain, recent URI Has a patch of poison bishnu on right neck x 5 days Protocols used: Face [id number] documented in this encounter [facility] 08-25-2022 Miscellaneous Notes Patient has been identified by name and date of : Yes, Provider Dr. Mcdermott Date 08-25-22 Time 9:50 am Pharmacy phones for refill(s): Requested Prescriptions Pending Prescriptions Disp Refills simvastatin (ZOCOR) 20 mg tablet 30 tablet 5 Sig: Take 1 tablet by mouth daily at bedtime. amLODIPine (NORVASC) 5 mg tablet 30 tablet 5 Sig: Take 1 tablet by mouth once daily. Date of last office visit with pcp: 07-22-22. Next appt: 09-25-22 Last 2 Encounter Wt Readings: Date: Wt: 07/22/2022 72.6 kg (160 lb) 10/29/2021 77.6 kg (171 lb) Previous labs/tests for medication: Cholesterol: HDL Cholesterol (mg/dL) Date Value 07/22/2022 61 07/30/2021 70 LDL Cholesterol (mg/dL) Date Value 07/22/2022 73 07/30/2021 115 ALT (U/L) Date Value 07/22/2022 13 07/30/2021 22 Non HDL Cholesterol (mg/dL) Date Value 07/22/2022 92 07/30/2021 129 Blood Pressure: BUN (mg/dL) Date Value 07/22/2022 15 07/30/2021 26 Sodium (mmol/L) Date Value 07/22/2022 139 07/30/2021 138 Last 1 Encounter BP Readings: Date: BP: 07/22/2022 134/64 Please advise. Thank you. Sally Seals RN documented in this encounter [facility] 07-22-2022 History of Presen t illness Narrative This note was created using [employer]. Subjective Shahbaz Vidal is a 72 year old female. ASTHMA CONTROL TEST Date: 07/22/2022 In the last 4 weeks, how much of the time did your asthma keep you from getting as much done at work or home that you wanted to do? Some of the time (3) In the last 4 weeks, how often have you had shortness of breath? More than once per day (1) In the last 4 weeks, how often did your asthma symptoms (wheezing, coughing, shortness of breath, chest tightness or pain) wake you up at night or earlier than usual? 4 or more nights per week (1) In the last 4 weeks, how often have you used your rescue inhaler or nebulizer medication (such as Albuterol, Proventil, Ventolin, Maxair, Xoponex, or Primatene Mist)? 3 or more times per day (1) In the last 4 weeks, how would you rate your asthma control? Not controlled at all (1) Total: less than 15 Review of Systems Constitutional: Negative. Respiratory: Positive for cough, shortness of breath and wheezing. Cardiovascular: Negative. Gastrointestinal: Negative. Neurological: Negative. ACTIVE PROBLEM LIST Bipolar Affective Disorder, Currently Manic, Mild (Hcc) Asthma Hyperlipidemia, Unspecified Allergic Rhinitis Hypothyroidism, Postablative Essential Hypertension Obesity, Class I, Bmi 30-34.9 Diverticulitis Current Outpatient Medications Medication Sig albuterol HFA (VENTOLIN HFA) 90 mcg/actuation inhaler INHALE 2 PUFFS EVERY FOUR HOURS NEEDED FOR WHEEZING OR SHORTNESS OF BREATH levothyroxine (LEVOXYL) 112 mcg tablet Take 1 tablet by mouth once daily. Take on empty stomach. For thyroid. simvastatin (ZOCOR) 20 mg tablet Take 1 tablet by mouth daily at bedtime. amLODIPine (NORVASC) 5 mg tablet Take 1 tablet by mouth once daily. traZODone (DESYREL) 50 mg tablet Take 1 tablet by mouth at bedtime as needed for sedation. LOW-DOSE ASPIRIN ORAL Take 81 mg by mouth once daily. ACETAMINOPHEN ORAL Take 650 mg by mouth every 6 hours as needed. sennosides/docusate sodium (SENOKOT-S ORAL) Take 2 tablets by mouth twice daily as needed. No current facility-administered medications for this visit. Objective BP 134/64 (BP Site: Left Arm, BP Position: Sitting, BP Cuff Size: Large Adult) Pulse 72 Temp 36.2 C (97.2 F) (Temporal) Resp 16 Wt 72.6 kg (160 lb) BMI 26.63 kg/m Physical Exam Constitutional: General: She is not in acute distress. Cardiovascular: Rate and Rhythm: Normal rate and regular rhythm. Heart sounds: No murmur heard. No gallop. Pulmonary: Effort: No respiratory distress. Breath sounds: Wheezing present. No rhonchi or rales. Musculoskeletal: Right lower leg: No edema. Left lower leg: No edema. Neurological: General: No focal deficit present. Mental Status: She is alert. Psychiatric: Mood and Affect: Affect is labile. Behavior: Behavior is agitated. Behavior is cooperative. Assessment and Plan 1. Moderate persistent asthma without complication - ICD9: 493.90, ICD10: J45.40 (primary diagnosis) - CONSULT TO PULMONARY MEDICINE - SPIROMETRY - BASELINE AND POST DILATOR - LUNG VOLUMES 2. Encounter for screening mammogram for malignant neoplasm of breast - ICD9: V76.12, ICD10: Z12.31 - ANAY SCREENING 3. Need for vaccination - ICD9: V05.9, ICD10: Z23 - PNEUMOCOCCAL VACCINE (PREVNAR 20) 4. Hyperlipidemia, unspecified hyperlipidemia type - ICD9: 272.4, ICD10: E78.5 - to be determined upon return of lab results - Continue current medication. - COMP METABOLIC PANEL - LIPID PANEL BASIC 5. Essential hypertension - ICD9: 401.9, ICD10: I10 - suboptimal control - Recheck in 2 months, sooner should new symptoms or problems arise. - Reviewed risks of HTN and principles of treatment - Goal of BP <130/80 6. Hypothyroidism, postablative - ICD9: 244.1, ICD10: E89.0 - continue current dose of Synthroid - TSH BLD Patient indicated understanding and willingness to follow recommendations. Later, patient became agitated due to transportation concerns and left before follow ups were scheduled. She will be contacted for care coordination. Fortunato Mcdermott MD documented in this encounter [facility] 06-02-2022 Miscellaneous Notes [place] calling for refills. JEAN-PIERRE: 10/29/21 NOV: 07/07/22 Last Refill: 12/22/21 18g 5 refills Alcira Schwartz LPN documented in this encounter [facility] 05-05-2022 Miscellaneous Notes Labs ordered Raine Fairchild APRN.MARTA The lab orders in Epic for pt will 06/30/22. Please put in new orders. Pt will be getting fasting lab work done on 07-07-22 when she comes in for her apt. Sailaja Orona LPN Pt called in and states she had to reschedule apt to 07-07-22 and wants to get her blood work done on the same day as her apt. Pt's blood work has an expiration date of 06/30/22. I checked with the lab and they are going to get back to the pt if the orders are still good on 07-07-22 or does the provider need to put in new lab orders. Sailaja Orona LPN documented in this encounter [facility] 03-11-2022 Miscellaneous Notes Patient has been identified by name and date of : Yes Pharmacy phones for refill(s): Requested Prescriptions Pending Prescriptions Disp Refills simvastatin (ZOCOR) 20 mg tablet 30 tablet 5 Sig: Take 1 tablet by mouth daily at bedtime. amLODIPine (NORVASC) 5 mg tablet 30 tablet 5 Sig: Take 1 tablet by mouth once daily. Date of last office visit in primary care: 10/29/21 Future visit: 05/05/22 Last 2 Encounter Wt Readings: Date: Wt: 10/29/2021 77.6 kg (171 lb) 04/29/2021 76.2 kg (168 lb) Previous labs/tests for medication: Cholesterol: HDL Cholesterol (mg/dL) Date Value 07/30/2021 70 LDL Cholesterol (mg/dL) Date Value 07/30/2021 115 ALT (U/L) Date Value 07/30/2021 22 Non HDL Cholesterol (mg/dL) Date Value 07/30/2021 129 Blood Pressure: BUN (mg/dL) Date Value 07/30/2021 26 Sodium (mmol/L) Date Value 07/30/2021 138 Last 1 Encounter BP Readings: Date: BP: 10/29/2021 128/66 Please advise. Thank you. Ani De La Torre RN documented in this encounter [facility] 12-22-2021 Miscellaneous Notes Last seen pcp 10/29/21. Next appt with pcp 05/05/22. Patient has been identified by name and date of : Yes Pending Prescriptions Disp Refills ALBUTEROL SULFATE HFA 90 MCG/ACTUATION AEROSOL INHALER 18 g 1 Sig: INHALE 2 PUFFS EVERY FOUR HOURS NEEDED FOR WHEEZING OR SHORTNESS OF BREATH KATYA: No RX INSTRUCTIONS:patient is almost out of medication Patient aware RX will be sent to pharmacy. No need to notify patient. Susanne Bronson Pss documented in this encounter [facility] 11-06-2021 Miscellaneous Notes Patient has been identified by name and date of : Yes Pharmacy phones for refill(s): Pending Prescriptions Disp Refills LEVOTHYROXINE 112 MCG TABLET 30 tablet 0 Sig: Take 1 tablet by mouth once daily. Take on empty stomach. For thyroid. KATYA: No Date of last office visit with pcp: 10-29-21. Next appt: 05-05-22 Last 2 Encounter Wt Readings: Date: Wt: 10/29/2021 77.6 kg (171 lb) 04/29/2021 76.2 kg (168 lb) Previous labs/tests for medication: Thyroid: TSH (uU/mL) Date Value 07/30/2021 0.442 Please advise. Thank you. Sally Seals RN documented in this encounter [facility] 10-29-2021 History of Presen t illness Narrative This note was created using [employer]. Subjective Shahbaz Vidal is a 71 year old female. She felt well in general. She noted increase in dyspnea and need for albuterol at night for the past 2 weeks. She denied upper respiratory infection symptoms or wheezing. She just got a new pillow. Review of Systems Constitutional: Negative for fatigue and fever. HENT: Negative for congestion, rhinorrhea, sneezing and sore throat. Eyes: Negative for itching. Respiratory: Negative for cough, chest tightness and wheezing. Cardiovascular: Negative for chest pain, palpitations and leg swelling. Gastrointestinal: Negative. ACTIVE PROBLEM LIST Bipolar Affective Disorder, Currently Manic, Mild (Hcc) Asthma Hyperlipidemia, Unspecified Allergic Rhinitis Hypothyroidism, Postablative Essential Hypertension Obesity, Class I, Bmi 30-34.9 Diverticulitis Current Outpatient Medications Medication Sig levothyroxine (LEVOXYL) 112 mcg tablet Take 1 tablet by mouth once daily. Take on empty stomach. For thyroid. albuterol HFA (VENTOLIN HFA) 90 mcg/actuation inhaler INHALE 2 PUFFS EVERY FOUR HOURS NEEDED FOR WHEEZING OR SHORTNESS OF BREATH traZODone (DESYREL) 50 mg tablet Take 1 tablet by mouth at bedtime as needed for sedation. amLODIPine (NORVASC) 5 mg tablet Take 1 tablet by mouth once daily. simvastatin (ZOCOR) 20 mg tablet Take 1 tablet by mouth daily at bedtime. LOW-DOSE ASPIRIN ORAL Take 81 mg by mouth once daily. ACETAMINOPHEN ORAL Take 650 mg by mouth every 6 hours as needed. sennosides/docusate sodium (SENOKOT-S ORAL) Take 2 tablets by mouth twice daily as needed. No current facility-administered medications for this visit. Objective BP 128/66 (BP Site: Right Arm, BP Position: Sitting, BP Cuff Size: Large Adult) Pulse 68 Temp 36.7 C (98 F) (Temporal Artery) Resp 20 Wt 77.6 kg (171 lb) SpO2 96% BMI 28.46 kg/m Physical Exam Constitutional: General: She is not in acute distress. Appearance: She is not ill-appearing. HENT: Nose: Nose normal. Eyes: Conjunctiva/sclera: Conjunctivae normal. Cardiovascular: Rate and Rhythm: Normal rate and regular rhythm. Heart sounds: No murmur heard. Pulmonary: Effort: No respiratory distress. Comments: Rare wheeze, right lung base. Abdominal: Palpations: Abdomen is soft. Musculoskeletal: Right lower leg: No edema. Left lower leg: No edema. Lymphadenopathy: Cervical: No cervical adenopathy. Neurological: Mental Status: She is alert. Assessment and Plan 1. Moderate persistent asthma without complication - ICD9: 493.90, ICD10: J45.40 (primary diagnosis) Probably mild seasonal flare versus allergy to a substance in her pillow. - Continue current meds - Avoidance of triggers recommended. She will not sleep with her new pillow for 1 week or so and observe. Return sooner if needed. 2. Essential hypertension - ICD9: 401.9, ICD10: I10 - good control 3. Hyperlipidemia, unspecified hyperlipidemia type - ICD9: 272.4, ICD10: E78.5 - Worsening. Diet reviewed. - Continue current medication. - BASIC METABOLIC PNL - LIPID PANEL BASIC 4. Hypothyroidism, postablative - ICD9: 244.1, ICD10: E89.0 - continue current dose of Synthroid - TSH BLD Fortunato Mcdermott MD documented in this encounter [facility] 10-28-2020 History of Past i llness Narrative Problem Noted Date Resolved Date Leukocytosis 10/28/2020 04/29/2021 Impingement syndrome of right shoulder 3 08/02/2014 Tobacco use disorder 04/10/2005 04/04/2018 documented as of this encounter (statuses as of 10/17/2021) [address]12-2021 History of Past illness Narrative* Problem Noted Date Resolved Date Leukocytosis 10/28/2020 04/29/2021 Impingement syndrome of right shoulder 3 08/02/2014 Tobacco use disorder 04/10/2005 04/04/2018 documented as of this encounter (statuses as of 10/29/2021) [address]-2021 History of Past illness Narrative* Problem Noted Date Resolved Date Leukocytosis 10/28/2020 04/29/2021 Impingement syndrome of right shoulder 3 08/02/2014 Tobacco use disorder 04/10/2005 04/04/2018 documented as of this encounter (statuses as of 11/06/2021) [address]12-2021 History of Past illness Narrative* Problem Noted Date Resolved Date Leukocytosis 10/28/2020 04/29/2021 Impingement syndrome of right shoulder 3 08/02/2014 Tobacco use disorder 04/10/2005 04/04/2018 documented as of this encounter (statuses as of 12/22/2021) [address]12-2021 History of Past illness Narrative* Problem Noted Date Resolved Date Leukocytosis 10/28/2020 04/29/2021 Impingement syndrome of right shoulder 3 08/02/2014 Tobacco use disorder 04/10/2005 04/04/2018 documented as of this encounter (statuses as of 03/11/2022) [address]12-2021 History of Past illness Narrative* Problem Noted Date Resolved Date Leukocytosis 10/28/2020 04/29/2021 Impingement syndrome of right shoulder 3 08/02/2014 Tobacco use disorder 04/10/2005 04/04/2018 documented as of this encounter (statuses as of 05/05/2022) [address]12-2021 History of Past illness Narrative* Problem Noted Date Resolved Date Leukocytosis 10/28/2020 04/29/2021 Impingement syndrome of right shoulder 3 08/02/2014 Tobacco use disorder 04/10/2005 04/04/2018 documented as of this encounter (statuses as of 05/11/2022) [address]12-2021 History of Past illness Narrative* Problem Noted Date Resolved Date Leukocytosis 10/28/2020 04/29/2021 Impingement syndrome of right shoulder 3 08/02/2014 Tobacco use disorder 04/10/2005 04/04/2018 documented as of this encounter (statuses as of 06/02/2022) [address]12-2021 History of Past illness Narrative* Problem Noted Date Resolved Date Leukocytosis 10/28/2020 04/29/2021 Impingement syndrome of right shoulder 3 08/02/2014 Tobacco use disorder 04/10/2005 04/04/2018 documented as of this encounter (statuses as of 07/23/2022) [address]12-2021 History of Past illness Narrative* Problem Noted Date Resolved Date Leukocytosis 10/28/2020 04/29/2021 Impingement syndrome of right shoulder 3 08/02/2014 Tobacco use disorder 04/10/2005 04/04/2018 documented as of this encounter (statuses as of 08/25/2022) [address]-2021 History of Past illness Narrative* Problem Noted Date Resolved Date Leukocytosis 10/28/2020 04/29/2021 Impingement syndrome of right shoulder 3 08/02/2014 Tobacco use disorder 04/10/2005 04/04/2018 documented as of this encounter (statuses as of 10/30/2022) [address]-2021 History of Past illness Narrative* Problem Noted Date Resolved Date Leukocytosis 10/28/2020 04/29/2021 Impingement syndrome of right shoulder 3 08/02/2014 Tobacco use disorder 04/10/2005 04/04/2018 documented as of this encounter (statuses as of 10/31/2022) [address]-2021 History of Past illness Narrative* Problem Noted Date Resolved Date Leukocytosis 10/28/2020 04/29/2021 Impingement syndrome of right shoulder 3 08/02/2014 Tobacco use disorder 04/10/2005 04/04/2018 documented as of this encounter (statuses as of 01/14/2023) [address]12-2021 History of Past illness Narrative* Problem Noted Date Diagnosed Date Resolved Date Leukocytosis 10/28/2020 04/29/2021 Impingement syndrome of right shoulder 05/09/2013 08/02/2014 Tobacco use disorder 04/10/20052 018 documented as of this encounter (statuses as of 01/26/2023) [address]12-2021 History of Past illness Narrative* Problem Noted Date Diagnosed Date Resolved Date Leukocytosis 10/28/2020 04/29/2021 Impingement syndrome of right shoulder 05/09/2013 08/02/2014 Tobacco use disorder 04/10/20052 018 documented as of this encounter (statuses as of 01/28/2023) [address]12-2021 History of Past illness Narrative* Problem Noted Date Diagnosed Date Resolved Date Leukocytosis 10/28/2020 04/29/2021 Impingement syndrome of right shoulder 05/09/2013 08/02/2014 Tobacco use disorder 04/10/20052 018 documented as of this encounter (statuses as of 02/11/2023) [address]12-2021 History of Past illness Narrative* Problem Noted Date Diagnosed Date Resolved Date Leukocytosis 10/28/2020 04/29/2021 Impingement syndrome of right shoulder 05/09/2013 08/02/2014 Tobacco use disorder 04/10/20052 018 documented as of this encounter (statuses as of 04/09/2023) [address]12-2021 History of Past illness Narrative* Problem Noted Date Diagnosed Date Resolved Date Leukocytosis 10/28/2020 04/29/2021 Impingement syndrome of right shoulder 05/09/2013 08/02/2014 Tobacco use disorder 04/10/20052 018 documented as of this encounter (statuses as of 06/25/2023) [address]-2021 History of Past illness Narrative* Problem Noted Date Diagnosed Date Resolved Date Leukocytosis 10/28/2020 04/29/2021 Impingement syndrome of right shoulder 05/09/2013 08/02/2014 Tobacco use disorder 04/10/20052 018 documented as of this encounter (statuses as of 08/26/2023) [facility] History of Past illness Narrative* Problem Noted Date Diagnosed Date Resolved Date Leukocytosis 10/28/2020 04/29/2021 Impingement syndrome of right shoulder 05/09/2013 08/02/2014 Tobacco use disorder 04/10/2005 018 documented as of this encounter (statuses as of 09/07/2023) [facility] History of Past illness Narrative* Problem Noted Date Diagnosed Date Resolved Date Leukocytosis 10/28/2020 04/29/2021 Impingement syndrome of right shoulder 05/09/2013 08/02/2014 Tobacco use disorder 04/10/2005 018 documented as of this encounter (statuses as of 10/25/2023) [facility] History of Past illness Narrative* Problem Noted Date Diagnosed Date Resolved Date Diverticulitis 10/28/2020 10/25/2023 Leukocytosis 10/28/2020 04/29/2021 Impingement syndrome of right shoulder 05/09/2013 08/02/2014 Tobacco use disorder 04/10/2005 018 documented as of this encounter (statuses as of 10/25/2023) [facility] History of Past illness Narrative* Problem Noted Date Diagnosed Date Resolved Date Diverticulitis 10/28/2020 10/25/2023 Leukocytosis 10/28/2020 04/29/2021 Impingement syndrome of right shoulder 05/09/2013 08/02/2014 Tobacco use disorder 04/10/2005 018 documented as of this encounter (statuses as of 10/29/2023) [facility] History of Present illness Narrative* Yesi Kaba (Rt), Tech - 09/26/2020 12:00 PM EST Radiology Service Progress Note PATIENT NAME: Shahbaz Vidal DATE OF SERVICE: September 26, 2020 TIME: 12:08 PM PATIENT IDENTITY VERIFICATION COMPLETED USING TWO (2) IDENTIFIERS: Name and Date of confirmedby patient verbally. FALL SCREENING: Has the patient had 2 falls in the last year or 1 fall with injury or currently using an Ambulatory Assistive Device (Walker, Cane, Wheelchair, Crutches, etc.)? No PATIENT GENDER DATA: Female. status: : No status: NO. PATIENT RELEVANT IMPLANT DATA REVIEWED: Not Applicable RADIOLOGY DEPARTMENT: General X-ray: Exam(s) Completed: Chest X-Ray PERIPHERAL IV DATA: Not applicable SIGNED BY: RT Edda September 26, 2020 12:08 PM [facility] Medication management Encounter for long-term (current) use of other medications documented in this [facility]* Diagnosis Moderate persistent asthma without complication- Primary Unspecified asthma Essential hypertension Unspecified essential hypertension Hyperlipidemia, unspecified hyperlipidemia type Hypothyroidism, postablative Other postablative hypothyroidism documented in this encounter [facility]* Diagnosis Hypothyroidism, postablative Other postablative hypothyroidism documented in this [facility]* Diagnosis Hyperlipidemia, unspecified hyperlipidemia type Essential hypertension Unspecified essential hypertension documented in this encounter [facility]* Diagnosis Hyperlipidemia, unspecified hyperlipidemia type- Primary Hypothyroidism, postablative Other postablative hypothyroidism Essential hypertension Unspecified essential hypertension documented in this encounter [facility] note* Diagnosis Encounter for screening mammogram for breast cancer documented in this encounter [facility] note* Diagnosis Moderate persistent asthma without complication- Primary Unspecified asthma Encounter for screening mammogram for malignant neoplasm of breast Other screening mammogram Need for vaccination Need for prophylactic vaccination and inoculation against unspecified single disease Hyperlipidemia, unspecified hyperlipidemia type Essential hypertension Unspecified essential hypertension Hypothyroidism, postablative Other postablative hypothyroidism documented in this encounter [facility] note* Diagnosis Hyperlipidemia, unspecified hyperlipidemia type Essential hypertension Unspecified essential hypertension documented in this encounter [facility] note* Diagnosis Parotitis, acute- Primary Sialoadenitis Essential hypertension Unspecified essential hypertension Contact dermatitis, unspecified contact dermatitis type, unspecified trigger documented in this encounter [facility] note* Diagnosis Essential hypertension- Primary Unspecified essential hypertension Hypothyroidism, postablative Other postablative hypothyroidism Hyperlipidemia, unspecified hyperlipidemia type Moderate persistent asthma without complication Unspecified asthma Bipolar affective disorder, currently manic, mild (HCC) Bipolar I disorder, most recent episode (or current) manic, mild documented in this encounter [facility] note* Diagnosis Hyperlipidemia, unspecified hyperlipidemia type documented in this encounter [facility] note* Diagnosis Syncope and collapse- Primary Essential hypertension Unspecified essential hypertension Hypothyroidism, postablative Other postablative hypothyroidism Moderate persistent asthma without complication Unspecified asthma Bipolar affective disorder, currently manic, mild (HCC) Bipolar I disorder, most recent episode (or current) manic, mild documented in this encounter [facility] note* Diagnosis Hypothyroidism, postablative- Primary Other postablative hypothyroidism documented in this encounter [facility] note* Diagnosis Encounter for screening mammogram for breast cancer documented in this encounter [facility] note* Diagnosis Hypothyroidism, postablative Other postablative hypothyroidism documented in this encounter [facility] note* Diagnosis Night sweats- Primary Generalized hyperhidrosis Screening for depression Essential hypertension Unspecified essential hypertension Encounter for screening mammogram for malignant neoplasm of breast Other screening mammogram Encounter for screening examination for other mental health and behavioral disorders Moderate persistent asthma without complication Unspecified asthma Hyperlipidemia, unspecified hyperlipidemia type Hypothyroidism, postablative Other postablative hypothyroidism Need for COVID-19 vaccine documented in this encounter [facility] note* Diagnosis Essential hypertension Unspecified essential hypertension Tingling of right upper extremity documented in this encounter [facility] note* Diagnosis Hypothyroidism, postablative Other postablative hypothyroidism documented in this encounter [facility] note* Diagnosis Hyperlipidemia, unspecified hyperlipidemia type documented in this encounter [facility] note* Diagnosis Essential hypertension Unspecified essential hypertension documented in this encounter [facility] note* Diagnosis Essential hypertension- Primary Unspecified essential hypertension Encounter for immunization Need for other specified prophylactic vaccination against single bacterial disease Hypothyroidism, postablative Other postablative hypothyroidism Hyperlipidemia, unspecified hyperlipidemia type Moderate persistent asthma without complication Unspecified asthma documented in this encounter [facility] note* Diagnosis Wellness examination- Primary Essential hypertension Unspecified essential hypertension Moderate persistent asthma without complication (HCC) Unspecified asthma Hypothyroidism, postablative Other postablative hypothyroidism Hyperlipidemia, unspecified hyperlipidemia type Bipolar affective disorder, currently manic, mild (HCC) Bipolar I disorder, most recent episode (or current) manic, mild Screening for depression Encounter for screening examination for other mental health and behavioral disorders documented in this encounter [facility] for referral (narrative)* Diagnostic Procedure Only (Routine) - Pending Review Specialty Diagnoses / Procedures Referred By Elenita t Referred To Contact [facility] Diagnoses Encounter for screening mammogram for breast cancer Procedures ANAY SCREENING SCREENING MAMMOGRAPHY BI 2-VIEW BREAST INC CAD Fortunato Mcdermott MD [address] [place] [address] [facility] [address] [place] [phone] Referral ID Status Reason Start Date Expiration Date Visits Requested Visits Authorized [id number] Pending Review Auto-Generat ed Referral 06/05/2023 1 1 [facility] for referral (narrative)* Outpatient Procedure (Routine) - Pending Review Specialty Diagnoses / Procedures Referred By Elenita ford [facility] Diagnoses Moderate persistent asthma without complication Procedures LUNG VOLUMES Fortunato Mcdermott MD [address] [place] [address] [facility] [address] [place] [address] Referral ID Status Reason Start Date Expiration Date Visits Requested Visits Authorized [id number] Pending Review Auto-Generat ed Referral 07/22/2022 08/21/2023 1 1 * Outpatient Procedure (Routine) - Authorized Specialty Diagnoses / Procedures Referred By Elenita ford Referred [facility] Diagnoses Moderate persistent asthma without complication Procedures SPIROMETRY - BASELINE AND POST DILATOR BRNCDILAT RSPSE SPMTRY PRE&POST-[place] [address] [place] [address] [address] [address] Referral ID Status Reason Start Date Expiration Date Visits Requested Visits Authorized [id number] Authorized Auto-Generat ed Referral 07/22/2022 08/21/2023 1 1 * Diagnostic Procedure Only (Routine) - Pending Review Specialty Diagnoses / Procedures Referred By Elenita ford Referred To Contact [facility] Diagnoses Encounter for screening mammogram for malignant neoplasm of breast Procedures ANAY SCREENING SCREENING MAMMOGRAPHY BI 2-VIEW BREAST INC CAD Fortunato Mcdermott MD [address] [place] [address] [facility] [address] [place] [address] Referral ID Status Reason Start Date Expiration Date Visits Requested Visits Authorized [id number] Pending Review Auto-Generat ed Referral 07/22/2022 08/21/2023 1 1 [facility] for referral (narrative)* Outpatient Procedure (Routine) - Authorized Specialty Diagnoses / Procedures Referred By Elenita ford Referred To Contact [facility] Diagnoses Syncope and collapse Procedures ECHO ECHO TTHRC R-T 2D W/WOM-MODE COMPL SPEC&[place] [address] [place] [address] [facility] [address] [place] [address] Referral ID Status Reason Start Date Expiration Date Visits Requested Visits Authorized [id number] Authorized Auto-Generat ed Referral 10/25/2023 10/24/2024 1 1 * Outpatient Procedure (Routine) - Pending Review Specialty Diagnoses / Procedures Referred By Elenita ford Referred To Contact [facility] Diagnoses Syncope and collapse Procedures ECG COMPLETE ECG ROUTINE ECG W/LEAST 12 LDS W/I&R Fortunato Mcdermott MD [address] [place] [address] [facility] [address] [place] [id number] Referral ID Status Reason Start Date Expiration Date Visits Requested Visits Authorized [id number] Pending Review Auto-Generat ed Referral 10/25/2023 10/24/2024 1 1 [facility] for referral (narrative)* Diagnostic Procedure Only (Routine) - New Request Specialty Diagnoses / Procedures Referred By Contac t Referred To Contact [facility] Diagnoses Encounter for screening mammogram for breast cancer Procedures ANAY SCREENING W JO ANN SCREENING DIGITAL BREAST TOMOSYNTHESIS BI SCREENING MAMMOGRAPHY BI 2-VIEW BREAST INC Fortunato Hernandez MD [address] [place] [address] [facility] [address] [place] [phone] Referral ID Status Reason Start Date Expiration Date Visits Requested Visits Authorized [id number] New Request Auto-Generat ed Referral 02/02/2024 03/03/2025 1 1 [facility] for referral (narrative)* Diagnostic Procedure Only (Routine) - New Request Specialty Diagnoses / Procedures Referred By Elenita ford Referred To Contact [facility] Diagnoses Encounter for screening mammogram for malignant neoplasm of breast Procedures ANAY SCREENING W JO ANN SCREENING DIGITAL BREAST TOMOSYNTHESIS BI SCREENING MAMMOGRAPHY BI 2-VIEW BREAST INC Fortunato Hernandez MD [address] [place] [address] Br [place] [address] Referral ID Status Reason Start Date Expiration Date Visits Requested Visits Authorized [id number] New Request Auto-Generat ed Referral 02/23/2024 03/24/2025 1 1 T [facility] Summary Purpose Family History No Family History Records FoundNo Family History Records FoundNo Family History Records Found Advance Directives No Advanced Directives Records FoundDocuments on File Type Date Recorded 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 Advance Directive(s) 10/28/2020 2:48 PM Hospital Course Note [facility] edical Records Department [address] [place] [address] Discharge Summary 08/13/19 1513 MR#: [id number] Acct: [id number] Name: SHAHBAZ VIDAL Rep #: [id number] : 1950 69 From: Renetta Smith MD PCP: Fortunato Mcdermott MD Status: ADM IN Y Location: [place] [id number] Discharge Date and Diagnosis - Problem List Patient Problems: Active and Suspected Problems (Last Reviewed 08/10/19 @ 01:40 by Eugene Luevano MD) Diverticulitis (Acute) Date of Admission: 08/09/19 Date of Discharge: 08/13/19 - Primary Discharge Diagnosis Active and Suspected Problems (Last Reviewed 08/10/19 @ 01:40 by Eugene Luevano MD) Diverticulitis (Acute) Hospital Course and Treatment General surgery Operations: None Procedures: None Summary of Care Provided: The patient is a 69 year old F with a history of hypertension, hypothyroidism, hyperlipidemia who comes in with complaints of left-sided pelvic pain going for 4 weeks. Patient reports the pain started 2 to 3 days before Thanksgiv (more content not included)... Note [facility] edical Records Department [address] [place] [address] Discharge Summary 08/21/19 1200 MR#: [id number] Acct: [id number] Name: SHAHBAZ VIDAL Rep #: [id number] : 1950 69 From: Elder Collins MD PCP: Fortunato Mcdermott MD Status: ADM AKANKSHA Y Location: [place] [address] Discharge Date and Diagnosis - Problem List Patient Problems: Active and Suspected Problems (Last Reviewed 08/10/19 @ 01:40 by Eugene Luevano MD) Syncope (Acute) Scalp laceration (Acute) Date of Admission: 08/20/19 Date of Discharge: 08/21/19 - Primary Discharge Diagnosis Active and Suspected Problems (Last Reviewed 08/10/19 @ 01:40 by Eugene Luevano MD) Syncope (Acute) Scalp laceration (Acute) - Secondary Discharge Diagnosis Chronic Problems (Last Reviewed 08/10/19 @ 01:40 by Eugene Luevano MD) Diverticulitis (Chronic) Hypertension (Chronic) High cholesterol (Chronic) Hypothyroid (Chronic) Hospital Course and Treatment Imaging Results: CT Brain: IMPRESSION: 1. Chronic involuti (more content not included)... Reason for Referral Specialty Diagnoses / Procedures Referred By Elenita t Referred To Contact Raine Fairchild APRN.SPEEDER FRAME TENDER [address] [place] [address] Referral ID Status Reason Start Date Expiration Date Visits Re quested Visits Authorized [id number] Closed 1 1 Referral ID Status Reason Start Date Expiration Date Visits Re quested Visits Authorized [id number] Closed 1 1 Referral ID Status Reason Start Date Expiration Date Visits Re quested Visits Authorized [id number] Closed 1 1 Specialty Diagnoses / Procedures Referred By Contac t Referred To Contact Raine Noriega APRN.SPEEDER FRAME TENDER [address] [place] [address] Referral ID Status Reason Start Date Expiration Date Visits Re quested Visits Authorized [id number] Closed 1 1 Additional Source Comments INFORMATION SOURCE (unrecogn ized section and content) DATE CREATED AUTHOR 10/05/2019 [facility] DATE CREATED AUTHOR AUTHOR'S ORGANIZ ATION 10/29/2023 [facility] DATE CREATED AUTHOR AUTHOR'S ORGANIZ ATION 02/28/2025 [facility] Source Comments (unrecognize d section and content) In the event this informatio n is protected by the Federal Confidentiality of Alcohol and Drug Abuse Patient Records regulations: The Federal rules restrict any use of the information to criminally investigate or prosecute any alcohol or drug abuse patient.[facility] the event this information is protected by the Federal Confidentiality of Alcohol and Drug Abuse Patient Records regulations: The Federal rules restrict any use of the information to criminally investigate or prosecute any alcohol or drug abuse patient.[facility] System[facility] the event this information is protected by the Federal Confidentiality of Alcohol and Drug Abuse Patient Records regulations: The Federal rules restrict any use of the information to criminally investigate or prosecute any alcohol or drug abuse patient.[facility] SystemIn the event this information is protected by the Federal Confidentiality of Alcohol and Drug Abuse Patient Records regulations: The Federal rules restrict any use of the information to criminally investigate or prosecute any alcohol or drug abuse patient.[facility] System[facility] the event this information is protected by the Federal Confidentiality of Alcohol and Drug Abuse Patient Records regulations: The Federal rules restrict any use of the information to criminally investigate or prosecute any alcohol or drug abuse patient.[facility] System[facility] the event this information is protected by the Federal Confidentiality of Alcohol and Drug Abuse Patient Records regulations: The Federal rules restrict any use of the information to criminally investigate or prosecute any alcohol or drug abuse patient.[facility] System[facility] the event this information is protected by the Federal Confidentiality of Alcohol and Drug Abuse Patient Records regulations: The Federal rules restrict any use of the information to criminally investigate or prosecute any alcohol or drug abuse patient.[facility] System[facility] the event this information is protected by the Federal Confidentiality of Alcohol and Drug Abuse Patient Records regulations: The Federal rules restrict any use of the information to criminally investigate or prosecute any alcohol or drug abuse patient.[facility] System[facility] the event this information is protected by the Federal Confidentiality of Alcohol and Drug Abuse Patient Records regulations: The Federal rules restrict any use of the information to criminally investigate or prosecute any alcohol or drug abuse patient.[facility] System[facility] the event this information is protected by the Federal Confidentiality of Alcohol and Drug Abuse Patient Records regulations: The Federal rules restrict any use of the information to criminally investigate or prosecute any alcohol or drug abuse patient.[facility] System[facility] the event this information is protected by the Federal Confidentiality of Alcohol and Drug Abuse Patient Records regulations: The Federal rules restrict any use of the information to criminally investigate or prosecute any alcohol or drug abuse patient.[facility] System[facility] the event this information is protected by the Federal Confidentiality of Alcohol and Drug Abuse Patient Records regulations: The Federal rules restrict any use of the information to criminally investigate or prosecute any alcohol or drug abuse patient.[facility] System[facility] the event this information is protected by the Federal Confidentiality of Alcohol and Drug Abuse Patient Records regulations: The Federal rules restrict any use of the information to criminally investigate or prosecute any alcohol or drug abuse patient.[facility] System[facility] the event this information is protected by the Federal Confidentiality of Alcohol and Drug Abuse Patient Records regulations: The Federal rules restrict any use of the information to criminally investigate or prosecute any alcohol or drug abuse patient.[facility] System[facility] the event this information is protected by the Federal Confidentiality of Alcohol and Drug Abuse Patient Records regulations: The Federal rules restrict any use of the information to criminally investigate or prosecute any alcohol or drug abuse patient.[facility] SystemIn the event this information is protected by the Federal Confidentiality of Alcohol and Drug Abuse Patient Records regulations: The Federal rules restrict any use of the information to criminally investigate or prosecute any alcohol or drug abuse patient.[facility] System[facility] the event this information is protected by the Federal Confidentiality of Alcohol and Drug Abuse Patient Records regulations: The Federal rules restrict any use of the information to criminally investigate or prosecute any alcohol or drug abuse patient.[facility] System[facility] the event this information is protected by the Federal Confidentiality of Alcohol and Drug Abuse Patient Records regulations: The Federal rules restrict any use of the information to criminally investigate or prosecute any alcohol or drug abuse patient.[facility] SystemIn the event this information is protected by the Federal Confidentiality of Alcohol and Drug Abuse Patient Records regulations: The Federal rules restrict any use of the information to criminally investigate or prosecute any alcohol or drug abuse patient.[facility] SystemIn the event this information is protected by the Federal Confidentiality of Alcohol and Drug Abuse Patient Records regulations: The Federal rules restrict any use of the information to criminally investigate or prosecute any alcohol or drug abuse patient.[facility] SystemIn the event this information is protected by the Federal Confidentiality of Alcohol and Drug Abuse Patient Records regulations: The Federal rules restrict any use of the information to criminally investigate or prosecute any alcohol or drug abuse patient.[facility] SystemIn the event this information is protected by the Federal Confidentiality of Alcohol and Drug Abuse Patient Records regulations: The Federal rules restrict any use of the information to criminally investigate or prosecute any alcohol or drug abuse patient.[facility] SystemIn the event this information is protected by the Federal Confidentiality of Alcohol and Drug Abuse Patient Records regulations: The Federal rules restrict any use of the information to criminally investigate or prosecute any alcohol or drug abuse patient.[facility] SystemIn the event this information is protected by the Federal Confidentiality of Alcohol and Drug Abuse Patient Records regulations: The Federal rules restrict any use of the information to criminally investigate or prosecute any alcohol or drug abuse patient.[facility] SystemIn the event this information is protected by the Federal Confidentiality of Alcohol and Drug Abuse Patient Records regulations: The Federal rules restrict any use of the information to criminally investigate or prosecute any alcohol or drug abuse patient.[facility] SystemIn the event this information is protected by the Federal Confidentiality of Alcohol and Drug Abuse Patient Records regulations: The Federal rules restrict any use of the information to criminally investigate or prosecute any alcohol or drug abuse patient.[facility] SystemIn the event this information is protected by the Federal Confidentiality of Alcohol and Drug Abuse Patient Records regulations: The Federal rules restrict any use of the information to criminally investigate or prosecute any alcohol or drug abuse patient.[facility] SystemIn the event this information is protected by the Federal Confidentiality of Alcohol and Drug Abuse Patient Records regulations: The Federal rules restrict any use of the information to criminally investigate or prosecute any alcohol or drug abuse patient.[facility] SystemIn the event this information is protected by the Federal Confidentiality of Alcohol and Drug Abuse Patient Records regulations: The Federal rules restrict any use of the information to criminally investigate or prosecute any alcohol or drug abuse patient.[facility] SystemIn the event this information is protected by the Federal Confidentiality of Alcohol and Drug Abuse Patient Records regulations: The Federal rules restrict any use of the information to criminally investigate or prosecute any alcohol or drug abuse patient.[facility] SystemIn the event this information is protected by the Federal Confidentiality of Alcohol and Drug Abuse Patient Records regulations: The Federal rules restrict any use of the information to criminally investigate or prosecute any alcohol or drug abuse patient.[facility] SystemIn the event this information is protected by the Federal Confidentiality of Alcohol and Drug Abuse Patient Records regulations: The Federal rules restrict any use of the information to criminally investigate or prosecute any alcohol or drug abuse patient.[facility] SystemIn the event this information is protected by the Federal Confidentiality of Alcohol and Drug Abuse Patient Records regulations: The Federal rules restrict any use of the information to criminally investigate or prosecute any alcohol or drug abuse patient.[facility] SystemIn the event this information is protected by the Federal Confidentiality of Alcohol and Drug Abuse Patient Records regulations: The Federal rules restrict any use of the information to criminally investigate or prosecute any alcohol or drug abuse patient.[facility] SystemIn the event this information is protected by the Federal Confidentiality of Alcohol and Drug Abuse Patient Records regulations: The Federal rules restrict any use of the information to criminally investigate or prosecute any alcohol or drug abuse patient.[facility] Care Teams (unrecognized sec tion and content) Transfer Car Operator Drier Relationship Specialty Start Date End Date Fortunato Mcdermott MD [address] [place] [address] PCP - General 10/08/04 Transfer Car Operator Drier Relationship Specialty Start Date End Date Fortunato Mcdermott MD [address] [place] [address] PCP - General 10/08/04 Transfer Car Operator Drier Relationship Specialty Start Date End Date Fortunato Mcdermott MD [address] [place] [address] PCP - General 10/08/04 Transfer Car Operator Drier Relationship Specialty Start Date End Date Fortunato Mcdermott MD [address] [facility] [address] PCP - General 10/08/04 Transfer Car Operator Drier Relationship Specialty Start Date End Date Fortunato Mcdermott MD [address] [facility], [place] [address] PCP - General 10/08/04 Transfer Car Operator Drier Relationship Specialty Start Date End Date Fortunato Mcdermott MD [address] [facility] [address] PCP - General 10/08/04 Transfer Car Operator Drier Relationship Specialty Start Date End Date Fortunato Mcdermott MD [address] [facility] [address] PCP - General 10/08/04 Transfer Car Operator Drier Relationship Specialty Start Date End Date Fortunato Mcdermott MD [address] [facility] [address] PCP - General 10/08/04 Transfer Car Operator Drier Relationship Specialty Start Date End Date Fortunato Mcdermott MD [address] [facility] [address] PCP - General 10/08/04 Transfer Car Operator Drier Relationship Specialty Start Date End Date Fortunato Mcdermott MD [address] [facility] [address] PCP - General 10/08/04 Transfer Car Operator Drier Relationship Specialty Start Date End Date Fortunato Mcdermott MD [address] [facility] [address] PCP - General 10/08/04 Transfer Car Operator Drier Relationship Specialty Start Date End Date Fortunato Mcdermott MD [address] [facility] [address] PCP - General 10/08/04 Transfer Car Operator Drier Relationship Specialty Start Date End Date Fortunato Mcdermott MD [address] [place] [address] PCP - General 10/08/04 Transfer Car Operator Drier Relationship Specialty Start Date End Date Fortunato Mcdermott MD [address] [place] [address] PCP - General 10/08/04 Transfer Car Operator Drier Relationship Specialty Start Date End Date Fortunato Mcdermott MD [address] [place] [address] PCP - General 10/08/04 Transfer Car Operator Drier Relationship Specialty Start Date End Date Fortunato Mcdermott MD [address] [place] [address] PCP - General 10/08/04 Transfer Car Operator Drier Relationship Specialty Start Date End Date Fortunato Mcdermott MD [address] [place] [address] PCP - General 10/08/04 Transfer Car Operator Drier Relationship Specialty Start Date End Date Fortunato Mcdermott MD [address] [place] [address] PCP - General 10/08/04 Transfer Car Operator Drier Relationship Specialty Start Date End Date Fortunato Mcdermott MD [address] [place] [address] PCP - General 10/08/04 Transfer Car Operator Drier Relationship Specialty Start Date End Date Fortunato Mcdermott MD [address] [place] [address] PCP - General 10/08/04 Transfer Car Operator Drier Relationship Specialty Start Date End Date Fortunato Mcdermott MD [address] [place] [address] PCP - General 10/08/04 Transfer Car Operator Drier Relationship Specialty Start Date End Date Fortunato Mcdermott MD [address] [place] [address] PCP - General 10/08/04 Transfer Car Operator Drier Relationship Specialty Start Date End Date Fortunato Mcdermott MD [address] [place] [address] PCP - General 10/08/04 Transfer Car Operator Drier Relationship Specialty Start Date End Date Fortunato Mcdermott MD [address] [place] [address] PCP - General 10/08/04 Raine Noriega, MECHANICAL MAINTENANCE.SPEEDER FRAME TENDER [address] [place] [address] Mechanical Fitter Internal Medicine 06/26/24 Transfer Car Operator Drier Relationship Specialty Start Date End Date Fortunato Mcdermott MD [address] [place] [address] PCP - General 10/08/04 Raine Noriega, MECHANICAL MAINTENANCE.SPEEDER FRAME TENDER [address] [place] [address] Mechanical Fitter Internal Medicine 06/26/24 Transfer Car Operator Drier Relationship Specialty Start Date End Date Fortunato Mcdermott MD [address] [place] [address] PCP - General 10/08/04 Raine Noriega, MECHANICAL MAINTENANCE.SPEEDER FRAME TENDER [address] [place], [place] [address] Mechanical Fitter Internal Medicine 06/26/24 Transfer Car Operator Drier Relationship Specialty Start Date End Date Fortunato Mcdermott MD [address] [place], [place] [address] PCP - General 10/08/04 Raine Noriega, MECHANICAL MAINTENANCE.SPEEDER FRAME TENDER [address] [place], [place] [address] Mechanical Fitter Internal Medicine 06/26/24 Transfer Car Operator Drier Relationship Specialty Start Date End Date Fortunato Mcdermott MD [address] [place], [place] [address] PCP - General 10/08/04 Raine Noriega, MECHANICAL MAINTENANCE.SPEEDER FRAME TENDER [address] [place], [place] [id number] Mechanical Fitter Internal Medicine 06/26/24 Reason for Visit (unrecogniz ed section and content) Reason Comments F/U 6 months Reason Onset Date Comments Refill Request 11/06/2021 Reason Onset Date Comments Refill Request 12/22/2021 Reason Onset Date Comments Refill Request 03/11/2022 Reason Comments question on lab orders Reason Onset Date Comments Refill Request 06/02/2022 Reason Comments 9 month follow-up Reason Onset Date Comments Refill Request 08/25/2022 Reason Comments face swelling Reason Comments Edema RIDE side of face x 2 days Reason Onset Date Comments Refill Request 01/13/2023 Reason Comments Results Reason Onset Date Comments Refill Request 2023 Reason Onset Date Comments Refill Request 04/09/2023 Reason Onset Date Comments Refill Request 06/25/2023 Reason Onset Date Comments Refill Request 09/07/2023 Reason Comments Syncope Reason Comments Same Day Appointment syncopal episode ye sterday, happened a year ago as well Reason Onset Date Comments Refill Request 12/20/2023 Reason Onset Date Comments Refill Request 02/09/2024 Reason Comments F/U 6 months Reason Onset Date Comments Refill Request 06/08/2024 Reason Onset Date Comments Refill Request 07/07/2024 Reason Onset Date Comments Refill Request 08/31/2024 Reason Onset Date Comments Refill Request 01/29/2025 Reason Comments Physical FOR RECORDS PERTAINING TO PATIENTS WHO ARE OR HAVE BEEN ENROLLED IN A CHEMICAL DEPENDENCY/SUBSTANCEABUSE PROGRAM, SOME INFORMATION MAY BE OMITTED. This clinical summary was aggregated from multiple sources. Caution should be exercised in using it in the provision of clinical care. This summary normalizes information from multiple sources, and as a consequence, information in this document may materially change the coding, format and clinical context of patient data. In addition, data may be omitted in some cases. CLINICAL DECISIONS SHOULD BE BASED ON THE PRIMARY CLINICAL RECORDS. [employer] provides no warranty or guarantee of the accuracy or completeness of information in this document.
--- NOTE | 2025-04-07 15:08 | RAD_ITS ---
PROCEDURE: HIP, UNI W/ PELVIS 2-3 VIEWS 04/07/2025 REASON FOR EXAM: INJURY/PAIN TECHNIQUE: Procedure Code: RAD Modality: DX Procedure: HIP, UNI W/ PELVIS 2-3 VIEWS Laterality: Right COMPARISON: None. FINDINGS: BONES: No acute fracture or focal osseous lesion. Degenerative changes in the imaged lumbar spine. JOINTS: No dislocation. The joint spaces are preserved. SOFT TISSUES: The soft tissues are unremarkable. RAD/HIP, UNI W/ Pelvis 2-3 Views IMPRESSION: No acute findings. Reading Location: [id number]
--- NOTE | 2025-04-07 15:08 | RAD_ITS ---
PROCEDURE: KNEE 4 OR MORE VIEWS 04/07/2025 REASON FOR EXAM: INJURY/PAIN TECHNIQUE: Procedure Code: RADKN Modality: DX Procedure: KNEE 4 OR MORE VIEWS Laterality: Right COMPARISON: None. FINDINGS: BONES: No acute fracture or focal osseous lesion. Small superior patellar enthesophyte. JOINTS: No evidence of joint effusion. No dislocation. The joint spaces are preserved. SOFT TISSUES: The soft tissues are unremarkable. RAD/Knee 4 or More Views IMPRESSION: No acute findings. Reading Location: [id number]
--- NOTE | 2025-04-07 15:16 | ED.VIS.LOWEX ---
HPI History of Present Illness Chief Complaint: Lower Extremity Injury Informant: patient Narrative Narrative: Patient is a 75-year-old female with history of hypertension as well as hypothyroidism and hyperlipidemia presenting with ongoing right lower extremity pain. She states has been progressing over the past 1 to 2 months but is becoming more painful. She is getting point it harder to sleep at night because of the pain. States the pain is worse at night and with movements. She states she gets pain in her right hip and also in her right knee. The pain in her knee is more pronounced in her bilateral anterior knee. Denies any swelling. She was taking Tylenol that helped at first and has not been helping recently. Is intermittently taking some aspirin with no significant help. Denies any associated numbness or tingling. Denies any trauma or initial incident/injury that caused the pain. She has appointment to be seen by her primary care doctor this coming Wednesday for this however she states that she really could not take the symptoms anymore and came in for further evaluation. No associate fever or chills. No history of DVT or PE. No other complaints or concerns at this time. [facility] Medical History HTN (hypertension) Home Medications ?Medication ?Instructions ?Recorded ?Last Taken ?Type albuterol sulfate 90 mcg/actuation 2 puff inhalation Q4H PRN PRN Sob 08/09/19 08/09/19 History aerosol inhaler &/Or Wheezing levothyroxine 88 mcg tablet 88 mcg PO DAILY thyroid 08/09/19 08/09/19 History simvastatin 20 mg tablet 20 mg PO QHS cholesterol 08/09/19 08/08/19 History acetaminophen 325 mg tablet 650 mg (2 x 325 mg) PO Q6H PRN PRN 08/13/19 Unknown Rx Pain Score 1-10/10 amlodipine 10 mg tablet 10 mg PO DAILY 04/07/25 Unknown History mometasone-formoterol HFA 100 2 puff inhalation BID 04/07/25 Unknown History mcg-5 mcg/actuation aerosol inhaler (Dulera) prednisone 20 mg tablet 40 mg (2 x 20 mg) PO DAILY #8 tabs 04/07/25 Unknown Rx Allergy/AdvReac Type Severity Reaction Status Date / Time Penicillins AdvReac Unknown Verified 09/20/25 14:24 Social History Smoking Status: Former smoker ROS ROS ED Constitutional Constitutional ED: Denies chills or fever(s) Genitourinary Genitourinary ED: Denies dysuria or urinary frequency Musculoskeletal Musculoskeletal: Reports arthralgias and other Details: Right hip and right knee pain ; Denies back pain Integumentary Denies Abrasions or rash Neurologic Neurologic: Denies paresthesias or weakness Psychiatric Psychiatric: Denies anxiety Hematologic/Lymphatic Hematologic/Lymphatic: Denies easy bleeding or easy bruising EXAM Physical Exam Const Vital Signs: 04/07/25 14:24 Temperature 97.4 F L Temperature Source Temporal Pulse Rate 72 Respiratory Rate 18 Blood Pressure 141/67 H Blood Pressure Mean 91 Pulse Ox 98 Oxygen Delivery Method Room Air Positive well nourished and well developed General Appearance ED: well developed HEENT Negative for normocephalic or atraumatic Chest Wall inspection of chest normal Resp normal respiratory effort Cardio regular rate and regular rhythm Cardio Narrative: 2+ PT pulses present Extremity Extremity Narrative: No obvious deformity specific to the right lower extremity. No reproducible pain of the right hip. Mild discomfort with range of motion of the hip but more pronounced at the knee. No deformity of the knee. No significant ligamentous laxity with valgus or varus stress. No effusion appreciated. No short arc range of motion pain. No pedal edema present. Normal extensor mechanism of the knee. No palpable cords or overlying skin changes present. Negative straight leg test bilaterally. Neuro oriented x3, moves all extremities and no sensory deficits noted Neuro Narrative: 1+ bilateral patellar reflexes. 5/5 strength with dorsal plantarflexion, hip flexion and flexion extension at the knees Sensorium / Orientation: alert Motor Exam: strength 5/5 throughout Psych mental status grossly normal Skin no wounds Lesions: no lesions Rashes: no rashes MDM MDM MDM Narrative Medical decision making narrative: Patient evaluated for worsening/ongoing right hip and knee pain. Differential includes was not limited to osteoarthritis, bursitis, degenerative disc disease, lumbar radiculopathy. Lower suspicion for DVT given its been going on for 2 months she does not have any swelling or other risk factors. She has good distal pulses low sufficient for any acute vascular abnormality. No overlying skin changes concerning for infection. X-ray of the hip and knee is obtained which do not show any acute findings but do show some arthritic/degenerative changes to the lumbar spine as well as mildly to the knee. This is reviewed by myself as well as radiology. Bedside ultrasound is performed looking at the venous flow to the right lower extremity by myself. She has compressible proximal femoral, distal femoral as well as posterior tibial veins. I have very low suspicion for DVT and I do not think she requires return for formal venous duplex. I suspect this is pain from either degenerative disc disease of her back or arthritis in her knee. Is given a dose of prednisone and will start her on a short course of this outpatient. She has follow-up appointment on Wednesday with her primary care doctor. Given return precautions. Discharged home in stable condition. Is able to ambulate in the emergency room. At time of discharge and discussion she notes that she has been living at the [facility] and has been sitting a lot more which has been aggravating her symptoms. This is more suggestive of osteoarthritis of the back causing her symptoms. Radiography Diagnostic Testing: Clinical Impression(s) from Imaging Studies Hip/Pelvis X-Ray 04/07/25 15:08 IMPRESSION: No acute findings. Reading Location: [facility] Knee X-Ray 04/07/25 15:08 IMPRESSION: No acute findings. Reading Location: [facility] Discharge Plan Triage Chief Complaint: Lower Extremity Injury ED Provider: Maite Rivera Dx/Rx/DC Orders Clinical Impression: Knee pain, right, Hip pain, right, Arthritis of lumbar spine Instructions: ED Arthralgia, ED Osteoarthritis, ED Sciatica Prescriptions: New prednisone 20 mg tablet 40 mg PO DAILY Qty: 8 0RF No Action levothyroxine 88 MCG tablet 88 mcg PO DAILY simvastatin 20 MG tablet 20 mg PO QHS albuterol sulfate 18 GM HFA aerosol inhaler 2 puff inhalation Q4H PRN PRN (Reason: Sob &/Or Wheezing) acetaminophen 325 MG tablet 650 mg PO Q6H PRN PRN (Reason: Pain Score 1-10/10) 0RF amlodipine 10 mg tablet 10 mg PO DAILY Dulera 100-5 mcg/actuation HFA aerosol inhaler 2 puff inhalation BID Primary Care Provider: Fortunato Stephenson Referrals: Fortunato Stephenson MD [Primary Care Provider, Internal Medicine] Activity Restrictions/Additional Instructions: Follow-up on Wednesday as scheduled. Your x-ray showed some mild arthritis in your lower back as well as your knee which could be contributing to your pain. Continue take Tylenol as needed for pain. Apply heat to your lower back. Return if you develop any acute numbness, tingling or worsening symptoms Print Language: Macedonian Disposition Disposition: Home, Self Care
== END 2025-04-07 16:44 | disposition home or self-care (01) ==
PROVIDERS: Emergency Provider Emergency Medicine; PCP Internal Medicine; Visit Provider Emergency Medicine
DX: M25.561 Pain in right knee (principal); E78.5 Hyperlipidemia, unspecified; Z79.82 Long term (current) use of aspirin; I10 Essential (primary) hypertension; Z87.891 Personal history of nicotine dependence; E03.9 Hypothyroidism, unspecified; M25.551 Pain in right hip; M47.816 Spondylosis without myelopathy or radiculopathy, lumbar region
CPT/HCPCS: 73502; 73564; 99285